=== PATIENT | male | born 1950 | race Caucasian/White ===

== ENCOUNTER → 2017-12-04 09:15 | Outpatient (CLI) | payer MEDICARE, SELFPAY ==
[2017-12-04 09:26] LABS: Bacteria 0 SEEN /hpf (None Seen); Mucous, Urine 0 SEEN /hpf (<or=2+); Red Blood Cells-Urine 0 SEEN /hpf (0-5); Squamous Epithelial Cells - UA 0 SEEN /hpf (0-5); White Blood Cells 0 SEEN /hpf (0-5)
[2017-12-04 10:05] LABS: Absolute Lymphocyte Count 1.57 X10^3/ul (0.83-4.51); Absolute Neutrophil Count 6.9 X10^3/uL (2.0-7.7); Basophil# 0.02 X10^3/uL; Basophil% 0.2 % (0-1); Eosinophil# 0.14 X10^3/uL; Eosinophils% 1.5 % (0-5); Hematocrit 41.7 % (40-54); Hemoglobin 13.3 g/dl (13.0-16.5); Lymphocyte # 1.57 X10^3/ul (4.0); Mean Corp Hgb Conc 31.9 g/gl (32-36); Mean Corpuscular Volume 84.8 fL (80-94); Mean Platelet Vol. 10.2 fl (6.2-12.0); Monocyte# 0.61 X10^3/uL; Monocyte% 6.6 % (0-10); Neutrophil # 6.89 X10^3/uL (2.7-7.7); Neutrophil % 74.6 % (47-70); Platelet Count 412 K/mm3 (150-450); RBC Distribution Width CV 14.9 % (11.6-14.6); RBC Distribution Width SD 46.4 fl (35.1-43.9); Red Blood Count 4.92 M/mm3 (4.6-6.2); White Blood Count 9.2 K/mm3 (4.4-11.0)
[2017-12-04 10:13] LABS: POSITIVE COUNT NO; POSITIVE DIFFERENTIAL NO; POSITIVE MORPHOLOGY NO
[2017-12-04 10:37] LABS: Anion Gap 12 (5-15); BUN 15 mg/dL (7-18); BUN/Creat Ratio 9.2 RATIO (10-20); Calcium,Total 9.1 mg/dL (8.5-10.1); Chloride 103 mmol/L (98-107); Creatinine, Serum 1.63 mg/dL (0.70-1.30); EST Glomerular Filtration Rate 45 mL/min (>60); Est Glom Filt Rate - Afr Amer 55 mL/min (>60); Glucose 160 mg/dL (74-106); Potassium 4.4 mmol/L (3.5-5.1); Sodium Level 140 mmol/L (136-145)
[2017-12-04 10:38] LABS: PTHIN 91.1 pg/mL (18.4-80.1)
[2017-12-04 12:23] LABS: Color, Urine Yellow (Yellow); Glucose, Dipstick Normal (Normal); Ketone-Dipstick Negative (Negative); Leukocyte Esterase-Dipstick Negative /ul (Negative); Nitrite-Dipstick Negative (Negative); Occult Blood-Urine Negative /ul (Negative); Protein-Dipstick 500 mg/dl (Negative); Urine Bilirubin Dipstick Negative (Negative); Urine Clarity Clear (Clear); Urine Urobilinogen Normal (Normal)
[2017-12-04 12:30] LABS: Hyaline Cast 0-5 SEEN /lpf (0-5)
[2017-12-04 12:37] LABS: Protein, Urine (Random) 1158.5 mg/dL (<11.9); Protein:Creat Ratio 6331 mg/g CRE (0-200)
== END ==
PROVIDERS: Family Provider Family Medicine; PCP Family Medicine; Visit Provider Family Medicine
DX: N18.3 Chronic kidney disease, stage 3 (moderate) (principal)
CPT/HCPCS: 36415; 80048; 81001; 82306; 82570; 83970; 84156; 85025

== ENCOUNTER → 2017-12-17 07:53 | Outpatient (CLI) | payer MEDICARE, SELFPAY ==
--- NOTE | 2017-12-17 07:57 | RDU_ITS ---
Reason For Study: HTN Right Renal Artery Left Renal Artery Right renal artery ostium 113/25.5 Left renal artery ostium 112/21 RSV/EDV. PSV/EDV. Right renal artery proximal Left renal artery proximal PSV/EDV 114/19.2 PSV/EDV. 98.5/16.4 . Right renal artery mid 93.9/17.3 Left renal artery mid 100/21 PSV/EDV. PSV/EDV . Right renal artery distal 78.4/20.9 Left renal artery distal 106/24.6 PSV/EDV. PSV/EDV. Right RAR 1.84. Left RAR 1.81. Right Renal Parenchyma Left Renal Parenchyma Upper Pole Medula 26.4/7.3 PSV/EDV. Left upper pole medulla 32.8/9.12 Right upper pole medulla EDR 0.28 . PSV/EDV . Right upper pole medulla R.I. Left upper pole medulla EDR 0.28 . 0.72 . Left upper pole medulla R.I. 0.72 . Upper [place] Cortx 23.7/4.44 PSV/EDV. UP Cortex 11.8/3.67 PSV/EDV. Right upper pole cortex EDR 0.19 . Left upper pole cortex EDR 0.31 . Right upper pole cortex R.I. 0.81 . Left upper pole cortex R.I. 0.69 . Right lower Pole medulla 39.4/7.94 Left lower Pole medulla 20.3/5.50 PSV/EDV . PSV/EDV . Right lower pole medulla EDR 0.20 . Left lower pole medulla EDR 0.27 . Right lower pole medulla R.I. 0.8 . Left lower pole medulla R.I. 0.73 . Lower Pole Cortex 20.2/5 PSV/EDV. Lower Pole Cortx 15.9/4.43 PSV/EDV. Right lower pole cortex EDR 0.25 . Left lower pole cortex EDR 0.28 . Right lower pole cortex R.I. 0.75 . Left lower pole cortex R.I. 0.72 . Right Renal Hilar Left Renal Hilar Right Hilar avg 37.8/11.4 PSV/EDV. LT Hilar avg 56.5/14.1 PSV/EDV . Right hilar acceleration time 59 Left hilar acceleration time 59 m/sec. m/sec. Right Renal Dimensions Left Renal Dimensions Right kidney size 13.2 cm . Left kidney size 13.9 cm . Right cortical dimension 1.79 cm . Left cortical dimension 1.91 cm . Aorta Proximal abdominal aorta 1.48 x 1.48 cm . Proximal abdominal aorta peak systolic velocity is 62 cm/sec . Distal aorta not visualized due to body habitus and bowel gas. Interpretation Summary Dimensions of the intra-abdominal aorta appear normal, without evidence of aneurysmal dilatation. Renal artery velocities are bilaterally normal. Acceleration times are normal bilaterally. Renal- aortic ratios are also bilaterally normal. There is no evidence of hemodynamically significant renal artery stenosis on either side. Renovascular resistance appears to be bilaterally elevated . The right cortical dimension is increased. The left cortical dimension is increased. Kidneys appear normal in size bilaterally. Ordering Physician: David Mcgowan Referring Physician: David Mcgowan Performed By: Elvi Nichols RVT and Student
--- NOTE | 2017-12-17 09:05 | US_ITS ---
STUDY: RENAL ULTRASOUND - COMPLETE REASON FOR EXAM: Male, 67 years old. Chronic kidney disease stage III TECHNIQUE: Ultrasound evaluation of the kidneys was performed with real-time and static sepulveda-scale imaging. COMPARISON: None. FINDINGS: RIGHT KIDNEY: Normal location of the right kidney, which is normal in size. The right kidney measures 13.9 x 6.4 x 6.1 cm. There is a normal cortex of the right kidney. The renal cortex measures 2.0 cm. There is no right renal mass or cyst. There are no right renal calculi. There is no right hydronephrosis. DISTAL RIGHT URETER: There is non-visualization of the distal right ureter. There is no demonstrated right ureterovesical junction calculus. There is a visualized right ureteral jet. LEFT KIDNEY: Normal location of the left kidney, which is normal in size. The left kidney measures 13.9 x 5.5 x 5.1 cm. There is a normal cortex of the left kidney. The renal cortex measures 1.8 cm. There is no left renal mass or cyst. There are no left renal calculi. There is no left hydronephrosis. DISTAL LEFT URETER: There is non-visualization of the distal left ureter. There is no demonstrated left ureterovesical junction calculus. There is a visualized left ureteral jet. BLADDER: The distended urinary bladder has a volume of 367 ml. There is a normal wall thickness of the distended urinary bladder. There is no demonstrated mass within the urinary bladder. There are no demonstrated bladder calculi. US/Kidney and Bladder IMPRESSION: Normal ultrasound of the kidneys and urinary bladder. Electronically Signed: Flo Lr MD at 17:05 EDT , Service support ,
== END ==
PROVIDERS: Family Provider Family Medicine; PCP Family Medicine; Visit Provider Family Medicine
DX: I12.9 Hypertensive chronic kidney disease with stage 1 through stage 4 chronic kidney disease, or unspecified chronic kidney disease (principal); N18.3 Chronic kidney disease, stage 3 (moderate)
CPT/HCPCS: 76770; 93975

== ENCOUNTER → 2018-01-01 08:36 | Outpatient (CLI) | payer MEDICARE, SELFPAY ==
--- NOTE | 2018-01-01 08:44 | RAD_ITS ---
STUDY: X-RAY - LUMBAR SPINE REASON FOR EXAM: Male, 67 years old. Facet arthropathies. TECHNIQUE: 5 view(s) of the lumbar spine were obtained. COMPARISON: None FINDINGS: Normal lumbar lordosis. There is a 5 degree levoscoliosis of the lumbar spine centered at L3-4. There is a normal alignment of the vertebrae. There is borderline to mild anterior wedging of the T12 vertebra and bridging anterolateral osteophytes of the lower thoracic vertebral endplates. There is multilevel endplate spondylosis of the lumbar vertebrae as well, most prominent at L3-4. Posterior endplate spurring is most prominent at L5-S1. There is multi-level degenerative disc disease with moderate disc space narrowing at L3-4 and L5-S1. There is no demonstrated fracture. There are multilevel degenerative arthroses of the facet articulations. Mild degenerative arthrosis of the bilateral sacroiliac joints. There is atherosclerotic calcification of the abdominal aorta without a demonstrated aneurysm. RAD/L/S Spine Min 4 Views IMPRESSION: 1. Degenerative changes of the spine, as detailed above. 2. Aortobiiliac atherosclerotic calcific plaquing. There is no demonstrated aneurysm, but this still portends significant risk for future cardiovascular event, Abdominal Aortic Calcific Deposits Are an Important Predictor of Vascular Morbidity and Mortality; Max Morgan et al. Circulation, Jun 2000;[id number]. Electronically Signed: Oliver Coulter MD at 16:55 EDT , Service support ,
--- NOTE | 2018-01-01 08:44 | RAD_ITS ---
STUDY: X-RAY - PELVIS AND BILATERAL HIPS REASON FOR EXAM: Male, 67 years old. Bilateral hip pain. TECHNIQUE: Radiological exam, hip, bilateral, with pelvis when performed; minimum of 5 views COMPARISON: None. FINDINGS: There is a non-specific bowel gas pattern. There are atherosclerotic vascular calcifications. There are degenerative changes of the visualized lower lumbar spine. There is mild narrowing with early cortical sclerosis of the bilateral sacroiliac joints, consistent with degenerative osteoarthritic changes. Mild degenerative enthesophytes at the lateral cortical margins of the bilateral iliac wings. Normal visualized sacrum. Normal bilateral superior and inferior pubic rami. Normal pubic symphysis. Normal bilateral ischial tuberosities. No demonstrate osseous destructive lesion or fracture. Normal visualized right femoral head. There is early osteoarthritic spur formation of the right acetabular rim. Normal right hip joint. Normal visualized left femoral head. Degenerative 2 mm calcification at the superolateral margin of the acetabulum. Normal left hip joint. RAD/Hips B/L min 2 views w/ Pelvis IMPRESSION: 1. Degenerative changes of the lower lumbar spine, sacroiliac joints, and hips, as noted. 2. Atherosclerotic vascular calcifications present. Electronically Signed: Oliver Coulter MD at 16:51 EDT , Service support ,
--- NOTE | 2018-01-01 08:53 | RAD_ITS ---
STUDY: X-RAY - SACROILIAC JOINTS REASON FOR EXAM: Male, 67 years old. Hip pain, facet arthropathy. TECHNIQUE: 3 view(s) of the sacroiliac joints were obtained. COMPARISON: None. FINDINGS: There are degenerative changes of the bilateral sacroiliac joints. Normal visualized sacral ala and sacrum. There are multilevel degenerative changes of the visualized lumbar spine. There are mild cortical enthesophytes at the lateral margins of the bilateral iliac wings. Normal visualized sacrum. There are atherosclerotic vascular calcifications. No demonstrate osseous destructive lesion or fracture. RAD/S-I Jts 3 or More Views IMPRESSION: 1. Degenerative changes of the bilateral sacroiliac joints, as described above. 2. Atherosclerotic vascular calcifications. Electronically Signed: Oliver Coulter MD at 17:03 EDT , Service support ,
== END ==
PROVIDERS: Family Provider Family Medicine; PCP Family Medicine; Referring Provider Family Medicine; Visit Provider Family Medicine
DX: M25.551 Pain in right hip (principal); M25.552 Pain in left hip; M46.90 Unspecified inflammatory spondylopathy, site unspecified
CPT/HCPCS: 72110; 72202; 73521

== ENCOUNTER → 2018-04-01 08:25 | Outpatient (CLI) | payer MEDICARE, SELFPAY ==
[2018-04-01 08:31] LABS: Bacteria 0 SEEN /hpf (None Seen); Mucous, Urine 0 SEEN /hpf (<or=2+); Red Blood Cells-Urine 0 SEEN /hpf (0-5); Squamous Epithelial Cells - UA 0 SEEN /hpf (0-5)
[2018-04-01 10:19] LABS: Absolute Lymphocyte Count 2.06 X10^3/ul (0.83-4.51); Absolute Neutrophil Count 6.2 X10^3/uL (2.0-7.7); Basophil# 0.03 X10^3/uL; Basophil% 0.3 % (0-1); Eosinophil# 0.18 X10^3/uL; Hematocrit 39.9 % (40-54); Hemoglobin 12.8 g/dl (13.0-16.5); Lymphocyte # 2.06 X10^3/ul (4.0); Lymphocyte % 22.7 % (19-41); Mean Corp Hgb Conc 32.1 g/gl (32-36); Mean Corpuscular Hgb 28.3 pg (27.0-32.0); Mean Corpuscular Volume 88.3 fL (80-94); Mean Platelet Vol. 10.7 fl (6.2-12.0); Monocyte% 6.6 % (0-10); Neutrophil % 68.2 % (47-70); Platelet Count 491 K/mm3 (150-450); RBC Distribution Width CV 14.7 % (11.6-14.6); RBC Distribution Width SD 47.4 fl (35.1-43.9); Red Blood Count 4.52 M/mm3 (4.6-6.2); White Blood Count 9.1 K/mm3 (4.4-11.0)
[2018-04-01 10:21] LABS: Color, Urine Yellow (Yellow); Glucose, Dipstick 50 mg/dl (Normal); Ketone-Dipstick 5 mg/dl (Negative); Leukocyte Esterase-Dipstick Negative /ul (Negative); Nitrite-Dipstick Negative (Negative); Occult Blood-Urine Negative /ul (Negative); Protein-Dipstick 500 mg/dl (Negative); Urine Bilirubin Dipstick Negative (Negative); Urine Clarity Clear (Clear); Urine Urobilinogen Normal (Normal)
[2018-04-01 10:23] LABS: POSITIVE COUNT NO; POSITIVE DIFFERENTIAL NO; POSITIVE MORPHOLOGY NO
[2018-04-01 10:28] LABS: White Blood Cells 0-5 SEEN /hpf (0-5)
[2018-04-01 10:35] LABS: Protein, Urine (Random) 773.7 mg/dL (<11.9); Protein:Creat Ratio 4447 mg/g CRE (0-200)
[2018-04-01 10:46] LABS: PTHIN 120.6 pg/mL (18.4-80.1)
[2018-04-01 10:48] LABS: ALB/GLOB Ratio 0.8 RATIO (0.9-2.4); AST(SGOT) 30 U/L (15-37); Alanine Aminotransfer ALT/SGPT 33 U/L (16-61); Albumin, Serum 3.3 g/dL (3.2-5.0); Alkaline Phosphatase 29 U/L (45-117); Anion Gap 12 (5-15); BUN 25 mg/dL (7-18); BUN/Creat Ratio 12.1 RATIO (10-20); Calcium,Total 8.9 mg/dL (8.5-10.1); Chloride 104 mmol/L (98-107); Cholesterol 178 mg/dL (200); Creatinine, Serum 2.06 mg/dL (0.70-1.30); EST Glomerular Filtration Rate 35 mL/min (>60); Est Glom Filt Rate - Afr Amer 42 mL/min (>60); Globulin 4.2 g/dL (2.2-4.2); Glucose 156 mg/dL (74-106); High Density Lipoprotein 26 mg/dL; Potassium 4.7 mmol/L (3.5-5.1); Protein, Total 7.5 g/dL (6.4-8.2); Sodium Level 138 mmol/L (136-145); Triglycerides 469 mg/dL
[2018-04-01 10:51] LABS: Vitamin D,25 Hydroxy 20.2 ng/mL (29.95-100.01)
[2018-04-02 15:32] LABS: Hemoglobin A1c 7.6 % (4.2-6.3)
== END ==
PROVIDERS: Family Provider Family Medicine; PCP Family Medicine; Visit Provider Family Medicine
DX: E11.22 Type 2 diabetes mellitus with diabetic chronic kidney disease (principal); I12.9 Hypertensive chronic kidney disease with stage 1 through stage 4 chronic kidney disease, or unspecified chronic kidney disease; N18.3 Chronic kidney disease, stage 3 (moderate); E03.9 Hypothyroidism, unspecified; E55.9 Vitamin D deficiency, unspecified; E21.3 Hyperparathyroidism, unspecified
CPT/HCPCS: 36415; 80053; 80061; 81001; 82306; 82570; 83036; 83970; 84156; 84443; 85025

== ENCOUNTER → 2018-04-15 09:40 | Outpatient (CLI) | payer MEDICARE, SELFPAY ==
--- NOTE | 2018-04-15 09:44 | NM_ITS ---
CLINICAL: 68 year old male with history of clinical hyperparathyroidism. 99m Tc SESTAMIBI DUAL PHASE PARATHYROID SCINTIGRAPHY COMPARISON: None available FINDINGS: Following the intravenous administration of 25.7 mCi of 99m Tc sestamibi, image acquisitions of the anterior neck at approximately 20 minutes and 2.0 hours post radiopharmaceutical provision reveal: 1. Immediate static blood pool acquisitions demonstrate non-visualization of the right and left thyroid colloid. 2. Delayed images depict continued non-visualization of the right and left lobes of the thyroid gland. NM/Parathyroid Scan IMPRESSION: 1. There is no scintigraphic evidence of parathyroid adenoma. Non-visualization of the thyroid colloid is noted as above. Electronically Signed: Joby Burger DO at 22:46 EST Tel , Service support ,
== END ==
PROVIDERS: Family Provider Family Medicine; PCP Family Medicine; Referring Provider Family Medicine; Visit Provider Family Medicine
DX: E21.3 Hyperparathyroidism, unspecified (principal)
CPT/HCPCS: 78070; A9500

== ENCOUNTER → 2018-04-16 06:06 | Outpatient (CLI) | payer MEDICARE, SELFPAY ==
--- NOTE | 2018-04-16 06:39 | MRI_ITS ---
STUDY: MRI LUMBAR SPINE WITHOUT CONTRAST REASON FOR EXAM: Male, 68 years old. Low back pain radiating to the right leg TECHNIQUE: Standardized fat and water weighted pulse sequences were obtained in the sagittal and axial planes. COMPARISON: None FINDINGS: T12-L1: Normal endplates. Normal disc height, hydration and morphology. Normal bilateral facet joints. Normal central canal and bilateral lateral recesses. Normal bilateral intervertebral neural foramina. Normal lumbar lordosis. There is no substantial scoliosis. Normal conus medullaris that terminates at the L1-2 level. L1-2: Right facet joint effusion. Normal disc. L2-3: Normal disc. Bilateral facet hypertrophy. L3-4: Bulging annulus and bilateral facet hypertrophy with moderate right foraminal stenosis. L4-5: Bulging annulus and left facet hypertrophy with mild central canal stenosis, moderate to severe left and moderate right foraminal stenoses. L5-S1: Bulging annulus and bilateral facet hypertrophy with moderate to severe left and moderate right foraminal stenoses. Normal visualized sacral ala. Normal visualized paraspinous soft tissue structures. MRI/Spine Lumbar (Routine) IMPRESSION: Multilevel degenerative disease as described. Moderate to severe foraminal stenoses on the left at L4-5 and L5-S1. Electronically Signed: Howard Sim MD at 22:25 EST Tel , Service support ,
== END ==
PROVIDERS: Family Provider Family Medicine; PCP Family Medicine; Referring Provider Anesthesiology Pain Medicine; Visit Provider Anesthesiology Pain Medicine
DX: M54.9 Dorsalgia, unspecified (principal); M79.606 Pain in leg, unspecified
CPT/HCPCS: 72148

== ENCOUNTER → 2018-05-10 09:43 | Outpatient (CLI) | payer MEDICARE, SELFPAY ==
--- NOTE | 2018-05-10 09:46 | RAD_ITS ---
STUDY: X-RAY - RIGHT HIP REASON FOR EXAM: Male, 68 years old. Chronic low back pain and bilateral hip pain worse on the right. TECHNIQUE: 2 views of the hip. COMPARISON: Comparison is made with prior examination dated January 01, 2018. FINDINGS: Prostate calcification. Vascular calcification. Normal femoral head, neck, intertrochanteric region and visualized proximal femur. There is osteoarthritic spur formation of the acetabular rim. There is mild articular joint space narrowing. Normal visualized superior and inferior pubic rami and ischial tuberosities. RAD/HIP, UNI W/ Pelvis 2-3 Views IMPRESSION: Degenerative changes of the hip. Electronically Signed: Victorino Lu MD at 14:38 EST , Service support ,
[2018-05-10 10:24] LABS: Hematocrit 38.3 % (40-54); Hemoglobin 12.4 g/dl (13.0-16.5); Mean Corp Hgb Conc 32.4 g/gl (32-36); Mean Corpuscular Hgb 28.5 pg (27.0-32.0); Platelet Count 420 K/mm3 (150-450); RBC Distribution Width SD 44.9 fl (35.1-43.9); Red Blood Count 4.35 M/mm3 (4.6-6.2); Scan Indicated on CBC? Y/N NO; White Blood Count 9.4 K/mm3 (4.4-11.0)
[2018-05-10 10:49] LABS: Albumin, Serum 3.4 g/dL (3.2-5.0); BUN 29 mg/dL (7-18); BUN/Creat Ratio 13.8 RATIO (10-20); Chloride 107 mmol/L (98-107); EST Glomerular Filtration Rate 34 mL/min (>60); Est Glom Filt Rate - Afr Amer 41 mL/min (>60); Glucose 139 mg/dL (74-106); Potassium 4.7 mmol/L (3.5-5.1); Sodium Level 138 mmol/L (136-145)
[2018-05-10 10:58] LABS: PTHIN 129.1 pg/mL (18.4-80.1)
[2018-05-10 10:59] LABS: Vitamin D,25 Hydroxy 14.3 ng/mL (29.95-100.01)
[2018-05-10 11:27] LABS: Protein, Urine (Random) 553.1 mg/dL (<11.9); Protein:Creat Ratio 3763 mg/g CRE (0-200)
== END ==
PROVIDERS: Family Provider Family Medicine; PCP Family Medicine; Referring Provider Internal Medicine Nephrology; Visit Provider Internal Medicine Nephrology
DX: M25.551 Pain in right hip (principal); N18.3 Chronic kidney disease, stage 3 (moderate); R80.9 Proteinuria, unspecified
CPT/HCPCS: 36415; 73502; 80069; 82306; 82570; 83970; 84156; 85027

== ENCOUNTER → 2018-08-11 | Outpatient (CLI) | payer MEDICARE, SELFPAY ==
[2018-08-11 10:36] LABS: Anion Gap 8 (5-15); BUN 31 mg/dL (7-18); BUN/Creat Ratio 16.4 RATIO (10-20); Calcium,Total 9.1 mg/dL (8.5-10.1); Chloride 107 mmol/L (98-107); Creatinine, Serum 1.89 mg/dL (0.70-1.30); EST Glomerular Filtration Rate 38 mL/min (>60); Est Glom Filt Rate - Afr Amer 46 mL/min (>60); Glucose 159 mg/dL (74-106); Potassium 5.3 mmol/L (3.5-5.1); Sodium Level 138 mmol/L (136-145)
[2018-08-13 11:57] LABS: Cholesterol 145 mg/dL (200); High Density Lipoprotein 20 mg/dL; Triglycerides 435 mg/dL
[2018-08-13 12:07] LABS: Vitamin D,25 Hydroxy 38.9 ng/mL (29.95-100.01)
== END | disposition home or self-care (01) ==
LOC: MFPLAB 08:33
PROVIDERS: Family Provider Family Medicine; PCP Family Medicine; Referring Provider Family Medicine; Visit Provider Internal Medicine Nephrology
DX: E11.22 Type 2 diabetes mellitus with diabetic chronic kidney disease (principal); I12.9 Hypertensive chronic kidney disease with stage 1 through stage 4 chronic kidney disease, or unspecified chronic kidney disease; N18.3 Chronic kidney disease, stage 3 (moderate); E55.9 Vitamin D deficiency, unspecified; E78.5 Hyperlipidemia, unspecified
CPT/HCPCS: 36415; 80048; 80061; 82043; 82306; 82570

== ENCOUNTER → 2018-11-26 | Outpatient (CLI) | payer MEDICARE, SELFPAY ==
[2018-11-26 10:54] LABS: Hemoglobin A1c 7.7 % (4.2-6.3)
[2018-11-26 10:55] LABS: Vitamin D,25 Hydroxy 36.2 ng/mL (29.95-100.01)
[2018-11-26 11:02] LABS: ALB/GLOB Ratio 0.8 RATIO (0.9-2.4); AST(SGOT) 26 U/L (15-37); Alanine Aminotransfer ALT/SGPT 41 U/L (16-61); Albumin, Serum 3.4 g/dL (3.2-5.0); Alkaline Phosphatase 33 U/L (45-117); Anion Gap 11 (5-15); BUN 26 mg/dL (7-18); BUN/Creat Ratio 13.5 RATIO (10-20); Calcium,Total 8.9 mg/dL (8.5-10.1); Chloride 109 mmol/L (98-107); Cholesterol 142 mg/dL (200); Creatinine, Serum 1.92 mg/dL (0.70-1.30); EST Glomerular Filtration Rate 37 mL/min (>60); Est Glom Filt Rate - Afr Amer 45 mL/min (>60); Globulin 4.2 g/dL (2.2-4.2); Glucose 177 mg/dL (74-106); High Density Lipoprotein 23 mg/dL; Protein, Total 7.6 g/dL (6.4-8.2); Sodium Level 139 mmol/L (136-145); Thyroid Stim Hormone (TSH) 0.02 uIU/mL (0.358-3.74); Triglycerides 361 mg/dL; Very Low Density Lipoprotein 72 mg/dL (5-40)
== END | disposition home or self-care (01) ==
LOC: MFPLAB 08:17
PROVIDERS: Family Provider Family Medicine; PCP Family Medicine; Referring Provider Family Medicine; Visit Provider Family Medicine
DX: E55.9 Vitamin D deficiency, unspecified (principal); E11.9 Type 2 diabetes mellitus without complications; E78.5 Hyperlipidemia, unspecified
CPT/HCPCS: 36415; 80053; 80061; 82306; 83036; 84443

== ENCOUNTER → 2019-03-01 07:12 | Outpatient (CLI) | payer MEDICARE, SELFPAY ==
[2019-03-01 07:19] LABS: Mucous, Urine 0 SEEN /hpf (<or=2+); Red Blood Cells-Urine 0 SEEN /hpf (0-5)
[2019-03-01 10:07] LABS: Color, Urine Yellow (Yellow); Glucose, Dipstick 50 mg/dl (Normal); Ketone-Dipstick Negative (Negative); Leukocyte Esterase-Dipstick Negative /ul (Negative); Nitrite-Dipstick Negative (Negative); Occult Blood-Urine Negative /ul (Negative); Protein-Dipstick 100 mg/dl (Negative); Specific Gravity, Urine 1.015 (1.002-1.030); Urine Bilirubin Dipstick Negative (Negative); Urine Clarity Clear (Clear); Urine Urobilinogen Normal (Normal)
[2019-03-01 10:18] LABS: Hematocrit 37.3 % (40-54); Hemoglobin 11.8 g/dL (13.0-16.5); Mean Corp Hgb Conc 31.6 g/dL (32-36); Mean Corpuscular Hgb 27.1 pg (27.0-32.0); Mean Corpuscular Volume 85.6 fL (80-94); Mean Platelet Vol. 10.7 fl (6.2-12.0); Platelet Count 409 K/mm3 (150-450); RBC Distribution Width CV 13.5 % (11.6-14.6); RBC Distribution Width SD 42.5 fl (35.1-43.9); Red Blood Count 4.36 M/mm3 (4.6-6.2); White Blood Count 9.2 K/mm3 (4.4-11.0)
[2019-03-01 10:18] LABS: Protein, Urine (Random) 227.7 mg/dL (<11.9); Protein:Creat Ratio 2347 mg/g CRE (0-200)
[2019-03-01 10:21] LABS: Bacteria RARE /hpf (None Seen); Squamous Epithelial Cells - UA 0-5 SEEN /hpf (0-5); White Blood Cells 0-5 SEEN /hpf (0-5)
[2019-03-01 10:35] LABS: Hemoglobin A1c 7.5 % (4.2-6.3)
[2019-03-01 10:42] LABS: Vitamin D,25 Hydroxy 48.6 ng/mL (29.95-100.01)
[2019-03-01 11:02] LABS: ALB/GLOB Ratio 0.8 RATIO (0.9-2.4); AST(SGOT) 21 U/L (15-37); Alanine Aminotransfer ALT/SGPT 31 U/L (16-61); Albumin, Serum 3.5 g/dL (3.2-5.0); Alkaline Phosphatase 37 U/L (45-117); Anion Gap 11 (5-15); BUN 35 mg/dL (7-18); BUN/Creat Ratio 16.7 RATIO (10-20); Calcium,Total 9.3 mg/dL (8.5-10.1); Chloride 104 mmol/L (98-107); Cholesterol 149 mg/dL (200); Creatinine, Serum 2.09 mg/dL (0.70-1.30); EST Glomerular Filtration Rate 34 mL/min (>60); Est Glom Filt Rate - Afr Amer 41 mL/min (>60); Globulin 4.2 g/dL (2.2-4.2); Glucose 178 mg/dL (74-106); High Density Lipoprotein 21 mg/dL; Potassium 4.5 mmol/L (3.5-5.1); Protein, Total 7.7 g/dL (6.4-8.2); Sodium Level 137 mmol/L (136-145); Triglycerides 400 mg/dL
== END ==
PROVIDERS: Family Provider Family Medicine; PCP Family Medicine; Referring Provider Family Medicine; Visit Provider Family Medicine
DX: E11.9 Type 2 diabetes mellitus without complications (principal); E78.5 Hyperlipidemia, unspecified; N25.81 Secondary hyperparathyroidism of renal origin; E03.9 Hypothyroidism, unspecified; E55.9 Vitamin D deficiency, unspecified; I10 Essential (primary) hypertension
CPT/HCPCS: 80053; 80061; 81001; 82306; 82570; 83036; 83970; 84156; 84443; 85027

== ENCOUNTER → 2019-04-20 13:05 | Outpatient (CLI) | payer MEDICARE, SELFPAY ==
[2019-04-20 14:31] LABS: Hematocrit 39.4 % (40-54); Hemoglobin 12.6 g/dL (13.0-16.5); Mean Corpuscular Hgb 27.5 pg (27.0-32.0); Mean Platelet Vol. 10.4 fl (6.2-12.0); Platelet Count 411 K/mm3 (150-450); RBC Distribution Width CV 14.6 % (11.6-14.6); RBC Distribution Width SD 45.8 fl (35.1-43.9); Red Blood Count 4.58 M/mm3 (4.6-6.2); White Blood Count 13.7 K/mm3 (4.4-11.0)
[2019-04-20 14:48] LABS: Albumin, Serum 3.3 g/dL (3.2-5.0); BUN 29 mg/dL (7-18); BUN/Creat Ratio 14.9 RATIO (10-20); Calcium,Total 9.5 mg/dL (8.5-10.1); Chloride 108 mmol/L (98-107); Creatinine, Serum 1.94 mg/dL (0.70-1.30); EST Glomerular Filtration Rate 37 mL/min (>60); Est Glom Filt Rate - Afr Amer 45 mL/min (>60); Glucose 195 mg/dL (74-106); Phosphorus 2.9 mg/dL (2.5-4.9); Potassium 5.3 mmol/L (3.5-5.1); Sodium Level 136 mmol/L (136-145)
[2019-04-20 14:49] LABS: Protein, Urine (Random) 241.4 mg/dL (<11.9); Protein:Creat Ratio 3919 mg/g CRE (0-200)
[2019-04-20 14:52] LABS: PTHIN 104.7 pg/mL (18.4-80.1)
[2019-04-20 15:36] LABS: Vitamin D,25 Hydroxy 41.5 ng/mL (29.95-100.01)
== END ==
PROVIDERS: Family Provider Family Medicine; PCP Family Medicine; Referring Provider Internal Medicine Nephrology; Visit Provider Internal Medicine Nephrology
DX: N18.3 Chronic kidney disease, stage 3 (moderate) (principal); R80.9 Proteinuria, unspecified
CPT/HCPCS: 36415; 80069; 82306; 82570; 83970; 84156; 85027

== ENCOUNTER → 2019-06-09 12:49 | Outpatient (CLI) | payer MEDICARE, SELFPAY ==
[2019-06-09 16:20] LABS: ALB/GLOB Ratio 0.8 RATIO (0.9-2.4); AST(SGOT) 16 U/L (15-37); Alanine Aminotransfer ALT/SGPT 23 U/L (16-61); Albumin, Serum 3.4 g/dL (3.2-5.0); Alkaline Phosphatase 33 U/L (45-117); Anion Gap 7 (5-15); BUN 23 mg/dL (7-18); Calcium,Total 9.4 mg/dL (8.5-10.1); Chloride 102 mmol/L (98-107); Cholesterol 146 mg/dL (200); Creatinine, Serum 1.92 mg/dL (0.70-1.30); EST Glomerular Filtration Rate 37 mL/min (>60); Est Glom Filt Rate - Afr Amer 45 mL/min (>60); Ferritin 75 ng/mL (26-388); Globulin 4.5 g/dL (2.2-4.2); Glucose 187 mg/dL (74-106); High Density Lipoprotein 25 mg/dL; Iron 48 ug/dL (65-175); Iron Binding Capacity,Total 386 ug/dL (250-450); Potassium 4.7 mmol/L (3.5-5.1); Protein, Total 7.9 g/dL (6.4-8.2); Sodium Level 134 mmol/L (136-145); Triglycerides 355 mg/dL; Very Low Density Lipoprotein 71 mg/dL (5-40); Vitamin B12 342 pg/mL (211-911); Vitamin D,25 Hydroxy 30.1 ng/mL
[2019-06-09 17:56] LABS: Absolute Lymphocyte Count 2.01 X10^3/uL (0.83-4.51); Absolute Neutrophil Count 6.5 X10^3/uL (2.0-7.7); Basophil# 0.05 X10^3/uL; Basophil% 0.5 % (0-1); Eosinophil# 0.22 X10^3/uL; Eosinophils% 2.3 % (0-5); Hematocrit 38.9 % (40-54); Hemoglobin 12.4 g/dL (13.0-16.5); Lymphocyte # 2.01 X10^3/ul (4.0); Lymphocyte % 21.3 % (19-41); Mean Corp Hgb Conc 31.9 g/dL (32-36); Mean Corpuscular Hgb 28.1 pg (27.0-32.0); Mean Platelet Vol. 10.8 fl (6.2-12.0); Monocyte# 0.61 X10^3/uL; Monocyte% 6.5 % (0-10); NRBC Flagged by Analyzer 0 % (0-5); Neutrophil % 68.9 % (47-70); Platelet Count 425 K/mm3 (150-450); RBC Distribution Width CV 14.2 % (11.6-14.6); RBC Distribution Width SD 45.6 fl (35.1-43.9); Red Blood Count 4.42 M/mm3 (4.6-6.2); White Blood Count 9.4 K/mm3 (4.4-11.0)
== END ==
PROVIDERS: PCP Family Medicine; Referring Provider Family Medicine; Visit Provider Family Medicine
DX: I12.9 Hypertensive chronic kidney disease with stage 1 through stage 4 chronic kidney disease, or unspecified chronic kidney disease (principal); N18.3 Chronic kidney disease, stage 3 (moderate); E55.9 Vitamin D deficiency, unspecified; E78.5 Hyperlipidemia, unspecified; D64.9 Anemia, unspecified
CPT/HCPCS: 36415; 80053; 80061; 82306; 82607; 82728; 82746; 83540; 83550; 85025

== ENCOUNTER → 2019-09-15 11:16 | Outpatient (CLI) | payer MEDICARE, SELFPAY ==
[2019-09-15 15:27] LABS: Absolute Lymphocyte Count 1.59 X10^3/uL (0.83-4.51); Absolute Neutrophil Count 4.9 X10^3/uL (2.0-7.7); Basophil# 0.05 X10^3/uL; Basophil% 0.7 % (0-1); Eosinophil# 0.18 X10^3/uL; Eosinophils% 2.5 % (0-5); Hematocrit 39.9 % (40-54); Hemoglobin 12.3 g/dL (13.0-16.5); Lymphocyte # 1.59 X10^3/ul (4.0); Mean Corp Hgb Conc 30.8 g/dL (32-36); Mean Corpuscular Hgb 27.7 pg (27.0-32.0); Mean Corpuscular Volume 89.9 fL (80-94); Mean Platelet Vol. 10.6 fl (6.2-12.0); Monocyte# 0.51 X10^3/uL; NRBC Flagged by Analyzer 0 % (0-5); Neutrophil # 4.89 X10^3/uL (2.7-7.7); Neutrophil % 67.5 % (47-70); Platelet Count 385 K/mm3 (150-450); RBC Distribution Width CV 14.6 % (11.6-14.6); RBC Distribution Width SD 47.3 fl (35.1-43.9); Red Blood Count 4.44 M/mm3 (4.6-6.2); White Blood Count 7.2 K/mm3 (4.4-11.0)
[2019-09-15 15:52] LABS: Hemoglobin A1c 7.1 % (3.8-5.6)
[2019-09-15 15:58] LABS: ALB/GLOB Ratio 0.8 RATIO (0.9-2.4); AST(SGOT) 24 U/L (15-37); Alanine Aminotransfer ALT/SGPT 25 U/L (16-61); Albumin, Serum 3.4 g/dL (3.2-5.0); Alkaline Phosphatase 33 U/L (45-117); Anion Gap 10 (5-15); BUN 19 mg/dL (7-18); BUN/Creat Ratio 10.6 RATIO (10-20); Calcium,Total 9.1 mg/dL (8.5-10.1); Chloride 102 mmol/L (98-107); Cholesterol 163 mg/dL (200); EST Glomerular Filtration Rate 40 mL/min (>60); Est Glom Filt Rate - Afr Amer 49 mL/min (>60); Ferritin 53 ng/mL (26-388); Globulin 4.4 g/dL (2.2-4.2); Glucose 178 mg/dL (74-106); High Density Lipoprotein 20 mg/dL; Iron 86 ug/dL (65-175); Iron Binding Capacity,Total 423 ug/dL (250-450); Potassium 4.6 mmol/L (3.5-5.1); Protein, Total 7.8 g/dL (6.4-8.2); Sodium Level 135 mmol/L (136-145); Thyroid Stim Hormone (TSH) 2.26 uIU/mL (0.358-3.74); Triglycerides 362 mg/dL; Very Low Density Lipoprotein 72 mg/dL (5-40)
== END ==
PROVIDERS: PCP Family Medicine; Referring Provider Family Medicine; Visit Provider Family Medicine
DX: I10 Essential (primary) hypertension (principal); E61.1 Iron deficiency; E11.9 Type 2 diabetes mellitus without complications; E78.5 Hyperlipidemia, unspecified; E03.9 Hypothyroidism, unspecified
CPT/HCPCS: 36415; 80053; 80061; 82728; 83036; 83540; 83550; 84443; 85025

== ENCOUNTER → 2020-02-23 10:49 | Outpatient (CLI) | payer MEDICARE, SELFPAY ==
[2020-02-23 12:14] LABS: Hematocrit 39.7 % (40-54); Hemoglobin 12.4 g/dL (13.0-16.5); Mean Corp Hgb Conc 31.2 g/dL (32-36); Mean Corpuscular Hgb 27.9 pg (27.0-32.0); Mean Corpuscular Volume 89.2 fL (80-94); Mean Platelet Vol. 10.3 fl (6.2-12.0); Platelet Count 394 K/mm3 (150-450); RBC Distribution Width CV 14.1 % (11.6-14.6); RBC Distribution Width SD 45.8 fl (35.1-43.9); Red Blood Count 4.45 M/mm3 (4.6-6.2); White Blood Count 7.1 K/mm3 (4.4-11.0)
[2020-02-23 12:30] LABS: Albumin, Serum 3.5 g/dL (3.2-5.0); BUN 24 mg/dL (7-18); BUN/Creat Ratio 10.8 RATIO (10-20); Calcium,Total 9.4 mg/dL (8.5-10.1); Chloride 105 mmol/L (98-107); Creatinine, Serum 2.22 mg/dL (0.70-1.30); EST Glomerular Filtration Rate 32 mL/min (>60); Est Glom Filt Rate - Afr Amer 38 mL/min (>60); Glucose 150 mg/dL (74-106); Phosphorus 3.7 mg/dL (2.5-4.9); Potassium 4.9 mmol/L (3.5-5.1); Sodium Level 136 mmol/L (136-145)
[2020-02-23 12:40] LABS: Hemoglobin A1c 7.2 % (3.8-5.6)
[2020-02-23 12:44] LABS: PTHIN 142.8 pg/mL (18.4-80.1)
[2020-02-23 12:46] LABS: Vitamin D,25 Hydroxy 20.3 ng/mL
[2020-02-23 12:50] LABS: AST(SGOT) 24 U/L (15-37); Alanine Aminotransfer ALT/SGPT 33 U/L (16-61); Albumin, Serum 3.5 g/dL (3.2-5.0); Alkaline Phosphatase 35 U/L (45-117); Cholesterol 164 mg/dL (200); Globulin 4.1 g/dL (2.2-4.2); High Density Lipoprotein 29 mg/dL; Protein, Total 7.6 g/dL (6.4-8.2); T4 Free Direct 1.04 ng/dL (0.76-1.46); Triglycerides 291 mg/dL; Very Low Density Lipoprotein 58 mg/dL (5-40)
[2020-02-23 16:05] LABS: Protein, Urine (Random) 471.1 mg/dL (<11.9); Protein:Creat Ratio 2662 mg/g CRE (0-200)
== END ==
PROVIDERS: Internal Medicine Nephrology; PCP Family Medicine; Referring Provider Family Medicine; Visit Provider Family Medicine
DX: E03.9 Hypothyroidism, unspecified (principal); E11.22 Type 2 diabetes mellitus with diabetic chronic kidney disease; I12.9 Hypertensive chronic kidney disease with stage 1 through stage 4 chronic kidney disease, or unspecified chronic kidney disease; N18.30 Chronic kidney disease, stage 3 unspecified; E78.5 Hyperlipidemia, unspecified; E55.9 Vitamin D deficiency, unspecified
CPT/HCPCS: 36415; 80061; 80069; 80076; 82306; 82570; 83036; 83970; 84156; 84439; 84443; 85027

== ENCOUNTER → 2020-09-04 10:51 | Outpatient (CLI) | payer MEDICARE, SELFPAY ==
[2020-09-04 12:23] LABS: Absolute Lymphocyte Count 1.91 X10^3/uL (0.83-4.51); Absolute Neutrophil Count 5.4 X10^3/uL (2.0-7.7); Basophil# 0.05 X10^3/uL; Basophil% 0.6 % (0-1); Eosinophils% 2.5 % (0-5); Hemoglobin 12.9 g/dL (13.0-16.5); Lymphocyte # 1.91 X10^3/ul (0.83-4.51); Lymphocyte % 23.6 % (19-41); Mean Corp Hgb Conc 32.3 g/dL (32-36); Mean Corpuscular Hgb 28.2 pg (27.0-32.0); Mean Corpuscular Volume 87.3 fL (80-94); Monocyte# 0.45 X10^3/uL; Monocyte% 5.6 % (0-10); NRBC Flagged by Analyzer 0 % (0-5); Neutrophil # 5.43 X10^3/uL (2.7-7.7); Neutrophil % 67.2 % (47-70); Platelet Count 442 K/mm3 (150-450); RBC Distribution Width CV 14.2 % (11.6-14.6); RBC Distribution Width SD 45.8 fl (35.1-43.9); Red Blood Count 4.58 M/mm3 (4.6-6.2); White Blood Count 8.1 K/mm3 (4.4-11.0)
[2020-09-04 12:46] LABS: ALB/GLOB Ratio 0.8 RATIO (0.9-2.4); AST(SGOT) 25 U/L (15-37); Alanine Aminotransfer ALT/SGPT 36 U/L (16-61); Albumin, Serum 3.4 g/dL (3.2-5.0); Alkaline Phosphatase 37 U/L (45-117); Anion Gap 7 (5-15); BUN 30 mg/dL (7-18); BUN/Creat Ratio 13.2 RATIO (10-20); Calcium,Total 8.9 mg/dL (8.5-10.1); Chloride 105 mmol/L (98-107); Cholesterol 157 mg/dL (200); Creatinine, Serum 2.28 mg/dL (0.70-1.30); EST Glomerular Filtration Rate 31 mL/min (>60); Est Glom Filt Rate - Afr Amer 37 mL/min (>60); Globulin 4.2 g/dL (2.2-4.2); Glucose 174 mg/dL (74-106); High Density Lipoprotein 27 mg/dL; Protein, Total 7.6 g/dL (6.4-8.2); Sodium Level 136 mmol/L (136-145); Triglycerides 320 mg/dL; Very Low Density Lipoprotein 64 mg/dL (5-40)
[2020-09-04 12:47] LABS: Hemoglobin A1c 6.7 % (3.8-5.6)
[2020-09-04 12:54] LABS: Protein, Urine (Random) 283.1 mg/dL (<11.9); Protein:Creat Ratio 2051 mg/g CRE (0-200)
[2020-09-04 13:05] LABS: Vitamin D,25 Hydroxy 15.9 ng/mL
== END ==
PROVIDERS: PCP Family Medicine; Referring Provider Family Medicine; Visit Provider Family Medicine
DX: I12.9 Hypertensive chronic kidney disease with stage 1 through stage 4 chronic kidney disease, or unspecified chronic kidney disease (principal); E11.22 Type 2 diabetes mellitus with diabetic chronic kidney disease; N18.32 Chronic kidney disease, stage 3b; E78.5 Hyperlipidemia, unspecified; E55.9 Vitamin D deficiency, unspecified
CPT/HCPCS: 80053; 80061; 82306; 82570; 83036; 84156; 85025

== ENCOUNTER → 2020-12-12 11:08 | Outpatient (CLI) | payer MEDICARE, SELFPAY ==
[2020-12-12 15:20] LABS: Absolute Lymphocyte Count 1.62 X10^3/uL (0.83-4.51); Absolute Neutrophil Count 5.6 X10^3/uL (2.0-7.7); Basophil# 0.05 X10^3/uL; Basophil% 0.6 % (0-1); Eosinophil# 0.82 X10^3/uL; Eosinophils% 9.5 % (0-5); Hemoglobin 13.1 g/dL (13.0-16.5); Lymphocyte # 1.62 X10^3/ul (0.83-4.51); Lymphocyte % 18.8 % (19-41); Mean Corpuscular Volume 87.6 fL (80-94); Mean Platelet Vol. 10.3 fl (6.2-12.0); Monocyte# 0.56 X10^3/uL; Monocyte% 6.5 % (0-10); NRBC Flagged by Analyzer 0 % (0-5); Neutrophil # 5.55 X10^3/uL (2.7-7.7); Neutrophil % 64.3 % (47-70); Platelet Count 405 K/mm3 (150-450); RBC Distribution Width CV 14.5 % (11.6-14.6); RBC Distribution Width SD 46.5 fl (35.1-43.9); Red Blood Count 4.68 M/mm3 (4.6-6.2); White Blood Count 8.6 K/mm3 (4.4-11.0)
[2020-12-12 15:51] LABS: Vitamin D,25 Hydroxy 29.2 ng/mL
[2020-12-12 15:53] LABS: Hemoglobin A1c 7.1 % (3.8-5.6)
[2020-12-12 16:10] LABS: ALB/GLOB Ratio 0.7 RATIO (0.9-2.4); AST(SGOT) 27 U/L (15-37); Alanine Aminotransfer ALT/SGPT 34 U/L (16-61); Albumin, Serum 3.2 g/dL (3.2-5.0); Alkaline Phosphatase 37 U/L (45-117); Anion Gap 7 (5-15); BUN 31 mg/dL (7-18); Calcium,Total 8.8 mg/dL (8.5-10.1); Chloride 105 mmol/L (98-107); Cholesterol 215 mg/dL (200); Creatinine, Serum 2.22 mg/dL (0.70-1.30); EST Glomerular Filtration Rate 31 mL/min (>60); Est Glom Filt Rate - Afr Amer 38 mL/min (>60); Globulin 4.5 g/dL (2.2-4.2); Glucose 141 mg/dL (74-106); High Density Lipoprotein 36 mg/dL; Potassium 4.7 mmol/L (3.5-5.1); Protein, Total 7.7 g/dL (6.4-8.2); Sodium Level 136 mmol/L (136-145); Thyroid Stim Hormone (TSH) 0.67 uIU/mL (0.358-3.74); Triglycerides 372 mg/dL; Very Low Density Lipoprotein 74 mg/dL (5-40)
[2020-12-13 10:54] LABS: PTHIN 133.1 pg/mL (18.4-80.1)
== END ==
PROVIDERS: PCP Family Medicine; Referring Provider Family Medicine; Visit Provider Family Medicine
DX: E11.9 Type 2 diabetes mellitus without complications (principal); E03.9 Hypothyroidism, unspecified; N25.81 Secondary hyperparathyroidism of renal origin; E55.9 Vitamin D deficiency, unspecified
CPT/HCPCS: 36415; 80053; 80061; 82306; 83036; 83970; 84439; 84443; 85025

== ENCOUNTER → 2021-03-26 14:30 | Outpatient (CLI) | payer MEDICARE, SELFPAY ==
[2021-03-26 17:35] LABS: Hematocrit 42.1 % (40-54); Hemoglobin 13.3 g/dL (13.0-16.5); Mean Corp Hgb Conc 31.6 g/dL (32-36); Mean Corpuscular Hgb 27.7 pg (27.0-32.0); Mean Corpuscular Volume 87.7 fL (80-94); Mean Platelet Vol. 10.2 fl (6.2-12.0); Platelet Count 432 K/mm3 (150-450); RBC Distribution Width SD 45.3 fl (35.1-43.9); White Blood Count 8.8 K/mm3 (4.4-11.0)
[2021-03-26 17:57] LABS: Anion Gap 9 (5-15); BUN 36 mg/dL (7-18); BUN/Creat Ratio 15.4 RATIO (10-20); Calcium,Total 9.1 mg/dL (8.5-10.1); Chloride 106 mmol/L (98-107); Creatinine, Serum 2.34 mg/dL (0.70-1.30); EST Glomerular Filtration Rate 30 mL/min (>60); Est Glom Filt Rate - Afr Amer 36 mL/min (>60); Glucose 83 mg/dL (74-106); Potassium 4.8 mmol/L (3.5-5.1); Sodium Level 138 mmol/L (136-145)
[2021-03-26 17:59] LABS: Vitamin D,25 Hydroxy 33.3 ng/mL
[2021-03-26 18:04] LABS: Protein, Urine (Random) 574.1 mg/dL (<11.9); Protein:Creat Ratio 6660 mg/g CRE (0-200)
[2021-03-27 08:36] LABS: PTHIN 103.5 pg/mL (18.4-80.1)
== END ==
PROVIDERS: PCP Family Medicine; Referring Provider Internal Medicine Nephrology; Visit Provider Internal Medicine Nephrology
DX: N18.32 Chronic kidney disease, stage 3b (principal)
CPT/HCPCS: 36415; 80048; 82306; 82570; 83970; 84156; 85027

== ENCOUNTER → 2021-04-04 14:51 | Outpatient (CLI) | payer MEDICARE, SELFPAY ==
--- NOTE | 2021-04-04 14:53 | RAD_ITS ---
STUDY: X-RAY - PELVIS AND LEFT HIP REASON FOR EXAM: Male, 71 years old. PAIN TECHNIQUE: 3 views of the pelvis and hip. COMPARISON: 05/20/2018 FINDINGS: There is a non-specific bowel gas pattern. Normal visualized soft tissue structures. Normal bilateral iliac wings, sacroiliac joints and visualized sacrum. Normal bilateral superior and inferior pubic rami. Normal pubic symphysis. Normal bilateral ischial tuberosities. Normal visualized femoral head. Normal acetabulum. Normal hip joint. RAD/HIP, UNI W/ Pelvis 2-3 Views IMPRESSION: Normal x-ray examination of the pelvis and hip. Electronically Signed: Joby Blood MD at 10:14 EST Tel , Service support ,
== END ==
PROVIDERS: PCP Family Medicine; Referring Provider Anesthesiology Pain Medicine; Visit Provider Anesthesiology Pain Medicine
DX: M16.12 Unilateral primary osteoarthritis, left hip (principal)
CPT/HCPCS: 73502

== ENCOUNTER 2021-06-25 14:53 | Outpatient (CLI) | payer MEDICARE, SELFPAY ==
[2021-06-25 18:00] LABS: Hemoglobin A1c 6.8 % (3.8-5.6)
[2021-06-25 18:03] LABS: ALB/GLOB Ratio 0.7 RATIO (0.9-2.4); AST(SGOT) 23 U/L (15-37); Alanine Aminotransfer ALT/SGPT 32 U/L (16-61); Albumin, Serum 3.1 g/dL (3.2-5.0); Alkaline Phosphatase 35 U/L (45-117); Anion Gap 7 (5-15); BUN 34 mg/dL (7-18); BUN/Creat Ratio 11.9 RATIO (10-20); Calcium,Total 9.1 mg/dL (8.5-10.1); Chloride 104 mmol/L (98-107); Cholesterol 252 mg/dL (200); Creatinine, Serum 2.85 mg/dL (0.70-1.30); EST Glomerular Filtration Rate 24 mL/min (>60); Est Glom Filt Rate - Afr Amer 28 mL/min (>60); Globulin 4.7 g/dL (2.2-4.2); Glucose 155 mg/dL (74-106); High Density Lipoprotein 27 mg/dL; Potassium 5.1 mmol/L (3.5-5.1); Protein, Total 7.8 g/dL (6.4-8.2); Sodium Level 134 mmol/L (136-145); T4 Free Direct 1.07 ng/dL (0.76-1.46); Thyroid Stim Hormone (TSH) 1.71 uIU/mL (0.358-3.74); Triglycerides 526 mg/dL
== END 2021-06-25 23:59 | disposition home or self-care (01) ==
LOC: MFPLAB 15:04
PROVIDERS: PCP Family Medicine; Referring Provider Family Medicine; Visit Provider Family Medicine
DX: E55.9 Vitamin D deficiency, unspecified (principal); E11.9 Type 2 diabetes mellitus without complications; E03.9 Hypothyroidism, unspecified
CPT/HCPCS: 36415; 80053; 80061; 82306; 83036; 84439; 84443

== ENCOUNTER 2021-07-18 10:50 | Outpatient (CLI) | payer MEDICARE, SELFPAY ==
[2021-07-18 12:20] LABS: Anion Gap 4 (5-15); BUN 28 mg/dL (7-18); BUN/Creat Ratio 11.5 RATIO (10-20); Chloride 109 mmol/L (98-107); Creatinine, Serum 2.43 mg/dL (0.70-1.30); EST Glomerular Filtration Rate 28 mL/min (>60); Est Glom Filt Rate - Afr Amer 34 mL/min (>60); Glucose 151 mg/dL (74-106); Potassium 4.3 mmol/L (3.5-5.1); Sodium Level 138 mmol/L (136-145)
== END 2021-07-18 23:59 | disposition home or self-care (01) ==
LOC: MTLAB 10:53
PROVIDERS: PCP Family Medicine; Referring Provider Family Medicine; Visit Provider Family Medicine
DX: N18.30 Chronic kidney disease, stage 3 unspecified (principal)
CPT/HCPCS: 36415; 80048

== ENCOUNTER → 2021-08-19 | Outpatient (CLI) | payer MEDICARE, SELFPAY ==
[2021-08-19 17:44] LABS: Absolute Lymphocyte Count 1.82 X10^3/uL (0.83-4.51); Absolute Neutrophil Count 6.3 X10^3/uL (2.0-7.7); Basophil# 0.03 X10^3/uL; Basophil% 0.3 % (0-1); Eosinophil# 0.23 X10^3/uL; Eosinophils% 2.5 % (0-5); Hematocrit 40.1 % (40-54); Hemoglobin 12.8 g/dL (13.0-16.5); Lymphocyte # 1.82 X10^3/ul (0.83-4.51); Mean Corp Hgb Conc 31.9 g/dL (32-36); Mean Corpuscular Hgb 28.4 pg (27.0-32.0); Mean Corpuscular Volume 88.9 fL (80-94); Mean Platelet Vol. 10.6 fl (6.2-12.0); Monocyte% 7.7 % (0-10); NRBC Flagged by Analyzer 0 % (0-5); Neutrophil # 6.31 X10^3/uL (2.7-7.7); Neutrophil % 69.2 % (47-70); Platelet Count 441 K/mm3 (150-450); RBC Distribution Width CV 14.2 % (11.6-14.6); RBC Distribution Width SD 46.1 fl (35.1-43.9); Red Blood Count 4.51 M/mm3 (4.6-6.2); White Blood Count 9.1 K/mm3 (4.4-11.0)
[2021-08-19 18:01] LABS: Albumin, Serum 3.3 g/dL (3.2-5.0); BUN 38 mg/dL (7-18); BUN/Creat Ratio 14.4 RATIO (10-20); Calcium,Total 9.2 mg/dL (8.5-10.1); Chloride 104 mmol/L (98-107); Creatinine, Serum 2.64 mg/dL (0.70-1.30); EST Glomerular Filtration Rate 26 mL/min (>60); Est Glom Filt Rate - Afr Amer 31 mL/min (>60); Glucose 100 mg/dL (74-106); Phosphorus 3.7 mg/dL (2.5-4.9); Potassium 4.6 mmol/L (3.5-5.1); Sodium Level 134 mmol/L (136-145)
[2021-08-20 08:12] LABS: PTHIN 147.7 pg/mL (18.4-80.1)
== END | disposition home or self-care (01) ==
LOC: MFPLAB 15:22
PROVIDERS: PCP Family Medicine; Referring Provider Internal Medicine Nephrology; Visit Provider Internal Medicine Nephrology
DX: N18.32 Chronic kidney disease, stage 3b (principal); N25.81 Secondary hyperparathyroidism of renal origin; R80.9 Proteinuria, unspecified; E55.9 Vitamin D deficiency, unspecified
CPT/HCPCS: 36415; 80069; 82043; 82306; 82570; 83970; 85025

== ENCOUNTER → 2021-09-06 | Outpatient (CLI) | payer MEDICARE, SELFPAY ==
--- NOTE | 2021-09-06 07:20 | MRI_ITS ---
STUDY: MRI LUMBAR SPINE WITHOUT CONTRAST REASON FOR EXAM: Male, 71 years old. Lumbar radiculopathy to left leg. TECHNIQUE: Standardized fat and water weighted pulse sequences were obtained in the sagittal and axial planes. COMPARISON: MRI lumbar spine without contrast 04/16/2018. FINDINGS: T11-T12: (Sagittal only). Normal T11 inferior endplate. Slight anterior wedging of T12 superior endplate is unchanged. Mild disc space height narrowing. Normal central canal and bilateral intervertebral neural foramina. T12-L1: (Sagittal only). Normal endplates. Normal disc height and morphology. Normal central canal and bilateral intervertebral neural foramina. Normal lumbar lordosis. There is no substantial scoliosis. Normal conus medullaris that terminates at the mid L1 vertebral body level. L1-2: Normal endplates. Normal disc height, hydration and morphology. Normal bilateral facet joints. Normal central canal and bilateral lateral recesses. Normal bilateral intervertebral neural foramina. L2-3: Normal endplates. Normal disc height, hydration and morphology. Normal bilateral facet joints. Normal central canal and bilateral lateral recesses. Normal bilateral intervertebral neural foramina. L3-4: MODIC type II degenerative vertebral marrow fatty changes underneath the right side of the vertebral endplates. Pronounced right-sided disc space height narrowing. Mild ventral extra dural defect due to small posterior bulging annulus. Mild asymmetric degenerative facet arthropathy. Normal central canal and bilateral lateral recesses. Mild stenosis of the right intervertebral neural foramen. Normal left intervertebral neural foramen. L4-5: Normal endplates. Mild disc space height narrowing. Increased size of prominent ventral extradural defect is prominent posterior bulging disc. Moderate left degenerative facet arthropathy, previously mild. Mild right degenerative facet arthropathy, previously normal. Mild central canal stenosis with an AP canal diameter of 8 mm, previously 10 mm. Normal bilateral lateral recesses. Mild stenosis of the bilateral intervertebral neural foramina, left greater than right. L5-S1: Prominent anterior marginal spurs. Normal endplates. Moderate pronounced disc space height narrowing. Small posterior bulging annulus but no ventral extradural defect due to presence of ventral epidural fat. Moderate bilateral degenerative facet arthropathy are unchanged. Normal central canal and bilateral lateral recesses. Moderately pronounced stenosis of the left intervertebral neural foramen with suspicious impingement/entrapment of the left L5 nerve. Normal right intervertebral neural foramen. Normal visualized sacral ala. Normal visualized paraspinous soft tissue structures. MRI/Spine Lumbar (Routine) IMPRESSION: 1. Minimal increase in moderately pronounced stenosis of the left L5-S1 intervertebral neural foramen with minimal impingement/entrapment of the left L5 nerve. 2. Increased size of prominent L4-L5 posterior bulging disc and mild increase in central canal stenosis with an AP canal diameter of 8 mm, previously 10 mm. 3. No MRI evidence of lumbar extruded disc fragment. Electronically Signed: Jameson Williamson MD at 16:29 EDT ,
== END | disposition home or self-care (01) ==
LOC: MRI 07:11
PROVIDERS: PCP Family Medicine; Referring Provider Anesthesiology Pain Medicine; Visit Provider Anesthesiology Pain Medicine
DX: M51.17 Intervertebral disc disorders with radiculopathy, lumbosacral region (principal)
CPT/HCPCS: 72148

== ENCOUNTER → 2021-10-11 | Outpatient (CLI) | payer MEDICARE, SELFPAY ==
[2021-10-11 14:39] LABS: Bacteria 0 SEEN /hpf (None Seen); Mucous, Urine 0 SEEN /hpf (<or=2+); Red Blood Cells-Urine 0 SEEN /hpf (0-5); Squamous Epithelial Cells - UA 0 SEEN /hpf (0-5)
[2021-10-11 17:33] LABS: Absolute Lymphocyte Count 1.74 X10^3/uL (0.83-4.51); Absolute Neutrophil Count 6.7 X10^3/uL (2.0-7.7); Basophil# 0.06 X10^3/uL; Basophil% 0.6 % (0-1); Eosinophil# 0.26 X10^3/uL; Eosinophils% 2.8 % (0-5); Hematocrit 38.9 % (40-54); Hemoglobin 12.5 g/dL (13.0-16.5); Lymphocyte # 1.74 X10^3/ul (0.83-4.51); Lymphocyte % 18.5 % (19-41); Mean Corp Hgb Conc 32.1 g/dL (32-36); Mean Corpuscular Hgb 27.4 pg (27.0-32.0); Mean Corpuscular Volume 85.1 fL (80-94); Mean Platelet Vol. 10.1 fl (6.2-12.0); Monocyte# 0.61 X10^3/uL; Monocyte% 6.5 % (0-10); NRBC Flagged by Analyzer 0 % (0-5); Neutrophil # 6.68 X10^3/uL (2.7-7.7); Neutrophil % 71.2 % (47-70); Platelet Count 479 K/mm3 (150-450); RBC Distribution Width CV 14.8 % (11.6-14.6); Red Blood Count 4.57 M/mm3 (4.6-6.2); White Blood Count 9.4 K/mm3 (4.4-11.0)
[2021-10-11 17:34] LABS: Color, Urine Yellow (Yellow); Glucose, Dipstick 50 mg/dl (Normal); Ketone-Dipstick Negative (Negative); Leukocyte Esterase-Dipstick Negative /ul (Negative); Nitrite-Dipstick Negative (Negative); Occult Blood-Urine 10 /ul (Negative); Protein-Dipstick 500 mg/dl (Negative); Urine Bilirubin Dipstick Negative (Negative); Urine Clarity Clear (Clear); Urine Urobilinogen Normal (Normal)
[2021-10-11 17:47] LABS: White Blood Cells 0-5 SEEN /hpf (0-5)
[2021-10-11 17:54] LABS: ALB/GLOB Ratio 0.7 RATIO (0.9-2.4); AST(SGOT) 30 U/L (15-37); Alanine Aminotransfer ALT/SGPT 32 U/L (16-61); Albumin, Serum 3.3 g/dL (3.2-5.0); Alkaline Phosphatase 36 U/L (45-117); Anion Gap 9 (5-15); BUN 32 mg/dL (7-18); BUN/Creat Ratio 11.6 RATIO (10-20); Chloride 105 mmol/L (98-107); Cholesterol 239 mg/dL (200); Creatinine, Serum 2.77 mg/dL (0.70-1.30); EST Glomerular Filtration Rate 24 mL/min (>60); Est Glom Filt Rate - Afr Amer 29 mL/min (>60); Globulin 4.5 g/dL (2.2-4.2); Glucose 91 mg/dL (74-106); High Density Lipoprotein 36 mg/dL; Phosphorus 3.8 mg/dL (2.5-4.9); Potassium 4.7 mmol/L (3.5-5.1); Protein, Total 7.8 g/dL (6.4-8.2); Sodium Level 136 mmol/L (136-145); T4 Free Direct 1.06 ng/dL (0.76-1.46); Triglycerides 353 mg/dL; Very Low Density Lipoprotein 71 mg/dL (5-40)
[2021-10-11 17:56] LABS: Protein, Urine (Random) 651.2 mg/dL (<11.9); Protein:Creat Ratio 4201 mg/g CRE (0-200)
[2021-10-11 17:57] LABS: Hemoglobin A1c 6.8 % (3.8-5.6)
[2021-10-12 08:59] LABS: PTHIN 154.3 pg/mL (18.4-80.1)
== END | disposition home or self-care (01) ==
LOC: MFPLAB 14:37
PROVIDERS: PCP Family Medicine; Visit Provider Family Medicine
DX: E11.59 Type 2 diabetes mellitus with other circulatory complications (principal); E11.22 Type 2 diabetes mellitus with diabetic chronic kidney disease; E11.69 Type 2 diabetes mellitus with other specified complication; N25.81 Secondary hyperparathyroidism of renal origin; N18.30 Chronic kidney disease, stage 3 unspecified; E03.9 Hypothyroidism, unspecified; E55.9 Vitamin D deficiency, unspecified
CPT/HCPCS: 80053; 80061; 81001; 82306; 82570; 83036; 83970; 84100; 84156; 84439; 84443; 85025

== ENCOUNTER → 2021-11-15 | Outpatient (CLI) | payer MEDICARE, SELFPAY ==
[2021-11-15 18:03] LABS: Anion Gap 9 (5-15); BUN 32 mg/dL (7-18); BUN/Creat Ratio 11.8 RATIO (10-20); Chloride 105 mmol/L (98-107); Creatinine, Serum 2.71 mg/dL (0.70-1.30); EST Glomerular Filtration Rate 25 mL/min (>60); Est Glom Filt Rate - Afr Amer 30 mL/min (>60); Glucose 179 mg/dL (74-106); Sodium Level 135 mmol/L (136-145)
[2021-11-15 18:12] LABS: Protein, Urine (Random) 249.1 mg/dL (<11.9); Protein:Creat Ratio 3929 mg/g CRE (0-200)
== END | disposition home or self-care (01) ==
LOC: MFPLAB 14:16
PROVIDERS: PCP Family Medicine; Referring Provider Family Medicine; Visit Provider Internal Medicine Nephrology
DX: N18.32 Chronic kidney disease, stage 3b (principal)
CPT/HCPCS: 36415; 80048; 82570; 84156

== ENCOUNTER → 2022-02-12 | Outpatient (CLI) | payer MEDICARE, SELFPAY ==
[2022-02-12 15:14] LABS: Absolute Lymphocyte Count 1.47 X10^3/uL (0.83-4.51); Absolute Neutrophil Count 6.3 X10^3/uL (2.0-7.7); Basophil# 0.04 X10^3/uL; Basophil% 0.5 % (0-1); Eosinophil# 0.21 X10^3/uL; Eosinophils% 2.5 % (0-5); Hematocrit 38.1 % (40-54); Hemoglobin 11.9 g/dL (13.0-16.5); Lymphocyte # 1.47 X10^3/ul (0.83-4.51); Lymphocyte % 17.3 % (19-41); Mean Corp Hgb Conc 31.2 g/dL (32-36); Mean Corpuscular Hgb 27.9 pg (27.0-32.0); Mean Corpuscular Volume 89.2 fL (80-94); Mean Platelet Vol. 10.5 fl (6.2-12.0); Monocyte% 5.9 % (0-10); NRBC Flagged by Analyzer 0 % (0-5); Neutrophil # 6.26 X10^3/uL (2.7-7.7); Neutrophil % 73.4 % (47-70); Platelet Count 447 K/mm3 (150-450); RBC Distribution Width CV 13.8 % (11.6-14.6); RBC Distribution Width SD 44.8 fl (35.1-43.9); Red Blood Count 4.27 M/mm3 (4.6-6.2); White Blood Count 8.5 K/mm3 (4.4-11.0)
[2022-02-12 15:27] LABS: Vitamin D,25 Hydroxy 52.4 ng/mL
[2022-02-12 15:40] LABS: ALB/GLOB Ratio 0.8 RATIO (0.9-2.4); AST(SGOT) 22 U/L (15-37); Alanine Aminotransfer ALT/SGPT 31 U/L (16-61); Albumin, Serum 3.4 g/dL (3.2-5.0); Alkaline Phosphatase 36 U/L (45-117); Anion Gap 9 (5-15); BUN 28 mg/dL (7-18); BUN/Creat Ratio 9.5 RATIO (10-20); Calcium,Total 9.6 mg/dL (8.5-10.1); Chloride 107 mmol/L (98-107); Cholesterol 168 mg/dL (200); Creatinine, Serum 2.94 mg/dL (0.70-1.30); EST Glomerular Filtration Rate 23 mL/min (>60); Est Glom Filt Rate - Afr Amer 27 mL/min (>60); Globulin 4.2 g/dL (2.2-4.2); Glucose 148 mg/dL (74-106); High Density Lipoprotein 26 mg/dL; Protein, Total 7.6 g/dL (6.4-8.2); Sodium Level 136 mmol/L (136-145); T4 Free Direct 1.32 ng/dL (0.76-1.46); Triglycerides 289 mg/dL; Very Low Density Lipoprotein 58 mg/dL (5-40)
[2022-02-12 15:46] LABS: Protein, Urine (Random) 521.5 mg/dL (<11.9); Protein:Creat Ratio 3524 mg/g CRE (0-200)
[2022-02-13 08:42] LABS: PTHIN 165.8 pg/mL (18.4-80.1)
== END | disposition home or self-care (01) ==
LOC: MFPLAB 12:24
PROVIDERS: PCP Family Medicine; Referring Provider Family Medicine; Visit Provider Family Medicine
DX: N18.4 Chronic kidney disease, stage 4 (severe) (principal); E11.22 Type 2 diabetes mellitus with diabetic chronic kidney disease; E03.9 Hypothyroidism, unspecified; E55.9 Vitamin D deficiency, unspecified
CPT/HCPCS: 36415; 80053; 80061; 82306; 82570; 83970; 84100; 84156; 84439; 84443; 85025

== ENCOUNTER → 2022-05-07 | Outpatient (CLI) | payer MEDICARE, SELFPAY ==
[2022-05-07 18:19] LABS: Anion Gap 10 (5-15); BUN 39 mg/dL (7-18); Calcium,Total 9.2 mg/dL (8.5-10.1); Chloride 106 mmol/L (98-107); Creatinine, Serum 2.79 mg/dL (0.70-1.30); EST Glomerular Filtration Rate 24 mL/min (>60); Est Glom Filt Rate - Afr Amer 29 mL/min (>60); Glucose 120 mg/dL (74-106); Potassium 5.2 mmol/L (3.5-5.1); Sodium Level 138 mmol/L (136-145)
[2022-05-07 19:15] LABS: Protein:Creat Ratio 3820 mg/g CRE (0-200)
== END | disposition home or self-care (01) ==
LOC: MFPLAB 14:13
PROVIDERS: PCP Family Medicine; Referring Provider Family Medicine; Visit Provider Internal Medicine Nephrology
DX: R80.9 Proteinuria, unspecified (principal); N18.4 Chronic kidney disease, stage 4 (severe)
CPT/HCPCS: 36415; 80048; 82043; 82570; 84156

== ENCOUNTER → 2022-06-11 | Outpatient (CLI) | payer MEDICARE, SELFPAY ==
[2022-06-11 17:33] LABS: Absolute Lymphocyte Count 1.63 X10^3/uL (0.83-4.51); Absolute Neutrophil Count 5.9 X10^3/uL (2.0-7.7); Basophil# 0.05 X10^3/uL; Basophil% 0.6 % (0-1); Eosinophil# 0.27 X10^3/uL; Eosinophils% 3.2 % (0-5); Hematocrit 38.5 % (40-54); Hemoglobin 12.1 g/dL (13.0-16.5); Lymphocyte # 1.63 X10^3/ul (0.83-4.51); Lymphocyte % 19.6 % (19-41); Mean Corp Hgb Conc 31.4 g/dL (32-36); Mean Corpuscular Hgb 27.8 pg (27.0-32.0); Mean Corpuscular Volume 88.3 fL (80-94); Mean Platelet Vol. 10.2 fl (6.2-12.0); Monocyte# 0.46 X10^3/uL; Monocyte% 5.5 % (0-10); NRBC Flagged by Analyzer 0 % (0-5); Neutrophil # 5.89 X10^3/uL (2.7-7.7); Neutrophil % 70.7 % (47-70); Platelet Count 386 K/mm3 (150-450); RBC Distribution Width CV 14.9 % (11.6-14.6); RBC Distribution Width SD 48.1 fl (35.1-43.9); Red Blood Count 4.36 M/mm3 (4.6-6.2); White Blood Count 8.3 K/mm3 (4.4-11.0)
[2022-06-11 17:54] LABS: ALB/GLOB Ratio 0.8 RATIO (0.9-2.4); AST(SGOT) 30 U/L (15-37); Alanine Aminotransfer ALT/SGPT 34 U/L (16-61); Albumin, Serum 3.5 g/dL (3.2-5.0); Alkaline Phosphatase 34 U/L (45-117); Anion Gap 9 (5-15); BUN 34 mg/dL (7-18); BUN/Creat Ratio 12.1 RATIO (10-20); Calcium,Total 9.5 mg/dL (8.5-10.1); Chloride 106 mmol/L (98-107); Cholesterol 161 mg/dL (200); EST Glomerular Filtration Rate 24 mL/min (>60); Est Glom Filt Rate - Afr Amer 29 mL/min (>60); Globulin 4.2 g/dL (2.2-4.2); Glucose 126 mg/dL (74-106); High Density Lipoprotein 29 mg/dL; Phosphorus 3.9 mg/dL (2.5-4.9); Potassium 5.1 mmol/L (3.5-5.1); Protein, Total 7.7 g/dL (6.4-8.2); Sodium Level 135 mmol/L (136-145); T4 Free Direct 1.25 ng/dL (0.76-1.46); Thyroid Stim Hormone (TSH) 0.25 uIU/mL (0.358-3.74); Triglycerides 347 mg/dL; Very Low Density Lipoprotein 69 mg/dL (5-40); Vitamin D,25 Hydroxy 51.6 ng/mL
[2022-06-11 17:59] LABS: Hemoglobin A1c 6.5 % (3.8-5.6)
== END | disposition home or self-care (01) ==
LOC: MFPLAB 13:37
PROVIDERS: PCP Family Medicine; Referring Provider Family Medicine; Visit Provider Family Medicine
DX: E11.22 Type 2 diabetes mellitus with diabetic chronic kidney disease (principal); N18.4 Chronic kidney disease, stage 4 (severe); E03.9 Hypothyroidism, unspecified; E55.9 Vitamin D deficiency, unspecified
CPT/HCPCS: 36415; 80053; 80061; 82306; 83036; 84100; 84439; 84443; 85025

== ENCOUNTER → 2022-10-20 | Outpatient (CLI) | payer MEDICARE, SELFPAY ==
[2022-10-20 14:58] LABS: Absolute Lymphocyte Count 1.69 X10^3/uL (0.83-4.51); Absolute Neutrophil Count 5.5 X10^3/uL (2.0-7.7); Basophil# 0.04 X10^3/uL; Basophil% 0.5 % (0-1); Eosinophil# 0.25 X10^3/uL; Eosinophils% 3.1 % (0-5); Hemoglobin 12.1 g/dL (13.0-16.5); Lymphocyte # 1.69 X10^3/ul (0.83-4.51); Lymphocyte % 21.1 % (19-41); Mean Corpuscular Volume 90.3 fL (80-94); Mean Platelet Vol. 10.8 fl (6.2-12.0); Monocyte# 0.47 X10^3/uL; Monocyte% 5.9 % (0-10); NRBC Flagged by Analyzer 0 % (0-5); Neutrophil # 5.52 X10^3/uL (2.7-7.7); Platelet Count 468 K/mm3 (150-450); RBC Distribution Width CV 13.8 % (11.6-14.6); RBC Distribution Width SD 46.3 fl (35.1-43.9); Red Blood Count 4.32 M/mm3 (4.6-6.2)
[2022-10-20 15:41] LABS: Vitamin D,25 Hydroxy 55.1 ng/mL
[2022-10-20 16:07] LABS: Hemoglobin A1c 7.2 % (3.8-5.6)
[2022-10-20 16:36] LABS: ALB/GLOB Ratio 0.6 RATIO (0.9-2.4); AST(SGOT) 18 U/L (15-37); Alanine Aminotransfer ALT/SGPT 21 U/L (16-61); Albumin, Serum 3.1 g/dL (3.2-5.0); Alkaline Phosphatase 37 U/L (45-117); Anion Gap 8 (5-15); BUN 34 mg/dL (7-18); BUN/Creat Ratio 10.9 RATIO (10-20); Calcium,Total 9.1 mg/dL (8.5-10.1); Chloride 112 mmol/L (98-107); Cholesterol 126 mg/dL (200); Creatinine, Serum 3.13 mg/dL (0.70-1.30); EST Glomerular Filtration Rate 21 mL/min (>60); Est Glom Filt Rate - Afr Amer 25 mL/min (>60); Globulin 4.8 g/dL (2.2-4.2); Glucose 156 mg/dL (74-106); High Density Lipoprotein 25 mg/dL; Phosphorus 3.6 mg/dL (2.5-4.9); Potassium 4.9 mmol/L (3.5-5.1); Protein, Total 7.9 g/dL (6.4-8.2); Sodium Level 138 mmol/L (136-145); Triglycerides 290 mg/dL; Very Low Density Lipoprotein 58 mg/dL (5-40)
[2022-10-20 17:23] LABS: Protein:Creat Ratio 3717 mg/g CRE (0-200)
[2022-10-21 08:37] LABS: PTHIN 147.2 pg/mL (18.4-80.1)
== END | disposition home or self-care (01) ==
LOC: MTLAB 11:19
PROVIDERS: PCP Family Medicine; Referring Provider Family Medicine; Visit Provider Family Medicine
DX: E11.22 Type 2 diabetes mellitus with diabetic chronic kidney disease (principal); N18.4 Chronic kidney disease, stage 4 (severe); N25.81 Secondary hyperparathyroidism of renal origin; E55.9 Vitamin D deficiency, unspecified; E03.9 Hypothyroidism, unspecified
CPT/HCPCS: 36415; 80053; 80061; 82043; 82306; 82570; 83036; 83970; 84100; 84156; 85025

== ENCOUNTER → 2023-02-20 | Outpatient (CLI) | payer MEDICARE, SELFPAY ==
[2023-02-20 15:38] LABS: Absolute Lymphocyte Count 1.45 X10^3/uL (0.83-4.51); Absolute Neutrophil Count 5.6 X10^3/uL (2.0-7.7); Basophil# 0.04 X10^3/uL; Basophil% 0.5 % (0-1); Eosinophil# 0.18 X10^3/uL; Eosinophils% 2.3 % (0-5); Hematocrit 39.1 % (40-54); Lymphocyte # 1.45 X10^3/ul (0.83-4.51); Lymphocyte % 18.6 % (19-41); Mean Corp Hgb Conc 30.7 g/dL (32-36); Mean Corpuscular Volume 91.4 fL (80-94); Mean Platelet Vol. 10.4 fl (6.2-12.0); Monocyte# 0.55 X10^3/uL; Monocyte% 7.1 % (0-10); NRBC Flagged by Analyzer 0 % (0-5); Neutrophil # 5.55 X10^3/uL (2.7-7.7); Neutrophil % 71.1 % (47-70); Platelet Count 355 K/mm3 (150-450); RBC Distribution Width CV 15.1 % (11.6-14.6); RBC Distribution Width SD 50.3 fl (35.1-43.9); Red Blood Count 4.28 M/mm3 (4.6-6.2); White Blood Count 7.8 K/mm3 (4.4-11.0)
[2023-02-20 15:52] LABS: Vitamin D,25 Hydroxy 62.4 ng/mL
[2023-02-20 15:55] LABS: Hemoglobin A1c 6.5 % (3.8-5.6)
[2023-02-20 16:11] LABS: ALB/GLOB Ratio 0.8 RATIO (0.9-2.4); AST(SGOT) 23 U/L (15-37); Alanine Aminotransfer ALT/SGPT 24 U/L (16-61); Albumin, Serum 3.4 g/dL (3.2-5.0); Alkaline Phosphatase 40 U/L (45-117); Anion Gap 8 (5-15); BUN 37 mg/dL (7-18); BUN/Creat Ratio 12.3 RATIO (10-20); Calcium,Total 8.8 mg/dL (8.5-10.1); Chloride 110 mmol/L (98-107); Cholesterol 172 mg/dL (200); Creatinine, Serum 3.02 mg/dL (0.70-1.30); EST Glomerular Filtration Rate 22 mL/min (>60); Est Glom Filt Rate - Afr Amer 26 mL/min (>60); Globulin 4.4 g/dL (2.2-4.2); Glucose 167 mg/dL (74-106); High Density Lipoprotein 36 mg/dL; Protein, Total 7.8 g/dL (6.4-8.2); Sodium Level 138 mmol/L (136-145); T4 Free Direct 1.02 ng/dL (0.76-1.46); Thyroid Stim Hormone (TSH) 0.52 uIU/mL (0.358-3.74); Triglycerides 348 mg/dL; Very Low Density Lipoprotein 70 mg/dL (5-40)
== END | disposition home or self-care (01) ==
LOC: MFPLAB 11:57
PROVIDERS: PCP Family Medicine; Visit Provider Family Medicine
DX: E11.9 Type 2 diabetes mellitus without complications (principal); E03.9 Hypothyroidism, unspecified; E55.9 Vitamin D deficiency, unspecified
CPT/HCPCS: 36415; 80053; 80061; 82306; 83036; 84439; 84443; 85025

== ENCOUNTER → 2023-05-07 | Outpatient (CLI) | payer MEDICARE, SELFPAY ==
[2023-05-07 16:27] LABS: Hematocrit 37.9 % (40-54); Hemoglobin 11.8 g/dL (13.0-16.5); Mean Corp Hgb Conc 31.1 g/dL (32-36); Mean Corpuscular Hgb 28.4 pg (27.0-32.0); Mean Corpuscular Volume 91.1 fL (80-94); Mean Platelet Vol. 10.4 fl (6.2-12.0); Platelet Count 317 K/mm3 (150-450); RBC Distribution Width CV 14.7 % (11.6-14.6); Red Blood Count 4.16 M/mm3 (4.6-6.2); White Blood Count 7.4 K/mm3 (4.4-11.0)
[2023-05-07 16:32] LABS: PTHIN 244.3 pg/mL (18.4-80.1)
[2023-05-07 16:38] LABS: Vitamin D,25 Hydroxy 41.4 ng/mL
[2023-05-07 16:41] LABS: Albumin, Serum 3.4 g/dL (3.2-5.0); BUN 30 mg/dL (7-18); BUN/Creat Ratio 9.5 RATIO (10-20); Chloride 109 mmol/L (98-107); Creatinine, Serum 3.15 mg/dL (0.70-1.30); EST Glomerular Filtration Rate 21 mL/min (>60); Est Glom Filt Rate - Afr Amer 25 mL/min (>60); Glucose 188 mg/dL (74-106); Phosphorus 3.6 mg/dL (2.5-4.9); Potassium 4.7 mmol/L (3.5-5.1); Sodium Level 135 mmol/L (136-145)
[2023-05-07 17:10] LABS: Protein, Urine (Random) 479.7 mg/dL (<11.9); Protein:Creat Ratio 5507 mg/g CRE (0-200)
--- OUTSIDE RECORDS SUMMARY | 2023-05-07 18:25 | XMS RPT_ITS | CCD ---
Author Name Unknown Address [address] [place] [id number] Organization [facility] Care Team Providers Care Lining Inserter Name Role Phone KAIT, WINIFRED BOND Unavailable Unavailable BASALI, WINIFRED BOND Unavailable Unavailable BASALI, AYMAN BOND Unavailable Unavailable ROXY NERI Unavailable Unavailabl e BASALI, WINIFRED BOND Unavailable Unavailable BASALI, AYMAN BOND Unavailable Unavailable BASALI, AYMAN BOND Unavailable Unavailable Allergies Allergy Classification Reported Allergen(s) Allergy Type Date of Onset Reaction(s) Facility (1 source) Amoxicillin; Translations: [AMOXICILLIN] Drug Allergy 01-01-2015 [facility] (1 source) oxyCODONE; Translations: [OXYCODONE] Drug Allergy 01-01-2015 [facility] Problems Problem Classification Problem Date Documented Date Episodic/Chronic Other connective tissue disease (1 source) Abnormal posture; Translations: [Abnormal posture] Onset: 02-05-2018 Episodic Other connective tissue disease (1 source) Muscle weakness (generalized); Translations: [Muscle weakness (generalized)] Onset: 02-05-2018 Episodic Other nervous system disorders (1 source) Other chronic pain; Translations: [Other chronic pain] Onset: 02-04-2018 Chronic Other non-traumatic joint disorders (1 source) Stiffness of unspecified joint, not elsewhere classified; Translations: [Stiffness of unspecified joint, not elsewhere classified] Onset: 02-05-2018 Episodic Spondylosis; intervertebral disc disorders; other back problems (1 source) Other intervertebral disc degeneration, lumbar region; Translations: [Other intervertebral disc degeneration, lumbar region] Onset: 02-05-2018 Chronic Spondylosis; intervertebral disc disorders; other back problems (1 source) Lumbago with sciatica, right side; Translations: [Lumbago with sciatica, right side] Onset: 02-04-2018 Episodic Thyroid disorders (1 source) Hypothyroidism, unspecified; Translations: [Hypothyroidism, unspecified] Onset: 02-23-2018 Chronic Unclassified (1 source) Unknown / UNK(Unknown) Onset: 02-04-2018 Results Test Name Value Interpretation Reference Range Facil ity Encounters Encounter Date Encounter Type Care Provider Facility Start: 03-25-2018 End: 03-25-2018 Patient encounter procedure [facility] Start: 03-16-2018 End: 03-16-2018 Patient encounter procedure [facility] Start: 03-10-2018 End: 03-10-2018 Patient encounter procedure [facility] Start: 02-23-2018 Patient encounter procedure ROXY NERI [facility] Start: 02-23-2018 End: 02-23-2018 Patient encounter procedure [facility] Start: 02-15-2018 End: 02-15-2018 Patient encounter procedure [facility] Start: 02-04-2018 End: 02-04-2018 Patient encounter procedure [facility] Summary Purpose Family History No Family History Records FoundNo Family History Records FoundNo Family History Records Found Advance Directives No Advanced Directives Records FoundNo Advanced Directives Records FoundNo Advanced Directives Records Found Additional Source Comments (unrecognized sect ion and content) No Status Records FoundNo Status Records FoundNo Status Records Found INFORMATION SOURCE (unrecogn ized section and content) DATE CREATED AUTHOR AUTHOR'S ORGANIZ ATION 03/27/2018 [facility] DATE CREATED AUTHOR AUTHOR'S ORGANIZ ATION 04/09/2019 [facility] FOR RECORDS PERTAINING TO PATIENTS WHO ARE OR HAVE BEEN ENROLLED IN A CHEMICAL DEPENDENCY/SUBSTANCEABUSE PROGRAM, SOME INFORMATION MAY BE OMITTED. This clinical summary was aggregated from multiple sources. Caution should be exercised in using it in the provision of clinical care. This summary normalizes information from multiple sources, and as a consequence, information in this document may materially change the coding, format and clinical context of patient data. In addition, data may be omitted in some cases. CLINICAL DECISIONS SHOULD BE BASED ON THE PRIMARY CLINICAL RECORDS. [facility] [employer] [facility]. provides no warranty or guarantee of the accuracy or completeness of information in this document.
== END | disposition home or self-care (01) ==
LOC: MFPLAB 14:13
PROVIDERS: PCP Family Medicine; Visit Provider Internal Medicine Nephrology
DX: N18.4 Chronic kidney disease, stage 4 (severe) (principal); N25.81 Secondary hyperparathyroidism of renal origin; E55.9 Vitamin D deficiency, unspecified; R80.9 Proteinuria, unspecified
CPT/HCPCS: 36415; 80069; 82306; 82570; 83970; 84156; 85027

== ENCOUNTER → 2023-06-25 | Outpatient (CLI) | payer MEDICARE, SELFPAY ==
[2023-06-25 13:42] LABS: Bacteria 0 SEEN /hpf (None Seen); Mucous, Urine 0 SEEN /hpf (<or=2+); Red Blood Cells-Urine 0 SEEN /hpf (0-5); Squamous Epithelial Cells - UA 0 SEEN /hpf (0-5); White Blood Cells 0 SEEN /hpf (0-5)
[2023-06-25 15:15] LABS: Absolute Lymphocyte Count 1.97 X10^3/uL (0.83-4.51); Absolute Neutrophil Count 5.7 X10^3/uL (2.0-7.7); Basophil# 0.04 X10^3/uL; Basophil% 0.5 % (0-1); Eosinophils% 2.3 % (0-5); Hematocrit 39.7 % (40-54); Hemoglobin 12.8 g/dL (13.0-16.5); Lymphocyte # 1.97 X10^3/ul (0.83-4.51); Lymphocyte % 23.1 % (19-41); Mean Corp Hgb Conc 32.2 g/dL (32-36); Mean Corpuscular Hgb 29.2 pg (27.0-32.0); Mean Corpuscular Volume 90.4 fL (80-94); Mean Platelet Vol. 10.5 fl (6.2-12.0); Monocyte# 0.63 X10^3/uL; Monocyte% 7.4 % (0-10); NRBC Flagged by Analyzer 0 % (0-5); Neutrophil # 5.67 X10^3/uL (2.7-7.7); Neutrophil % 66.3 % (47-70); Platelet Count 331 K/mm3 (150-450); RBC Distribution Width CV 14.3 % (11.6-14.6); RBC Distribution Width SD 47.9 fl (35.1-43.9); Red Blood Count 4.39 M/mm3 (4.6-6.2); White Blood Count 8.5 K/mm3 (4.4-11.0)
[2023-06-25 15:28] LABS: Color, Urine Yellow (Yellow); Glucose, Dipstick 50 mg/dl (Normal); Ketone-Dipstick 5 mg/dl (Negative); Leukocyte Esterase-Dipstick Negative /ul (Negative); Nitrite-Dipstick Negative (Negative); Occult Blood-Urine 25 /ul (Negative); Protein-Dipstick 500 mg/dl (Negative); Specific Gravity, Urine 1.015 (1.002-1.030); Urine Bilirubin Dipstick Negative (Negative); Urine Clarity Clear (Clear); Urine Urobilinogen Normal (Normal)
[2023-06-25 15:36] LABS: Hemoglobin A1c 6.4 % (3.8-5.6)
[2023-06-25 15:38] LABS: PTHIN 218.8 pg/mL (18.4-80.1)
[2023-06-25 15:42] LABS: Vitamin D,25 Hydroxy 42.2 ng/mL
[2023-06-25 15:52] LABS: ALB/GLOB Ratio 0.8 RATIO (0.9-2.4); AST(SGOT) 27 U/L (15-37); Alanine Aminotransfer ALT/SGPT 27 U/L (16-61); Albumin, Serum 3.3 g/dL (3.2-5.0); Alkaline Phosphatase 36 U/L (45-117); Anion Gap 8 (5-15); BUN 30 mg/dL (7-18); BUN/Creat Ratio 8.9 RATIO (10-20); Chloride 110 mmol/L (98-107); Cholesterol 183 mg/dL (200); Creatinine, Serum 3.38 mg/dL (0.70-1.30); EST Glomerular Filtration Rate 19 mL/min (>60); Est Glom Filt Rate - Afr Amer 23 mL/min (>60); Globulin 4.2 g/dL (2.2-4.2); Glucose 83 mg/dL (74-106); High Density Lipoprotein 38 mg/dL; Phosphorus 3.8 mg/dL (2.5-4.9); Potassium 4.8 mmol/L (3.5-5.1); Protein, Total 7.5 g/dL (6.4-8.2); Sodium Level 138 mmol/L (136-145); T4 Free Direct 1.09 ng/dL (0.76-1.46); Thyroid Stim Hormone (TSH) 2.26 uIU/mL (0.358-3.74); Triglycerides 341 mg/dL; Very Low Density Lipoprotein 68 mg/dL (5-40)
[2023-06-29 11:08] LABS: Vitamin D 1,25-Dihydroxy 24.2 pg/mL (24.8-81.5)
== END | disposition home or self-care (01) ==
LOC: MFPLAB 13:39
PROVIDERS: PCP Family Medicine; Visit Provider Family Medicine
DX: E03.9 Hypothyroidism, unspecified (principal); E11.69 Type 2 diabetes mellitus with other specified complication; E11.22 Type 2 diabetes mellitus with diabetic chronic kidney disease; N18.4 Chronic kidney disease, stage 4 (severe); N25.81 Secondary hyperparathyroidism of renal origin; E55.9 Vitamin D deficiency, unspecified
CPT/HCPCS: 36415; 80053; 80061; 81001; 82306; 82652; 83036; 83970; 84100; 84439; 84443; 85025

== ENCOUNTER → 2023-10-28 | Outpatient (CLI) | payer MEDICARE, SELFPAY ==
[2023-10-28 10:15] LABS: Absolute Lymphocyte Count 1.27 X10^3/uL (0.83-4.51); Absolute Neutrophil Count 5.3 X10^3/uL (2.0-7.7); Basophil# 0.04 X10^3/uL; Basophil% 0.5 % (0-1); Eosinophil# 0.22 X10^3/uL; Hematocrit 36.5 % (40-54); Hemoglobin 11.6 g/dL (13.0-16.5); Lymphocyte # 1.27 X10^3/ul (0.83-4.51); Lymphocyte % 17.4 % (19-41); Mean Corp Hgb Conc 31.8 g/dL (32-36); Mean Corpuscular Hgb 28.8 pg (27.0-32.0); Mean Corpuscular Volume 90.6 fL (80-94); Mean Platelet Vol. 9.9 fl (6.2-12.0); Monocyte# 0.48 X10^3/uL; Monocyte% 6.6 % (0-10); NRBC Flagged by Analyzer 0 % (0-5); Neutrophil # 5.25 X10^3/uL (2.7-7.7); Neutrophil % 72.1 % (47-70); Platelet Count 374 K/mm3 (150-450); RBC Distribution Width CV 14.9 % (11.6-14.6); RBC Distribution Width SD 49.9 fl (35.1-43.9); Red Blood Count 4.03 M/mm3 (4.6-6.2); White Blood Count 7.3 K/mm3 (4.4-11.0)
[2023-10-28 10:33] LABS: Protein:Creat Ratio 2871 mg/g CRE (0-200)
[2023-10-28 10:42] LABS: PTHIN 229.7 pg/mL (18.4-80.1)
[2023-10-28 12:33] LABS: Vitamin D,25 Hydroxy 51.3 ng/mL
[2023-10-28 12:49] LABS: ALB/GLOB Ratio 0.7 RATIO (0.9-2.4); AST(SGOT) 25 U/L (15-37); Alanine Aminotransfer ALT/SGPT 32 U/L (16-61); Alkaline Phosphatase 34 U/L (45-117); Anion Gap 6 (5-15); BUN 35 mg/dL (7-18); BUN/Creat Ratio 10.6 RATIO (10-20); Chloride 111 mmol/L (98-107); Cholesterol 162 mg/dL (200); Creatinine, Serum 3.31 mg/dL (0.70-1.30); EST Glomerular Filtration Rate 20 mL/min (>60); Est Glom Filt Rate - Afr Amer 24 mL/min (>60); Globulin 4.3 g/dL (2.2-4.2); Glucose 92 mg/dL (74-106); High Density Lipoprotein 36 mg/dL; Phosphorus 3.7 mg/dL (2.5-4.9); Potassium 5.3 mmol/L (3.5-5.1); Protein, Total 7.3 g/dL (6.4-8.2); Sodium Level 138 mmol/L (136-145); T4 Free Direct 0.95 ng/dL (0.76-1.46); Thyroid Stim Hormone (TSH) 0.62 uIU/mL (0.358-3.74); Triglycerides 217 mg/dL; Very Low Density Lipoprotein 43 mg/dL (5-40)
[2023-10-30 13:08] LABS: Vitamin D 1,25-Dihydroxy 18.8 pg/mL (24.8-81.5)
== END | disposition home or self-care (01) ==
LOC: MFPLAB 09:37
PROVIDERS: PCP Family Medicine; Visit Provider Family Medicine
DX: E11.22 Type 2 diabetes mellitus with diabetic chronic kidney disease (principal); N18.4 Chronic kidney disease, stage 4 (severe); E11.69 Type 2 diabetes mellitus with other specified complication; N25.81 Secondary hyperparathyroidism of renal origin; E03.9 Hypothyroidism, unspecified; E55.9 Vitamin D deficiency, unspecified; R80.9 Proteinuria, unspecified
CPT/HCPCS: 36415; 80053; 80061; 82306; 82570; 82652; 83036; 83970; 84100; 84156; 84439; 84443; 85025

== ENCOUNTER → 2023-11-03 | Outpatient (CLI) | payer MEDICARE, SELFPAY ==
[2023-11-03 15:31] LABS: Anion Gap 5 (5-15); BUN 36 mg/dL (7-18); BUN/Creat Ratio 10.3 RATIO (10-20); Calcium,Total 9.3 mg/dL (8.5-10.1); Chloride 111 mmol/L (98-107); EST Glomerular Filtration Rate 18 mL/min (>60); Est Glom Filt Rate - Afr Amer 22 mL/min (>60); Glucose 92 mg/dL (74-106); Potassium 4.8 mmol/L (3.5-5.1); Sodium Level 138 mmol/L (136-145)
== END | disposition home or self-care (01) ==
LOC: MFPLAB 11:47
PROVIDERS: PCP Family Medicine; Visit Provider Family Medicine
DX: E11.59 Type 2 diabetes mellitus with other circulatory complications (principal); E55.9 Vitamin D deficiency, unspecified; E03.9 Hypothyroidism, unspecified
CPT/HCPCS: 36415; 80048

== ENCOUNTER → 2024-02-02 | Outpatient (CLI) | payer MEDICARE, SELFPAY ==
[2024-02-02 18:49] LABS: Absolute Lymphocyte Count 0.85 X10^3/uL (0.83-4.51); Absolute Neutrophil Count 6.6 X10^3/uL (2.0-7.7); Basophil# 0.05 X10^3/uL; Basophil% 0.6 % (0-1); Eosinophil# 0.27 X10^3/uL; Eosinophils% 3.2 % (0-5); Hematocrit 33.8 % (40-54); Hemoglobin 10.9 g/dL (13.0-16.5); Lymphocyte # 0.85 X10^3/ul (0.83-4.51); Lymphocyte % 10.2 % (19-41); Mean Corp Hgb Conc 32.2 g/dL (32-36); Mean Corpuscular Hgb 29.8 pg (27.0-32.0); Mean Corpuscular Volume 92.3 fL (80-94); Mean Platelet Vol. 10.4 fl (6.2-12.0); Monocyte# 0.52 X10^3/uL; Monocyte% 6.2 % (0-10); NRBC Flagged by Analyzer 0 % (0-5); Neutrophil # 6.62 X10^3/uL (2.7-7.7); Neutrophil % 79.4 % (47-70); Platelet Count 465 K/mm3 (150-450); RBC Distribution Width CV 14.9 % (11.6-14.6); RBC Distribution Width SD 50.7 fl (35.1-43.9); Red Blood Count 3.66 M/mm3 (4.6-6.2); White Blood Count 8.3 K/mm3 (4.4-11.0)
[2024-02-02 19:06] LABS: Protein, Urine (Random) 168.6 mg/dL (<11.9); Protein:Creat Ratio 1213 mg/g CRE (0-200)
[2024-02-02 20:29] LABS: Hemoglobin A1c 4.9 % (3.8-5.6)
[2024-02-02 21:10] LABS: ALB/GLOB Ratio 0.7 RATIO (0.9-2.4); AST(SGOT) 32 U/L (15-37); Alanine Aminotransfer ALT/SGPT 29 U/L (16-61); Alkaline Phosphatase 56 U/L (45-117); Anion Gap 11 (5-15); BUN 109 mg/dL (7-18); BUN/Creat Ratio 12.8 RATIO (10-20); Calcium,Total 9.6 mg/dL (8.5-10.1); Chloride 107 mmol/L (98-107); Cholesterol 124 mg/dL (200); Creatinine, Serum 8.49 mg/dL (0.70-1.30); EST Glomerular Filtration Rate 7 mL/min (>60); Est Glom Filt Rate - Afr Amer 8 mL/min (>60); Globulin 4.6 g/dL (2.2-4.2); Glucose 101 mg/dL (74-106); High Density Lipoprotein 27 mg/dL; Potassium 5.1 mmol/L (3.5-5.1); Protein, Total 7.6 g/dL (6.4-8.2); Sodium Level 135 mmol/L (136-145); T4 Free Direct 1.23 ng/dL (0.76-1.46); Thyroid Stim Hormone (TSH) 0.132 uIU/mL (0.358-3.740); Triglycerides 254 mg/dL; Very Low Density Lipoprotein 51 mg/dL (5-40)
== END | disposition home or self-care (01) ==
LOC: MFPLAB 16:45
PROVIDERS: PCP Family Medicine; Referring Provider Family Medicine; Visit Provider Family Medicine
DX: E03.9 Hypothyroidism, unspecified (principal); N18.4 Chronic kidney disease, stage 4 (severe); E11.22 Type 2 diabetes mellitus with diabetic chronic kidney disease
CPT/HCPCS: 36415; 80053; 80061; 82570; 83036; 84156; 84439; 84443; 85025

== ENCOUNTER 2024-02-03 14:58 | Inpatient (IN) | payer MEDICARE, SELFPAY ==
[2024-02-03] VITALS (9 sets, daily range): BP systolic 105–140; BP diastolic 53–97; PULSE 67–82; RESP 16–20; TEMP 35.8–36.9; O2SAT 95–97; BMI 31.4
--- NOTE | 2024-02-03 18:12 | CT_ITS ---
STUDY: CT BRAIN WITHOUT CONTRAST REASON FOR EXAM: Male, 74 years old. fall RADIATION DOSAGE (If Supplied By Facility): CTDIvol = ( 44.99 ) mGy, DLP = ( 798.92 ) mGycm TECHNIQUE: Transaxial CT imaging of the brain was performed without administration of intravenous contrast material. Individualized dose optimization techniques were used for this CT. COMPARISON: No relevant priors. FINDINGS: Normal soft tissue structures. Normal calvarium. Calcific plaquing of the cavernous carotids Mild atrophy and periventricular white matter disease most likely chronic small vessel ischemic changes. Normal basal ganglia and thalami. Normal brainstem. Normal cerebellum. There is no intracranial hemorrhage. There are no findings of an acute ischemic infarction. Polypoid mucosal thickening in the right maxillary sinus CT/Brain/Head without Contrast IMPRESSION: Mild atrophy and periventricular matter disease. No evidence for acute intracranial bleed Electronically Signed: Maxi Maurice MD at 18:59 EDT ,
--- NOTE | 2024-02-03 18:12 | EKG12_ITS ---
Test Reason : FALL Blood Pressure : */* mmHG Vent. Rate : 75 BPM Atrial Rate : 75 BPM P-R Int : 176 ms QRS Dur : 118 ms QT Int : 396 ms P-R-T Axes : 18 4 50 degrees QTcB Int : 442 ms Normal sinus rhythm Non-specific intra-ventricular conduction delay Nonspecific ST abnormality Abnormal ECG Confirmed by SHILPI LOU, JUSTIN ([id number]), science editor TO ORTIZ ([id number]) on 02/05/2024 8:15:36 AM Referred By: BREE Confirmed By: JUSTIN DOBBINS MD
--- NOTE | 2024-02-03 18:13 | CT_ITS ---
STUDY: CT ABDOMEN AND PELVIS WITHOUT CONTRAST REASON FOR EXAM: Male, 74 years old. back pain RADIATION DOSAGE (If Supplied By Facility): CTDIvol = ( 23.88 ) mGy, DLP = ( 1258.63 ) mGycm TECHNIQUE: Transaxial images were obtained from the dome of the diaphragm to the symphysis pubis without oral contrast, and without intravenous contrast. Sagittal and coronal images were reconstructed. Individualized dose optimization techniques were used for this CT. COMPARISON: None. FINDINGS: Minor bibasilar interstitial thickening or atelectasis at the lung bases. Small calcified granuloma in right lower lobe The visualized portions of the heart are within normal limits. Normal liver. Normal gallbladder and extrahepatic biliary system. Multiple tiny granulomatous calcifications in normal size spleen. Normal pancreas. Normal bilateral adrenal glands. Right kidney is unobstructed. There is a small parapelvic cyst which will not require additional imaging. The left kidney is not obstructed. There is a small cortical cyst which will not require additional imaging.
--- NOTE | 2024-02-03 18:14 | EX.ED.DYSGE1 ---
HPI History of Present Illness Chief Complaint: Fall Informant: patient and family Narrative Narrative: Patient here with sister sent in from PCP for acute kidney injury creatinine of 8.5 GFR of 7. Sister has written down GFR was 3 previously a few months ago. He is followed by Dr. Ferraro. He states no trouble urinating. His chronic back pain limits his mobility. He currently uses a walker to ambulate. He is fallen multiple times due to his back. He denies any injuries from this states his back only hurts. Patient's significant other currently hospitalized in rehab therefore sisters round to help. Reports 10 days ago had a fall transient slurred speech. He would not go to the hospital. Due to worsening kidney function he was sent to the ED. Past med history of chronic kidney disease as worsened, chronic back pain. PFSH PFSH Home Medications ?Medication ?Instructions ?Recorded ?Last Taken ?Type amlodipine 10 mg tablet 10 mg PO DAILY 02/03/24 Unknown History aspirin 81 mg tablet,delayed 81 mg PO DAILY 02/03/24 Unknown History release budesonide-formoterol HFA 160 2 puff inhalation BID PRN copd 02/03/24 Unknown History mcg-4.5 mcg/actuation aerosol inhaler (Breyna) duloxetine 60 mg capsule,delayed 60 mg PO DAILY 02/03/24 Unknown History release ergocalciferol (vitamin D2) 1,250 1,250 mcg PO QWEEK 02/03/24 Unknown History mcg (50,000 unit) capsule fenofibrate 160 mg tablet 160 mg PO DAILY 02/03/24 Unknown History hydrochlorothiazide 25 mg tablet 25 mg PO DAILY 02/03/24 Unknown History hydrocodone-acetaminophen 5-325mg 1 tab PO TID PRN PRN pain 02/03/24 Unknown History 5mg-325mg levothyroxine 200 mcg tablet 200 mcg PO DAILY 02/03/24 Unknown History melatonin 10 mg capsule 10 mg PO QHS 02/03/24 Unknown History metoprolol succinate 100 mg 100 mg PO BID 02/03/24 Unknown History tablet,extended release 24 hr primidone 50 mg tablet 50 mg PO BID tremors 02/03/24 Unknown History rosuvastatin 40 mg tablet 40 mg PO DAILY 02/03/24 Unknown History tiotropium bromide 2.5 2 inhalation DAILY PRN copd 02/03/24 Unknown History mcg/actuation mist for inhalation (Spiriva Respimat) trazodone 100 mg tablet 100 mg PO DAILY 02/03/24 Unknown History Allergy/AdvReac Type Severity Reaction Status Date / Time No Known Allergies Allergy Verified 02/03/24 15:00 Social History Smoking Status: Never smoker ROS ROS ED Constitutional Constitutional ED: Denies chills, fever(s) or sweats Eyes Eyes: Denies change in vision ENT ENT ED: Denies dysphagia or sore throat Cardiovascular Cardiovascular: Denies chest pain, leg edema, palpitations or racing heartbeat Respiratory/Chest Respiratory/Chest: Denies cough, dyspnea or dyspnea on exertion Gastrointestinal Gastrointestinal: Denies abdominal pain, diarrhea, nausea or vomiting Genitourinary Genitourinary ED: Denies dysuria, hematuria or urinary frequency Musculoskeletal Musculoskeletal: Reports back pain; Denies extremity pain or neck pain Integumentary Denies rash or wounds Neurologic Neurologic: Denies headache(s), paresthesias or weakness EXAM Physical Exam Const Vital Signs: 02/03/24 15:01 02/03/24 17:00 02/03/24 19:00 Temperature 98.5 F 96.5 F L Temperature Source Oral Temporal Pulse Rate 76 72 73 Respiratory Rate 16 16 20 H Respiratory Effort Respiratory Depth Respiratory Pattern Blood Pressure 121/53 H 129/61 H 140/63 H Blood Pressure Mean 75 83 88 Pulse Ox 95 96 96 Oxygen Delivery Method Room Air Nasal Cannula Room Air 02/03/24 19:28 02/03/24 19:29 02/03/24 19:31 Temperature 98 F Temperature Source Pulse Rate 67 Respiratory Rate 19 H Respiratory Effort Normal Normal Respiratory Depth Normal Respiratory Pattern Normal Normal Blood Pressure 140/63 H Blood Pressure Mean 88 Pulse Ox 96 96 Oxygen Delivery Method Room Air 02/03/24 20:08 02/03/24 20:35 02/03/24 22:00 Temperature Temperature Source Pulse Rate 82 72 76 Respiratory Rate 16 19 H 20 H Respiratory Effort Respiratory Depth Respiratory Pattern Normal Blood Pressure 124/97 H 105/80 Blood Pressure Mean 106 88 Pulse Ox 95 97 Oxygen Delivery Method Positive well nourished Constitutional Narrative: Nontoxic HEENT Reports moist mucous membranes normocephalic and atraumatic Eyes EOMs intact bilaterally and conjunctivae normal General Eye ED: Yes normal appearance of both eyes Neck no lymphadenopathy and supple General: Negative for tenderness Chest Wall Chest: Negative for tenderness Resp normal respiratory effort and normal air movement Effort and Inspection: symmetric chest movement; Negative for respiratory distress Cardio regular rate, regular rhythm and no murmurs Peripheral Pulses: pulses 2+ throughout GI normal to inspection, nondistended, normoactive bowel sounds and non-tender Palpation: Negative for guarding or rebound tenderness present Back/Spine no CVA tenderness Back/Spine Narrative: Lower back tenderness no ecchymosis. Extremity normal to inspection General Extremety ED: Negative for edema or tenderness General Extremity: Negative for edema Neuro oriented x3, CN's II-XII intact bilaterally and no sensory deficits noted Sensorium / Orientation: awake and alert Skin Skin Narrative: Scattered areas scabbing noted knees and hands. No drainage. MDM MDM MDM Narrative Medical decision making narrative: Interventions / MDM: Differential diagnosis: Acute kidney injury, falls, hyperkalemia, back pain Diagnosis considered but do not suspect: N/A My EKG interpretation: Sinus rate of 75, no ST changes. No T wave inversions. No hyperkalemic changes. Imaging independently reviewed and interpreted by myself: CT brain: No acute process. CT abdomen pelvis: No obstructive uropathy. Renal cysts. External documents reviewed: N/A Test considered but not ordered:N/A ED course: Vital stable from what sister had written down LENA creatinine 8.5 GFR of 7 which was new from baseline of 3. He has been falling. Reported transient slurred speech 10 days ago. No current slurred speech. Will check EKG check labs. Bladder scan. CT brain and noncontrast abdomen pelvis with his back pain. Will check urine. Will likely need admission. 1914: Labs confirming creatinine 8.8. GFR of 6. Potassium 5.3 with no EKG changes. Image studies were negative. Bladder study was not distended on CT. as noted on sisters documentation October creatinine was 3.5. Past medical history: Hypertension, diabetes, hyperlipidemia, hypothyroidism, Depression and chronic back pain sees Dr. Spann. Will discuss with hospitalist for admission. I discussed with Dr. Ley for admission to PCU. 2219: Per nurse and son increased itching in the room. Does have elevated BUN with his LENA. Will treat with hydroxyzine. Re-evaluation: stable Disposition discussed with patient/family/significant other: Patient and family Case discussed with consulting clinician: Hospitalist This note was generated with [employer] dictation software. It may contain incorrect words, spelling, and punctuation that were not noted in checking the note before signing. Lab Data Attestation: I reviewed the patient's lab results. Labs: Laboratory Results - last 24 hr 02/03/24 02/03/24 18:22 19:57 WBC 7.7 RBC 3.67 L Hgb 10.9 L Hct 33.5 L MCV 91.3 MCH 29.7 MCHC 32.5 RDW Std Deviation 50.0 H RDW Coeff of Sy 14.9 H Plt Count 425 MPV 9.9 Immature Gran % (Auto) 0.600 Neut % (Auto) 77.3 H Lymph % (Auto) 12.5 L [place] % (Auto) 6.1 Eos % (Auto) 3.0 Baso % (Auto) 0.5 Absolute Neuts (auto) 6.0 Absolute Lymphs (auto) 0.96 Nucleated RBC % 0 Sodium 134 L Potassium 5.3 H Chloride 107 Carbon Dioxide 17.0 L Anion Gap 10 BUN 108 H* Creatinine 8.81 H* Est GFR (MDRD) Af Amer 8 L Est GFR (MDRD) Non-Af 6 L BUN/Creatinine Ratio 12.3 Glucose 97 Calcium 9.6 Urine Color Yellow Urine Clarity Clear Urine pH 6.0 Ur Specific [place] 1.015 Urine Protein 100 H Urine Glucose (UA) Normal Urine Ketones Negative Urine Occult Blood 25 H Urine Nitrite Negative Urine Bilirubin Negative Urine Urobilinogen Normal Ur Leukocyte Esterase Negative Urine RBC 0 SEEN Urine WBC 0 SEEN Ur Squamous Epith Cells 0 SEEN Urine Bacteria 0 SEEN Urine Mucus 0 SEEN Radiography Diagnostic Testing: Clinical Impression(s) from Imaging Studies Brain CT 02/03/24 18:12 IMPRESSION: Mild atrophy and periventricular matter disease. No evidence for acute intracranial bleed Electronically Signed: Maxi Maurice MD at 18:59 EDT Reading Location ID and State: [facility] / [place] Tel , Service support , Abdomen/Pelvis CT 02/03/24 18:13 IMPRESSION: Minor diverticular disease of the descending and sigmoid colon without evidence for acute diverticulitis Small bilateral renal cysts which will not require additional imaging No acute abnormalities Electronically Signed: Maxi Maurice MD at 18:57 EDT , Discharge Plan Dx/Rx/DC Orders Clinical Impression: Acute kidney injury, Hyperkalemia, Multiple falls, Chronic back pain Disposition Disposition: Acute Care Hospital [facility] Discharge Date/Time: 02/03/24 22:42
[2024-02-03 18:31] LABS: Absolute Lymphocyte Count 0.96 X10^3/uL (0.83-4.51); Basophil# 0.04 X10^3/uL; Basophil% 0.5 % (0-1); Eosinophil# 0.23 X10^3/uL; Hematocrit 33.5 % (40-54); Hemoglobin 10.9 g/dL (13.0-16.5); Lymphocyte # 0.96 X10^3/ul (0.83-4.51); Lymphocyte % 12.5 % (19-41); Mean Corp Hgb Conc 32.5 g/dL (32-36); Mean Corpuscular Hgb 29.7 pg (27.0-32.0); Mean Corpuscular Volume 91.3 fL (80-94); Mean Platelet Vol. 9.9 fl (6.2-12.0); Monocyte# 0.47 X10^3/uL; Monocyte% 6.1 % (0-10); NRBC Flagged by Analyzer 0 % (0-5); Neutrophil # 5.96 X10^3/uL (2.7-7.7); Neutrophil % 77.3 % (47-70); Platelet Count 425 K/mm3 (150-450); RBC Distribution Width CV 14.9 % (11.6-14.6); Red Blood Count 3.67 M/mm3 (4.6-6.2); White Blood Count 7.7 K/mm3 (4.4-11.0)
[2024-02-03 18:54] LABS: Anion Gap 10 (5-15); BUN 108 mg/dL (7-18); BUN/Creat Ratio 12.3 RATIO (10-20); Calcium,Total 9.6 mg/dL (8.5-10.1); Chloride 107 mmol/L (98-107); Creatinine, Serum 8.81 mg/dL (0.70-1.30); EST Glomerular Filtration Rate 6 mL/min (>60); Est Glom Filt Rate - Afr Amer 8 mL/min (>60); Glucose 97 mg/dL (74-106); Potassium 5.3 mmol/L (3.5-5.1); Sodium Level 134 mmol/L (136-145)
[2024-02-03] MEDS: Albuterol *CONC* 2.5mg/0.5mL VIAL.NEB. 10 MG INHALATION (20:04)
[2024-02-03 20:06] LABS: Bacteria 0 SEEN /hpf (None Seen); Mucous, Urine 0 SEEN /hpf (<or=2+); Red Blood Cells-Urine 0 SEEN /hpf (0-5); Squamous Epithelial Cells - UA 0 SEEN /hpf (0-5); White Blood Cells 0 SEEN /hpf (0-5)
[2024-02-03] MEDS: Dextrose 10%-Water 250 ML 999 ML IV (20:10)
[2024-02-03 20:15] LABS: Color, Urine Yellow (Yellow); Glucose, Dipstick Normal (Normal); Ketone-Dipstick Negative (Negative); Leukocyte Esterase-Dipstick Negative /ul (Negative); Nitrite-Dipstick Negative (Negative); Occult Blood-Urine 25 /ul (Negative); Protein-Dipstick 100 mg/dl (Negative); Specific Gravity, Urine 1.015 (1.002-1.030); Urine Bilirubin Dipstick Negative (Negative); Urine Clarity Clear (Clear); Urine Urobilinogen Normal (Normal)
[2024-02-03] MEDS: Insulin Lispro 10 UNIT in Syringe 0 ML 6 UNIT IV (20:33)
[2024-02-03] MEDS: hydrOXYzine 10 MG Tablet PO (22:40)
--- NOTE | 2024-02-03 23:44 | HP.PCM.HOS_ITS ---
HPI - General General Date of Admission: 02/03/24 Date of Service: 02/03/24 Chief Complaint: Recurrent fall 6 times in last 1 week. No syncope. LENA on CKD HPI Narrative DINO SHAW, is a 74 M was sent to ED from PCP for LENA on CKD. Patient was found to have creatinine 8.5, GFR 7 mL/min. His creatinine was 3.5 in October 2023. Patient also has mild hyperkalemia K5.3 and bicarb 17. Patient was brought to ED by her sister and [id number]. He had fallen 6 times in the last 7 days, patient states that she could not balance/gait instability as the reason for a fall. Her sister stated that he has essential tremor but patient has more postural instability, disequilibrium, short shuffling gait and also tremors and voice therefore might have Parkinson disease. He has not followed any neurologist. Patient also has peripheral neuropathy. 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 Kapadia Social history: Quit smoking 40 years ago. Suspected COPD but never had PFT. Started smoking at the age of 18 or 19 a pack per day. [facility] Home Medications ?Medication ?Instructions ?Recorded ?Last Taken ?Type amlodipine 10 mg tablet 10 mg PO DAILY 02/03/24 Unknown History aspirin 81 mg tablet,delayed 81 mg PO DAILY 02/03/24 Unknown History release budesonide-formoterol HFA 160 2 puff inhalation BID PRN copd 02/03/24 Unknown History mcg-4.5 mcg/actuation aerosol inhaler (Breyna) duloxetine 60 mg capsule,delayed 60 mg PO DAILY 02/03/24 Unknown History release ergocalciferol (vitamin D2) 1,250 1,250 mcg PO QWEEK 02/03/24 Unknown History mcg (50,000 unit) capsule fenofibrate 160 mg tablet 160 mg PO DAILY 02/03/24 Unknown History hydrochlorothiazide 25 mg tablet 25 mg PO DAILY 02/03/24 Unknown History hydrocodone-acetaminophen 5-325mg 1 tab PO TID PRN PRN pain 02/03/24 Unknown History 5mg-325mg levothyroxine 200 mcg tablet 200 mcg PO DAILY 02/03/24 Unknown History melatonin 10 mg capsule 10 mg PO QHS 02/03/24 Unknown History metoprolol succinate 100 mg 100 mg PO BID 02/03/24 Unknown History tablet,extended release 24 hr primidone 50 mg tablet 50 mg PO BID tremors 02/03/24 Unknown History rosuvastatin 40 mg tablet 40 mg PO DAILY 02/03/24 Unknown History tiotropium bromide 2.5 2 inhalation DAILY PRN copd 02/03/24 Unknown History mcg/actuation mist for inhalation (Spiriva Respimat) trazodone 100 mg tablet 100 mg PO DAILY 02/03/24 Unknown History Allergy/AdvReac Type Severity Reaction Status Date / Time No Known Allergies Allergy Verified 02/03/24 15:00 Social History Smoking Status: Never smoker ROS ROS Narrative Constitutional: Reports fatigue and weakness. No fever. HEENT: Reports systems reviewed and no addt'l complaints, except as documented Respiratory/Chest: No acute shortness of breath or respiratory distress or wheezing. CVS: No chest pain pressure or tightness. No syncope. Gastrointestinal: Denies coffee ground emesis, hematemesis or vomiting Genitourinary: Denies burning urination or new urinary tract symptoms Musculoskeletal: Recurrent fall. Denies acute joint pain or limited range of motion. No major acute injury. Neurologic: Tremors, postural instability. Peripheral neuropathy. Denies seizure-like symptoms. skin: No ulcer. No rash Endocrinology: Reports systems reviewed and no addt'l complaints, except as documented Hematologic/Lymphatic: Reports systems reviewed and no addt'l complaints, except as documented Rest 14 ROS are negative except as mentioned in HPI Vital Signs Vital Signs Vital Signs: 02/03/24 15:01 02/03/24 17:00 02/03/24 19:00 Temperature 98.5 F 96.5 F L Temperature Source Oral Temporal Pulse Rate 76 72 73 Respiratory Rate 16 16 20 H Respiratory Effort Respiratory Depth Respiratory Pattern Blood Pressure 121/53 H 129/61 H 140/63 H Blood Pressure Mean 75 83 88 Pulse Ox 95 96 96 Oxygen Delivery Method Room Air Nasal Cannula Room Air 02/03/24 19:28 02/03/24 19:29 02/03/24 19:31 Temperature 98 F Temperature Source Pulse Rate 67 Respiratory Rate 19 H Respiratory Effort Normal Normal Respiratory Depth Normal Respiratory Pattern Normal Normal Blood Pressure 140/63 H Blood Pressure Mean 88 Pulse Ox 96 96 Oxygen Delivery Method Room Air 02/03/24 20:08 02/03/24 20:35 02/03/24 22:00 Temperature Temperature Source Pulse Rate 82 72 76 Respiratory Rate 16 19 H 20 H Respiratory Effort Respiratory Depth Respiratory Pattern Normal Blood Pressure 124/97 H 105/80 Blood Pressure Mean 106 88 Pulse Ox 95 97 Oxygen Delivery Method Weight Weight: 206 lb 5.643 oz Body Mass Index (BMI) 31.4 Physical Exam Narrative General: Alert, Oriented x3, Cooperative HEENT: Atraumatic, PERRLA, EOMI, Normocephalic Oral: Oral mucosa dry. No Gingival or Mucosal Lesions/ Ulcerations Neck: Supple, No JVD, Negative Carotid Bruits Chest wall/Lungs: Air entry diminished in bilateral lung bases. No crepitation/rhonchi Cardiovascular: Regular rate, Regular Rhythm, Normal S1, Normal S2, No M/G/R Abdomen: Bowel Sounds Present, Soft, Non Tender, Non-Distended : No dysuria. No renal angle tenderness. No suprapubic tenderness. Extremities: Mild pedal edema, Capillary Refill Less than 3 Seconds Skin: Mild bruises on the legs. Musculoskeletal: No Tenderness to Palpation of Joints or Extremities. Degenerative arthritis of knees. ROM intact. Muscle strength 4+/5 at knees and hip joints Neurological: Cranial nerves II-XII grossly intact, DTR 2+/4. Essential tremor. Gait instability/postural instability. Psych/Mental Status: Flat affect. Results Lab / Micro Data 02/03/24 18:22 02/03/24 18:22 Labs: Laboratory Results - last 24 hr 02/03/24 18:22: WBC 7.7, RBC 3.67 L, Hgb 10.9 L, Hct 33.5 L, MCV 91.3, MCH 29.7, MCHC 32.5, RDW Std Deviation 50.0 H, RDW Coeff of Sy 14.9 H, Plt Count 425, MPV 9.9, Immature Gran % (Auto) 0.600, Neut % (Auto) 77.3 H, Lymph % (Auto) 12.5 L, Hall % (Auto) 6.1, Eos % (Auto) 3.0, Baso % (Auto) 0.5, Absolute Neuts (auto) 6.0, Absolute Lymphs (auto) 0.96, Nucleated RBC % 0, Sodium 134 L, Potassium 5.3 H, Chloride 107, Carbon Dioxide 17.0 L, Anion Gap 10, BUN 108 H*, Creatinine 8.81 H*, Est GFR (MDRD) Af Amer 8 L, Est GFR (MDRD) Non-Af 6 L, BUN/Creatinine Ratio 12.3, Glucose 97, Calcium 9.6 02/03/24 19:57: Urine Color Yellow, Urine Clarity Clear, Urine pH 6.0, Ur Specific [place] 1.015, Urine Protein 100 H, Urine Glucose (UA) Normal, Urine Ketones Negative, Urine Occult Blood 25 H, Urine Nitrite Negative, Urine Bilirubin Negative, Urine Urobilinogen Normal, Ur Leukocyte Esterase Negative, Urine RBC 0 SEEN, Urine WBC 0 SEEN, Ur Squamous Epith Cells 0 SEEN, Urine Bacteria 0 SEEN, Urine Mucus 0 SEEN Imaging Radiology Impression Brain CT 02/03/24 18:12 IMPRESSION: Mild atrophy and periventricular matter disease. No evidence for acute intracranial bleed Electronically Signed: Maxi Maurice MD at 18:59 EDT Reading Location ID and State: [facility] / [place] Tel [phone], Service support , Abdomen/Pelvis CT 02/03/24 18:13 IMPRESSION: Minor diverticular disease of the descending and sigmoid colon without evidence for acute diverticulitis Small bilateral renal cysts which will not require additional imaging No acute abnormalities Electronically Signed: Maxi Maurice MD at 18:57 EDT Reading Location ID and State: [facility] / [place] Tel [phone], Service support , Assessment & Plan Assessment/Plan (1) Multiple falls: (2) Acute kidney injury: PLAN: Plan This 74-year-old gentleman is being admitted for recurrent fall and found to have LENA on CKD 1. LENA on CKD stage IV: His previous creatinine was 3.5 in October 2023. Today, BUN/creatinine 108/8.81. Hyperkalemia, K5.3 and mild hyponatremia, sodium 134. Normal anion gap metabolic acidosis with bicarb 17 anion gap 10. Renal and bladder ultrasound ordered. Spot urine electrolytes, protein/creatinine, osmolality ordered. Metal Machine Setter consult requested. Started on bicarb drip. Twelve-lead EKG shows normal sinus rhythm 75 bpm, no tenting or tall T waves. QRS 118 ms. QTc 442 ms. Kayexalate ordered. 2. Recurrent fall possible related to disequilibrium: Suspected diagnosis or possible undiagnosed Parkinson disease, peripheral neuropathy: PT and OT evaluation. Patient advised to follow-up outpatient neurology. 3. Chronic active smoker with suspected COPD: Patient does have chronic cough but not acute. Does not show symptoms of COPD exacerbations. Patient on maintenance inhaler at home. 4. Hypertension: Patient on HCTZ and amlodipine and metoprolol succinate at home. Discontinue hydrochlorothiazide. Rest antihypertensive to continue with holding parameters 5. Essential tremor and peripheral neuropathy: Patient on primidone continued. On duloxetine continued 6. Dyslipidemia: Rosuvastatin 40 mg daily. Hold for LENA. DVT prophylaxis: High risk. Heparin 5000 units subcutaneous twice daily. Bilateral SCDs Living will/advanced directive/end of life care: Patient does not have living will or advanced directive. He does not have daycare power of contracts attorney for health. After discussion of benefits/risks procedures involved with full code, DNR CC arrest and DNR CC, the patient opted for DNR CC arrest with no active. Patient doesn't want artificial life support including intubation, tube feed, ventilator and/chest compression, central venous catheter, vasopressor and DC shock if needed Total time spent in [id number] encounter in discussion of advanced directive 17 minutes. Laboratory Results 02/03/24 18:22: WBC 7.7, RBC 3.67 L, Hgb 10.9 L, Hct 33.5 L, MCV 91.3, MCH 29.7, MCHC 32.5, RDW Std Deviation 50.0 H, RDW Coeff of Sy 14.9 H, Plt Count 425, MPV 9.9, Immature Gran % (Auto) 0.600, Neut % (Auto) 77.3 H, Lymph % (Auto) 12.5 L, [place] % (Auto) 6.1, Eos % (Auto) 3.0, Baso % (Auto) 0.5, Absolute Neuts (auto) 6.0, Absolute Lymphs (auto) 0.96, Nucleated RBC % 0, Sodium 134 L, Potassium 5.3 H, Chloride 107, Carbon Dioxide 17.0 L, Anion Gap 10, BUN 108 H*, Creatinine 8.81 H*, Est GFR (MDRD) Af Amer 8 L, Est GFR (MDRD) Non-Af 6 L, BUN/Creatinine Ratio 12.3, Glucose 97, Calcium 9.6 02/03/24 19:57: Urine Color Yellow, Urine Clarity Clear, Urine pH 6.0, Ur Specific [place] 1.015, Urine Protein 100 H, Urine Glucose (UA) Normal, Urine Ketones Negative, Urine Occult Blood 25 H, Urine Nitrite Negative, Urine Bilirubin Negative, Urine Urobilinogen Normal, Ur Leukocyte Esterase Negative, Urine RBC 0 SEEN, Urine WBC 0 SEEN, Ur Squamous Epith Cells 0 SEEN, Urine Bacteria 0 SEEN, Urine Mucus 0 SEEN Charges/Coding Visit Charges Inpatient E&M: 62057 Init Hosp L3 Procedures Hospitalists Procedures: 33510 Advncd Care Plan 30 Min
[2024-02-04] VITALS (9 sets, daily range): BP systolic 116–137; BP diastolic 54–76; PULSE 62–85; RESP 14–20; TEMP 35.9–36.7; O2SAT 93–96; BMI 31.3; BMI 31.0
[2024-02-04 01:03] LABS: CPK Total, Creatine Kinase 62 U/L (39-308); Magnesium 2.1 mg/dL (1.6-2.6); Phosphorus 5.6 mg/dL (2.5-4.9); Uric Acid 9.8 mg/dL (3.5-7.2)
[2024-02-04 01:15] LABS: International Normalized Ratio 1.4; Prothrombin Time (Protime)PT. 17.4 SECONDS (11.7-14.9)
[2024-02-04 01:31] LABS: Osmolality, Serum 329 mOsm/KG (280-301)
[2024-02-04] MEDS: Heparin Injection (Vial) 5,000 UNIT/ML VIAL 5000 UNIT SC ×3 (02:09→20:44)
[2024-02-04] MEDS: Sodium Bicarbonate 150 MEQ in Dextrose 5%-Water (1000mL Bag) 1,000 ML IV ×2 (02:09→09:44)
[2024-02-04] MEDS: Sodium Polystyrene Sulfonate 15 GM/60 ML UDC 30 GM PO (02:10)
[2024-02-04 03:57] LABS: Protein, Urine (Random) 91.1 mg/dL (<11.9); Protein:Creat Ratio 1260 mg/g CRE (0-200); Urine Chloride 24 mmol/L (Not Establ.); Urine Sodium 36 mmol/L (Not Establ.)
[2024-02-04 04:45] LABS: Osmolality, Urine 393 mOsm/KG
[2024-02-04 06:48] LABS: Absolute Lymphocyte Count 0.82 X10^3/uL (0.83-4.51); Absolute Neutrophil Count 3.7 X10^3/uL (2.0-7.7); Basophil# 0.03 X10^3/uL; Basophil% 0.6 % (0-1); Eosinophil# 0.18 X10^3/uL; Eosinophils% 3.5 % (0-5); Hematocrit 28.3 % (40-54); Hemoglobin 9.1 g/dL (13.0-16.5); Lymphocyte # 0.82 X10^3/ul (0.83-4.51); Lymphocyte % 15.7 % (19-41); Mean Corp Hgb Conc 32.2 g/dL (32-36); Mean Corpuscular Hgb 29.1 pg (27.0-32.0); Mean Corpuscular Volume 90.4 fL (80-94); Monocyte# 0.43 X10^3/uL; Monocyte% 8.3 % (0-10); NRBC Flagged by Analyzer 0 % (0-5); Neutrophil # 3.73 X10^3/uL (2.7-7.7); Neutrophil % 71.5 % (47-70); Platelet Count 331 K/mm3 (150-450); RBC Distribution Width CV 14.6 % (11.6-14.6); RBC Distribution Width SD 48.4 fl (35.1-43.9); Red Blood Count 3.13 M/mm3 (4.6-6.2); White Blood Count 5.2 K/mm3 (4.4-11.0)
[2024-02-04 08:12] LABS: Anion Gap 12 (5-15); BUN 103 mg/dL (7-18); BUN/Creat Ratio 12.4 RATIO (10-20); Calcium,Total 8.9 mg/dL (8.5-10.1); Chloride 104 mmol/L (98-107); EST Glomerular Filtration Rate 7 mL/min (>60); Est Glom Filt Rate - Afr Amer 8 mL/min (>60); Estimated Creatinine Clearance 8.88 ml/min; Glucose 133 mg/dL (74-106); Potassium 4.3 mmol/L (3.5-5.1); Sodium Level 135 mmol/L (136-145); Thyroid Stim Hormone (TSH) 0.119 uIU/mL (0.358-3.740)
[2024-02-04] MEDS: 0.9% Saline Lock 10 ML Syringe IV (09:40)
--- NOTE | 2024-02-04 12:10 | CASEMGMT ---
HARRY VERDUZCO Assessment Face to Face with patient for initial transition planning/care coordination assessment. RN CM introduced self and role at [facility], pt voices understanding. Pt is A&Ox4 and is resting comfortably in bed and is calm. Pt is [place] and prefers this HARRY VERDUZCO to ask the pt family at bedside the questions for initial assessment. Pt sister and Niece at bedside and willing to help answer this HARRY VERDUZCO questions for assessment. Care providers, pharmacy, and demographics verified. Admitting dx: LENA, Falls LACE Strata: 1 PCP: David Mcgowan Specialists: Steffi (Nephro), Zana (PM) Preferred Pharmacy: [facility] Insurance: [employer] Prescription Benefit: Yes LNOK: Sabine Roberson (), Monie Mcarthur (Sister), Natalia Serrano (Niece) Living Arrangements, ADLs: Pt is currently living alone. Pt is at [facility] for rehab and dialysis. Pt gets transport from [facility] to [facility]. Pt lives in a ranch style home with 3 steps to enter. Pt niece states that she helps the pt at home as she lives across the street. Pt also has neighbors that assist. Pt has has increased falls at home lately. Medical Alert handout given. Transportation: Pt is able to drive but the family has been providing transportation as of late DME: Working [employer] with sufficient supplies. Grab bars. Raised TS. FWW. W/C. HHC/SNF: Denies history Pt?s goal: Return to PLOF Plan: Anticipate SNF. 6-Click score is 12. PT/OT evaluations are pending. Pt and pt family reports that the pt is willing to attend a SNF. However, the family is displeased with the care that the pt is currently receiving at [facility]. Pt family is requesting that both the pt and pt be placed in a better, more reputable facility together. HVAC INSTRUCTOR CM and RAE updated and aware. Karen Goode RN, CM
[2024-02-04] MEDS: Budesonide Respules 0.5 MG/2 ML AMPUL.NEB. INHALATION ×2 (13:17→19:18)
[2024-02-04] MEDS: Ipratropium/Albuterol Sulfate 3 ML AMPUL.NEB INHALATION ×2 (13:17→19:18)
--- NOTE | 2024-02-04 13:17 | CASEMGMT ---
Discharge Planning A list of?SNF providers including quality and resource use data and consistent with the patient's preferred geographic region, medical needs, and insurance network was created in [employer] Guide.? This list was provided to the SW. Darby Bright Discharge Planning Asst.
--- NOTE | 2024-02-04 16:14 | CASEMGMT ---
See VICTORIA Pastor strike planning applications note. See PT Note. RN CM to pt room at this time. Pt is A&Ox3. SNF list provided to the pt at this time. Requested that pt select at least 3 preferences, in order. Pt states understanding and that he will review the list provided. Care Management to follow.
--- NOTE | 2024-02-04 16:28 | PCM.CONS.R ---
Assessment & Plan Assessment/Plan (1) Hyperkalemia: (2) Acute kidney injury: PLAN: History of CKD stage IV, baseline creatinine between 2.5-3.0. Secondary to diabetes and hypertension. Proteinuria. Was on maximum medical therapy. He has lost a significant amount of weight, about 45 pounds when compared to his weight from my office visit from May. Likely blood pressure and blood glucose have dropped. Insulin requirements down. For now I will hold all blood pressure medications. Start IV fluids. Creatinine is better, urine output is present. No acute indications for dialysis otherwise. Hyperkalemia. Borderline on admission. Can monitor for now. Discussed with family at bedside. HPI Consult Data Date of Consult: 02/04/24 HPI Narrative Reason for Consultation: LENA HPI Narrative: DINO SHAW, is a 74 M who presents To the hospital with frequent falls. He is well-known to me. Has known history of CKD stage IV with baseline creatinine around 2.5-3.0. Diabetes and hypertension related. Proteinuria. On multiple antihypertensives and diabetes medications. Unfortunately his had a major medical event, has been in hospital mostly for the last 2 to 3 months. Since then his health has been extremely poor. Very poor appetite, almost 45 pound weight loss. Apparently was hypoglycemic, hypotensive. Had frequent falls and hence brought into the hospital. Found to have acute renal failure with a creatinine of 8.4. He says he has been voiding. No [id number] medications. [facility] Home Medications ?Medication ?Instructions ?Recorded ?Last Taken ?Type amlodipine 10 mg tablet 10 mg PO DAILY 02/03/24 Unknown History aspirin 81 mg tablet,delayed 81 mg PO DAILY 02/03/24 Unknown History release budesonide-formoterol HFA 160 2 puff inhalation BID PRN copd 02/03/24 Unknown History mcg-4.5 mcg/actuation aerosol inhaler (Breyna) duloxetine 60 mg capsule,delayed 60 mg PO DAILY 02/03/24 Unknown History release ergocalciferol (vitamin D2) 1,250 1,250 mcg PO QWEEK 02/03/24 Unknown History mcg (50,000 unit) capsule fenofibrate 160 mg tablet 160 mg PO DAILY 02/03/24 Unknown History hydrochlorothiazide 25 mg tablet 25 mg PO DAILY 02/03/24 Unknown History hydrocodone-acetaminophen 5-325mg 1 tab PO TID PRN PRN pain 02/03/24 Unknown History 5mg-325mg levothyroxine 200 mcg tablet 200 mcg PO DAILY 02/03/24 Unknown History melatonin 10 mg capsule 10 mg PO QHS 02/03/24 Unknown History metoprolol succinate 100 mg 100 mg PO BID 02/03/24 Unknown History tablet,extended release 24 hr primidone 50 mg tablet 50 mg PO BID tremors 02/03/24 Unknown History rosuvastatin 40 mg tablet 40 mg PO DAILY 02/03/24 Unknown History tiotropium bromide 2.5 2 inhalation DAILY PRN copd 02/03/24 Unknown History mcg/actuation mist for inhalation (Spiriva Respimat) trazodone 100 mg tablet 100 mg PO DAILY 02/03/24 Unknown History Allergy/AdvReac Type Severity Reaction Status Date / Time No Known Allergies Allergy Verified 02/03/24 15:00 Social History Smoking Status: Never smoker ROS ROS Narrative negative except above Physical Exam Narrative Alert awake oriented x 3 no obvious distress no pallor no icterus no JVD s1s2 no murmurs lungs clear abdomen soft no organomegaly no edema no cyanosis Lab / Micro Data 02/04/24 06:26 02/04/24 06:26 Labs: Laboratory Results - last 24 hr 02/03/24 18:22: WBC 7.7, RBC 3.67 L, Hgb 10.9 L, Hct 33.5 L, MCV 91.3, MCH 29.7, MCHC 32.5, RDW Std Deviation 50.0 H, RDW Coeff of Sy 14.9 H, Plt Count 425, MPV 9.9, Immature Gran % (Auto) 0.600, Neut % (Auto) 77.3 H, Lymph % (Auto) 12.5 L, [place] % (Auto) 6.1, Eos % (Auto) 3.0, Baso % (Auto) 0.5, Absolute Neuts (auto) 6.0, Absolute Lymphs (auto) 0.96, Nucleated RBC % 0, Sodium 134 L, Potassium 5.3 H, Chloride 107, Carbon Dioxide 17.0 L, Anion Gap 10, BUN 108 H*, Creatinine 8.81 H*, Est GFR (MDRD) Af Amer 8 L, Est GFR (MDRD) Non-Af 6 L, BUN/Creatinine Ratio 12.3, Glucose 97, Calcium 9.6 02/03/24 19:57: Urine Color Yellow, Urine Clarity Clear, Urine pH 6.0, Ur Specific [place] 1.015, Urine Protein 100 H, Urine Glucose (UA) Normal, Urine Ketones Negative, Urine Occult Blood 25 H, Urine Nitrite Negative, Urine Bilirubin Negative, Urine Urobilinogen Normal, Ur Leukocyte Esterase Negative, Urine RBC 0 SEEN, Urine WBC 0 SEEN, Ur Squamous Epith Cells 0 SEEN, Urine Bacteria 0 SEEN, Urine Mucus 0 SEEN 02/04/24 00:24: PT 17.4 H, INR 1.4, Serum Osmolality 329 H, Uric Acid 9.8 H, Phosphorus 5.6 H, Magnesium 2.1, Total Creatine Kinase 62 02/04/24 03:31: Urine Osmolality 393, U Random Total Protein 91.1 H, Ur Random Sodium 36, Urine Creatinine 72.30, Protein/Creatinin Ratio 1260 H, Urine Potassium 4.0, Urine Chloride 24 02/04/24 06:26: WBC 5.2, RBC 3.13 L, Hgb 9.1 L, Hct 28.3 L, MCV 90.4, MCH 29.1, MCHC 32.2, RDW Std Deviation 48.4 H, RDW Coeff of Sy 14.6, Plt Count 331, MPV 10.0, Immature Gran % (Auto) 0.400, Neut % (Auto) 71.5 H, Lymph % (Auto) 15.7 L, [place] % (Auto) 8.3, Eos % (Auto) 3.5, Baso % (Auto) 0.6, Absolute Neuts (auto) 3.7, Absolute Lymphs (auto) 0.82 L, Nucleated RBC % 0, Sodium 135 L, Potassium 4.3, Chloride 104, Carbon Dioxide 18.0 L, Anion Gap 12, BUN 103 H*, Creatinine 8.30 H*, Estim Creat Clear Calc 8.88, Est GFR (MDRD) Af Amer 8 L, Est GFR (MDRD) Non-Af 7 L, BUN/Creatinine Ratio 12.4, Glucose 133 H, Calcium 8.9, TSH 0.119 L Imaging Radiology Impression Brain CT 02/03/24 18:12 IMPRESSION: Mild atrophy and periventricular matter disease. No evidence for acute intracranial bleed Electronically Signed: Maxi Maurice MD at 18:59 EDT , Abdomen/Pelvis CT 02/03/24 18:13 IMPRESSION: Minor diverticular disease of the descending and sigmoid colon without evidence for acute diverticulitis Small bilateral renal cysts which will not require additional imaging No acute abnormalities Electronically Signed: Maxi Maurice MD at 18:57 EDT ,
--- NOTE | 2024-02-04 17:37 | PCM.PN.HOSP ---
Reason for Visit Reason for Visit: Diagnoses Hyperkalemia (02/03/24) Acute kidney failure, unspecified (02/03/24) Repeated falls (02/03/24) Subjective Subjective Patient was seen and examined today, asking why he came in the hospital he said it was because he fell. Patient was seen by nephrology today and they recommended fluid administration and following patient's labs. Objective Data Objective Data Vital Signs: Vital Signs Temp Pulse Resp BP Pulse Ox O2 Del Method 97.6 F L 72 18 125/64 H 96 Room Air 02/04/24 15:50 02/04/24 15:50 02/04/24 15:50 02/04/24 15:50 02/04/24 16:08 02/04/24 15:50 Oxygen Delivery Method Room Air Weight: 92.5 kg Body Mass Index (BMI) 31.0 Intake & Output: Intake and Output for Last 24 Hours 02/02/24 02/03/24 02/04/24 23:59 23:59 23:59 Intake Total 250 / 250 1377.5 / 1377.5 Output Total 300 / 300 Balance 250 / 250 1077.5 / 1077.5 Lab / Micro Data 02/04/24 06:26 02/04/24 06:26 Labs: Laboratory Results - last 24 hr 02/03/24 18:22: WBC 7.7, RBC 3.67 L, Hgb 10.9 L, Hct 33.5 L, MCV 91.3, MCH 29.7, MCHC 32.5, RDW Std Deviation 50.0 H, RDW Coeff of Sy 14.9 H, Plt Count 425, MPV 9.9, Immature Gran % (Auto) 0.600, Neut % (Auto) 77.3 H, Lymph % (Auto) 12.5 L, [place] % (Auto) 6.1, Eos % (Auto) 3.0, Baso % (Auto) 0.5, Absolute Neuts (auto) 6.0, Absolute Lymphs (auto) 0.96, Nucleated RBC % 0, Sodium 134 L, Potassium 5.3 H, Chloride 107, Carbon Dioxide 17.0 L, Anion Gap 10, BUN 108 H*, Creatinine 8.81 H*, Est GFR (MDRD) Af Amer 8 L, Est GFR (MDRD) Non-Af 6 L, BUN/Creatinine Ratio 12.3, Glucose 97, Calcium 9.6 02/03/24 19:57: Urine Color Yellow, Urine Clarity Clear, Urine pH 6.0, Ur Specific [place] 1.015, Urine Protein 100 H, Urine Glucose (UA) Normal, Urine Ketones Negative, Urine Occult Blood 25 H, Urine Nitrite Negative, Urine Bilirubin Negative, Urine Urobilinogen Normal, Ur Leukocyte Esterase Negative, Urine RBC 0 SEEN, Urine WBC 0 SEEN, Ur Squamous Epith Cells 0 SEEN, Urine Bacteria 0 SEEN, Urine Mucus 0 SEEN 02/04/24 00:24: PT 17.4 H, INR 1.4, Serum Osmolality 329 H, Uric Acid 9.8 H, Phosphorus 5.6 H, Magnesium 2.1, Total Creatine Kinase 62 02/04/24 03:31: Urine Osmolality 393, U Random Total Protein 91.1 H, Ur Random Sodium 36, Urine Creatinine 72.30, Protein/Creatinin Ratio 1260 H, Urine Potassium 4.0, Urine Chloride 24 02/04/24 06:26: WBC 5.2, RBC 3.13 L, Hgb 9.1 L, Hct 28.3 L, MCV 90.4, MCH 29.1, MCHC 32.2, RDW Std Deviation 48.4 H, RDW Coeff of Sy 14.6, Plt Count 331, MPV 10.0, Immature Gran % (Auto) 0.400, Neut % (Auto) 71.5 H, Lymph % (Auto) 15.7 L, [place] % (Auto) 8.3, Eos % (Auto) 3.5, Baso % (Auto) 0.6, Absolute Neuts (auto) 3.7, Absolute Lymphs (auto) 0.82 L, Nucleated RBC % 0, Sodium 135 L, Potassium 4.3, Chloride 104, Carbon Dioxide 18.0 L, Anion Gap 12, BUN 103 H*, Creatinine 8.30 H*, Estim Creat Clear Calc 8.88, Est GFR (MDRD) Af Amer 8 L, Est GFR (MDRD) Non-Af 7 L, BUN/Creatinine Ratio 12.4, Glucose 133 H, Calcium 8.9, TSH 0.119 L Radiography Diagnostic Testing: Radiology Impression Brain CT 02/03/24 18:12 IMPRESSION: Mild atrophy and periventricular matter disease. No evidence for acute intracranial bleed Electronically Signed: Maxi Maurice MD at 18:59 EDT Reading Location ID and State: [facility] / [place] Tel , Service support , Abdomen/Pelvis CT 02/03/24 18:13 IMPRESSION: Minor diverticular disease of the descending and sigmoid colon without evidence for acute diverticulitis Small bilateral renal cysts which will not require additional imaging No acute abnormalities Electronically Signed: Maxi Maurice MD at 18:57 EDT Reading Location ID and State: [place] / [place] Tel [phone], Service support , Physical Exam Const alert, oriented x3 and no apparent distress General Appearance: cooperative, well kempt and well developed Orientation / Consciousness: awake, oriented to person, oriented to place and oriented to time HEENT normocephalic, head/scalp atraumatic and moist oral mucous membranes Eyes PERRL, EOMs intact bilaterally and conjunctivae normal Neck supple, no JVD and thyroid normal General: trachea midline Resp normal respiratory effort, no retractions, no use of accessory muscles and clear to auscultation bilaterally Auscultation: Negative for rales, rhonchi or wheezes Cardio regular rate, regular rhythm, S1 normal heart sound, S2 normal heart sound, no murmurs, no rub and no gallops GI normal to inspection, nondistended, normoactive bowel sounds, soft to palpation, non-tender and non-distended Extremity no clubbing, cyanosis or edema Skin no rashes or lesions noted General Skin Exam: no breakdown Neuro oriented x3, CN's II-XII intact bilaterally, moves all extremities, no focal motor deficits and no sensory deficits noted Sensorium / Orientation: awake and alert Speech: speech normal Psych affect normal Assessment & Plan Assessment/Plan (1) Acute kidney injury: PLAN: Plan 1. Acute kidney injury on a backdrop of stage IV chronic kidney disease-nephrology is participating in his care, he will receive fluids and his labs will be monitored. #2 acute debility-PT and OT will be seeing the patient #3 essential hypertension-patient's blood pressure medicines are being held by nephrology, blood pressure will be monitored #4 hyperlipidemia-patient is on a statin #5 chronic obstructive pulmonary disease-patient is on budesonide aerosols and albuterol aerosols as needed as well as DuoNeb aerosols. Total clinical time spent by myself addressing patient's medical issues, reviewing all of his data, and collaborating with patient's care team: 35 minutes Charges/Coding Visit Charges Inpatient E&M: 70173 Subs Hosp L2
[2024-02-04] MEDS: Primidone 50 MG Tablet PO (20:45)
[2024-02-04] MEDS: Metoprolol(XL)Succ 100 MG Tablet PO (20:45)
[2024-02-04] MEDS: MELATONIN 10 MG TABLET PO (20:45)
[2024-02-04] MEDS: 0.9% Normal Saline (1000mL) 1,000 ML 100 ML IV (20:53)
[2024-02-05] VITALS (10 sets, daily range): BP systolic 118–147; BP diastolic 71–102; PULSE 61–79; RESP 16–20; TEMP 36.3–36.7; O2SAT 95–98; BMI 31.1
[2024-02-05] MEDS: hydrOXYzine 10 MG Tablet PO ×2 (03:31→08:08)
[2024-02-05] MEDS: Levothyroxine 100 MCG Tablet 200 MCG PO (05:06)
[2024-02-05] MEDS: Budesonide Respules 0.5 MG/2 ML AMPUL.NEB. INHALATION ×2 (06:53→20:12)
[2024-02-05] MEDS: Ipratropium/Albuterol Sulfate 3 ML AMPUL.NEB INHALATION ×3 (06:53→20:12)
[2024-02-05 06:58] LABS: Absolute Lymphocyte Count 0.72 X10^3/uL (0.83-4.51); Absolute Neutrophil Count 2.9 X10^3/uL (2.0-7.7); Basophil# 0.02 X10^3/uL; Basophil% 0.5 % (0-1); Eosinophil# 0.16 X10^3/uL; Eosinophils% 3.9 % (0-5); Hematocrit 28.9 % (40-54); Hemoglobin 9.5 g/dL (13.0-16.5); Lymphocyte # 0.72 X10^3/ul (0.83-4.51); Lymphocyte % 17.6 % (19-41); Mean Corp Hgb Conc 32.9 g/dL (32-36); Mean Corpuscular Hgb 29.4 pg (27.0-32.0); Mean Corpuscular Volume 89.5 fL (80-94); Mean Platelet Vol. 10.1 fl (6.2-12.0); Monocyte# 0.26 X10^3/uL; Monocyte% 6.4 % (0-10); NRBC Flagged by Analyzer 0 % (0-5); Neutrophil # 2.91 X10^3/uL (2.7-7.7); Neutrophil % 71.4 % (47-70); Platelet Count 306 K/mm3 (150-450); RBC Distribution Width CV 14.6 % (11.6-14.6); RBC Distribution Width SD 46.7 fl (35.1-43.9); Red Blood Count 3.23 M/mm3 (4.6-6.2); White Blood Count 4.1 K/mm3 (4.4-11.0)
[2024-02-05 07:18] LABS: Anion Gap 9 (5-15); BUN 85 mg/dL (7-18); BUN/Creat Ratio 11.8 RATIO (10-20); Calcium,Total 8.9 mg/dL (8.5-10.1); Chloride 104 mmol/L (98-107); Creatinine, Serum 7.18 mg/dL (0.70-1.30); EST Glomerular Filtration Rate 8 mL/min (>60); Est Glom Filt Rate - Afr Amer 10 mL/min (>60); Estimated Creatinine Clearance 10.28 ml/min; Glucose 111 mg/dL (74-106); Potassium 3.9 mmol/L (3.5-5.1); Sodium Level 137 mmol/L (136-145)
[2024-02-05] MEDS: Heparin Injection (Vial) 5,000 UNIT/ML VIAL 5000 UNIT SC ×2 (08:07→20:49)
[2024-02-05] MEDS: Aspirin E.C. 81 MG Tablet PO (08:07)
[2024-02-05] MEDS: Primidone 50 MG Tablet PO ×2 (08:07→20:48)
[2024-02-05] MEDS: amLODIPine 10 MG Tablet PO (08:07)
[2024-02-05] MEDS: DULoxetine Hcl 60 MG Capsule PO (08:07)
[2024-02-05] MEDS: Metoprolol(XL)Succ 100 MG Tablet PO ×2 (08:07→20:48)
--- NOTE | 2024-02-05 10:16 | CASEMGMT ---
SW met with patient. Introduced self and role at [facility]. SW asked if patient had reviewed the list of facilities for rehab. Patient stated that his is at [facility] and his sister wants him to go there also. Patient said, That ain't happening. At first SW thought patient meant he does not want to go to [facility], but would go somewhere else. However, upon further discussion patient said he is going home at discharge. Patient said he does not need rehab. SW asked patient if he would like home health where therapy would come to him. Patient laughed and said he does not want anyone coming into his home. Ofelia Perdue [employer] DONNA
[2024-02-05] MEDS: 0.9% Saline Lock 10 ML Syringe IV (10:54)
[2024-02-05] MEDS: 0.9% Normal Saline (1000mL) 1,000 ML 100 ML IV ×2 (10:54→20:53)
--- NOTE | 2024-02-05 12:31 | PCM.PN.REN ---
Subjective Subjective No new complaints. He says he is voiding. Objective Data Objective Data Vital Signs: Vital Signs Temp Pulse Resp BP Pulse Ox O2 Del Method 97.4 F L 68 16 133/71 H 98 Room Air 02/05/24 07:36 02/05/24 08:07 02/05/24 07:36 02/05/24 08:07 02/05/24 07:36 02/05/24 07:56 Oxygen Delivery Method Room Air Weight: 92.8 kg Body Mass Index (BMI) 31.1 Intake & Output: Intake and Output for Last 24 Hours 02/03/24 02/04/24 02/05/24 23:59 23:59 23:59 Intake Total 250 / 250 2527.5 / 2527.5 1000 / 1000 Output Total 300 / 300 Balance 250 / 250 2227.5 / 2227.5 1000 / 1000 Lab / Micro Data 02/05/24 06:30 02/05/24 06:30 Labs: Laboratory Results - last 24 hr 02/05/24 06:30: WBC 4.1 L, RBC 3.23 L, Hgb 9.5 L, Hct 28.9 L, MCV 89.5, MCH 29.4, MCHC 32.9, RDW Std Deviation 46.7 H, RDW Coeff of Sy 14.6, Plt Count 306, MPV 10.1, Immature Gran % (Auto) 0.200, Neut % (Auto) 71.4 H, Lymph % (Auto) 17.6 L, [place] % (Auto) 6.4, Eos % (Auto) 3.9, Baso % (Auto) 0.5, Absolute Neuts (auto) 2.9, Absolute Lymphs (auto) 0.72 L, Nucleated RBC % 0, Sodium 137, Potassium 3.9, Chloride 104, Carbon Dioxide 24.0, Anion Gap 9, BUN 85 H, Creatinine 7.18 H, Estim Creat Clear Calc 10.28, Est GFR (MDRD) Af Amer 10 L, Est GFR (MDRD) Non-Af 8 L, BUN/Creatinine Ratio 11.8, Glucose 111 H, Calcium 8.9 Micro: Microbiology 02/04/24 03:31 Urine, Clean Catch Urine Culture - Preliminary Culture exhibits no growth. Physical Exam Narrative Alert awake oriented x 3 no obvious distress no pallor no icterus no JVD s1s2 no murmurs lungs clear abdomen soft no organomegaly no edema no cyanosis Assessment & Plan Assessment/Plan (1) Hyperkalemia: (2) Acute kidney injury: PLAN: History of CKD stage IV, baseline creatinine between 2.5-3.0. Secondary to diabetes and hypertension. Proteinuria. Was on maximum medical therapy. He has lost a significant amount of weight, about 45 pounds when compared to his weight from my office visit from May. Likely blood pressure and blood glucose have dropped. Insulin requirements down. All blood pressure related medications are on hold for now. With IV fluids alone, creatinine has improved. I will continue IV fluids for 1 more day. No uremia. Hold off dialysis. Hyperkalemia. Resolved. Already asking about discharge home. Came in with frequent falls. Has significant tremors which were treated as essential tremors in the past. He says he uses walker at home. I think he will benefit from rehab. Yesterday when his sister was around, he agreed for rehab however today he says he is going home. In general he is stubborn about anything new. His has been sick for couple of months now and overall health has declined since then.
--- NOTE | 2024-02-05 14:55 | CASEMGMT ---
HARRY VERDUZCO reviewed therapy notes and patient walked 160ft contact guard. HARRY VERDUZCO in to discuss needs at therapy. HARRY VERDUZCO reviewed progress with therapy and recommendations for additional therapy at discharge. Patient declines C or Outpatient therapy. Patient states he will do exercises on his own. HARRY VERDUZCO informed patient that should he reconsider to follow up with PCP regarding therapy. Patient voiced understanding and had no further questions or concern. HARRY VREDUZCO updated therapy to provide exercise handouts.
--- NOTE | 2024-02-05 16:36 | PCM.PN.HOSP ---
Reason for Visit Reason for Visit: Diagnoses Hyperkalemia (02/03/24) Acute kidney failure, unspecified (02/03/24) Repeated falls (02/03/24) Subjective Subjective Patient was seen and examined today, he would like to know when he can be released to go home. His renal functions are better today, I told him that I would prefer his renal function to improve further before he is discharged home. Patient did well with physical therapy, he refuses to consider going to an inpatient [place] [facility] [place] facility for short-term rehab. Objective Data Objective Data Vital Signs: Vital Signs Temp Pulse Resp BP Pulse Ox O2 Del Method 97.9 F 61 16 118/75 95 Room Air 02/05/24 13:47 02/05/24 13:47 02/05/24 13:47 02/05/24 13:47 02/05/24 13:47 02/05/24 13:47 Oxygen Delivery Method Room Air Weight: 92.8 kg Body Mass Index (BMI) 31.1 Intake & Output: Intake and Output for Last 24 Hours 02/03/24 02/04/24 02/05/24 23:59 23:59 23:59 Intake Total 250 / 250 2527.5 / 2527.5 1000 / 1000 Output Total 300 / 300 Balance 250 / 250 2227.5 / 2227.5 1000 / 1000 Lab / Micro Data 02/05/24 06:30 02/05/24 06:30 Labs: Laboratory Results - last 24 hr 02/05/24 06:30: WBC 4.1 L, RBC 3.23 L, Hgb 9.5 L, Hct 28.9 L, MCV 89.5, MCH 29.4, MCHC 32.9, RDW Std Deviation 46.7 H, RDW Coeff of Sy 14.6, Plt Count 306, MPV 10.1, Immature Gran % (Auto) 0.200, Neut % (Auto) 71.4 H, Lymph % (Auto) 17.6 L, [place] % (Auto) 6.4, Eos % (Auto) 3.9, Baso % (Auto) 0.5, Absolute Neuts (auto) 2.9, Absolute Lymphs (auto) 0.72 L, Nucleated RBC % 0, Sodium 137, Potassium 3.9, Chloride 104, Carbon Dioxide 24.0, Anion Gap 9, BUN 85 H, Creatinine 7.18 H, Estim Creat Clear Calc 10.28, Est GFR (MDRD) Af Amer 10 L, Est GFR (MDRD) Non-Af 8 L, BUN/Creatinine Ratio 11.8, Glucose 111 H, Calcium 8.9 Micro: Microbiology 02/04/24 03:31 Urine, Clean Catch Urine Culture - Preliminary Culture exhibits no growth. Physical Exam Narrative alert, oriented x3 and no apparent distress General Appearance: cooperative, well kempt and well developed Orientation / Consciousness: awake, oriented to person, oriented to place and oriented to time HEENT normocephalic, head/scalp atraumatic and moist oral mucous membranes Eyes PERRL, EOMs intact bilaterally and conjunctivae normal Neck supple, no JVD and thyroid normal General: trachea midline Resp normal respiratory effort, no retractions, no use of accessory muscles and clear to auscultation bilaterally Auscultation: Negative for rales, rhonchi or wheezes Cardio regular rate, regular rhythm, S1 normal heart sound, S2 normal heart sound, no murmurs, no rub and no gallops GI normal to inspection, nondistended, normoactive bowel sounds, soft to palpation, non-tender and non-distended Extremity no clubbing, cyanosis or edema Skin no rashes or lesions noted General Skin Exam: no breakdown Neuro oriented x3, CN's II-XII intact bilaterally, moves all extremities, no focal motor deficits and no sensory deficits noted Sensorium / Orientation: awake and alert Speech: speech normal Psych affect normal Const alert, oriented x3 and no apparent distress General Appearance: cooperative, well kempt and well developed Orientation / Consciousness: awake, oriented to person, oriented to place and oriented to time HEENT normocephalic, head/scalp atraumatic and moist oral mucous membranes Eyes PERRL, EOMs intact bilaterally and conjunctivae normal Neck supple, no JVD and thyroid normal General: trachea midline Resp normal respiratory effort, no retractions, no use of accessory muscles and clear to auscultation bilaterally Auscultation: Negative for rales, rhonchi or wheezes Cardio regular rate, regular rhythm, S1 normal heart sound, S2 normal heart sound, no murmurs, no rub and no gallops GI normal to inspection, nondistended, normoactive bowel sounds, soft to palpation, non-tender and non-distended Extremity no clubbing, cyanosis or edema Skin no rashes or lesions noted General Skin Exam: no breakdown Neuro oriented x3, CN's II-XII intact bilaterally, moves all extremities, no focal motor deficits and no sensory deficits noted Sensorium / Orientation: awake and alert Speech: speech normal Psych affect normal Assessment & Plan Assessment/Plan (1) Acute kidney injury: PLAN: Plan 1. Acute kidney injury on a backdrop of stage IV chronic kidney disease-nephrology is participating in his care, he will receive fluids and his labs will be monitored. Nephrology recommends continuing IV fluids for now. #2 acute debility-PT and OT will be seeing the patient, he does not want to consider going to a [place] [facility] [place] facility, the plan is for him to be discharged home when he is medically stable. #3 essential hypertension-patient's blood pressure medicines are being held by nephrology, blood pressure will be monitored #4 hyperlipidemia-patient is on a statin #5 chronic obstructive pulmonary disease-patient is on budesonide aerosols and albuterol aerosols as needed as well as DuoNeb aerosols. Total clinical time spent by myself addressing the patient's medical issues, reviewing all of his data, and collaborating with patient's care team: 35 minutes Charges/Coding Visit Charges Inpatient E&M: 36980 Subs Hosp L2
[2024-02-05] MEDS: Atorvastatin Calcium 80 MG Tablet PO (20:49)
[2024-02-05] MEDS: MELATONIN 10 MG TABLET PO (20:49)
[2024-02-06] VITALS (9 sets, daily range): BP systolic 135–159; BP diastolic 68–98; PULSE 61–77; RESP 16–20; TEMP 36.7; O2SAT 95–98; BMI 31.0
[2024-02-06] MEDS: Levothyroxine 100 MCG Tablet 200 MCG PO (05:09)
[2024-02-06 07:28] LABS: Anion Gap 10 (5-15); BUN 67 mg/dL (7-18); BUN/Creat Ratio 11.1 RATIO (10-20); Calcium,Total 8.9 mg/dL (8.5-10.1); Chloride 106 mmol/L (98-107); Creatinine, Serum 6.05 mg/dL (0.70-1.30); EST Glomerular Filtration Rate 10 mL/min (>60); Est Glom Filt Rate - Afr Amer 12 mL/min (>60); Estimated Creatinine Clearance 12.18 ml/min; Glucose 93 mg/dL (74-106); Potassium 4.4 mmol/L (3.5-5.1); Sodium Level 138 mmol/L (136-145)
[2024-02-06] MEDS: Ipratropium/Albuterol Sulfate 3 ML AMPUL.NEB INHALATION ×2 (07:31→14:05)
[2024-02-06] MEDS: Budesonide Respules 0.5 MG/2 ML AMPUL.NEB. INHALATION (07:31)
[2024-02-06] MEDS: 0.9% Normal Saline (1000mL) 1,000 ML 999 ML IV (08:55)
[2024-02-06] MEDS: Heparin Injection (Vial) 5,000 UNIT/ML VIAL 5000 UNIT SC (08:55)
[2024-02-06] MEDS: amLODIPine 10 MG Tablet PO (08:56)
[2024-02-06] MEDS: Primidone 50 MG Tablet PO (08:56)
[2024-02-06] MEDS: DULoxetine Hcl 60 MG Capsule PO (08:57)
[2024-02-06] MEDS: Aspirin E.C. 81 MG Tablet PO (08:57)
[2024-02-06] MEDS: Metoprolol(XL)Succ 100 MG Tablet PO (08:57)
[2024-02-06] MEDS: clonazePAM 0.5 MG Tablet PO (09:10)
--- NOTE | 2024-02-06 09:16 | NURSING ---
clonazepam 0.5 given after verified w/[employer]KE [employer] MACHINE-
--- NOTE | 2024-02-06 10:50 | NURSING ---
This RN notified by MARIEL Colby, that pt was berating staff. Pt was seen standing at the nurses station. This RN spoke with pt and he voices frustration regarding not having assistance with lifting his legs back into bed. Pt is also upset that he was asked for a blood pressure when he needed to have a bowel movement and referred to his primary RN Rebeka as a hardheaded bitch. Pt concerns were addressed and pt was informed that the staff was to be treated with mutual respect and that name calling would not be tolerated. Pt stated that he didn't not want MARIEL Colby back in his room and that he would file a complaint. Staffing was adjusted and pt was informed that management would be notified of the situation. Tristin MCDONALD
--- NOTE | 2024-02-06 11:18 | NURSING ---
pt ambulatory in [facility] therapy
--- NOTE | 2024-02-06 12:00 | DCINST_ITS ---
Discharge Instructions Diet Discharge Diet: No restrictions Activity Discharge Activity: Return to Normal Activity Weight Bearing Status: Full weight bearing Follow Up Care Test Results: Test results from this visit will be discussed in further detail at your follow- up appointment, if applicable. Discharge Plan Admission Admit Date/Time: 02/03/24 21:05 Primary Reason for Your Visit: Acute kidney injury, debility Attending Provider: Bernard Benedict Primary Care Provider: David Mcgowan Consulting Providers: Dinorah Kapadia; Yinka Ley; Umberto Hernández; Evangelista Rhodes; Latricia Martell; Senia Uribe; Eve Stewart; Leo Oglesby; Ethel Headley; Dmitry Kc; Juan Caro; Mihai Finney; Marisel Reed; Elroy Nance; Merline Coelho; Keith Doan; Marta Damon; Max Sutherland; Justin Gimenez; Davin Tomlinson; Johnna Guadalupe; Delaney Parker Discharge Orders/Prescriptions Prescriptions: Continued primidone 50 mg tablet 50 mg PO BID metoprolol succinate 100 mg tablet extended release 24 hr 100 mg PO BID aspirin 81 mg tablet,delayed release (DR/EC) 81 mg PO DAILY amlodipine 10 mg tablet 10 mg PO DAILY levothyroxine 200 mcg tablet 200 mcg PO DAILY duloxetine 60 mg capsule,delayed release(DR/EC) 60 mg PO DAILY trazodone 100 mg tablet 100 mg PO QHS melatonin 10 mg capsule 10 mg PO QHS hydrocodone-acetaminophen 5-325 mg tablet 1 tab PO TID PRN PRN (Reason: pain) ergocalciferol (vitamin D2) 1,250 mcg (50,000 unit) capsule 1,250 mcg PO QWEEK rosuvastatin 40 mg tablet 40 mg PO QHS fenofibrate 160 mg tablet 160 mg PO DAILY Spiriva Respimat 2.5 mcg/actuation mist 2 INHALATION DAILY PRN (Reason: copd) budesonide-formoterol [Breyna] 160-4.5 mcg/actuation HFA aerosol inhaler 2 puff inhalation BID PRN (Reason: copd) Discontinued hydrochlorothiazide 25 mg tablet 25 mg PO DAILY Referrals / Follow Up: Dinorah Kapadia MD [Med Staff - Consulting] - Within 1 Week (Call their office for follow-up appointment, mention that he was seen in the hospital by Dr. Kapadia) David Mcgowan MD [Primary Care Provider] - Within 2 Weeks Disposition Disposition (needs filled in before D/C Order can be placed): Home, Self Care
--- NOTE | 2024-02-06 12:16 | PCM.DC.SUM ---
Providers Date of Admission: 02/03/24 Date of Discharge: 02/06/24 Primary Care Physician: Dr. David Mcgowan MD Consultations 02/04/24 00:17 Consult: Nephrology Routine Consulting Provider: Dinorah Kapadia Reason for Consult: lena on ckd EMERGENT Consult: No Notified: Yes Date Notified: 02/03/24 Time Notified: 23:48 Method of Notification: Text 02/06/24 09:07 Consult: Tele-Neurology Routine Consulting Provider: [facility] Reason for Consult: tremors;possible parkinson's EMERGENT Consult: No Notified: Yes Date Notified: 02/06/24 Time Notified: 09:08 Method of Notification: [facility] Staff Notify [facility] of Tele-Neurology Consult: Yes Reason For Visit: LENA FALL Diagnosis Discharge Diagnosis (1) Acute kidney injury: Status: Acute Code(s): N17.9 - Acute kidney failure, unspecified Plan 1. Acute kidney injury on a backdrop of stage IV chronic kidney disease-nephrology is participating in his care, he will receive fluids and his labs will be monitored. Nephrology recommends continuing IV fluids for now. #2 acute debility-PT and OT will be seeing the patient, he does not want to consider going to a assisted facility, the plan is for him to be discharged home when he is medically stable. #3 essential hypertension-patient's blood pressure medicines are being held by nephrology, blood pressure will be monitored #4 hyperlipidemia-patient is on a statin #5 chronic obstructive pulmonary disease-patient is on budesonide aerosols and albuterol aerosols as needed as well as DuoNeb aerosols. #6 movement disorder-this had been diagnosed as an outpatient as essential tremor, I talked with the patient's daughter and the patient stating that he should stay on the primidone and metoprolol, I also advised if they wanted another opinion to see a neurologist concerning his movement disorder. Total clinical time spent by myself addressing the patient's medical issues, reviewing all of his data, and collaborating with patient's care team: 35 minutes Medications at Discharge Home Medications amlodipine 10 mg tablet 10 mg PO DAILY 02/03/24 aspirin 81 mg tablet,delayed release 81 mg PO DAILY 02/03/24 budesonide-formoterol HFA 160 mcg-4.5 mcg/actuation aerosol inhaler (Breyna) 2 puff inhalation BID PRN copd 02/03/24 duloxetine 60 mg capsule,delayed release 60 mg PO DAILY 02/03/24 ergocalciferol (vitamin D2) 1,250 mcg (50,000 unit) capsule 1,250 mcg PO QWEEK 02/03/24 fenofibrate 160 mg tablet 160 mg PO DAILY 02/03/24 hydrocodone-acetaminophen 5-325mg 5mg-325mg 1 tab PO TID PRN PRN pain 02/03/24 levothyroxine 200 mcg tablet 200 mcg PO DAILY 02/03/24 melatonin 10 mg capsule 10 mg PO QHS 02/03/24 metoprolol succinate 100 mg tablet,extended release 24 hr 100 mg PO BID 02/03/24 primidone 50 mg tablet 50 mg PO BID tremors 02/03/24 rosuvastatin 40 mg tablet 40 mg PO QHS cholesterol 02/03/24 tiotropium bromide 2.5 mcg/actuation mist for inhalation (Spiriva Respimat) 2 inhalation DAILY PRN copd 02/03/24 trazodone 100 mg tablet 100 mg PO QHS anxiety &sleep 02/03/24 Hospital Course Operations None Procedures None Summary of Care Provided Minutes Spent on Discharge: 32 Hospital Course: This 74-year-old white male was sent in from his PCPs office due to abnormal outpatient labs which showed a creatinine of 8.5. Patient does see a treasury representative (Dr. Kapadia) as an outpatient. Patient has had some falls at home due to chronic back pain and he uses a walker to ambulate. Labs obtained in the emergency room included a CBC that was remarkable for hemoglobin of 10.9, chemistry profile was remarkable for creatinine of 8.81 and a BUN of 108, patient's urinalysis was unremarkable. Patient was admitted to PCU given IV fluids, he was seen in consultation by nephrology, labs were monitored, patient's creatinine did drop somewhat during his time in the hospital, at the time of his discharge, his creatinine was 6.05. Patient had been taken off his hydrochlorothiazide while in the hospital, nephrology recommended that he stay off this medication. I had several discussions with the patient's sister about his movement disorder, he seems to have a resting tremor which had been diagnosed by his PCP as an essential tremor. Patient is on primidone and metoprolol, I offered to add Klonopin to the patient's medication regimen but the sister was not in favor of using this medication and so I told her that it would be rosario to get an opinion from a neurologist whether this is Parkinson's or an essential tremor. On 02/06/2024, patient was seen and examined: On examination he appeared in good health and spirits. Vital signs as documented. Skin warm and dry and without overt rashes. Neck without JVD, neck was supple, trachea midline, thyroid was normal. Lungs clear bilaterally, normal air movement was noted. Heart exam notable for regular rhythm, normal sounds and absence of murmurs, rubs or gallops. Abdomen unremarkable and without evidence of organomegaly, masses, or abdominal aortic enlargement. Bowel sounds are present, abdomen is not distended. Extremities nonedematous, no cyanosis was noted, no clubbing was noted. Neuro: Cranial nerves II through XII are grossly intact, no focal motor deficits were noted, sensation to light touch and pinprick intact, motor exam 5/5 throughout. Patient has a resting tremor. Psych: Patient is alert and oriented x3, he does not appear anxious or depressed, he does not appear agitated. Patient appears stable for discharge home on 02/06/2024. Weight / BMI Weight Weight: 92.5 kg Body Mass Index (BMI) 31.0 ABG / Lab / Microbiology Data 02/05/24 06:30 02/06/24 06:20 Laboratory: Laboratory Results - last 24 hr 02/06/24 06:20: Sodium 138, Potassium 4.4, Chloride 106, Carbon Dioxide 22.0, Anion Gap 10, BUN 67 H, Creatinine 6.05 H, Estim Creat Clear Calc 12.18, Est GFR (MDRD) Af Amer 12 L, Est GFR (MDRD) Non-Af 10 L, BUN/Creatinine Ratio 11.1, Glucose 93, Calcium 8.9 Microbiology: Microbiology 02/04/24 03:31 Urine, Clean Catch Urine Culture - Final Culture exhibits no growth. D/C Instructions Discharge Diet: No restrictions Weight Bearing Status: Full weight bearing Meaningful Use Info Meaningful Use Meaningful Use Diagnoses (Choose all that apply): None applicable Ischemic Stroke Statin Dosing Therapy Reference: STATIN DOSE THERAPY REFERENCE: * Patients > 75 years receive moderate or high dose statin therapy. * Patients 75 years or YOUNGER should receive HIGH intensity statin dose unless contraindicated. You will be required to document reason for non-treatment if statin daily dose does not meet guidelines. HIGH DOSE STATIN THERAPY DAILY Atorvastatin > than or = to 40 mg Rosuvastatin > than or = to 20 mg Amlodipine + Atorvastatin > than or = to 2.5/40 mg Ezetimibe + Simvastatin 10/80 mg Simvastatin 80mg Discharge Plan Admission Admit Date/Time: 02/03/24 21:05 Primary Reason for Your Visit: Acute kidney injury, debility Attending Provider: Bernard Benedict Primary Care Provider: David Mcgowan Consulting Providers: Dinorah Kapadia; Yinka Ley; Umberto Hernández; Evangelista Rhodes; Latricia Martell; Senia Uribe; Eve Stewart; Leo Oglesby; Ethel Headley; Dmitry Kc; Juan Caro; Mihai Finney; Marisel Reed; Elroy Nance; Merline Coelho; Keith Doan; Marta Damonzat; Max Sutherland; Justin Gimenez; Davin Tomlinson; Johnna Guadalupe; Delaney Parker Discharge Orders/Prescriptions Prescriptions: Continued primidone 50 mg tablet 50 mg PO BID metoprolol succinate 100 mg tablet extended release 24 hr 100 mg PO BID aspirin 81 mg tablet,delayed release (DR/EC) 81 mg PO DAILY amlodipine 10 mg tablet 10 mg PO DAILY levothyroxine 200 mcg tablet 200 mcg PO DAILY duloxetine 60 mg capsule,delayed release(DR/EC) 60 mg PO DAILY trazodone 100 mg tablet 100 mg PO QHS melatonin 10 mg capsule 10 mg PO QHS hydrocodone-acetaminophen 5-325 mg tablet 1 tab PO TID PRN PRN (Reason: pain) ergocalciferol (vitamin D2) 1,250 mcg (50,000 unit) capsule 1,250 mcg PO QWEEK rosuvastatin 40 mg tablet 40 mg PO QHS fenofibrate 160 mg tablet 160 mg PO DAILY Spiriva Respimat 2.5 mcg/actuation mist 2 INHALATION DAILY PRN (Reason: copd) budesonide-formoterol [Breyna] 160-4.5 mcg/actuation HFA aerosol inhaler 2 puff inhalation BID PRN (Reason: copd) Discontinued hydrochlorothiazide 25 mg tablet 25 mg PO DAILY Referrals / Follow Up: Dinorah Kapadia MD [Med Staff - Consulting] - Within 1 Week (Call their office for follow-up appointment, mention that he was seen in the hospital by Dr. Kapadia) David Mcgowan MD [Primary Care Provider] - Within 2 Weeks Disposition Disposition (needs filled in before D/C Order can be placed): Home, Self Care Charges/Coding Visit Charges Inpatient E&M: 90778 Disch Hosp >30min
--- NOTE | 2024-02-06 14:09 | NURSING ---
pt awaiting for ride
--- NOTE | 2024-02-06 15:15 | NURSING ---
d/c instructions given to pt and sister
== END 2024-02-06 15:08 | disposition home or self-care (01) | DRG 641 ==
LOC: ED 22:24 → PCU 02-04 00:03
PROVIDERS: Admitting Provider Internal Medicine; Emergency Provider Emergency Medicine; PCP Family Medicine; Visit Provider Internal Medicine
DX: E87.20 Acidosis, unspecified (principal); N18.4 Chronic kidney disease, stage 4 (severe); E03.9 Hypothyroidism, unspecified; Z66 Do not resuscitate; Z51.5 Encounter for palliative care; E11.22 Type 2 diabetes mellitus with diabetic chronic kidney disease; J44.9 Chronic obstructive pulmonary disease, unspecified; G20.C Parkinsonism, unspecified; I12.9 Hypertensive chronic kidney disease with stage 1 through stage 4 chronic kidney disease, or unspecified chronic kidney disease; F32.A Depression, unspecified; G25.0 Essential tremor; E87.5 Hyperkalemia; F17.210 Nicotine dependence, cigarettes, uncomplicated; E78.5 Hyperlipidemia, unspecified; M54.9 Dorsalgia, unspecified; G89.29 Other chronic pain; R80.9 Proteinuria, unspecified; Z79.890 Hormone replacement therapy; R29.6 Repeated falls
CPT/HCPCS: 36415; 70450; 74176; 80048; 80053; 80061; 81001; 82436; 82550; 82570; 83036; 83735; 83930; 83935; 84100; 84133; 84156; 84300; 84439; 84443; 84550; 85025; 85610; 87086; 92526; 92610; 93005; 94640; 94668; 97162; 97166; 97530; 99285; A4216

== ENCOUNTER → 2024-02-15 | Outpatient (CLI) | payer MEDICARE, SELFPAY ==
[2024-02-15 17:59] LABS: Absolute Lymphocyte Count 1.09 X10^3/uL (0.83-4.51); Absolute Neutrophil Count 7.1 X10^3/uL (2.0-7.7); Basophil# 0.06 X10^3/uL; Basophil% 0.7 % (0-1); Eosinophil# 0.28 X10^3/uL; Eosinophils% 3.1 % (0-5); Hematocrit 34.8 % (40-54); Hemoglobin 11.1 g/dL (13.0-16.5); Lymphocyte # 1.09 X10^3/ul (0.83-4.51); Lymphocyte % 11.9 % (19-41); Mean Corp Hgb Conc 31.9 g/dL (32-36); Mean Corpuscular Hgb 29.7 pg (27.0-32.0); Mean Platelet Vol. 10.7 fl (6.2-12.0); Monocyte# 0.57 X10^3/uL; Monocyte% 6.2 % (0-10); NRBC Flagged by Analyzer 0 % (0-5); Neutrophil # 7.12 X10^3/uL (2.7-7.7); Neutrophil % 77.8 % (47-70); Platelet Count 491 K/mm3 (150-450); RBC Distribution Width CV 14.6 % (11.6-14.6); RBC Distribution Width SD 50.4 fl (35.1-43.9); Red Blood Count 3.74 M/mm3 (4.6-6.2); White Blood Count 9.2 K/mm3 (4.4-11.0)
[2024-02-15 18:31] LABS: ALB/GLOB Ratio 0.7 RATIO (0.9-2.4); AST(SGOT) 47 U/L (15-37); Alanine Aminotransfer ALT/SGPT 43 U/L (16-61); Albumin, Serum 3.3 g/dL (3.2-5.0); Alkaline Phosphatase 52 U/L (45-117); Anion Gap 12 (5-15); BUN 57 mg/dL (7-18); BUN/Creat Ratio 12.1 RATIO (10-20); Calcium,Total 9.3 mg/dL (8.5-10.1); Chloride 104 mmol/L (98-107); Cholesterol 153 mg/dL (200); EST Glomerular Filtration Rate 13 mL/min (>60); Est Glom Filt Rate - Afr Amer 16 mL/min (>60); Globulin 4.5 g/dL (2.2-4.2); Glucose 97 mg/dL (74-106); High Density Lipoprotein 35 mg/dL; Potassium 4.7 mmol/L (3.5-5.1); Protein, Total 7.8 g/dL (6.4-8.2); Sodium Level 134 mmol/L (136-145); T4 Free Direct 0.87 ng/dL (0.76-1.46); Triglycerides 268 mg/dL; Very Low Density Lipoprotein 54 mg/dL (5-40)
== END | disposition home or self-care (01) ==
LOC: MFPLAB 15:15
PROVIDERS: PCP Family Medicine; Visit Provider Family Medicine
DX: E11.59 Type 2 diabetes mellitus with other circulatory complications (principal); E03.9 Hypothyroidism, unspecified; E55.9 Vitamin D deficiency, unspecified
CPT/HCPCS: 36415; 80053; 80061; 82306; 84439; 84443; 85025

== ENCOUNTER → 2024-03-08 | Outpatient (CLI) | payer MEDICARE, SELFPAY ==
[2024-03-08 18:40] LABS: AST(SGOT) 40 U/L (15-37); Alanine Aminotransfer ALT/SGPT 46 U/L (16-61); Albumin, Serum 2.9 g/dL (3.2-5.0); Alkaline Phosphatase 45 U/L (45-117); Globulin 3.9 g/dL (2.2-4.2); Protein, Total 6.8 g/dL (6.4-8.2)
== END | disposition home or self-care (01) ==
LOC: MFPLAB 16:51
PROVIDERS: PCP Family Medicine; Referring Provider Family Medicine; Visit Provider Family Medicine
DX: E80.6 Other disorders of bilirubin metabolism (principal)
CPT/HCPCS: 36415; 80076

== ENCOUNTER → 2024-03-17 | Outpatient (CLI) | payer MEDICARE, SELFPAY ==
[2024-03-17 10:21] LABS: Color, Urine Yellow (Yellow); Glucose, Dipstick Normal (Normal); Ketone-Dipstick Negative (Negative); Leukocyte Esterase-Dipstick Negative /ul (Negative); Nitrite-Dipstick Positive (Negative); Occult Blood-Urine Negative /ul (Negative); Protein-Dipstick 100 mg/dl (Negative); Specific Gravity, Urine 1.015 (1.002-1.030); Urine Bilirubin Dipstick Negative (Negative); Urine Clarity Sl. Cloudy (Clear); Urine Urobilinogen Normal (Normal)
[2024-03-17 10:31] LABS: White Blood Cells 0-5 SEEN /hpf (0-5)
[2024-03-17 10:32] LABS: Bacteria 4+ /hpf (None Seen); Mucous, Urine 1+ /hpf (<or=2+); Squamous Epithelial Cells - UA 0-5 SEEN /hpf (0-5)
--- NOTE | 2024-03-17 10:45 | RAD_ITS ---
HISTORY: BIBASILAR CRACKLES -- STAT. TECHNIQUE: XR Chest 2 Views. COMPARISON: None. FINDINGS: CARDIOMEDIASTINAL BORDERS: Cardiac silhouette within normal limits in size. Mediastinal contour unremarkable with calcification of the aortic knob. LUNGS: Mild hyperinflation suggesting COPD. Mild bibasilar opacities. PLEURA: No pleural effusion or pneumothorax seen. OSSEOUS STRUCTURES: Degenerative change. RAD/Chest PA and Lateral IMPRESSION: Mild bibasilar atelectasis or pneumonia. Electronically Signed: Shaina Layton MD at 11:42 EST ,
== END | disposition home or self-care (01) ==
LOC: LABSPEC 09:19 → MTRAD 10:28
PROVIDERS: PCP Family Medicine; Referring Provider Family Medicine; Visit Provider Family Medicine
DX: E11.22 Type 2 diabetes mellitus with diabetic chronic kidney disease (principal); R09.89 Other specified symptoms and signs involving the circulatory and respiratory systems
CPT/HCPCS: 71046; 81001

== ENCOUNTER → 2024-04-04 | Outpatient (CLI) | payer MEDICARE, SELFPAY ==
[2024-04-04 13:00] LABS: Albumin, Serum 3.3 g/dL (3.2-5.0); BUN 40 mg/dL (7-18); Calcium,Total 9.3 mg/dL (8.5-10.1); Chloride 109 mmol/L (98-107); Creatinine, Serum 2.66 mg/dL (0.70-1.30); EST Glomerular Filtration Rate 25 mL/min (>60); Est Glom Filt Rate - Afr Amer 31 mL/min (>60); Glucose 119 mg/dL (74-106); Phosphorus 3.4 mg/dL (2.5-4.9); Potassium 4.3 mmol/L (3.5-5.1); Sodium Level 136 mmol/L (136-145)
[2024-04-04 13:34] LABS: Protein, Urine (Random) 163.7 mg/dL (<11.9); Protein:Creat Ratio 1342 mg/g CRE (0-200)
[2024-04-06 02:07] LABS: Free Kappa Light Chains 80.9 mg/L (3.3-19.4); Free Lambda Light Chains 44.7 mg/L (5.7-26.3); PROEL- A/G Ratio 1.1 (0.7-1.7); PROEL- Albumin 3.3 g/dL (2.9-4.4); PROEL- Alpha-1 Globulin 0.3 g/dL (0.0-0.4); PROEL- Alpha-2 Globulin 0.9 g/dL (0.4-1.0); PROEL- Gamma Globulin 0.8 g/dL (0.4-1.8); PROEL- Globulin, Total 3.1 g/dL (2.2-3.9); PROEL- TOTAL PROTEIN 6.4 g/dL (6.0-8.5); PROEL-M-Spike Not Observed g/dL (Not Observed)
== END | disposition home or self-care (01) ==
LOC: MFPLAB 10:08
PROVIDERS: PCP Family Medicine; Referring Provider Internal Medicine Nephrology; Visit Provider Internal Medicine Nephrology
DX: N18.4 Chronic kidney disease, stage 4 (severe) (principal); R80.9 Proteinuria, unspecified
CPT/HCPCS: 36415; 80069; 82570; 83883; 84156; 84165

== ENCOUNTER → 2024-05-10 | Outpatient (CLI) | payer MEDICARE, SELFPAY ==
[2024-05-10 13:18] LABS: Albumin, Serum 2.9 g/dL (3.2-5.0); BUN 38 mg/dL (7-18); BUN/Creat Ratio 14.6 RATIO (10-20); Calcium,Total 9.2 mg/dL (8.5-10.1); Chloride 107 mmol/L (98-107); EST Glomerular Filtration Rate 26 mL/min (>60); Est Glom Filt Rate - Afr Amer 31 mL/min (>60); Glucose 155 mg/dL (74-106); Phosphorus 4.8 mg/dL (2.5-4.9); Potassium 4.1 mmol/L (3.5-5.1); Sodium Level 137 mmol/L (136-145)
== END | disposition home or self-care (01) ==
LOC: MFPLAB 10:01
PROVIDERS: PCP Family Medicine; Referring Provider Family Medicine; Visit Provider Family Medicine
DX: N18.4 Chronic kidney disease, stage 4 (severe) (principal)
CPT/HCPCS: 36415; 80069

== ENCOUNTER → 2024-06-06 | Outpatient (CLI) | payer MEDICARE, SELFPAY ==
[2024-06-06 10:49] LABS: Bacteria 0 SEEN /hpf (None Seen); Mucous, Urine 0 SEEN /hpf (<or=2+)
[2024-06-06 12:55] LABS: Color, Urine Yellow (Yellow); Glucose, Dipstick 100 mg/dl (Normal); Ketone-Dipstick Negative (Negative); Leukocyte Esterase-Dipstick Negative /ul (Negative); Nitrite-Dipstick Negative (Negative); Occult Blood-Urine 10 /ul (Negative); Protein-Dipstick 100 mg/dl (Negative); Specific Gravity, Urine 1.015 (1.002-1.030); Urine Bilirubin Dipstick Negative (Negative); Urine Clarity Clear (Clear); Urine Urobilinogen Normal (Normal)
[2024-06-06 13:44] LABS: Microalbumin:Creatinine Ratio 17275.9 mg/g CRE
[2024-06-06 13:45] LABS: Red Blood Cells-Urine 0-5 SEEN /hpf (0-5); White Blood Cells 0-5 SEEN /hpf (0-5)
[2024-06-06 13:46] LABS: Fine Granular Cast- Urine 0-5 SEEN /lpf (0-5); Squamous Epithelial Cells - UA 0-5 SEEN /hpf (0-5); Transitional Epithelial - Ur 0-5 SEEN /hpf (0-5)
[2024-06-06 15:38] LABS: Absolute Lymphocyte Count 1.56 X10^3/uL (0.83-4.51); Absolute Neutrophil Count 6.2 X10^3/uL (2.0-7.7); Basophil# 0.06 X10^3/uL; Basophil% 0.7 % (0-1); Eosinophils% 2.4 % (0-5); Hematocrit 36.9 % (40-54); Hemoglobin 11.7 g/dL (13.0-16.5); Lymphocyte # 1.56 X10^3/ul (0.83-4.51); Lymphocyte % 18.3 % (19-41); Mean Corp Hgb Conc 31.7 g/dL (32-36); Mean Corpuscular Hgb 28.4 pg (27.0-32.0); Mean Corpuscular Volume 89.6 fL (80-94); Mean Platelet Vol. 10.3 fl (6.2-12.0); Monocyte# 0.43 X10^3/uL; Monocyte% 5.1 % (0-10); NRBC Flagged by Analyzer 0 % (0-5); Neutrophil # 6.24 X10^3/uL (2.7-7.7); Neutrophil % 73.3 % (47-70); Platelet Count 335 K/mm3 (150-450); RBC Distribution Width CV 13.1 % (11.6-14.6); RBC Distribution Width SD 42.7 fl (35.1-43.9); Red Blood Count 4.12 M/mm3 (4.6-6.2); White Blood Count 8.5 K/mm3 (4.4-11.0)
[2024-06-06 21:23] LABS: PTHIN 131 pg/mL (11-61)
[2024-06-06 21:44] LABS: ALB/GLOB Ratio 1.1 RATIO (0.9-2.4); AST(SGOT) 19 U/L (<=37); Alanine Aminotransfer ALT/SGPT 15 U/L (<=46); Albumin, Serum 3.8 g/dL (3.4-4.8); Alkaline Phosphatase 70 U/L (40-129); Anion Gap 15 (5-15); BUN 43 mg/dL (4-19); BUN/Creat Ratio 15.7 RATIO (10-20); Calcium 9.6 mg/dL (7.6-11.0); Carbon Dioxide 16.6 mmol/L (22.0-29.0); Chloride 105 mmol/L (96-108); Creatinine, Serum 2.73 mg/dL (0.70-1.20); EST Glomerular Filtration Rate 24 (>60); Globulin 3.4 g/dL (2.2-4.2); Glucose 131 mg/dL (70-99); PSA,Total - Annual Screen 0.22 ng/mL (0.02-4.00); Potassium 4.3 mmol/L (3.3-5.1); Protein, Total 7.2 g/dL (5.9-8.4); Sodium Level 136 mmol/L (133-145); Thyroid Stim Hormone (TSH) 0.064 uIU/mL (0.300-4.200); Total Bilirubin 0.24 mg/dL (0.00-1.30)
[2024-06-06 22:30] LABS: Cholesterol 214 mg/dL (<=200); High Density Lipoprotein 49 mg/dL; Low Density Lipoprotein Calc. 146 mg/dL; Triglycerides 96 mg/dL; Very Low Density Lipoprotein 19 mg/dL (5-40); cholesterol:hdl ratio screen 4.39
[2024-06-07 01:37] LABS: Hemoglobin A1c 6.8 % (<=5.6)
== END | disposition home or self-care (01) ==
LOC: MFPLAB 10:48
PROVIDERS: PCP Family Medicine; Referring Provider Family Medicine; Visit Provider Family Medicine
DX: E11.8 Type 2 diabetes mellitus with unspecified complications (principal); Z12.5 Encounter for screening for malignant neoplasm of prostate; E03.9 Hypothyroidism, unspecified; N25.81 Secondary hyperparathyroidism of renal origin
CPT/HCPCS: 36415; 80053; 80061; 81001; 82043; 82570; 83036; 83970; 84153; 84439; 84443; 85025; G0103

== ENCOUNTER → 2024-09-26 | Outpatient (CLI) | payer MEDICARE, SELFPAY ==
[2024-09-26 10:29] LABS: Absolute Lymphocyte Count 1.66 X10^3/uL (0.83-4.51); Absolute Neutrophil Count 6.6 X10^3/uL (2.0-7.7); Basophil# 0.07 X10^3/uL; Basophil% 0.8 % (0-1); Eosinophils% 3.3 % (0-5); Hematocrit 36.9 % (40-54); Hemoglobin 11.9 g/dL (13.0-16.5); Lymphocyte # 1.66 X10^3/ul (0.83-4.51); Mean Corp Hgb Conc 32.2 g/dL (32-36); Mean Corpuscular Hgb 27.7 pg (27.0-32.0); Monocyte# 0.59 X10^3/uL; Monocyte% 6.4 % (0-10); NRBC Flagged by Analyzer 0 % (0-5); Neutrophil # 6.56 X10^3/uL (2.7-7.7); Neutrophil % 71.1 % (47-70); Platelet Count 310 K/mm3 (150-450); RBC Distribution Width CV 15.2 % (11.6-14.6); RBC Distribution Width SD 47.9 fl (35.1-43.9); Red Blood Count 4.29 M/mm3 (4.6-6.2); White Blood Count 9.2 K/mm3 (4.4-11.0)
[2024-09-26 11:17] LABS: Hemoglobin A1c 6.8 % (<=5.6)
[2024-09-26 11:21] LABS: Protein:Creat Ratio 4425 mg/g CRE (0-200)
[2024-09-26 14:13] LABS: ALB/GLOB Ratio 1.1 RATIO (0.9-2.4); AST(SGOT) 15 U/L (<=37); Alanine Aminotransfer ALT/SGPT 13 U/L (<=46); Albumin, Serum 3.7 g/dL (3.4-4.8); Alkaline Phosphatase 75 U/L (40-129); Anion Gap 12 (5-15); BUN 40 mg/dL (4-19); BUN/Creat Ratio 11.9 RATIO (10-20); Calcium,Total 9.4 mg/dL (7.6-11.0); Carbon Dioxide 19.6 mmol/L (21.0-32.0); Chloride 104 mmol/L (98-108); Cholesterol 212 mg/dL (<=200); Creatinine, Serum 3.36 mg/dL (0.70-1.20); EST Glomerular Filtration Rate 19 (>60); Globulin 3.4 g/dL (2.2-4.2); Glucose 150 mg/dL (70-99); High Density Lipoprotein 51 mg/dL; Low Density Lipoprotein Calc. 135 mg/dL; Phosphorus 4.3 mg/dL (2.7-4.5); Potassium 5.2 mmol/L (3.3-5.1); Protein, Total 7.1 g/dL (5.9-8.4); Sodium Level 136 mmol/L (133-145); Total Bilirubin 0.24 mg/dL (0.00-1.30); Triglycerides 128 mg/dL; Very Low Density Lipoprotein 26 mg/dL (5-40); cholesterol:hdl ratio screen 4.14
[2024-09-26 14:34] LABS: Thyroid Stim Hormone (TSH) 0.769 uIU/mL (0.300-4.200); Vitamin D,25 Hydroxy 50.6 ng/mL (30-100)
--- OUTSIDE RECORDS SUMMARY | 2024-09-26 21:18 | XMS RPT_ITS | CCD ---
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 [facility] [address] [place], [address] IG% 0.200 Normal 0.0-0.9 [facility] Comment on above: Order Comment: Order Date: 05/22/24Order Info: 0184-1 - CBCD Result Comment: IG% - Immature Granulocytes (promyelocytes, myelocytes and metamyelocytes) > 1% indicates that a LEFT SHIFT is Present. Performed By: #### L 509.1000, L501.0900, L506.0400, L501.2300, L500.4100, L506.1000, L501.9985, L3300.0960, L100.0100, L501.9520, L500.4050 #### [facility] [address] [place], [address] Lymphocytes/100 WBC (Bld) 18.3 % Low 19-41 [facility] Comment on above: Order Comment: Order Date: 05/22/24Order Info: 0184-1 - CBCD Performed By: #### L 509.1000, L501.0900, L506.0400, L501.2300, L500.4100, L506.1000, L501.9985, L3300.0960, L100.0100, L501.9520, L500.4050 #### [facility] [address] [place], [address] MCH (RBC) [Entitic mass] 28.4 pg Normal 27.0-32.0 [facility] Comment on above: Order Comment: Order Date: 05/22/24Order Info: 0184-1 - CBCD Performed By: #### L 509.1000, L501.0900, L506.0400, L501.2300, L500.4100, L506.1000, L501.9985, L3300.0960, L100.0100, L501.9520, L500.4050 #### [facility] [address] [place], [address] MCHC (RBC) [Mass/Vol] 31.7 g/dL Low 32-36 [facility] Comment on above: Order Comment: Order Date: 05/22/24Order Info: 0184-1 - CBCD Performed By: #### L 509.1000, L501.0900, L506.0400, L501.2300, L500.4100, L506.1000, L501.9985, L3300.0960, L100.0100, L501.9520, L500.4050 #### [facility] [address] [place], [address] MCV (RBC) [Entitic vol] 89.6 fL Normal 80-94 [facility] Comment on above: Order Comment: Order Date: 05/22/24Order Info: 0184-1 - CBCD Performed By: #### L 509.1000, L501.0900, L506.0400, L501.2300, L500.4100, L506.1000, L501.9985, L3300.0960, L100.0100, L501.9520, L500.4050 #### [facility] [address] [place], [address] Monocytes/100 WBC (Bld) 5.1 % Normal 0-10 [facility] Comment on above: Order Comment: Order Date: 05/22/24Order Info: 0184-1 - CBCD Performed By: #### L 509.1000, L501.0900, L506.0400, L501.2300, L500.4100, L506.1000, L501.9985, L3300.0960, L100.0100, L501.9520, L500.4050 #### [facility] [address] [place], [address] Neutrophils/100 WBC (Bld) 73.3 % High 47-70 [facility] Comment on above: Order Comment: Order Date: 05/22/24Order Info: 0184-1 - CBCD Performed By: #### L 509.1000, L501.0900, L506.0400, L501.2300, L500.4100, L506.1000, L501.9985, L3300.0960, L100.0100, L501.9520, L500.4050 #### [facility] [address] [place], [address] Nucleated RBC (Bld) [#/Vol] 0 10*3/uL Normal 0-5 [facility] Comment on above: Order Comment: Order Date: 05/22/24Order Info: 0184-1 - CBCD Performed By: #### L 509.1000, L501.0900, L506.0400, L501.2300, L500.4100, L506.1000, L501.9985, L3300.0960, L100.0100, L501.9520, L500.4050 #### [facility] [address] [place], [address] Platelet mean volume (Bld) [Entitic vol] 10.3 fL Normal 6.2-12.0 [facility] Comment on above: Order Comment: Order Date: 05/22/24Order Info: 0184-1 - CBCD Performed By: #### L 509.1000, L501.0900, L506.0400, L501.2300, L500.4100, L506.1000, L501.9985, L3300.0960, L100.0100, L501.9520, L500.4050 #### [facility] [address] [place], [address] Platelets (Bld) [#/Vol] 335 10*3/uL Normal 150-450 [facility] Comment on above: Order Comment: Order Date: 05/22/24Order Info: 018-1 - CBCD Performed By: #### L 509.1000, L501.0900, L506.0400, L501.2300, L500.4100, L506.1000, L501.9985, L3300.0960, L100.0100, L501.9520, L500.4050 #### [facility] [address] [place], [address] RBC (Bld) [#/Vol] 4.12 10*6/uL Low 4.6-6.2 [facility] Comment on above: Order Comment: Order Date: 05/22/24Order Info: 0184- - CBCD Performed By: #### L 509.1000, L501.0900, L506.0400, L501.2300, L500.4100, L506.1000, L501.9985, L3300.0960, L100.0100, L501.9520, L500.4050 #### [facility] [address] [place], [address] RDW SD 42.7 fl Normal 35.1-43.9 [facility] Comment on above: Order Comment: Order Date: 05/22/24Order Info: 0184-1 - CBCD Performed By: #### L 509.1000, L501.0900, L506.0400, L501.2300, L500.4100, L506.1000, L501.9985, L3300.0960, L100.0100, L501.9520, L500.4050 #### [facility] [address] [facility] [place], [address] WBC (Bld) [#/Vol] 8.5 10*3/uL Normal 4.4-11.0 [facility] Comment on above: Order Comment: Order Date: 05/22/24Order Info: 0184-1 - CBCD Performed By: #### L 509.1000, L501.0900, L506.0400, L501.2300, L500.4100, L506.1000, L501.9985, L3300.0960, L100.0100, L501.9520, L500.4050 #### [facility] [address] [facility] [place], [place], [id number] Calculated very low density lipoprotein (VLDL) cholesterol measurementOrdered By: David Mcgwoan on 06-06-2024 VLDL Cholesterol 19 mg/dL 5-40 [facility] Carbon dioxide measurementOr dered By: David Mcgowan on 06-06-2024 CO2 [Moles/Vol] 16.6 mmol/L Low 22.0-29.0 [facility] Chloride measurementOrdered By: David Mcgowan on 06-06-2024 Chloride [Moles/Vol] 105 mmol/L 96-108 [facility] Comprehensive Metabolic Prof ilon 06-06-2024 Albumin [Mass/Vol] 3.8 g/dL Normal 3.4-4.8 [facility] Comment on above: Order Comment: Order Date: 05/22/24Order Info: [id number] - CMPOrder Info: [id number] - LIPIDOrder Info: [id number] - TSHOrder Info: 2857-1 - PSAOrder Info: 3024-7 - T4F Performed By: #### L 509.1000, L501.0900, L506.0400, L501.2300, L500.4100, L506.1000, L501.9985, L3300.0960, L100.0100, L501.9520, L500.4050 #### [facility] [address] [place], [address] Albumin/Globulin [Mass ratio] 1.1 {ratio} Normal 0.9-2.4 [facility] Comment on above: Order Comment: Order Date: 05/22/24Order Info: 86-1 - CMPOrder Info: [id number] - LIPIDOrder Info: 3 - TSHOrder Info: [id number] - PSAOrder Info: 3024-7 - T4F Performed By: #### L 509.1000, L501.0900, L506.0400, L501.2300, L500.4100, L506.1000, L501.9985, L3300.0960, L100.0100, L501.9520, L500.4050 #### [facility] [address] [place], [address] ALK PHOS 70 U/L Normal 40-129 [facility] Comment on above: Order Comment: Order Date: 05/22/24Order Info: 785-1 - CMPOrder Info: - LIPIDOrder Info: [id number] - TSHOrder Info: [id number] - PSAOrder Info: 3024-7 - T4F Performed By: #### L 509.1000, L501.0900, L506.0400, L501.2300, L500.4100, L506.1000, L501.9985, L3300.0960, L100.0100, L501.9520, L500.4050 #### [facility] [address] [place], [address] ALT [Catalytic activity/Vol] 15 U/L Normal <=46 [facility] Comment on above: Order Comment: Order Date: 05/22/24Order Info: 86-1 - CMPOrder Info: [id number] - LIPIDOrder Info: 3 - TSHOrder Info: 2856-1 - PSAOrder Info: 3024-7 - T4F Performed By: #### L 509.1000, L501.0900, L506.0400, L501.2300, L500.4100, L506.1000, L501.9985, L3300.0960, L100.0100, L501.9520, L500.4050 #### [facility] [address] [place], [address] Anion gap [Moles/Vol] 15 mmol/L Normal 5-15 [facility] Comment on above: Order Comment: Order Date: 05/22/24Order Info: 07- - CMPOrder Info: [id number] - LIPIDOrder Info: [id number] - TSHOrder Info: 2856- - PSAOrder Info: 7 - T4F Performed By: #### L 509.1000, L501.0900, L506.0400, L501.2300, L500.4100, L506.1000, L501.9985, L3300.0960, L100.0100, L501.9520, L500.4050 #### [facility] [address] [place], [address] AST [Catalytic activity/Vol] 19 U/L Normal <=37 [facility] Comment on above: Order Comment: Order Date: 05/22/24Order Info: 785- - CMPOrder Info: [id number] - LIPIDOrder Info: 3 - TSHOrder Info: 7-1 - PSAOrder Info: 7 - T4F Performed By: #### L 509.1000, L501.0900, L506.0400, L501.2300, L500.4100, L506.1000, L501.9985, L3300.0960, L100.0100, L501.9520, L500.4050 #### [facility] [address] [place], [address] Bilirubin [Mass/Vol] 0.24 mg/dL Normal 0.00-1.30 [facility] Comment on above: Order Comment: Order Date: 05/22/24Order Info: 07- - CMPOrder Info: - LIPIDOrder Info: [id number] - TSHOrder Info: [id number] - PSAOrder Info: 30247 - T4F Performed By: #### L 509.1000, L501.0900, L506.0400, L501.2300, L500.4100, L506.1000, L501.9985, L3300.0960, L100.0100, L501.9520, L500.4050 #### [facility] [address] [place], [place], [phone] (641) BUN/CRE 15.7 RATIO Normal 10-20 [facility] Comment on above: Order Comment: Order Date: 05/22/24Order Info: 0786 - CMPOrder Info: - LIPIDOrder Info: [id number] - TSHOrder Info: [id number] - PSAOrder Info: 7 - T4F Performed By: #### L 509.1000, L501.0900, L506.0400, L501.2300, L500.4100, L506.1000, L501.9985, L3300.0960, L100.0100, L501.9520, L500.4050 #### [facility] [address] [place], [place], [id number] Calcium [Mass/Vol] 9.6 mg/dL Normal 7.6-11.0 [facility] Comment on above: Order Comment: Order Date: 05/22/24Order Info: 0786 - CMPOrder Info: - LIPIDOrder Info: [id number] - TSHOrder Info: [id number] - PSAOrder Info: 3024-7 - T4F Performed By: #### L 509.1000, L501.0900, L506.0400, L501.2300, L500.4100, L506.1000, L501.9985, L3300.0960, L100.0100, L501.9520, L500.4050 #### [facility] [address] [place], [place], [phone] Chloride [Moles/Vol] 105 mmol/L Normal 96-108 [facility] Comment on above: Order Comment: Order Date: 05/22/24Order Info: 0786-1 - CMPOrder Info: [id number] - LIPIDOrder Info: 3 - TSHOrder Info: [id number] - PSAOrder Info: 3024-7 - T4F Performed By: #### L 509.1000, L501.0900, L506.0400, L501.2300, L500.4100, L506.1000, L501.9985, L3300.0960, L100.0100, L501.9520, L500.4050 #### [facility] [address] [place], [place], [address] CO2 [Moles/Vol] 16.6 mmol/L Low 22.0-29.0 [facility] Comment on above: Order Comment: Order Date: 05/22/24Order Info: 785- - CMPOrder Info: - LIPIDOrder Info: [id number] - TSHOrder Info: [id number] - PSAOrder Info: 3023-7 - T4F Performed By: #### L 509.1000, L501.0900, L506.0400, L501.2300, L500.4100, L506.1000, L501.9985, L3300.0960, L100.0100, L501.9520, L500.4050 #### [facility] [address] [place], [place], [address] Creatinine [Mass/Vol] 2.73 mg/dL High 0.70-1.20 [facility] Comment on above: Order Comment: Order Date: 05/22/24Order Info: 07-1 - CMPOrder Info: [id number] - LIPIDOrder Info: [id number] - TSHOrder Info: [id number] - PSAOrder Info: 3024-7 - T4F Performed By: #### L 509.1000, L501.0900, L506.0400, L501.2300, L500.4100, L506.1000, L501.9985, L3300.0960, L100.0100, L501.9520, L500.4050 #### [facility] [address] [place], [address] GFR/1.73 sq M.predicted among non-blacks MDRD (S/P/Bld) [Vol rate/Area] 24 mL/min/{1.73_m2} Low >60 [facility] Comment on above: Order Comment: Order Date: 05/22/24Order Info: 0786-1 - CMPOrder Info: [id number] - LIPIDOrder Info: [id number] - TSHOrder Info: 2856- - PSAOrder Info: 7 - T4F Result Comment: mL/m in/1.73m2 CKD-EPI Creatinine Equation (2020) Performed By: #### L 509.1000, L501.0900, L506.0400, L501.2300, L500.4100, L506.1000, L501.9985, L3300.0960, L100.0100, L501.9520, L500.4050 #### [facility] [address] [place], [address] Globulin (S) [Mass/Vol] 3.4 g/dL Normal 2.2-4.2 [facility] Comment on above: Order Comment: Order Date: 05/22/24Order Info: 0786- - CMPOrder Info: [id number] - LIPIDOrder Info: 3 - TSHOrder Info: [id number] - PSAOrder Info: 7 - T4F Performed By: #### L 509.1000, L501.0900, L506.0400, L501.2300, L500.4100, L506.1000, L501.9985, L3300.0960, L100.0100, L501.9520, L500.4050 #### [facility] [address] [place], [address] Glucose [Mass/Vol] 131 mg/dL High 70-99 [facility] Comment on above: Order Comment: Order Date: 05/22/24Order Info: 0786-1 - CMPOrder Info: [id number] - LIPIDOrder Info: 3 - TSHOrder Info: [id number] - PSAOrder Info: 3024-7 - T4F Performed By: #### L 509.1000, L501.0900, L506.0400, L501.2300, L500.4100, L506.1000, L501.9985, L3300.0960, L100.0100, L501.9520, L500.4050 #### [facility] [address] [place], [address] Potassium [Moles/Vol] 4.3 mmol/L Normal 3.3-5.1 [facility] Comment on above: Order Comment: Order Date: 05/22/24Order Info: 0786-1 - CMPOrder Info: - LIPIDOrder Info: [id number] - TSHOrder Info: [id number] - PSAOrder Info: 4-7 - T4F Performed By: #### L 509.1000, L501.0900, L506.0400, L501.2300, L500.4100, L506.1000, L501.9985, L3300.0960, L100.0100, L501.9520, L500.4050 #### [facility] [address] [place], [address] Sodium [Moles/Vol] 136 mmol/L Normal 133-145 [facility] Comment on above: Order Comment: Order Date: 05/22/24Order Info: 0786-1 - CMPOrder Info: [id number] - LIPIDOrder Info: [id number] - TSHOrder Info: 2856-1 - PSAOrder Info: 3024-7 - T4F Performed By: #### L 509.1000, L501.0900, L506.0400, L501.2300, L500.4100, L506.1000, L501.9985, L3300.0960, L100.0100, L501.9520, L500.4050 #### [facility] [address] [place], [place], [id number] T PROT 7.2 g/dL Normal 5.9-8.4 [facility] Comment on above: Order Comment: Order Date: 05/22/24Order Info: 0786-1 - CMPOrder Info: [id number] - LIPIDOrder Info: [id number] - TSHOrder Info: 2857-1 - PSAOrder Info: 3027 - T4F Performed By: #### L 509.1000, L501.0900, L506.0400, L501.2300, L500.4100, L506.1000, L501.9985, L3300.0960, L100.0100, L501.9520, L500.4050 #### [facility] [address] [place], [place], [id number] Urea nitrogen [Mass/Vol] 43 mg/dL High 4-19 [facility] Comment on above: Order Comment: Order Date: 05/22/24Order Info: 0786-1 - CMPOrder Info: [id number] - LIPIDOrder Info: 6-3 - TSHOrder Info: 2857-1 - PSAOrder Info: 3027 - T4F Performed By: #### L 509.1000, L501.0900, L506.0400, L501.2300, L500.4100, L506.1000, L501.9985, L3300.0960, L100.0100, L501.9520, L500.4050 #### [facility] [address] [place], [place], [address] Creatinine Unsp time (U) [Ma ss/Vol]Ordered By: David Mcgowan on 06-06-2024 Creatinine (U) [Mass/Vol] 58.00 mg/dL 39-259 [facility] Eosinophil percentageOrdered By: David Mcgowan on 06-06-2024 Eosinophils/100 WBC (Bld) 2.4 % 0-5 [facility] Epithelial cells.squamous LM Ql (Urine sed)Ordered By: David Mcgowan on 06-06-2024 Epithelial cells.squamous LM.HPF (Urine sed) [#/Area] 0 /[HPF] 0-5 [facility] Erythrocyte distribution wid th ratioOrdered By: David Mcgowan on 06-06-2024 Erythrocyte distribution width (RBC) [Ratio] 13.1 % 11.6-14.6 [facility] Erythrocyte distribution wid th standard deviationOrdered By: David Mcgowan on 06-06-2024 Erythrocyte distribution width (RBC) [Entitic vol] 42.7 fL 35.1-43.9 [facility] Fine Granular Casts LM.LPF ( Urine sed) [#/Area]Ordered By: David Mcgowan on 06-06-2024 Urine Fine Granular Casts 0-5 SEEN /lpf 0-5 [facility] GFR/1.73 sq M.predicted ricardo g non-blacks MDRD (S/P/Bld) [Vol rate/Area]Ordered By: David Mcgowan on 06-06-2024 Estimated GFR (MDRD) Non-Af Amer 24 Low >60 [facility] Comment on above: mL/min/1.73m2 CKD-EP I Creatinine Equation (2020) Glucose Ql (U)Ordered By: Pat Mcgowan on 06-06-2024 Glucose (U) [Mass/Vol] 100 mg/dL High Normal [facility] Hematocrit Auto (Bld) [Volum e fraction]Ordered By: David Mcgowan on 06-06-2024 Hematocrit (Bld) [Volume fraction] 36.9 % Low 40-54 [facility] Hemoglobin A1c percentageOrd ered By: David Mcgowan on 06-06-2024 HbA1c (Bld) [Mass fraction] 6.8 % >5.7 [facility] Hemoglobin measurementOrdere d By: David Mcgowan on 06-06-2024 Hemoglobin (Bld) [Mass/Vol] 11.7 g/dL Low 13.0-16.5 [facility] Immature granulocytes/100 WB C Auto (Bld)Ordered By: David Mcgowan on 06-06-2024 Immature granulocytes/100 WBC (Bld) 0.200 % 0.0-0.9 [facility] Comment on above: IG% - Immature Granu locytes (promyelocytes, myelocytes and metamyelocytes) > 1% indicates that a LEFT SHIFT is Present. Ketones Test strip Ql (U)Ord ered By: David Mcgowan on 06-06-2024 Ketones Ql (U) Negative Negative [facility] LDL calc ser/plasOrdered By: David Mcgowan on 06-06-2024 LDL Cholesterol, Calculated 146 mg/dL [facility] Comment on above: Ipctnubbgb=272-619 m g/dL & Higher Uhhf=282 mg/dL or greater Laboratory - Chemistry and C hemistry - challengeOrdered By: David Mcgowan on 06-06-2024 AST [Catalytic activity/Vol] 19 U/L <38 [facility] Lipid Profileon 06-06-2024 CHOL:HDL 4.39 Normal [facility] Comment on above: Order Comment: Order Date: 05/22/24Order Info: 0786-1 - CMPOrder Info: [id number] - LIPIDOrder Info: [id number] - TSHOrder Info: [id number] - PSAOrder Info: 3024-7 - T4F Performed By: #### L 509.1000, L501.0900, L506.0400, L501.2300, L500.4100, L506.1000, L501.9985, L3300.0960, L100.0100, L501.9520, L500.4050 #### [facility] [address] [place], [address] Cholesterol [Mass/Vol] 214 mg/dL High <=200 [facility] Comment on above: Order Comment: Order Date: 05/22/24Order Info: 0786-1 - CMPOrder Info: [id number] - LIPIDOrder Info: [id number] - TSHOrder Info: 2857-1 - PSAOrder Info: 3024-7 - T4F Result Comment: Chol esterol level, Desirable <200 mg/dL Borderline high cholesterol 200-239 mg/dL High cholesterol >=240 mg/dL Recommendations of the NCEP Adult Treatment Panel for the following risk-cutoff thresholds for the [place] population. Performed By: #### L 509.1000, L501.0900, L506.0400, L501.2300, L500.4100, L506.1000, L501.9985, L3300.0960, L100.0100, L501.9520, L500.4050 #### [facility] [address] [place], [address] Cholesterol in HDL [Mass/Vol] 49 mg/dL Normal [facility] Comment on above: Order Comment: Order Date: 05/22/24Order Info: 0786-1 - CMPOrder Info: [id number] - LIPIDOrder Info: [id number] - TSHOrder Info: [id number] - PSAOrder Info: 3023-10 - T4F Result Comment: Donna onal Cholesterol Education Program (NCEP) guidelines: <40 mg/dL: Low HDL-cholesterol (major risk factor for CHD) >= 60 mg/dL: High HDL-cholesterol (negative risk factor for CHD) HDL-cholesterol is affected by a number of factors, e.g. smoking, exercise, hormones, sex and age. Performed By: #### L 509.1000, L501.0900, L506.0400, L501.2300, L500.4100, L506.1000, L501.9985, L3300.0960, L100.0100, L501.9520, L500.4050 #### [facility] [address] [place], [address] Cholesterol in LDL [Mass/Vol] 146 mg/dL Normal [facility] Comment on above: Order Comment: Order Date: 05/22/24Order Info: 0786 - CMPOrder Info: [id number] - LIPIDOrder Info: [id number] - TSHOrder Info: 2856-04 - PSAOrder Info: 3023-10 - T4F Result Comment: Bord afmgqa=364-650 mg/dL Higher Rplc=621 mg/dL or greater Performed By: #### L 509.1000, L501.0900, L506.0400, L501.2300, L500.4100, L506.1000, L501.9985, L3300.0960, L100.0100, L501.9520, L500.4050 #### [facility] [address] [place], [place], [id number] Cholesterol in VLDL [Mass/Vol] 19 mg/dL Normal 5-40 [facility] Comment on above: Order Comment: Order Date: 05/22/24Order Info: [id number] - CMPOrder Info: [id number] - LIPIDOrder Info: 6-3 - TSHOrder Info: 2857-1 - PSAOrder Info: 302-7 - T4F Performed By: #### L 509.1000, L501.0900, L506.0400, L501.2300, L500.4100, L506.1000, L501.9985, L3300.0960, L100.0100, L501.9520, L500.4050 #### [facility] [address] [place], [place], [id number] Triglyceride [Mass/Vol] 96 mg/dL Normal [facility] Comment on above: Order Comment: Order Date: 05/22/24Order Info: 0786-1 - CMPOrder Info: [id number] - LIPIDOrder Info: 63 - TSHOrder Info: 71 - PSAOrder Info: 7 - T4F Result Comment: The drugs N-Acetylcysteine and Metamizole may falsely depress this assay. Normal range: <150 mg/dL Borderline High: 150-199 mg/dL High: 200-499 mg/dL Very High: >500 mg/dL Performed By: #### L 509.1000, L501.0900, L506.0400, L501.2300, L500.4100, L506.1000, L501.9985, L3300.0960, L100.0100, L501.9520, L500.4050 #### [facility] [address] [place], [place], [id number] Lymphocytes Auto (Unsp spec) [#/Vol]Ordered By: David Mcgowan on 06-06-2024 Lymphocytes (Bld) [#/Vol] 1.56 10*3/uL 0.83-4.51 [facility] Lymphocytes/100 WBC Auto (Un sp spec)Ordered By: David Mcgowan on 06-06-2024 Lymphocytes/100 WBC (Bld) 18.3 % Low 19-41 [facility] MCV (mean corpuscular volume ) determinationOrdered By: David Mcgowan on 06-06-2024 MCV (RBC) [Entitic vol] 89.6 fL 80-94 [facility] Mean corpuscular hemoglobin (MCH) determinationOrdered By: David Mcgowan on 06-06-2024 MCH (RBC) [Entitic mass] 28.4 pg 27.0-32.0 [facility] Mean corpuscular hemoglobin concentration (MCHC) determinationOrdered By: David Mcgowan on 06-06-2024 MCHC (RBC) [Mass/Vol] 31.7 g/dL Low 32-36 [facility] Mean platelet volume determi nationOrdered By: David Mcgowan on 06-06-2024 Platelet mean volume (Bld) [Entitic vol] 10.3 fL 6.2-12.0 [facility] Microalb:Creat Ratio,Random URon 06-06-2024 Creatinine [Mass/Vol] 58.00 mg/dL Normal 39-259 [facility] Comment on above: Order Comment: Order Date: 05/22/24Order Info: 0779-1 - MIACRE Performed By: #### L 509.1000, L501.0900, L506.0400, L501.2300, L500.4100, L506.1000, L501.9985, L3300.0960, L100.0100, L501.9520, L500.4050 #### [facility] [address] [place], [address] MALB:CREAT 38491.9 mg/g CRE Normal [facility] Comment on above: Order Comment: Order Date: 05/22/24Order Info: 0779-1 - MIACRE Performed By: #### L 509.1000, L501.0900, L506.0400, L501.2300, L500.4100, L506.1000, L501.9985, L3300.0960, L100.0100, L501.9520, L500.4050 #### [facility] [address] [place], [place], [id number] MICROALBUMIN,UR 1002.0 mg/L Normal NO RANGE EST. [facility] Comment on above: Order Comment: Order Date: 05/22/24Order Info: 0779-1 - MIACRE Performed By: #### L 509.1000, L501.0900, L506.0400, L501.2300, L500.4100, L506.1000, L501.9985, L3300.0960, L100.0100, L501.9520, L500.4050 #### [facility] [address] [place], [place], [id number] Microalbumin/creat ratio urO rdered By: David Mcgowan on 06-06-2024 Urine Microalbumin/Creatinine Ratio 36126.9 mg/g CRE [facility] Microscopic analysis of urin e for red blood cells (RBC)Ordered By: David Mcgowan on 06-06-2024 Urine RBC 0-5 SEEN /hpf 0-5 [facility] Monocyte percentageOrdered B y: David Mcgowan on 06-06-2024 Monocytes/100 WBC (Bld) 5.1 % 0-10 [facility] Mucus LM Ql (Urine sed)Order ed By: David Mcgowan on 06-06-2024 Mucus Ql (Urine sed) 0 SEEN /hpf [facility] Neutrophil percentageOrdered By: David Mcgowan on 06-06-2024 Neutrophils/100 WBC (Bld) 73.3 % High 47-70 [facility] Nitrite Test strip Ql (U)Ord ered By: David Mcgowan on 06-06-2024 Nitrite Ql (U) Negative Negative [facility] Nucleated red blood cell per centageOrdered By: David Mcgowan on 06-06-2024 Nucleated RBC/100 WBC (Bld) [Ratio] 0 % 0-5 [facility] PSA, total screeningOrdered By: David Mcgowan on 06-06-2024 Prostate Specific Antigen Screen 0.22 ng/mL 0.02-4.00 [facility] Comment on above: This test was perfor med using the [employer] tPSA method. Measured values of a patient sample can vary depending on the testing procedure used. PSA values determined on patient samples by different testing procedures cannot be used interchangeably. If there is a change in PSA assays while monitoring therapy, sequential testing should be performed to confirm baseline values. PSA,Total - Annual Screenon 06-06-2024 PSA,TOT SCREEN 0.22 ng/mL Normal 0.02-4.00 [facility] Comment on above: Order Comment: Order Date: 05/22/24Order Info: [id number] - CMPOrder Info: [id number] - LIPIDOrder Info: [id number] - TSHOrder Info: [id number] - PSAOrder Info: [id number] - T4F Result Comment: This test was performed using the [employer] tPSA method. Measured values of a patient??sample can vary depending on the testing procedure used. PSA values determined on patient samples by different testing procedures cannot be used interchangeably. If there is a change in PSA assays while monitoring therapy, sequential testing should be performed to confirm baseline values. Performed By: #### L 509.1000, L501.0900, L506.0400, L501.2300, L500.4100, L506.1000, L501.9985, L3300.0960, L100.0100, L501.9520, L500.4050 #### [facility] [address] [facility] [place], [address] PTH intactOrdered By: David linares on 06-06-2024 Parathyroid Hormone (Intact) 131 pg/mL [place] [address] [facility] PTHINon 06-06-2024 PTH 131 pg/mL [facility] Comment on above: Order Comment: Order Date: 05/22/24Order Info: [id number] - PTHIN Performed By: #### L 509.1000, L501.0900, L506.0400, L501.2300, L500.4100, L506.1000, L501.9985, L3300.0960, L100.0100, L501.9520, L500.4050 #### [facility] [address] [place], [address] Platelet countOrdered By: Pat Mcgowan on 06-06-2024 Platelets (Bld) [#/Vol] 335 10*3/uL 150-450 [facility] Protein Test strip Ql (U)Ord ered By: David Mcgowan on 06-06-2024 Protein Ql (U) 100 mg/dl High Negative [facility] RBC Auto (Bld) [#/Vol]Ordere d By: David Mcgowan on 06-06-2024 RBC (Bld) [#/Vol] 4.12 10*6/uL Low 4.6-6.2 [facility] Screening total cholesterol/ high density lipoprotein (HDL) cholesterol ratioOrdered By: David Mcgowan on 06-06-2024 Cholesterol.total/Choles terol in HDL [Mass ratio] 4.39 {ratio} [facility] Serum creatinine measurement (mass/volume)Ordered By: David Mcgowan on 06-06-2024 Creatinine [Mass/Vol] 2.73 mg/dL High 0.70-1.20 [facility] Serum globulin measurementOr dered By: David Mcgowan on 06-06-2024 Globulin (S) [Mass/Vol] 3.4 g/dL 2.2-4.2 [facility] Serum glucose measurement (m ass/volume)Ordered By: David Mcgowan on 06-06-2024 Glucose [Mass/Vol] 131 mg/dL High 70-99 [facility] Serum or plasma alanine mary otransferase (ALT) measurementOrdered By: David Mcgowan on 06-06-2024 ALT [Catalytic activity/Vol] 15 U/L <47 [facility] Serum or plasma albumin heidy urement (mass/volume)Ordered By: David Mcgowan on 06-06-2024 Albumin [Mass/Vol] 3.8 g/dL 3.4-4.8 [facility] Serum or plasma albumin/glob ulin mass ratioOrdered By: David Mcgowan on 06-06-2024 Albumin/Globulin [Mass ratio] 1.1 {ratio} 0.9-2.4 [facility] Serum or plasma alkaline daria sphatase measurementOrdered By: David Mcgowan on 06-06-2024 ALP [Catalytic activity/Vol] 70 U/L 40-129 [facility] Serum or plasma anion gap de termination (moles/volume)Ordered By: David Mcgowan on 06-06-2024 Anion gap [Moles/Vol] 15 mmol/L 5-15 [facility] Serum or plasma calcium heidy urement (mass/volume)Ordered By: David Mcgowan on 06-06-2024 Calcium [Mass/Vol] 9.6 mg/dL 7.6-11.0 [facility] Serum or plasma cholesterol in HDL measurement (mass/volume)Ordered By: David Mcgowan on 06-06-2024 Cholesterol in HDL [Mass/Vol] 49 mg/dL >40 [facility] Comment on above: National Cholesterol Education Program (NCEP) guidelines:<40 mg/dL: Low HDL-cholesterol (major risk factor for CHD)>= 60 mg/dL: High HDL-cholesterol (negative risk factor for CHD)HDL-cholesterol is affected by a number of factors, e.g. smoking, exercise, hormones, sex and age. Serum or plasma cholesterol measurement (mass/volume)Ordered By: David Mcgowan on 06-06-2024 Cholesterol [Mass/Vol] 214 mg/dL High <201 [facility] Comment on above: Cholesterol level, D esirable <200 mg/dLBorderline high cholesterol 200-239 mg/dLHigh cholesterol >=240 mg/dLRecommendations of the NCEP Adult Treatment Panel for the following risk-cutoff thresholds for the [place] population. Serum or plasma potassium me asurementOrdered By: David Mcgowan on 06-06-2024 Potassium [Moles/Vol] 4.3 mmol/L 3.3-5.1 [facility] Serum or plasma sodium measu rement (moles/volume)Ordered By: David Mcgowan on 06-06-2024 Sodium [Moles/Vol] 136 mmol/L 133-145 [facility] Serum or plasma urea nitroge n measurement (mass/volume)Ordered By: David Mcgowan on 06-06-2024 Urea nitrogen [Mass/Vol] 43 mg/dL High 4-19 [facility] T4 Free Directon 06-06-2024 T4 FREE DIRECT 1.40 ng/dL Normal 0.76-1.46 [facility] Comment on above: Order Comment: Order Date: 05/22/24Order Info: [id number] - CMPOrder Info: [id number] - LIPIDOrder Info: [id number] - TSHOrder Info: [id number] - PSAOrder Info: [id number] - T4F Performed By: #### L 509.1000, L501.0900, L506.0400, L501.2300, L500.4100, L506.1000, L501.9985, L3300.0960, L100.0100, L501.9520, L500.4050 #### [facility] [address] [place], [place], [id number] T4 freeOrdered By: David vazquez on 06-06-2024 Free T4 [Mass/Vol] 1.40 ng/dL 0.76-1.46 [facility] TSH DL <= 0.005 mIU/L QnOrde red By: David Mcgowan on 06-06-2024 Thyroid Stimulating Hormone (TSH) 0.064 uIU/mL Low 0.300-4.20 0 [facility] Thyroid Stim Hormone (TSH)on 06-06-2024 TSH 0.064 uIU/mL Low 0.300-4.20 0 [facility] Comment on above: Order Comment: Order Date: 05/22/24Order Info: [id number] - CMPOrder Info: [id number] - LIPIDOrder Info: 6-3 - TSHOrder Info: [id number] - PSAOrder Info: [id number] - T4F Performed By: #### L 509.1000, L501.0900, L506.0400, L501.2300, L500.4100, L506.1000, L501.9985, L3300.0960, L100.0100, L501.9520, L500.4050 #### [facility] [address] [place], [place], [id number] Total proteinOrdered By: Diogo Mcgowan on 06-06-2024 Protein [Mass/Vol] 7.2 g/dL 5.9-8.4 [facility] Transitional cells LM Ql (Ur ine sed)Ordered By: David Mcgowan on 06-06-2024 Urine Transitional Epithelial Cells 0-5 SEEN /hpf 0-5 [facility] Triglycerides measurementOrd ered By: David Mcgowan on 06-06-2024 Triglyceride [Mass/Vol] 96 mg/dL <199 [facility] Comment on above: The drugs N-Acetylcy steine and Metamizole may falsely depress this assay. Normal range: <150 mg/dLBorderline High: 150-199 mg/dLHigh: 200-499 mg/dLVery High: >500 mg/dL Urinalysis, Completeon 06-06 CAST,FINE GRAN 0-5 SEEN Normal 0-5 [facility] Comment on above: Order Comment: CLEAN CATCH Performed By: #### L 509.1000, L501.0900, L506.0400, L501.2300, L500.4100, L506.1000, L501.9985, L3300.0960, L100.0100, L501.9520, L500.4050 #### [facility] [address] [place], [place], [id number] EPI,SQUAMOUS 0-5 SEEN Normal 0-5 [facility] Comment on above: Order Comment: CLEAN CATCH Performed By: #### L 509.1000, L501.0900, L506.0400, L501.2300, L500.4100, L506.1000, L501.9985, L3300.0960, L100.0100, L501.9520, L500.4050 #### [facility] [address] [place], [address] EPI,TRANSITION 0-5 SEEN Normal 0-5 [facility] Comment on above: Order Comment: CLEAN CATCH Performed By: #### L 509.1000, L501.0900, L506.0400, L501.2300, L500.4100, L506.1000, L501.9985, L3300.0960, L100.0100, L501.9520, L500.4050 #### [facility] [address] [place], [address] (919) RBC 0-5 SEEN Normal 0-5 [facility] Comment on above: Order Comment: CLEAN CATCH Performed By: #### L 509.1000, L501.0900, L506.0400, L501.2300, L500.4100, L506.1000, L501.9985, L3300.0960, L100.0100, L501.9520, L500.4050 #### [facility] [address] [place], [address] WBC 0-5 SEEN Normal 0-5 [facility] Comment on above: Order Comment: CLEAN CATCH Performed By: #### L 509.1000, L501.0900, L506.0400, L501.2300, L500.4100, L506.1000, L501.9985, L3300.0960, L100.0100, L501.9520, L500.4050 #### [facility] [address] [facility] [place], [address] BACTERIA 0 SEEN Normal None Seen [facility] Comment on above: Order Comment: CLEAN CATCH Performed By: #### L 509.1000, L501.0900, L506.0400, L501.2300, L500.4100, L506.1000, L501.9985, L3300.0960, L100.0100, L501.9520, L500.4050 #### [facility] [address] [place], [place], [id number] Mucus Ql (Urine sed) 0 SEEN Normal [facility] Comment on above: Order Comment: CLEAN CATCH Performed By: #### L 509.1000, L501.0900, L506.0400, L501.2300, L500.4100, L506.1000, L501.9985, L3300.0960, L100.0100, L501.9520, L500.4050 #### [facility] [address] [facility] [place], [address] Urine blood detectionOrdered By: David Mcgowan on 06-06-2024 Urine Occult Blood 10 /ul High Negative [facility] Urine clarityOrdered By: Diogo Mcgowan on 06-06-2024 Clarity (U) Clear Clear [facility] Urine color determinationOrd ered By: David Mcgowan on 06-06-2024 Color (U) Yellow Yellow [facility] Urine leukocyte esterase det ection by dipstickOrdered By: David Mcgowan on 06-06-2024 Leukocyte esterase Test strip Ql (U) Negative Negative [facility] Urine pHOrdered By: David marley on 06-06-2024 pH (U) 6.0 [pH] 5.0 - 8.0 [facility] Urine sediment bacteria coun t by microscopy (number/high power field)Ordered By: David Mcgowan on 06-06-2024 Bacteria LM.HPF (Urine sed) [#/Area] 0 /[HPF] None Seen [facility] Urine specific gravity measu rementOrdered By: David Mcgowan on 06-06-2024 Specific gravity (U) [Rel density] 1.015 1.002-1.03 0 [facility] Urobilinogen Ql (U)Ordered B y: David Mcgowan on 06-06-2024 Urine Urobilinogen Normal mg/dl Normal [facility] White blood cell (WBC) count Ordered By: David Mcgowan on 06-06-2024 WBC (Bld) [#/Vol] 8.5 10*3/uL 4.4-11.0 [facility] White blood cell countOrdere d By: David Mcgowan on 06-06-2024 Urine WBC 0-5 SEEN /hpf 0-5 [facility] [id number] 05-12-2024 [facility] Misc. COMMENT Normal . [facility] Comment on above: Order Comment: [id number] 1CYSTATIN C RT Result Comment: Test Ordered: [id number] Cystatin C Cystatin C 2.93 [H ] mg/L CB Reference Range: 0.78-1.15 Performed at: - [facility] [address] [id number] Frame Stylist: Piyush Capone PhD, Phone: [phone] Performed By: #### L 509.1000, L501.0900, L506.0400, L501.2300, L500.4100, L506.1000, L501.9985, L3300.0960, L100.0100, L501.9520, L500.4050 #### [facility] [address] [place], [place], [id number] Blood urea nitrogen (BUN)/cr eatinine ratioOrdered By: David Mcgowan on 05-10-2024 Urea nitrogen/Creatinine [Mass ratio] 14.6 mg/mg 10-20 [facility] Carbon dioxide measurementOr dered By: David Mcgowan on 05-10-2024 CO2 [Moles/Vol] 21.0 mmol/L 21.0-32.0 [facility] Chloride measurementOrdered By: David Mcgowan on 05-10-2024 Chloride [Moles/Vol] 107 mmol/L 98-107 [facility] Estimated glomerular filtrat ion rate (GFR) AmericanOrdered By: David Mcgowan on 05-10-2024 Estimated GFR (MDRD) Amer 31 mL/min Low >60 [facility] Comment on above: GFR Calc Glomerular filtration rate ( GFR) estimationOrdered By: David Mcgowan on 05-10-2024 Estimated GFR (MDRD) Non-Af Amer 26 mL/min Low >60 [facility] Comment on above: Non- GFR Calc Glucose measurementOrdered B y: David Mcgowan on 05-10-2024 Glucose [Mass/Vol] 155 mg/dL High 74-106 [facility] Comment on above: Fasting Glucose resu lt greater than or equal to 126 mg/dL suggests DIABETES MELLITUS per A.D.A. criteria. Phosphorus measurementOrdere d By: David Mcgowan on 05-10-2024 Phosphorus Level 4.8 mg/dL 2.5-4.9 [facility] Potassium measurementOrdered By: David Mcgowan on 05-10-2024 Potassium [Moles/Vol] 4.1 mmol/L 3.5-5.1 [facility] Renal Profileon 05-10-2024 Albumin [Mass/Vol] 2.9 g/dL Low 3.2-5.0 [facility] Comment on above: Performed By: #### L 509.1000, L501.0900, L506.0400, L501.2300, L500.4100, L506.1000, L501.9985, L3300.0960, L100.0100, L501.9520, L500.4050 #### [facility] [address] [place], [place], [phone] (590) BUN/CRE 14.6 RATIO Normal 10-20 [facility] Comment on above: Performed By: #### L 509.1000, L501.0900, L506.0400, L501.2300, L500.4100, L506.1000, L501.9985, L3300.0960, L100.0100, L501.9520, L500.4050 #### [facility] [address] [place], [place], [id number] CA,Total 9.2 mg/dL Normal 8.5-10.1 [facility] Comment on above: Performed By: #### L 509.1000, L501.0900, L506.0400, L501.2300, L500.4100, L506.1000, L501.9985, L3300.0960, L100.0100, L501.9520, L500.4050 #### [facility] [address] [place], [place], [phone] (009) Chloride [Moles/Vol] 107 mmol/L Normal 98-107 [facility] Comment on above: Performed By: #### L 509.1000, L501.0900, L506.0400, L501.2300, L500.4100, L506.1000, L501.9985, L3300.0960, L100.0100, L501.9520, L500.4050 #### [facility] [address] [place], [place], [phone] (121) CO2 [Moles/Vol] 21.0 mmol/L Normal 21.0-32.0 [facility] Comment on above: Performed By: #### L 509.1000, L501.0900, L506.0400, L501.2300, L500.4100, L506.1000, L501.9985, L3300.0960, L100.0100, L501.9520, L500.4050 #### [facility] [address] [place], [place], [phone] (717) Creatinine [Mass/Vol] 2.60 mg/dL High 0.70-1.30 [facility] Comment on above: Result Comment: The validity of the calculated GFR GFRAA in patients over 70 years has not been determined. Clinical correlation is essential. Performed By: #### L 509.1000, L501.0900, L506.0400, L501.2300, L500.4100, L506.1000, L501.9985, L3300.0960, L100.0100, L501.9520, L500.4050 #### [facility] [address] [place], [place], [phone] (915) EST GFR - AA 31 mL/min Low >60 [facility] Comment on above: Result Comment: Afri can Ukrainian GFR Calc Performed By: #### L 509.1000, L501.0900, L506.0400, L501.2300, L500.4100, L506.1000, L501.9985, L3300.0960, L100.0100, L501.9520, L500.4050 #### [facility] [address] [place], [place], [id number] GFR/1.73 sq M.predicted among non-blacks MDRD (S/P/Bld) [Vol rate/Area] 26 mL/min/{1.73_m2} Low >60 [facility] Comment on above: Result Comment: Non- GFR Calc Performed By: #### L 509.1000, L501.0900, L506.0400, L501.2300, L500.4100, L506.1000, L501.9985, L3300.0960, L100.0100, L501.9520, L500.4050 #### [facility] [address] [place], [address] Glucose [Mass/Vol] 155 mg/dL High 74-106 [facility] Comment on above: Result Comment: Fast ing Glucose result greater than or equal to 126 mg/dL suggests DIABETES MELLITUS per A.D.A. criteria. Performed By: #### L 509.1000, L501.0900, L506.0400, L501.2300, L500.4100, L506.1000, L501.9985, L3300.0960, L100.0100, L501.9520, L500.4050 #### [facility] [address] [place], [place], [phone] (750) Phosphate [Mass/Vol] 4.8 mg/dL Normal 2.5-4.9 [facility] Comment on above: Performed By: #### L 509.1000, L501.0900, L506.0400, L501.2300, L500.4100, L506.1000, L501.9985, L3300.0960, L100.0100, L501.9520, L500.4050 #### [facility] [address] [place], [place], [phone] ([phone] Potassium [Moles/Vol] 4.1 mmol/L Normal 3.5-5.1 [facility] Comment on above: Performed By: #### L 509.1000, L501.0900, L506.0400, L501.2300, L500.4100, L506.1000, L501.9985, L3300.0960, L100.0100, L501.9520, L500.4050 #### [facility] [address] [place], [address] (939) Sodium [Moles/Vol] 137 mmol/L Normal 136-145 [facility] Comment on above: Performed By: #### L 509.1000, L501.0900, L506.0400, L501.2300, L500.4100, L506.1000, L501.9985, L3300.0960, L100.0100, L501.9520, L500.4050 #### [facility] [address] [place], [place], [phone] Urea nitrogen [Mass/Vol] 38 mg/dL High - [facility] Comment on above: Performed By: #### L 509.1000, L501.0900, L506.0400, L501.2300, L500.4100, L506.1000, L501.9985, L3300.0960, L100.0100, L501.9520, L500.4050 #### [facility] [address] [facility] [place], [place], [id number] Serum or plasma albumin heidy urement (mass/volume)Ordered By: David Mcgowan on 05-10-2024 Albumin [Mass/Vol] 2.9 g/dL Low 3.2-5.0 [facility] Serum or plasma calcium heidy urement (mass/volume)Ordered By: David Mcgowan on 05-10-2024 Calcium [Mass/Vol] 9.2 mg/dL 8.5-10.1 [facility] Serum or plasma creatinine m easurement (mass/volume)Ordered By: David Mcgowan on 05-10-2024 Creatinine [Mass/Vol] 2.60 mg/dL High 0.70-1.30 [facility] Comment on above: The validity of the calculated GFR & GFRAA in patients over 70 years has not been determined. Clinical correlation is essential. Serum or plasma urea nitroge n measurement (mass/volume)Ordered By: David Mcgowan on 05-10-2024 Urea nitrogen [Mass/Vol] 38 mg/dL High 7-18 [facility] Sodium levelOrdered By: David Mcgowan on 05-10-2024 Sodium [Moles/Vol] 137 mmol/L 136-145 [facility] [place] Lambda Lt Chn Ser. Mon .on 04-06-2024 FR KAPPA LT CHN 80.9 mg/L Abnormal 3.3-19.4 [facility] Comment on above: Performed By: #### L 509.1000, L501.0900, L506.0400, L501.2300, L500.4100, L506.1000, L501.9985, L3300.0960, L100.0100, L501.9520, L500.4050 #### [facility] [address] [place], [place], [id number] FR LAMBDA LT CH 44.7 mg/L Abnormal 5.7-26.3 [facility] Comment on above: Performed By: #### L 509.1000, L501.0900, L506.0400, L501.2300, L500.4100, L506.1000, L501.9985, L3300.0960, L100.0100, L501.9520, L500.4050 #### [facility] [address] [place], [address] KAPPA/LAMBDA % 1.81 Abnormal 0.26-1.65 [facility] Comment on above: Result Comment: Perf ormed at: CB - [facility] [id number] Frame Stylist: Piyush Capone PhD, Phone: [phone] Performed By: #### L 509.1000, L501.0900, L506.0400, L501.2300, L500.4100, L506.1000, L501.9985, L3300.0960, L100.0100, L501.9520, L500.4050 #### [facility] [address] [facility] [place], [place], [phone] Protein Electroph, Son 04-06 Albumin [Mass/Vol] 3.3 g/dL Normal 2.9-4.4 [facility] Comment on above: Performed By: #### L 509.1000, L501.0900, L506.0400, L501.2300, L500.4100, L506.1000, L501.9985, L3300.0960, L100.0100, L501.9520, L500.4050 #### [facility] [address] [place], [address] Albumin/Globulin [Mass ratio] 1.1 {ratio} Normal 0.7-1.7 [facility] Comment on above: Performed By: #### L 509.1000, L501.0900, L506.0400, L501.2300, L500.4100, L506.1000, L501.9985, L3300.0960, L100.0100, L501.9520, L500.4050 #### [facility] [address] [place], [place], [phone] (011) ALPHA-1 GLOBUL 0.3 g/dL Normal 0.0-0.4 [facility] Comment on above: Performed By: #### L 509.1000, L501.0900, L506.0400, L501.2300, L500.4100, L506.1000, L501.9985, L3300.0960, L100.0100, L501.9520, L500.4050 #### [facility] [address] [place], [address] ALPHA-2 GLOBUL 0.9 g/dL Normal 0.4-1.0 [facility] Comment on above: Performed By: #### L 509.1000, L501.0900, L506.0400, L501.2300, L500.4100, L506.1000, L501.9985, L3300.0960, L100.0100, L501.9520, L500.4050 #### [facility] [address] [place], [address] BETA GLOBULIN 1.0 g/dL Normal 0.7-1.3 [facility] Comment on above: Performed By: #### L 509.1000, L501.0900, L506.0400, L501.2300, L500.4100, L506.1000, L501.9985, L3300.0960, L100.0100, L501.9520, L500.4050 #### [facility] [address] [place], [address] GAMMA GLOBULIN 0.8 g/dL Normal 0.4-1.8 [facility] Comment on above: Performed By: #### L 509.1000, L501.0900, L506.0400, L501.2300, L500.4100, L506.1000, L501.9985, L3300.0960, L100.0100, L501.9520, L500.4050 #### [facility] [address] [place], [place], [phone] Globulin (S) [Mass/Vol] 3.1 g/dL Normal 2.2-3.9 [facility] Comment on above: Performed By: #### L 509.1000, L501.0900, L506.0400, L501.2300, L500.4100, L506.1000, L501.9985, L3300.0960, L100.0100, L501.9520, L500.4050 #### [facility] [address] [place], [place], [phone] INTERPRETATION Comment Normal . [facility] Comment on above: Result Comment: Prot ein electrophoresis scan will follow via computer, mail, or partition setter delivery. Performed By: #### L 509.1000, L501.0900, L506.0400, L501.2300, L500.4100, L506.1000, L501.9985, L3300.0960, L100.0100, L501.9520, L500.4050 #### [facility] [address] [place], [place], [id number] M-SPIKE Not Observed Normal Not Observed [facility] Comment on above: Performed By: #### L 509.1000, L501.0900, L506.0400, L501.2300, L500.4100, L506.1000, L501.9985, L3300.0960, L100.0100, L501.9520, L500.4050 #### [facility] [address] [place], [address] NOTE: Comment Normal . [facility] Comment on above: Result Comment: The SPE pattern appears unremarkable. Evidence of monoclonal protein is not apparent. Performed By: #### L 509.1000, L501.0900, L506.0400, L501.2300, L500.4100, L506.1000, L501.9985, L3300.0960, L100.0100, L501.9520, L500.4050 #### [facility] [address] [place], [address] Protein [Mass/Vol] 6.4 g/dL Normal 6.0-8.5 [facility] Comment on above: Performed By: #### L 509.1000, L501.0900, L506.0400, L501.2300, L500.4100, L506.1000, L501.9985, L3300.0960, L100.0100, L501.9520, L500.4050 #### [facility] [address] [place], [address] Addendum DocumentOrdered By: Dinorah Kapadia on 04-04-2024 Protein Electrophoresis Note Comment . [facility] Comment on above: The SPE pattern appe ars unremarkable. Evidence ofmonoclonal protein is not apparent. Albumin/Globulin Elph [Mass ratio]Ordered By: Dinorah Kapadia on 04-04-2024 Albumin/Globulin (PEP) 1.1 0.7-1.7 [facility] Pzbef-6-avldlvty measurement by protein electrophoresisOrdered By: Dinorah Kapadia on 04-04-2024 Dediz-3-Fxygohdrv 0.3 g/dL 0.0-0.4 [facility] Llrcb-6-kgfzfict measurement by protein electrophoresisOrdered By: Dinorah Kapadia on 04-04-2024 Dpalj-5-Yozfcqfdq 0.9 g/dL 0.4-1.0 [facility] Beta globulin Elph [Mass/Vol ]Ordered By: Dinorah Kapadia on 04-04-2024 Beta Globulins 1.0 g/dL 0.7-1.3 [facility] Blood urea nitrogen (BUN)/cr eatinine ratioOrdered By: Dinorah Kapadia on 04-04-2024 Urea nitrogen/Creatinine [Mass ratio] 15.0 mg/mg 10-20 [facility] Estimated glomerular filtrat ion rate (GFR) AmericanOrdered By: Dinorah Kapadia on 04-04-2024 Estimated GFR (MDRD) Amer 31 mL/min Low >60 [facility] Comment on above: GFR Calc Gamma globulin measurement b y protein electrophoresisOrdered By: Dinorah Kapadia on 04-04-2024 Gamma Globulins 0.8 g/dL 0.4-1.8 [facility] Globulin (S) [Mass/Vol]Order ed By: Dinorah Kapadia on 04-04-2024 Globulin (PEP) 3.1 g/dL 2.2-3.9 [facility] Glomerular filtration rate ( GFR) estimationOrdered By: Dinorah Kapadia on 04-04-2024 Estimated GFR (MDRD) Non-Af Amer 25 mL/min Low >60 [facility] Comment on above: Non- GFR Calc Immunoglobulin light chains. kappa [Mass/Vol]Ordered By: Dinorah Kapadia on 04-04-2024 Free [place] Light Chains, Quant 80.9 mg/L High 3.3-19.4 [facility] Immunoglobulin light chains. kappa/Immunoglobulin light chains.lambda (S) [Mass ratio]Ordered By: Dinorah Kapadia on 04-04-2024 Free [place]/Lambda Light Chain Ratio 1.81 High 0.26-1.65 [facility] Comment on above: Performed at: [address] [id number] Director: Piyush Capone PhD, Phone: [phone] Lambda free light chain heidy urementOrdered By: Dinorah Kapadia on 04-04-2024 Free Lambda Light Chains, Quant 44.7 mg/L High 5.7-26.3 [facility] No Panel InformationOrdered By: Dinorah Kapadia on 04-04-2024 [place]/Lambda Light Chain Analysis Not Reportable [facility] Phosphorus measurementOrdere d By: Dinorah Kapadia on 04-04-2024 Phosphorus Level 3.4 mg/dL 2.5-4.9 [facility] Protein Fractions Elph [Inte rp]Ordered By: Dinorah Kapadia on 04-04-2024 Protein Electrophoresis Interpret Comment . [facility] Comment on above: Protein electrophore sis scan will follow via computer,mail, or partition setter delivery. Protein+Creatinine Ratio,Uri neon 04-04-2024 PROT:CRE RATIO 1342 mg/g CRE High 0-200 [facility] Comment on above: Performed By: #### L 509.1000, L501.0900, L506.0400, L501.2300, L500.4100, L506.1000, L501.9985, L3300.0960, L100.0100, L501.9520, L500.4050 #### [facility] [address] [place], [address] Protein (U) [Mass/Vol] 163.7 mg/dL High <11.9 [facility] Comment on above: Performed By: #### L 509.1000, L501.0900, L506.0400, L501.2300, L500.4100, L506.1000, L501.9985, L3300.0960, L100.0100, L501.9520, L500.4050 #### [facility] [address] [place], [address] UR CREAT 122.00 mg/dL Normal NO RANGE EST. [facility] Comment on above: Performed By: #### L 509.1000, L501.0900, L506.0400, L501.2300, L500.4100, L506.1000, L501.9985, L3300.0960, L100.0100, L501.9520, L500.4050 #### [facility] [address] [place], [place], [id number] Protein.monoclonal Elph [Mas s/Vol]Ordered By: Dinorah Kapadia on 04-04-2024 Protein Electrophoresis M-Dex Not Observed g/dL Not Observed [facility] Protein/Creatinine (U) [Mass ratio]Ordered By: Dinorah Kapadia on 04-04-2024 Urine Protein/Creatinine Ratio 1342 mg/g CRE High 0-200 [facility] Random urine protein measure mentOrdered By: Dinorah Kapadia on 04-04-2024 Protein (U) [Mass/Vol] 163.7 mg/dL High 0.0-11.8 [facility] Renal Profileon 04-04-2024 BUN/CRE 15.0 RATIO Normal 10-20 [facility] Comment on above: Performed By: #### L 509.1000, L501.0900, L506.0400, L501.2300, L500.4100, L506.1000, L501.9985, L3300.0960, L100.0100, L501.9520, L500.4050 #### [facility] [address] [place], [address] (079) CA,Total 9.3 mg/dL Normal 8.5-10.1 [facility] Comment on above: Performed By: #### L 509.1000, L501.0900, L506.0400, L501.2300, L500.4100, L506.1000, L501.9985, L3300.0960, L100.0100, L501.9520, L500.4050 #### [facility] [address] [place], [place], [id number] EST GFR - AA 31 mL/min Low >60 [facility] Comment on above: Result Comment: Afri can Ukrainian GFR Calc Performed By: #### L 509.1000, L501.0900, L506.0400, L501.2300, L500.4100, L506.1000, L501.9985, L3300.0960, L100.0100, L501.9520, L500.4050 #### [facility] [address] [place], [place], [phone] (209) GFR/1.73 sq M.predicted among non-blacks MDRD (S/P/Bld) [Vol rate/Area] 25 mL/min/{1.73_m2} Low >60 [facility] Comment on above: Result Comment: Non- GFR Calc Performed By: #### L 509.1000, L501.0900, L506.0400, L501.2300, L500.4100, L506.1000, L501.9985, L3300.0960, L100.0100, L501.9520, L500.4050 #### [facility] [address] [place], [place], [phone] (862) Phosphate [Mass/Vol] 3.4 mg/dL Normal 2.5-4.9 [facility] Comment on above: Performed By: #### L 509.1000, L501.0900, L506.0400, L501.2300, L500.4100, L506.1000, L501.9985, L3300.0960, L100.0100, L501.9520, L500.4050 #### [facility] [address] [place], [place], [phone] (722) Renal ProfileOrdered By: Christopher Kapadia on 04-04-2024 Albumin [Mass/Vol] 3.3 g/dL Normal 3.2-5.0 [facility] Comment on above: Performed By: #### L 509.1000, L501.0900, L506.0400, L501.2300, L500.4100, L506.1000, L501.9985, L3300.0960, L100.0100, L501.9520, L500.4050 #### [facility] [address] [place], [address] Chloride [Moles/Vol] 109 mmol/L High 98-107 [facility] Comment on above: Performed By: #### L 509.1000, L501.0900, L506.0400, L501.2300, L500.4100, L506.1000, L501.9985, L3300.0960, L100.0100, L501.9520, L500.4050 #### [facility] [address] [place], [address] CO2 [Moles/Vol] 22.0 mmol/L Normal 21.0-32.0 [facility] Comment on above: Performed By: #### L 509.1000, L501.0900, L506.0400, L501.2300, L500.4100, L506.1000, L501.9985, L3300.0960, L100.0100, L501.9520, L500.4050 #### [facility] [address] [place], [place], [id number] Creatinine [Mass/Vol] 2.66 mg/dL High 0.70-1.30 [facility] Comment on above: Result Comment: The validity of the calculated GFR GFRAA in patients over 70 years has not been determined. Clinical correlation is essential. Performed By: #### L 509.1000, L501.0900, L506.0400, L501.2300, L500.4100, L506.1000, L501.9985, L3300.0960, L100.0100, L501.9520, L500.4050 #### [facility] [address] [place], [address] The validity of the calculated GFR & GFRAA in patients over 70 years has not been determined. Clinical correlation is essential. Glucose [Mass/Vol] 119 mg/dL High 74-106 [facility] Comment on above: Result Comment: Fast ing Glucose result from 100 to 125 mg/dL suggests IMPAIRED HOMEOSTASIS per A.D.A. criteria. Performed By: #### L 509.1000, L501.0900, L506.0400, L501.2300, L500.4100, L506.1000, L501.9985, L3300.0960, L100.0100, L501.9520, L500.4050 #### [facility] [address] [place], [place], [phone] Fasting Glucose resu lt from 100 to 125 mg/dL suggests IMPAIRED HOMEOSTASIS per A.D.A. criteria. Potassium [Moles/Vol] 4.3 mmol/L Normal 3.5-5.1 [facility] Comment on above: Performed By: #### L 509.1000, L501.0900, L506.0400, L501.2300, L500.4100, L506.1000, L501.9985, L3300.0960, L100.0100, L501.9520, L500.4050 #### [facility] [address] [place], [address] Sodium [Moles/Vol] 136 mmol/L Normal 136-145 [facility] Comment on above: Performed By: #### L 509.1000, L501.0900, L506.0400, L501.2300, L500.4100, L506.1000, L501.9985, L3300.0960, L100.0100, L501.9520, L500.4050 #### [facility] [address] [place], [place], [id number] Urea nitrogen [Mass/Vol] 40 mg/dL High 7-18 [facility] Comment on above: Performed By: #### L 509.1000, L501.0900, L506.0400, L501.2300, L500.4100, L506.1000, L501.9985, L3300.0960, L100.0100, L501.9520, L500.4050 #### [facility] [place], [address] Serum or plasma calcium heidy urement (mass/volume)Ordered By: Dinorah Kapadia on 04-04-2024 Calcium [Mass/Vol] 9.3 mg/dL 8.5-10.1 [facility] Serum or plasma protein heidy urement (mass/volume)Ordered By: Dinorah Kapadia on 04-04-2024 Protein [Mass/Vol] 6.4 g/dL 6.0-8.5 [facility] Urine creatinine measurement (mass/volume)Ordered By: Dinorah Kapadia on 04-04-2024 Creatinine (U) [Mass/Vol] 122.00 mg/dL NO RANGE EST. [facility] CNPNon 03-31-2024 CNPN Telephone (NIQ) ----- DINO SHAW ([id number]) 1950 M Date Time Provider Department 03/31/24 [facility] [facility] During your visit today, we recorded the following information about you: Jermaine Nicole 03/31/2024 3:38 PM Signed Called patient to schedule an appointment from referral. Patient did not answer, left a voicemail. Senia Gann 04/04/2024 1:11 PM Signed Second attempt to contact Patient: called-no answer. Left voicemail advising patient to [facility] office to schedule consultation. Letter also mailed to address on file. Senia Gann Allergies As of Date: 03/31/2024 Noted Allergy Reaction AMOXICILLIN 01/01/2015 9 - Itching OXYCODONE 01/01/2015 9 - Itching Date Reviewed: 10/30/2017 Reviewed by: Jenny Elliott Ma - Fully Assessed Reason for Visit: Appointment [186] Prescriptions as of 04/04/2024 - Lancets lancets Use as directed 3 times daily, Dx: E11.49, insulin dependent - blood sugar diagnostic (BLOOD GLUCOSE TEST) test strip Use as directed 3 times daily, Dx: E11.49, insulin dependent - Blood-Glucose Meter misc Use as directed to test glucose levels, Dx: E11.49, insulin dependent - levothyroxine (LEVOXYL) 200 mcg tablet Take 1 tablet by mouth once daily. Take only 1/2 pill on Sundays. - amLODIPine (NORVASC) 10 mg tablet Take 1 tablet by mouth once daily. - ezetimibe (ZETIA) 10 mg tablet Take 1 tablet by mouth once daily. - atorvastatin (LIPITOR) 40 mg tablet Take 1 tablet by mouth once daily. - Insulin Syringe-Needle U-100 (BD ULTRAFINE INSULIN) 1 mL 31 gauge x 5/16 syrg One daily for Lantus injection. - insulin aspart U-100 (NOVOLOG FLEXPEN U-100 INSULIN) 100 unit/mL inpn INJECT 50 UNITS SUBCUTANEOUSLY W MEALS. 45 PENS - metFORMIN (GLUCOPHAGE) 1,000 mg tablet Take 1 tablet by mouth twice daily. - fenofibrate nanocrystallized (TRICOR) 145 mg tablet Take 1 tablet by mouth once daily. - insulin glargine (LANTUS SOLOSTAR U-100 INSULIN) 100 unit/mL (3 mL) inpn Inject 96 Units subcutaneously daily at bedtime. - quinapril (ACCUPRIL) 20 mg tablet Take 1 tablet by mouth daily at bedtime. - Hydrochlorothiazide 12.5 mg capsule Take 1 capsule by mouth once daily. - varenicline (CHANTIX CONTINUING MONTH BOX) 1 mg tablet Take 1 tablet by mouth twice daily. - Insulin [place], Disposable, (BD ULTRAFINE III MINI PEN) 31 gauge x 3/16 ndle USE WITH INSULIN PENS 4 TIMES DAILY - varenicline (CHANTIX) 1 mg tablet Take 1 tablet by mouth once daily. - COMPOUNDED PRESCRIPTION Dispense glucose monitoring system according to insurance formulary to use as directed to test glucose. DX: E11.49 - COMPOUNDED PRESCRIPTION Dispense glucose strips according to insurance formulary to test 3 times daily, as directed. DX: E11.49 - COMPOUNDED PRESCRIPTION Dispense glucose testing lancets according to insurance formulary to test 3 times daily, as directed. DX: E11.49 - albuterol HFA (PROAIR HFA) 90 mcg/actuation inhaler Inhale 2 Puffs as instructed every 6 hours as needed. - fluticasone (FLOVENT HFA) 220 mcg/actuation inhaler Inhale 2 Puffs as instructed twice daily. - aspirin, enteric coated (ECOTRIN LOW STRENGTH) 81 mg ORAL EC tablet Take one(1) tablet daily. - omega-3 fatty acids 1,000 mg ORAL Cap take two at each meal - ascorbic acid (VITAMIN C) 500 mg ORAL tablet Take one(1) tablet daily. 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] 10/15/2012 Albuminuria [R80.9] 02/02/2015 04/19/2017 Tobacco abuse [Z72.0] 07/04/2015 04/19/2017 Essential hypertension [I10] 09/04/2016 Stage 3 chronic kidney disease [N18.30] 09/08/2016 Obesity, Class II, BMI 35-39.9 [E66.812] 11/01/2017 Low back pain [M54.50] 02/04/2018 Degeneration of lumbar intervertebral disc [M51*02/05/2018 Posture abnormality [R29.3] 02/05/2018 Muscle weakness (generalized) [M62.81] 02/05/2018 Back stiffness [M25.69] 02/05/2018 Letter Text Encounter Status:Closed by SENIA GANN on 04/04/24 Normal [facility] Bilirubin Test strip Ql (U)O rdered By: David Mcgowan on 03-17-2024 Bilirubin Ql (U) Negative Negative [facility] Chest PA and Lateralon 03-17 Chest PA and Lateral [facility] Imaging Services [address] [place] [id number] Chest PA and Lateral MR#: [id number] Acct: [id number] Name: DINO SHAW Rep #: [id number] : 1950 M 74 From: Shaina hill MD PCP: Dr. David Mcgowan MD Status: REG CLI Study: Chest PA and Lateral Date of Exam: 03/17/24 Exam# [id number] Ordering Dr: David Mcgowan MD [id number] HISTORY: BIBASILAR CRACKLES -- STAT. TECHNIQUE: XR Chest 2 Views. COMPARISON: None. FINDINGS: CARDIOMEDIASTINAL BORDERS: Cardiac silhouette within normal limits in size. Mediastinal contour unremarkable with calcification of the aortic knob. LUNGS: Mild hyperinflation suggesting COPD. Mild bibasilar opacities. PLEURA: No pleural effusion or pneumothorax seen. OSSEOUS STRUCTURES: Degenerative change. RAD/Chest PA and Lateral IMPRESSION: Mild bibasilar atelectasis or pneumonia. Electronically Signed: Shaina Layton MD at 11:42 EST Reading Location ID and State: [facility] / [place] Tel , Service support , CC: Dr. David Mcgowan MD Gold Beater: Signed Normal [facility] Epithelial cells.squamous LM Ql (Urine sed)Ordered By: David Mcgowan on 03-17-2024 Epithelial cells.squamous LM.HPF (Urine sed) [#/Area] 0 /[HPF] 0-5 [facility] Glucose Ql (U)Ordered By: Pat Mcgowan on 03-17-2024 Urine Glucose (UA) Normal mg/dl Normal [facility] Ketones Test strip Ql (U)Ord ered By: David Mcgowan on 03-17-2024 Ketones Ql (U) Negative Negative [facility] Microscopic analysis of urin e for red blood cells (RBC)Ordered By: David Mcgowan on 03-17-2024 Urine RBC Not Reportable [facility] Mucus LM Ql (Urine sed)Order ed By: David Mcgowan on 03-17-2024 Mucus Ql (Urine sed) 1+ /hpf [facility] Nitrite Test strip Ql (U)Ord ered By: David Mcgowan on 03-17-2024 Nitrite Ql (U) Positive High Negative [facility] Protein Test strip Ql (U)Ord ered By: David Mcgowan on 03-17-2024 Protein Ql (U) 100 mg/dl High Negative [facility] Urinalysis, Completeon 03-17 BACTERIA 4+ /hpf Normal None Seen [facility] Comment on above: Order Comment: CLEAN CATCH Performed By: #### L 509.1000, L501.0900, L506.0400, L501.2300, L500.4100, L506.1000, L501.9985, L3300.0960, L100.0100, L501.9520, L500.4050 #### [facility] [address] [place], [place], [phone] (313) EPI,SQUAMOUS 0-5 SEEN Normal 0-5 [facility] Comment on above: Order Comment: CLEAN CATCH Performed By: #### L 509.1000, L501.0900, L506.0400, L501.2300, L500.4100, L506.1000, L501.9985, L3300.0960, L100.0100, L501.9520, L500.4050 #### [facility] [address] [place], [place], [phone] Mucus Ql (Urine sed) 1+ /hpf Normal [facility] Comment on above: Order Comment: CLEAN CATCH Performed By: #### L 509.1000, L501.0900, L506.0400, L501.2300, L500.4100, L506.1000, L501.9985, L3300.0960, L100.0100, L501.9520, L500.4050 #### [facility] [address] [place], [place], [phone] WBC 0-5 SEEN Normal 0-5 [facility] Comment on above: Order Comment: CLEAN CATCH Performed By: #### L 509.1000, L501.0900, L506.0400, L501.2300, L500.4100, L506.1000, L501.9985, L3300.0960, L100.0100, L501.9520, L500.4050 #### [facility] [place], [address] Urine blood detectionOrdered By: David Mcgowan on 03-17-2024 Urine Occult Blood Negative Negative [facility] Urine clarityOrdered By: Diogo Mcgowan on 03-17-2024 Clarity (U) Sl. Cloudy Clear [facility] Urine color determinationOrd ered By: David Mcgowan on 03-17-2024 Color (U) Yellow Yellow [facility] Urine leukocyte esterase det ection by dipstickOrdered By: David Mcgowan on 03-17-2024 Leukocyte esterase Test strip Ql (U) Negative Negative [facility] Urine pHOrdered By: David marley on 03-17-2024 pH (U) 5.0 [pH] 5.0 - 8.0 [facility] Urine sediment bacteria coun t by microscopy (number/high power field)Ordered By: David Mcogwan on 03-17-2024 Bacteria LM.HPF (Urine sed) [#/Area] 4 /[HPF] None Seen [facility] Urine specific gravity measu rementOrdered By: David Mcgowan on 03-17-2024 Specific gravity (U) [Rel density] 1.015 1.002-1.03 0 [facility] Urobilinogen Ql (U)Ordered B y: David Mcgowan on 03-17-2024 Urine Urobilinogen Normal mg/dl Normal [facility] White blood cell countOrdere d By: David Mcgowan on 03-17-2024 Urine WBC 0-5 SEEN /hpf 0-5 [facility] Bilirubin directOrdered By: David Mcgowan on 03-08-2024 Bilirubin.direct [Mass/Vol] 0.20 mg/dL 0.00-0.30 [facility] Bilirubin, totalOrdered By: David Mcgowan on 03-08-2024 Bilirubin [Mass/Vol] 0.50 mg/dL 0.20-1.00 [facility] Comment on above: For patients on eltr ombopag therapy, use of Dimension Bernard TBIL is not recommended. Laboratory - Chemistry and C hemistry - challengeOrdered By: David Mcgowan on 03-08-2024 AST [Catalytic activity/Vol] 40 U/L High 15-37 [facility] Liver Profileon 03-08-2024 Albumin [Mass/Vol] 2.9 g/dL Low 3.2-5.0 [facility] Comment on above: Order Comment: Order Date: 08/24/23Order Info: 0788-1 - LIVERhyperbilirubinemia Performed By: #### L 509.1000, L501.0900, L506.0400, L501.2300, L500.4100, L506.1000, L501.9985, L3300.0960, L100.0100, L501.9520, L500.4050 #### [facility] [address] [place], [place], [phone] ALK P 45 U/L Normal 45-117 [facility] Comment on above: Order Comment: Order Date: 08/24/23Order Info: 0788-1 - LIVERhyperbilirubinemia Performed By: #### L 509.1000, L501.0900, L506.0400, L501.2300, L500.4100, L506.1000, L501.9985, L3300.0960, L100.0100, L501.9520, L500.4050 #### [facility] [address] [place], [place], [id number] ALT [Catalytic activity/Vol] 46 U/L Normal 16-61 [facility] Comment on above: Order Comment: Order Date: 08/24/23Order Info: 0788-1 - LIVERhyperbilirubinemia Performed By: #### L 509.1000, L501.0900, L506.0400, L501.2300, L500.4100, L506.1000, L501.9985, L3300.0960, L100.0100, L501.9520, L500.4050 #### [facility] [address] [place], [address] AST [Catalytic activity/Vol] 40 U/L High 15-37 [facility] Comment on above: Order Comment: Order Date: 08/24/23Order Info: 0788-1 - LIVERhyperbilirubinemia Performed By: #### L 509.1000, L501.0900, L506.0400, L501.2300, L500.4100, L506.1000, L501.9985, L3300.0960, L100.0100, L501.9520, L500.4050 #### [facility] [address] [place], [address] Bilirubin [Mass/Vol] 0.50 mg/dL Normal 0.20-1.00 [facility] Comment on above: Order Comment: Order Date: 08/24/23Order Info: 0788-1 - LIVERhyperbilirubinemia Result Comment: For patients on eltrombopag therapy, use of Dimension Bernard TBIL is not recommended. Performed By: #### L 509.1000, L501.0900, L506.0400, L501.2300, L500.4100, L506.1000, L501.9985, L3300.0960, L100.0100, L501.9520, L500.4050 #### [facility] [address] [place], [address] Bilirubin.direct [Mass/Vol] 0.20 mg/dL Normal 0.00-0.30 [facility] Comment on above: Order Comment: Order Date: 08/24/23Order Info: 0788-1 - LIVERhyperbilirubinemia Performed By: #### L 509.1000, L501.0900, L506.0400, L501.2300, L500.4100, L506.1000, L501.9985, L3300.0960, L100.0100, L501.9520, L500.4050 #### [facility] [address] [place], [place], [phone] Globulin (S) [Mass/Vol] 3.9 g/dL Normal 2.2-4.2 [facility] Comment on above: Order Comment: Order Date: 08/24/23Order Info: 0788-1 - LIVERhyperbilirubinemia Performed By: #### L 509.1000, L501.0900, L506.0400, L501.2300, L500.4100, L506.1000, L501.9985, L3300.0960, L100.0100, L501.9520, L500.4050 #### [facility] [address] [place], [address] T PROT 6.8 g/dL Normal 6.4-8.2 [facility] Comment on above: Order Comment: Order Date: 08/24/23Order Info: 0788-1 - LIVERhyperbilirubinemia Performed By: #### L 509.1000, L501.0900, L506.0400, L501.2300, L500.4100, L506.1000, L501.9985, L3300.0960, L100.0100, L501.9520, L500.4050 #### [facility] [address] [place], [place], [id number] Serum globulin measurementOr dered By: David Mcgowan on 03-08-2024 Globulin (S) [Mass/Vol] 3.9 g/dL 2.2-4.2 [facility] Serum or plasma alanine mary otransferase (ALT) measurementOrdered By: David Mcgowan on 03-08-2024 ALT [Catalytic activity/Vol] 46 U/L 16-61 [facility] Serum or plasma albumin heidy urement (mass/volume)Ordered By: David Mcgowan on 03-08-2024 Albumin [Mass/Vol] 2.9 g/dL Low 3.2-5.0 [facility] Serum or plasma alkaline daria sphatase measurementOrdered By: David Mcgowan on 03-08-2024 ALP [Catalytic activity/Vol] 45 U/L 45-117 [facility] Total proteinOrdered By: Diogo Mcgowan on 03-08-2024 Protein [Mass/Vol] 6.8 g/dL 6.4-8.2 [facility] CBC W/Diff, Automatedon 02-04 Absolute Lymph 1.09 X10 3/uL Normal 0.83-4.51 [facility] Comment on above: Order Comment: Order Date: 11/03/23Order Info: 183-04 - CBCD Performed By: #### L 509.1000, L501.0900, L506.0400, L501.2300, L500.4100, L506.1000, L501.9985, L3300.0960, L100.0100, L501.9520, L500.4050 #### [facility] [address] [place], [place], [phone] (212) Absolute Neut 7.1 X10 3/uL Normal 2.0-7.7 [facility] Comment on above: Order Comment: Order Date: 11/03/23Order Info: 183-04 - CBCD Performed By: #### L 509.1000, L501.0900, L506.0400, L501.2300, L500.4100, L506.1000, L501.9985, L3300.0960, L100.0100, L501.9520, L500.4050 #### [facility] [address] [place], [place], [phone] (403) Basophils/100 WBC (Bld) 0.7 % Normal 0-1 [facility] Comment on above: Order Comment: Order Date: 11/03/23Order Info: 183-04 - CBCD Performed By: #### L 509.1000, L501.0900, L506.0400, L501.2300, L500.4100, L506.1000, L501.9985, L3300.0960, L100.0100, L501.9520, L500.4050 #### [facility] [address] [place], [address] Eosinophils/100 WBC (Bld) 3.1 % Normal 0-5 [facility] Comment on above: Order Comment: Order Date: 11/03/23Order Info: 018-1 - CBCD Performed By: #### L 509.1000, L501.0900, L506.0400, L501.2300, L500.4100, L506.1000, L501.9985, L3300.0960, L100.0100, L501.9520, L500.4050 #### [facility] [address] [place], [address] Erythrocyte distribution width (RBC) [Ratio] 14.6 % Normal 11.6-14.6 [facility] Comment on above: Order Comment: Order Date: 11/03/23Order Info: 018- - CBCD Performed By: #### L 509.1000, L501.0900, L506.0400, L501.2300, L500.4100, L506.1000, L501.9985, L3300.0960, L100.0100, L501.9520, L500.4050 #### [facility] [address] [place], [address] Hematocrit (Bld) [Volume fraction] 34.8 % Low 40-54 [facility] Comment on above: Order Comment: Order Date: 11/03/23Order Info: 018- - CBCD Performed By: #### L 509.1000, L501.0900, L506.0400, L501.2300, L500.4100, L506.1000, L501.9985, L3300.0960, L100.0100, L501.9520, L500.4050 #### [facility] [address] [place], [address] Hemoglobin (Bld) [Mass/Vol] 11.1 g/dL Low 13.0-16.5 [facility] Comment on above: Order Comment: Order Date: 11/03/23Order Info: 018-1 - CBCD Performed By: #### L 509.1000, L501.0900, L506.0400, L501.2300, L500.4100, L506.1000, L501.9985, L3300.0960, L100.0100, L501.9520, L500.4050 #### [facility] [address] [place], [address] IG% 0.300 Normal 0.0-0.9 [facility] Comment on above: Order Comment: Order Date: 11/03/23Order Info: 018- - CBCD Result Comment: IG% - Immature Granulocytes (promyelocytes, myelocytes and metamyelocytes) > 1% indicates that a LEFT SHIFT is Present. Performed By: #### L 509.1000, L501.0900, L506.0400, L501.2300, L500.4100, L506.1000, L501.9985, L3300.0960, L100.0100, L501.9520, L500.4050 #### [facility] [address] [place], [address] Lymphocytes/100 WBC (Bld) 11.9 % Low 19-41 [facility] Comment on above: Order Comment: Order Date: 11/03/23Order Info: 0184- - CBCD Performed By: #### L 509.1000, L501.0900, L506.0400, L501.2300, L500.4100, L506.1000, L501.9985, L3300.0960, L100.0100, L501.9520, L500.4050 #### [facility] [address] [place], [address] MCH (RBC) [Entitic mass] 29.7 pg Normal 27.0-32.0 [facility] Comment on above: Order Comment: Order Date: 11/03/23Order Info: 018- - CBCD Performed By: #### L 509.1000, L501.0900, L506.0400, L501.2300, L500.4100, L506.1000, L501.9985, L3300.0960, L100.0100, L501.9520, L500.4050 #### [facility] [address] [place], [address] MCHC (RBC) [Mass/Vol] 31.9 g/dL Low 32-36 [facility] Comment on above: Order Comment: Order Date: 11/03/23Order Info: 0184-1 - CBCD Performed By: #### L 509.1000, L501.0900, L506.0400, L501.2300, L500.4100, L506.1000, L501.9985, L3300.0960, L100.0100, L501.9520, L500.4050 #### [facility] [address] [place], [place], [phone] MCV (RBC) [Entitic vol] 93.0 fL Normal 80-94 [facility] Comment on above: Order Comment: Order Date: 11/03/23Order Info: 018- - CBCD Performed By: #### L 509.1000, L501.0900, L506.0400, L501.2300, L500.4100, L506.1000, L501.9985, L3300.0960, L100.0100, L501.9520, L500.4050 #### [facility] [address] [place], [place], [phone] (291) Monocytes/100 WBC (Bld) 6.2 % Normal 0-10 [facility] Comment on above: Order Comment: Order Date: 11/03/23Order Info: 0184-1 - CBCD Performed By: #### L 509.1000, L501.0900, L506.0400, L501.2300, L500.4100, L506.1000, L501.9985, L3300.0960, L100.0100, L501.9520, L500.4050 #### [facility] [address] [place], [address] Neutrophils/100 WBC (Bld) 77.8 % High 47-70 [facility] Comment on above: Order Comment: Order Date: 11/03/23Order Info: 0184-1 - CBCD Performed By: #### L 509.1000, L501.0900, L506.0400, L501.2300, L500.4100, L506.1000, L501.9985, L3300.0960, L100.0100, L501.9520, L500.4050 #### [facility] [address] [place], [address] Nucleated RBC (Bld) [#/Vol] 0 10*3/uL Normal 0-5 [facility] Comment on above: Order Comment: Order Date: 11/03/23Order Info: 0184- - CBCD Performed By: #### L 509.1000, L501.0900, L506.0400, L501.2300, L500.4100, L506.1000, L501.9985, L3300.0960, L100.0100, L501.9520, L500.4050 #### [facility] [address] [place], [address] Platelet mean volume (Bld) [Entitic vol] 10.7 fL Normal 6.2-12.0 [facility] Comment on above: Order Comment: Order Date: 11/03/23Order Info: 0184-1 - CBCD Performed By: #### L 509.1000, L501.0900, L506.0400, L501.2300, L500.4100, L506.1000, L501.9985, L3300.0960, L100.0100, L501.9520, L500.4050 #### [facility] [address] [place], [address] Platelets (Bld) [#/Vol] 491 10*3/uL High 150-450 [facility] Comment on above: Order Comment: Order Date: 11/03/23Order Info: 0184-1 - CBCD Performed By: #### L 509.1000, L501.0900, L506.0400, L501.2300, L500.4100, L506.1000, L501.9985, L3300.0960, L100.0100, L501.9520, L500.4050 #### [facility] [address] [place], [address] RBC (Bld) [#/Vol] 3.74 10*6/uL Low 4.6-6.2 [facility] Comment on above: Order Comment: Order Date: 11/03/23Order Info: 018-1 - CBCD Performed By: #### L 509.1000, L501.0900, L506.0400, L501.2300, L500.4100, L506.1000, L501.9985, L3300.0960, L100.0100, L501.9520, L500.4050 #### [facility] [address] [place], [address] RDW SD 50.4 fl High 35.1-43.9 [facility] Comment on above: Order Comment: Order Date: 11/03/23Order Info: 018- - CBCD Performed By: #### L 509.1000, L501.0900, L506.0400, L501.2300, L500.4100, L506.1000, L501.9985, L3300.0960, L100.0100, L501.9520, L500.4050 #### [facility] [address] [place], [address] WBC (Bld) [#/Vol] 9.2 10*3/uL Normal 4.4-11.0 [facility] Comment on above: Order Comment: Order Date: 11/03/23Order Info: 0184-1 - CBCD Performed By: #### L 509.1000, L501.0900, L506.0400, L501.2300, L500.4100, L506.1000, L501.9985, L3300.0960, L100.0100, L501.9520, L500.4050 #### [facility] [address] [place], [place], [phone] Comprehensive Metabolic Prof ilon 02-15-2024 Albumin [Mass/Vol] 3.3 g/dL Normal 3.2-5.0 [facility] Comment on above: Order Comment: Order Date: 11/03/23Order Info: 785- - CMPOrder Info: - LIPIDOrder Info: [id number] - TSHOrder Info: 3023-10 - T4F Performed By: #### L 509.1000, L501.0900, L506.0400, L501.2300, L500.4100, L506.1000, L501.9985, L3300.0960, L100.0100, L501.9520, L500.4050 #### [facility] [address] [place], [address] Albumin/Globulin [Mass ratio] 0.7 {ratio} Low 0.9-2.4 [facility] Comment on above: Order Comment: Order Date: 11/03/23Order Info: 785-04 - CMPOrder Info: - LIPIDOrder Info: [id number] - TSHOrder Info: 7 - T4F Performed By: #### L 509.1000, L501.0900, L506.0400, L501.2300, L500.4100, L506.1000, L501.9985, L3300.0960, L100.0100, L501.9520, L500.4050 #### [facility] [address] [place], [place], [phone] ALK P 52 U/L Normal 45-117 [facility] Comment on above: Order Comment: Order Date: 11/03/23Order Info: 785- - CMPOrder Info: - LIPIDOrder Info: [id number] - TSHOrder Info: 3024-7 - T4F Performed By: #### L 509.1000, L501.0900, L506.0400, L501.2300, L500.4100, L506.1000, L501.9985, L3300.0960, L100.0100, L501.9520, L500.4050 #### [facility] [address] [place], [address] ALT [Catalytic activity/Vol] 43 U/L Normal 16-61 [facility] Comment on above: Order Comment: Order Date: 11/03/23Order Info: 86-1 - CMPOrder Info: [id number] - LIPIDOrder Info: [id number] - TSHOrder Info: 7 - T4F Performed By: #### L 509.1000, L501.0900, L506.0400, L501.2300, L500.4100, L506.1000, L501.9985, L3300.0960, L100.0100, L501.9520, L500.4050 #### [facility] [address] [place], [address] AST [Catalytic activity/Vol] 47 U/L High 15-37 [facility] Comment on above: Order Comment: Order Date: 11/03/23Order Info: 86-1 - CMPOrder Info: [id number] - LIPIDOrder Info: 3 - TSHOrder Info: 7 - T4F Performed By: #### L 509.1000, L501.0900, L506.0400, L501.2300, L500.4100, L506.1000, L501.9985, L3300.0960, L100.0100, L501.9520, L500.4050 #### [facility] [address] [place], [address] Bilirubin [Mass/Vol] 0.60 mg/dL Normal 0.20-1.00 [facility] Comment on above: Order Comment: Order Date: 07/30/24Order Info: 0786-1 - CMPOrder Info: [id number] - LIPIDOrder Info: 3 - TSHOrder Info: 3024-7 - T4F Result Comment: For patients on eltrombopag therapy, use of Dimension Bernard TBIL is not recommended. Performed By: #### L 509.1000, L501.0900, L506.0400, L501.2300, L500.4100, L506.1000, L501.9985, L3300.0960, L100.0100, L501.9520, L500.4050 #### [facility] [address] [place], [place], [phone] (217) BUN/CRE 12.1 RATIO Normal 10-20 [facility] Comment on above: Order Comment: Order Date: 11/03/23Order Info: 785- - CMPOrder Info: - LIPIDOrder Info: 3 - TSHOrder Info: 7 - T4F Performed By: #### L 509.1000, L501.0900, L506.0400, L501.2300, L500.4100, L506.1000, L501.9985, L3300.0960, L100.0100, L501.9520, L500.4050 #### [facility] [address] [place], [place], [phone] (888 CA,Total 9.3 mg/dL Normal 8.5-10.1 [facility] Comment on above: Order Comment: Order Date: 11/03/23Order Info: 785-1 - CMPOrder Info: [id number] - LIPIDOrder Info: 3 - TSHOrder Info: 3024-7 - T4F Performed By: #### L 509.1000, L501.0900, L506.0400, L501.2300, L500.4100, L506.1000, L501.9985, L3300.0960, L100.0100, L501.9520, L500.4050 #### [facility] [address] [place], [place], [phone] (532) Chloride [Moles/Vol] 104 mmol/L Normal 98-107 [facility] Comment on above: Order Comment: Order Date: 11/03/23Order Info: 785- - CMPOrder Info: - LIPIDOrder Info: [id number] - TSHOrder Info: 3023-10 - T4F Performed By: #### L 509.1000, L501.0900, L506.0400, L501.2300, L500.4100, L506.1000, L501.9985, L3300.0960, L100.0100, L501.9520, L500.4050 #### [facility] [address] [place], [address] CO2 [Moles/Vol] 18.0 mmol/L Low 21.0-32.0 [facility] Comment on above: Order Comment: Order Date: 11/03/23Order Info: 785-04 - CMPOrder Info: - LIPIDOrder Info: [id number] - TSHOrder Info: 3023-10 - T4F Performed By: #### L 509.1000, L501.0900, L506.0400, L501.2300, L500.4100, L506.1000, L501.9985, L3300.0960, L100.0100, L501.9520, L500.4050 #### [facility] [address] [place], [place], [phone] Creatinine [Mass/Vol] 4.70 mg/dL High 0.70-1.30 [facility] Comment on above: Order Comment: Order Date: 11/03/23Order Info: 785-04 - CMPOrder Info: - LIPIDOrder Info: [id number] - TSHOrder Info: 3023-10 - T4F Result Comment: The validity of the calculated GFR GFRAA in patients over 70 years has not been determined. Clinical correlation is essential. Performed By: #### L 509.1000, L501.0900, L506.0400, L501.2300, L500.4100, L506.1000, L501.9985, L3300.0960, L100.0100, L501.9520, L500.4050 #### [facility] [address] [place], [place], [phone] (247) EST GFR - AA 16 mL/min Low >60 [facility] Comment on above: Order Comment: Order Date: 11/03/23Order Info: 86-1 - CMPOrder Info: [id number] - LIPIDOrder Info: [id number] - TSHOrder Info: 7 - T4F Result Comment: Afri can Ukrainian GFR Calc Performed By: #### L 509.1000, L501.0900, L506.0400, L501.2300, L500.4100, L506.1000, L501.9985, L3300.0960, L100.0100, L501.9520, L500.4050 #### [facility] [address] [place], [place], [phone] (743) GAP 12 Normal 5-15 [facility] Comment on above: Order Comment: Order Date: 11/03/23Order Info: 785- - CMPOrder Info: - LIPIDOrder Info: [id number] - TSHOrder Info: 3023-10 - T4F Performed By: #### L 509.1000, L501.0900, L506.0400, L501.2300, L500.4100, L506.1000, L501.9985, L3300.0960, L100.0100, L501.9520, L500.4050 #### [facility] [address] [place], [place], [phone] (219) GFR/1.73 sq M.predicted among non-blacks MDRD (S/P/Bld) [Vol rate/Area] 13 mL/min/{1.73_m2} Low >60 [facility] Comment on above: Order Comment: Order Date: 11/03/23Order Info: 785- - CMPOrder Info: [id number] - LIPIDOrder Info: [id number] - TSHOrder Info: 7 - T4F Result Comment: Non- GFR Calc Performed By: #### L 509.1000, L501.0900, L506.0400, L501.2300, L500.4100, L506.1000, L501.9985, L3300.0960, L100.0100, L501.9520, L500.4050 #### [facility] [address] [place], [address] Globulin (S) [Mass/Vol] 4.5 g/dL High 2.2-4.2 [facility] Comment on above: Order Comment: Order Date: 11/03/23Order Info: 785- - CMPOrder Info: [id number] - LIPIDOrder Info: 3 - TSHOrder Info: 7 - T4F Performed By: #### L 509.1000, L501.0900, L506.0400, L501.2300, L500.4100, L506.1000, L501.9985, L3300.0960, L100.0100, L501.9520, L500.4050 #### [facility] [address] [place], [address] Glucose [Mass/Vol] 97 mg/dL Normal 74-106 [facility] Comment on above: Order Comment: Order Date: 11/03/23Order Info: 785-04 - CMPOrder Info: [id number] - LIPIDOrder Info: 3 - TSHOrder Info: 7 - T4F Performed By: #### L 509.1000, L501.0900, L506.0400, L501.2300, L500.4100, L506.1000, L501.9985, L3300.0960, L100.0100, L501.9520, L500.4050 #### [facility] [address] [place], [address] Potassium [Moles/Vol] 4.7 mmol/L Normal 3.5-5.1 [facility] Comment on above: Order Comment: Order Date: 11/03/23Order Info: 785- - CMPOrder Info: - LIPIDOrder Info: 3 - TSHOrder Info: 7 - T4F Performed By: #### L 509.1000, L501.0900, L506.0400, L501.2300, L500.4100, L506.1000, L501.9985, L3300.0960, L100.0100, L501.9520, L500.4050 #### [facility] [address] [place], [address] Sodium [Moles/Vol] 134 mmol/L Low 136-145 [facility] Comment on above: Order Comment: Order Date: 11/03/23Order Info: 785-04 - CMPOrder Info: - LIPIDOrder Info: [id number] - TSHOrder Info: 7 - T4F Performed By: #### L 509.1000, L501.0900, L506.0400, L501.2300, L500.4100, L506.1000, L501.9985, L3300.0960, L100.0100, L501.9520, L500.4050 #### [facility] [address] [place], [address] T PROT 7.8 g/dL Normal 6.4-8.2 [facility] Comment on above: Order Comment: Order Date: 11/03/23Order Info: 785-04 - CMPOrder Info: - LIPIDOrder Info: [id number] - TSHOrder Info: [id number] - T4F Performed By: #### L 509.1000, L501.0900, L506.0400, L501.2300, L500.4100, L506.1000, L501.9985, L3300.0960, L100.0100, L501.9520, L500.4050 #### [facility] [address] [place], [address] Urea nitrogen [Mass/Vol] 57 mg/dL High 7-18 [facility] Comment on above: Order Comment: Order Date: 11/03/23Order Info: 07-1 - CMPOrder Info: [id number] - LIPIDOrder Info: [id number] - TSHOrder Info: 7 - T4F Performed By: #### L 509.1000, L501.0900, L506.0400, L501.2300, L500.4100, L506.1000, L501.9985, L3300.0960, L100.0100, L501.9520, L500.4050 #### [facility] [address] [place], [place], [phone] Lipid Profileon 02-15-2024 Cholesterol [Mass/Vol] 153 mg/dL Normal 200 [facility] Comment on above: Order Comment: Order Date: 11/03/23Order Info: 785- - CMPOrder Info: [id number] - LIPIDOrder Info: [id number] - TSHOrder Info: 3023-10 - T4F Result Comment: <200 mg/dL Desirable 200-240 mg/dL Borderline >240 mg/dL High Risk Performed By: #### L 509.1000, L501.0900, L506.0400, L501.2300, L500.4100, L506.1000, L501.9985, L3300.0960, L100.0100, L501.9520, L500.4050 #### [facility] [address] [place], [place], [address] Cholesterol in HDL [Mass/Vol] 35 mg/dL Low [facility] Comment on above: Order Comment: Order Date: 11/03/23Order Info: 07- - CMPOrder Info: [id number] - LIPIDOrder Info: [id number] - TSHOrder Info: 7 - T4F Result Comment: The drugs N-Acetylcysteine and Metamizole may falsely depress this assay. Reference Range HDL <40 mg/dL Low HDL Cholesterol HDL >or= 60 mg/dL High HDL Cholesterol Performed By: #### L 509.1000, L501.0900, L506.0400, L501.2300, L500.4100, L506.1000, L501.9985, L3300.0960, L100.0100, L501.9520, L500.4050 #### [facility] [address] [place], [address] Cholesterol in LDL [Mass/Vol] 64 mg/dL Normal 0-130 [facility] Comment on above: Order Comment: Order Date: 11/03/23Order Info: 86- - CMPOrder Info: [id number] - LIPIDOrder Info: [id number] - TSHOrder Info: 3023-10 - T4F Performed By: #### L 509.1000, L501.0900, L506.0400, L501.2300, L500.4100, L506.1000, L501.9985, L3300.0960, L100.0100, L501.9520, L500.4050 #### [facility] [address] [place], [address] Cholesterol in VLDL [Mass/Vol] 54 mg/dL High 5-40 [facility] Comment on above: Order Comment: Order Date: 11/03/23Order Info: 785-04 - CMPOrder Info: - LIPIDOrder Info: [id number] - TSHOrder Info: 7 - T4F Performed By: #### L 509.1000, L501.0900, L506.0400, L501.2300, L500.4100, L506.1000, L501.9985, L3300.0960, L100.0100, L501.9520, L500.4050 #### [facility] [address] [place], [address] Triglyceride [Mass/Vol] 268 mg/dL High [facility] Comment on above: Order Comment: Order Date: 11/03/23Order Info: 785- - CMPOrder Info: [id number] - LIPIDOrder Info: [id number] - TSHOrder Info: 3023-10 - T4F Result Comment: The drugs N-Acetylcysteine and Metamizole may falsely depress this assay. Serum Triglycerides Reference Interval Normal <150 mg/dL Borderline high 150 - 199 mg/dL High 200 - 499 mg/dL Very High > or = 500 mg/dL Performed By: #### L 509.1000, L501.0900, L506.0400, L501.2300, L500.4100, L506.1000, L501.9985, L3300.0960, L100.0100, L501.9520, L500.4050 #### [facility] [address] [facility] [place], [place], [address] T4 Free Directon 02-15-2024 T4 FREE DIRECT 0.87 ng/dL Normal 0.76-1.46 [facility] Comment on above: Order Comment: Order Date: 11/03/23Order Info: 0786-1 - CMPOrder Info: [id number] - LIPIDOrder Info: [id number] - TSHOrder Info: 3023-10 - T4F Performed By: #### L 509.1000, L501.0900, L506.0400, L501.2300, L500.4100, L506.1000, L501.9985, L3300.0960, L100.0100, L501.9520, L500.4050 #### [facility] [address] [facility] [place], [place], [address] Thyroid Stim Hormone (TSH)on 02-15-2024 TSH 5.410 uIU/mL High 0.358-3.74 0 [facility] Comment on above: Order Comment: Order Date: 11/03/23Order Info: 0786-1 - CMPOrder Info: [id number] - LIPIDOrder Info: 3 - TSHOrder Info: 7 - T4F Performed By: #### L 509.1000, L501.0900, L506.0400, L501.2300, L500.4100, L506.1000, L501.9985, L3300.0960, L100.0100, L501.9520, L500.4050 #### [facility] [address] [facility] [place], [place], [address] Vitamin D,25 Hydroxyon 02-14 Vitamin D 25-OH 42.0 ng/mL Normal [facility] Comment on above: Order Comment: Order Date: 11/03/23Order Info: [id number] - VITD25 Result Comment: [place] min D 25(OH) Status Range Deficiency <20 ng/mL (50nmol/L) Insufficiency 20 - 30 ng/mL (50 - 75 nmol/L) Sufficiency 30 - 100 ng/mL (75 - 250 nmol/L) Toxicity >100 ng/mL (>250 nmol/L) Performed By: #### L 509.1000, L501.0900, L506.0400, L501.2300, L500.4100, L506.1000, L501.9985, L3300.0960, L100.0100, L501.9520, L500.4050 #### [facility] [address] [place], [place], [phone] (748) Basic Metabolic Profile (BMP )on 02-06-2024 BUN/CRE 11.1 RATIO Normal 10-20 [facility] Comment on above: Performed By: #### L 509.1000, L501.0900, L506.0400, L501.2300, L500.4100, L506.1000, L501.9985, L3300.0960, L100.0100, L501.9520, L500.4050 #### [facility] [address] [place], [place], [phone] (004) CA,Total 8.9 mg/dL Normal 8.5-10.1 [facility] Comment on above: Performed By: #### L 509.1000, L501.0900, L506.0400, L501.2300, L500.4100, L506.1000, L501.9985, L3300.0960, L100.0100, L501.9520, L500.4050 #### [facility] [address] [place], [place], [phone] (013) Chloride [Moles/Vol] 106 mmol/L Normal 98-107 [facility] Comment on above: Performed By: #### L 509.1000, L501.0900, L506.0400, L501.2300, L500.4100, L506.1000, L501.9985, L3300.0960, L100.0100, L501.9520, L500.4050 #### [facility] [address] [place], [address] CO2 [Moles/Vol] 22.0 mmol/L Normal 21.0-32.0 [facility] Comment on above: Performed By: #### L 509.1000, L501.0900, L506.0400, L501.2300, L500.4100, L506.1000, L501.9985, L3300.0960, L100.0100, L501.9520, L500.4050 #### [facility] [address] [place], [address] Creatinine [Mass/Vol] 6.05 mg/dL High 0.70-1.30 [facility] Comment on above: Result Comment: The validity of the calculated GFR GFRAA in patients over 70 years has not been determined. Clinical correlation is essential. Performed By: #### L 509.1000, L501.0900, L506.0400, L501.2300, L500.4100, L506.1000, L501.9985, L3300.0960, L100.0100, L501.9520, L500.4050 #### [facility] [address] [place], [address] ECRCL 12.18 ml/min Normal [facility] Comment on above: Performed By: #### L 509.1000, L501.0900, L506.0400, L501.2300, L500.4100, L506.1000, L501.9985, L3300.0960, L100.0100, L501.9520, L500.4050 #### [facility] [address] [place], [place], [id number] EST GFR - AA 12 mL/min Low >60 [facility] Comment on above: Result Comment: Afri can Ukrainian GFR Calc Performed By: #### L 509.1000, L501.0900, L506.0400, L501.2300, L500.4100, L506.1000, L501.9985, L3300.0960, L100.0100, L501.9520, L500.4050 #### [facility] [address] [place], [place], [id number] GAP 10 Normal 5-15 [facility] Comment on above: Performed By: #### L 509.1000, L501.0900, L506.0400, L501.2300, L500.4100, L506.1000, L501.9985, L3300.0960, L100.0100, L501.9520, L500.4050 #### [facility] [address] [place], [address] GFR/1.73 sq M.predicted among non-blacks MDRD (S/P/Bld) [Vol rate/Area] 10 mL/min/{1.73_m2} Low >60 [facility] Comment on above: Result Comment: Non- GFR Calc Performed By: #### L 509.1000, L501.0900, L506.0400, L501.2300, L500.4100, L506.1000, L501.9985, L3300.0960, L100.0100, L501.9520, L500.4050 #### [facility] [address] [place], [address] Glucose [Mass/Vol] 93 mg/dL Normal 74-106 [facility] Comment on above: Performed By: #### L 509.1000, L501.0900, L506.0400, L501.2300, L500.4100, L506.1000, L501.9985, L3300.0960, L100.0100, L501.9520, L500.4050 #### [facility] [address] [place], [place], [id number] Potassium [Moles/Vol] 4.4 mmol/L Normal 3.5-5.1 [facility] Comment on above: Performed By: #### L 509.1000, L501.0900, L506.0400, L501.2300, L500.4100, L506.1000, L501.9985, L3300.0960, L100.0100, L501.9520, L500.4050 #### [facility] [address] [place], [address] Sodium [Moles/Vol] 138 mmol/L Normal 136-145 [facility] Comment on above: Performed By: #### L 509.1000, L501.0900, L506.0400, L501.2300, L500.4100, L506.1000, L501.9985, L3300.0960, L100.0100, L501.9520, L500.4050 #### [facility] [address] [place], [place], [phone] Urea nitrogen [Mass/Vol] 67 mg/dL High 7-18 [facility] Comment on above: Performed By: #### L 509.1000, L501.0900, L506.0400, L501.2300, L500.4100, L506.1000, L501.9985, L3300.0960, L100.0100, L501.9520, L500.4050 #### [facility] [address] [place], [place], [id number] Discharge Instructionon Discharge Instruction [facility] Medical Records Department [address] [place] [address] Instructions for Home/Discharge Instructions 02/06/24 [facility][note 3] MR#: [id number] Acct: [id number] Name: DINO SHAW Rep #: [id number] : 1950 74 From: Bernard Benedict DO PCP: Dr. David Mcgowan MD Status:DIS IN Discharge Instructions Diet Discharge Diet: No restrictions Activity Discharge Activity: Return to Normal Activity Weight Bearing Status: Full weight bearing Follow Up Care Test Results: Test results from this visit will be discussed in further detail at your follow-up appointment, if applicable. Discharge Plan Admission Admit Date/Time: 02/03/24 21:05 Primary Reason for Your Visit: Acute kidney injury, debility Attending Provider: Bernard Benedict Primary Care Provider: David Mcgowan Consulting Providers: Dinorah Kapadia; Yinka Ley; Umberto Hernández; Evangelista Rhodes; Latricia Martell; Senia Uribe; Eve Stewart; Leo Oglesby; Ethel Headley; Dmitry Kc; Juan Caro; Mihai Finney; Marisel Reed; Elroy Nance; Merline Coelho; Keith Doan; Marta Damon; Max Sutherland; Justin Gimenez; Davin Tomlinson; Johnna Guadalupe; Delaney Parker Discharge Orders/Prescriptions Prescriptions: Continued primidone 50 mg tablet 50 mg PO BID metoprolol succinate 100 mg tablet extended release 24 hr 100 mg PO BID aspirin 81 mg tablet,delayed release (DR/EC) 81 mg PO DAILY amlodipine 10 mg tablet 10 mg PO DAILY levothyroxine 200 mcg tablet 200 mcg PO DAILY duloxetine 60 mg capsule,delayed release(DR/EC) 60 mg PO DAILY trazodone 100 mg tablet 100 mg PO QHS melatonin 10 mg capsule 10 mg PO QHS hydrocodone-acetaminophen 5-325 mg tablet 1 tab PO TID PRN PRN (Reason: pain) ergocalciferol (vitamin D2) 1,250 mcg (50,000 unit) capsule 1,250 mcg PO QWEEK rosuvastatin 40 mg tablet 40 mg PO QHS fenofibrate 160 mg tablet 160 mg PO DAILY Spiriva Respimat 2.5 mcg/actuation mist 2 INHALATION DAILY PRN (Reason: copd) budesonide-formoterol [Breyna] 160-4.5 mcg/actuation HFA aerosol inhaler 2 puff inhalation BID PRN (Reason: copd) Discontinued hydrochlorothiazide 25 mg tablet 25 mg PO DAILY Referrals / Follow Up: Dinorah Kapadia MD [Med Staff - Consulting] - Within 1 Week (Call their office for follow-up appointment, mention that he was seen in the hospital by Dr. Kapadia) David Mcgowan MD [Primary Care Provider] - Within 2 Weeks Disposition Disposition (needs filled in before D/C Order can be placed): Home, Self Care 02/06/24 1216 Bernard Benedict CC: Senia Uribe; Merline Coelho; Max Sutherland; Eve Stewart MD; Latricia Martell MD; Umberto Hernández MD; Dr. Evangelista Rhodes MD; Dr. Leo Oglesby MD; Dr. Ethel Headley MD; Dr. Juan Caro MD; Dr. Dmitry Kc MD; Dr. Dinorah Kapadia MD; Dr. David Mcgowan MD; Dr. Mihai Finney MD; Dr. Elroy Nance DO; Dr. Marta Damon MD; Dr. Keith Doan MD; Dr. Yinka Ley MD; Dr. Justin Gimenez MD; Dr. Davin Tomlinson MD; Dr. Johnna Guadalupe MD; Marisel Reed DO; Delaney Parker MD Signed Normal [facility] Basic Metabolic Profile (BMP )on 02-05-2024 BUN/CRE 11.8 RATIO Normal 10-20 [facility] Comment on above: Performed By: #### L 509.1000, L501.0900, L506.0400, L501.2300, L500.4100, L506.1000, L501.9985, L3300.0960, L100.0100, L501.9520, L500.4050 #### [facility] [address] [place], [address] CA,Total 8.9 mg/dL Normal 8.5-10.1 [facility] Comment on above: Performed By: #### L 509.1000, L501.0900, L506.0400, L501.2300, L500.4100, L506.1000, L501.9985, L3300.0960, L100.0100, L501.9520, L500.4050 #### [facility] [address] [place], [address] Chloride [Moles/Vol] 104 mmol/L Normal 98-107 [facility] Comment on above: Performed By: #### L 509.1000, L501.0900, L506.0400, L501.2300, L500.4100, L506.1000, L501.9985, L3300.0960, L100.0100, L501.9520, L500.4050 #### [facility] [address] [place], [place], [phone] (148) CO2 [Moles/Vol] 24.0 mmol/L Normal 21.0-32.0 [facility] Comment on above: Performed By: #### L 509.1000, L501.0900, L506.0400, L501.2300, L500.4100, L506.1000, L501.9985, L3300.0960, L100.0100, L501.9520, L500.4050 #### [facility] [address] [place], [place], [phone] (144) Creatinine [Mass/Vol] 7.18 mg/dL High 0.70-1.30 [facility] Comment on above: Result Comment: The validity of the calculated GFR GFRAA in patients over 70 years has not been determined. Clinical correlation is essential. Performed By: #### L 509.1000, L501.0900, L506.0400, L501.2300, L500.4100, L506.1000, L501.9985, L3300.0960, L100.0100, L501.9520, L500.4050 #### [facility] [address] [place], [address] ECRCL 10.28 ml/min Normal [facility] Comment on above: Performed By: #### L 509.1000, L501.0900, L506.0400, L501.2300, L500.4100, L506.1000, L501.9985, L3300.0960, L100.0100, L501.9520, L500.4050 #### [facility] [address] [place], [place], [id number] EST GFR - AA 10 mL/min Low >60 [facility] Comment on above: Result Comment: Afri can Ukrainian GFR Calc Performed By: #### L 509.1000, L501.0900, L506.0400, L501.2300, L500.4100, L506.1000, L501.9985, L3300.0960, L100.0100, L501.9520, L500.4050 #### [facility] [address] [place], [address] GAP 9 Normal 5-15 [facility] Comment on above: Performed By: #### L 509.1000, L501.0900, L506.0400, L501.2300, L500.4100, L506.1000, L501.9985, L3300.0960, L100.0100, L501.9520, L500.4050 #### [facility] [address] [place], [address] GFR/1.73 sq M.predicted among non-blacks MDRD (S/P/Bld) [Vol rate/Area] 8 mL/min/{1.73_m2} Low >60 [facility] Comment on above: Result Comment: Non- GFR Calc Performed By: #### L 509.1000, L501.0900, L506.0400, L501.2300, L500.4100, L506.1000, L501.9985, L3300.0960, L100.0100, L501.9520, L500.4050 #### [facility] [address] [place], [address] Glucose [Mass/Vol] 111 mg/dL High 74-106 [facility] Comment on above: Result Comment: Fast ing Glucose result from 100 to 125 mg/dL suggests IMPAIRED HOMEOSTASIS per A.D.A. criteria. Performed By: #### L 509.1000, L501.0900, L506.0400, L501.2300, L500.4100, L506.1000, L501.9985, L3300.0960, L100.0100, L501.9520, L500.4050 #### [facility] [address] [place], [address] Potassium [Moles/Vol] 3.9 mmol/L Normal 3.5-5.1 [facility] Comment on above: Performed By: #### L 509.1000, L501.0900, L506.0400, L501.2300, L500.4100, L506.1000, L501.9985, L3300.0960, L100.0100, L501.9520, L500.4050 #### [facility] [address] [place], [address] Sodium [Moles/Vol] 137 mmol/L Normal 136-145 [facility] Comment on above: Performed By: #### L 509.1000, L501.0900, L506.0400, L501.2300, L500.4100, L506.1000, L501.9985, L3300.0960, L100.0100, L501.9520, L500.4050 #### [facility] [address] [place], [address] Urea nitrogen [Mass/Vol] 85 mg/dL High 7-18 [facility] Comment on above: Performed By: #### L 509.1000, L501.0900, L506.0400, L501.2300, L500.4100, L506.1000, L501.9985, L3300.0960, L100.0100, L501.9520, L500.4050 #### [facility] [address] [place], [address] CBC W/Diff, Automatedon 11-0 -2023 Absolute Lymph 0.72 X10 3/uL Low 0.83-4.51 [facility] Comment on above: Performed By: #### L 509.1000, L501.0900, L506.0400, L501.2300, L500.4100, L506.1000, L501.9985, L3300.0960, L100.0100, L501.9520, L500.4050 #### [facility] [address] [place], [address] Absolute Neut 2.9 X10 3/uL Normal 2.0-7.7 [facility] Comment on above: Performed By: #### L 509.1000, L501.0900, L506.0400, L501.2300, L500.4100, L506.1000, L501.9985, L3300.0960, L100.0100, L501.9520, L500.4050 #### [facility] [address] [place], [address] Basophils/100 WBC (Bld) 0.5 % Normal 0-1 [facility] Comment on above: Performed By: #### L 509.1000, L501.0900, L506.0400, L501.2300, L500.4100, L506.1000, L501.9985, L3300.0960, L100.0100, L501.9520, L500.4050 #### [facility] [address] [place], [address] Eosinophils/100 WBC (Bld) 3.9 % Normal 0-5 [facility] Comment on above: Performed By: #### L 509.1000, L501.0900, L506.0400, L501.2300, L500.4100, L506.1000, L501.9985, L3300.0960, L100.0100, L501.9520, L500.4050 #### [facility] [address] [place], [address] Erythrocyte distribution width (RBC) [Ratio] 14.6 % Normal 11.6-14.6 [facility] Comment on above: Performed By: #### L 509.1000, L501.0900, L506.0400, L501.2300, L500.4100, L506.1000, L501.9985, L3300.0960, L100.0100, L501.9520, L500.4050 #### [facility] [address] [place], [address] (002) Hematocrit (Bld) [Volume fraction] 28.9 % Low 40-54 [facility] Comment on above: Performed By: #### L 509.1000, L501.0900, L506.0400, L501.2300, L500.4100, L506.1000, L501.9985, L3300.0960, L100.0100, L501.9520, L500.4050 #### [facility] [address] [place], [place], [phone] (928) Hemoglobin (Bld) [Mass/Vol] 9.5 g/dL Low 13.0-16.5 [facility] Comment on above: Performed By: #### L 509.1000, L501.0900, L506.0400, L501.2300, L500.4100, L506.1000, L501.9985, L3300.0960, L100.0100, L501.9520, L500.4050 #### [facility] [address] [facility] [place], [place], [phone] (501) IG% 0.200 Normal 0.0-0.9 [facility] Comment on above: Result Comment: IG% - Immature Granulocytes (promyelocytes, myelocytes and metamyelocytes) > 1% indicates that a LEFT SHIFT is Present. Performed By: #### L 509.1000, L501.0900, L506.0400, L501.2300, L500.4100, L506.1000, L501.9985, L3300.0960, L100.0100, L501.9520, L500.4050 #### [facility] [address] [facility] [place], [address] Lymphocytes/100 WBC (Bld) 17.6 % Low 19-41 [facility] Comment on above: Performed By: #### L 509.1000, L501.0900, L506.0400, L501.2300, L500.4100, L506.1000, L501.9985, L3300.0960, L100.0100, L501.9520, L500.4050 #### [facility] [address] [facility] [facility] [address] [place], [place], [phone] MCH (RBC) [Entitic mass] 29.4 pg Normal 27.0-32.0 [facility] Comment on above: Performed By: #### L 509.1000, L501.0900, L506.0400, L501.2300, L500.4100, L506.1000, L501.9985, L3300.0960, L100.0100, L501.9520, L500.4050 #### [facility] [address] [facility] [place], [address] MCHC (RBC) [Mass/Vol] 32.9 g/dL Normal 32-36 [facility] Comment on above: Performed By: #### L 509.1000, L501.0900, L506.0400, L501.2300, L500.4100, L506.1000, L501.9985, L3300.0960, L100.0100, L501.9520, L500.4050 #### [facility] [address] [facility] [place], [address] MCV (RBC) [Entitic vol] 89.5 fL Normal 80-94 [facility] Comment on above: Performed By: #### L 509.1000, L501.0900, L506.0400, L501.2300, L500.4100, L506.1000, L501.9985, L3300.0960, L100.0100, L501.9520, L500.4050 #### [facility] [address] [facility] [address] [place], [address] Monocytes/100 WBC (Bld) 6.4 % Normal 0-10 [facility] Comment on above: Performed By: #### L 509.1000, L501.0900, L506.0400, L501.2300, L500.4100, L506.1000, L501.9985, L3300.0960, L100.0100, L501.9520, L500.4050 #### [facility] [address] [facility] [address] [place], [address] Neutrophils/100 WBC (Bld) 71.4 % High 47-70 [facility] Comment on above: Performed By: #### L 509.1000, L501.0900, L506.0400, L501.2300, L500.4100, L506.1000, L501.9985, L3300.0960, L100.0100, L501.9520, L500.4050 #### [facility] [address] [facility] [address] [place], [address] Nucleated RBC (Bld) [#/Vol] 0 10*3/uL Normal 0-5 [facility] Comment on above: Performed By: #### L 509.1000, L501.0900, L506.0400, L501.2300, L500.4100, L506.1000, L501.9985, L3300.0960, L100.0100, L501.9520, L500.4050 #### [facility] [address] [place], [address] Platelet mean volume (Bld) [Entitic vol] 10.1 fL Normal 6.2-12.0 [facility] Comment on above: Performed By: #### L 509.1000, L501.0900, L506.0400, L501.2300, L500.4100, L506.1000, L501.9985, L3300.0960, L100.0100, L501.9520, L500.4050 #### [facility] [address] [place], [address] Platelets (Bld) [#/Vol] 306 10*3/uL Normal 150-450 [facility] Comment on above: Performed By: #### L 509.1000, L501.0900, L506.0400, L501.2300, L500.4100, L506.1000, L501.9985, L3300.0960, L100.0100, L501.9520, L500.4050 #### [facility] [address] [place], [address] RBC (Bld) [#/Vol] 3.23 10*6/uL Low 4.6-6.2 [facility] Comment on above: Performed By: #### L 509.1000, L501.0900, L506.0400, L501.2300, L500.4100, L506.1000, L501.9985, L3300.0960, L100.0100, L501.9520, L500.4050 #### [facility] [address] [place], [address] RDW SD 46.7 fl High 35.1-43.9 [facility] Comment on above: Performed By: #### L 509.1000, L501.0900, L506.0400, L501.2300, L500.4100, L506.1000, L501.9985, L3300.0960, L100.0100, L501.9520, L500.4050 #### [facility] [address] [place], [place], [phone] WBC (Bld) [#/Vol] 4.1 10*3/uL Low 4.4-11.0 [facility] Comment on above: Performed By: #### L 509.1000, L501.0900, L506.0400, L501.2300, L500.4100, L506.1000, L501.9985, L3300.0960, L100.0100, L501.9520, L500.4050 #### [facility] [address] [place], [address] Urine Cultureon 02-05-2024 URC Culture exhibits no growth. Normal [facility] Comment on above: Performed By: #### L 509.1000, L501.0900, L506.0400, L501.2300, L500.4100, L506.1000, L501.9985, L3300.0960, L100.0100, L501.9520, L500.4050 #### [facility] [address] [place], [place], [id number] Basic Metabolic Profile (BMP )on 02-04-2024 BUN/CRE 12.4 RATIO Normal 10-20 [facility] Comment on above: Performed By: #### L 509.1000, L501.0900, L506.0400, L501.2300, L500.4100, L506.1000, L501.9985, L3300.0960, L100.0100, L501.9520, L500.4050 #### [facility] [address] [place], [address] (952) CA,Total 8.9 mg/dL Normal 8.5-10.1 [facility] Comment on above: Performed By: #### L 509.1000, L501.0900, L506.0400, L501.2300, L500.4100, L506.1000, L501.9985, L3300.0960, L100.0100, L501.9520, L500.4050 #### [facility] [address] [place], [address] Chloride [Moles/Vol] 104 mmol/L Normal 98-107 [facility] Comment on above: Performed By: #### L 509.1000, L501.0900, L506.0400, L501.2300, L500.4100, L506.1000, L501.9985, L3300.0960, L100.0100, L501.9520, L500.4050 #### [facility] [address] [place], [place], [phone] (531) CO2 [Moles/Vol] 18.0 mmol/L Low 21.0-32.0 [facility] Comment on above: Performed By: #### L 509.1000, L501.0900, L506.0400, L501.2300, L500.4100, L506.1000, L501.9985, L3300.0960, L100.0100, L501.9520, L500.4050 #### [facility] [address] [place], [address] Creatinine [Mass/Vol] 8.30 mg/dL Invalid Interpretation Code 0.70-1.30 [facility] Comment on above: Result Comment: Crit ical Result(s) Called at: 08:11:03 02/04/2024 by: Karina Sidhu to [facility]. Results read back by same. The validity of the calculated GFR GFRAA in patients over 70 years has not been determined. Clinical correlation is essential. Performed By: #### L 509.1000, L501.0900, L506.0400, L501.2300, L500.4100, L506.1000, L501.9985, L3300.0960, L100.0100, L501.9520, L500.4050 #### [facility] [address] [place], [place], [id number] ECRCL 8.88 ml/min Normal [facility] Comment on above: Performed By: #### L 509.1000, L501.0900, L506.0400, L501.2300, L500.4100, L506.1000, L501.9985, L3300.0960, L100.0100, L501.9520, L500.4050 #### [facility] [address] [place], [place], [id number] EST GFR - AA 8 mL/min Low >60 [facility] Comment on above: Result Comment: Afri can Ukrainian GFR Calc Performed By: #### L 509.1000, L501.0900, L506.0400, L501.2300, L500.4100, L506.1000, L501.9985, L3300.0960, L100.0100, L501.9520, L500.4050 #### [facility] [address] [place], [address] GAP 12 Normal 5-15 [facility] Comment on above: Performed By: #### L 509.1000, L501.0900, L506.0400, L501.2300, L500.4100, L506.1000, L501.9985, L3300.0960, L100.0100, L501.9520, L500.4050 #### [facility] [address] [place], [place], [id number] GFR/1.73 sq M.predicted among non-blacks MDRD (S/P/Bld) [Vol rate/Area] 7 mL/min/{1.73_m2} Low >60 [facility] Comment on above: Result Comment: Non- GFR Calc Performed By: #### L 509.1000, L501.0900, L506.0400, L501.2300, L500.4100, L506.1000, L501.9985, L3300.0960, L100.0100, L501.9520, L500.4050 #### [facility] [address] [place], [address] Glucose [Mass/Vol] 133 mg/dL High 74-106 [facility] Comment on above: Result Comment: Fast ing Glucose result greater than or equal to 126 mg/dL suggests DIABETES MELLITUS per A.D.A. criteria. Performed By: #### L 509.1000, L501.0900, L506.0400, L501.2300, L500.4100, L506.1000, L501.9985, L3300.0960, L100.0100, L501.9520, L500.4050 #### [facility] [address] [place], [address] Potassium [Moles/Vol] 4.3 mmol/L Normal 3.5-5.1 [facility] Comment on above: Performed By: #### L 509.1000, L501.0900, L506.0400, L501.2300, L500.4100, L506.1000, L501.9985, L3300.0960, L100.0100, L501.9520, L500.4050 #### [facility] [address] [place], [address] Sodium [Moles/Vol] 135 mmol/L Low 136-145 [facility] Comment on above: Performed By: #### L 509.1000, L501.0900, L506.0400, L501.2300, L500.4100, L506.1000, L501.9985, L3300.0960, L100.0100, L501.9520, L500.4050 #### [facility] [address] [place], [address] Urea nitrogen [Mass/Vol] 103 mg/dL Invalid Interpretation Code 7-18 [facility] Comment on above: Result Comment: Crit ical Result(s) Called at: 08:11:03 02/04/2024 by: Karina Sidhu to [facility]. Results read back by same. Performed By: #### L 509.1000, L501.0900, L506.0400, L501.2300, L500.4100, L506.1000, L501.9985, L3300.0960, L100.0100, L501.9520, L500.4050 #### [facility] [address] [place], [address] CBC W/Diff, Automatedon 10-3 -2023 Absolute Lymph 0.82 X10 3/uL Low 0.83-4.51 [facility] Comment on above: Performed By: #### L 509.1000, L501.0900, L506.0400, L501.2300, L500.4100, L506.1000, L501.9985, L3300.0960, L100.0100, L501.9520, L500.4050 #### [facility] [address] [place], [address] Absolute Neut 3.7 X10 3/uL Normal 2.0-7.7 [facility] Comment on above: Performed By: #### L 509.1000, L501.0900, L506.0400, L501.2300, L500.4100, L506.1000, L501.9985, L3300.0960, L100.0100, L501.9520, L500.4050 #### [facility] [address] [place], [address] Basophils/100 WBC (Bld) 0.6 % Normal 0-1 [facility] Comment on above: Performed By: #### L 509.1000, L501.0900, L506.0400, L501.2300, L500.4100, L506.1000, L501.9985, L3300.0960, L100.0100, L501.9520, L500.4050 #### [facility] [address] [place], [address] Eosinophils/100 WBC (Bld) 3.5 % Normal 0-5 [facility] Comment on above: Performed By: #### L 509.1000, L501.0900, L506.0400, L501.2300, L500.4100, L506.1000, L501.9985, L3300.0960, L100.0100, L501.9520, L500.4050 #### [facility] [address] [facility] [place], [address] (306) Erythrocyte distribution width (RBC) [Ratio] 14.6 % Normal 11.6-14.6 [facility] Comment on above: Performed By: #### L 509.1000, L501.0900, L506.0400, L501.2300, L500.4100, L506.1000, L501.9985, L3300.0960, L100.0100, L501.9520, L500.4050 #### [facility] [address] [facility] [place], [address] (060) Hematocrit (Bld) [Volume fraction] 28.3 % Low 40-54 [facility] Comment on above: Performed By: #### L 509.1000, L501.0900, L506.0400, L501.2300, L500.4100, L506.1000, L501.9985, L3300.0960, L100.0100, L501.9520, L500.4050 #### [facility] [address] [facility] [place], [address] (571) Hemoglobin (Bld) [Mass/Vol] 9.1 g/dL Low 13.0-16.5 [facility] Comment on above: Performed By: #### L 509.1000, L501.0900, L506.0400, L501.2300, L500.4100, L506.1000, L501.9985, L3300.0960, L100.0100, L501.9520, L500.4050 #### [facility] [address] [facility] [place], [address] IG% 0.400 Normal 0.0-0.9 [facility] Comment on above: Result Comment: IG% - Immature Granulocytes (promyelocytes, myelocytes and metamyelocytes) > 1% indicates that a LEFT SHIFT is Present. Performed By: #### L 509.1000, L501.0900, L506.0400, L501.2300, L500.4100, L506.1000, L501.9985, L3300.0960, L100.0100, L501.9520, L500.4050 #### [facility] [address] [facility] [place], [address] Lymphocytes/100 WBC (Bld) 15.7 % Low 19-41 [facility] Comment on above: Performed By: #### L 509.1000, L501.0900, L506.0400, L501.2300, L500.4100, L506.1000, L501.9985, L3300.0960, L100.0100, L501.9520, L500.4050 #### [facility] [address] [facility] [place], [address] MCH (RBC) [Entitic mass] 29.1 pg Normal 27.0-32.0 [facility] Comment on above: Performed By: #### L 509.1000, L501.0900, L506.0400, L501.2300, L500.4100, L506.1000, L501.9985, L3300.0960, L100.0100, L501.9520, L500.4050 #### [facility] [address] [facility] [place], [address] ( MCHC (RBC) [Mass/Vol] 32.2 g/dL Normal 32-36 [facility] Comment on above: Performed By: #### L 509.1000, L501.0900, L506.0400, L501.2300, L500.4100, L506.1000, L501.9985, L3300.0960, L100.0100, L501.9520, L500.4050 #### [facility] [address] [place], [address] MCV (RBC) [Entitic vol] 90.4 fL Normal 80-94 [facility] Comment on above: Performed By: #### L 509.1000, L501.0900, L506.0400, L501.2300, L500.4100, L506.1000, L501.9985, L3300.0960, L100.0100, L501.9520, L500.4050 #### [facility] [address] [facility] [place], [address] Monocytes/100 WBC (Bld) 8.3 % Normal 0-10 [facility] Comment on above: Performed By: #### L 509.1000, L501.0900, L506.0400, L501.2300, L500.4100, L506.1000, L501.9985, L3300.0960, L100.0100, L501.9520, L500.4050 #### [facility] [address] [facility] [place], [address] Neutrophils/100 WBC (Bld) 71.5 % High 47-70 [facility] Comment on above: Performed By: #### L 509.1000, L501.0900, L506.0400, L501.2300, L500.4100, L506.1000, L501.9985, L3300.0960, L100.0100, L501.9520, L500.4050 #### [facility] [address] [facility] [place], [address] Nucleated RBC (Bld) [#/Vol] 0 10*3/uL Normal 0-5 [facility] Comment on above: Performed By: #### L 509.1000, L501.0900, L506.0400, L501.2300, L500.4100, L506.1000, L501.9985, L3300.0960, L100.0100, L501.9520, L500.4050 #### [facility] [address] [place], [address] Platelet mean volume (Bld) [Entitic vol] 10.0 fL Normal 6.2-12.0 [facility] Comment on above: Performed By: #### L 509.1000, L501.0900, L506.0400, L501.2300, L500.4100, L506.1000, L501.9985, L3300.0960, L100.0100, L501.9520, L500.4050 #### [facility] [address] [facility] [place], [address] (919) Platelets (Bld) [#/Vol] 331 10*3/uL Normal 150-450 [facility] Comment on above: Performed By: #### L 509.1000, L501.0900, L506.0400, L501.2300, L500.4100, L506.1000, L501.9985, L3300.0960, L100.0100, L501.9520, L500.4050 #### [facility] [address] [facility] [place], [address] RBC (Bld) [#/Vol] 3.13 10*6/uL Low 4.6-6.2 [facility] Comment on above: Performed By: #### L 509.1000, L501.0900, L506.0400, L501.2300, L500.4100, L506.1000, L501.9985, L3300.0960, L100.0100, L501.9520, L500.4050 #### [facility] [address] [facility] [place], [address] ( RDW SD 48.4 fl High 35.1-43.9 [facility] Comment on above: Performed By: #### L 509.1000, L501.0900, L506.0400, L501.2300, L500.4100, L506.1000, L501.9985, L3300.0960, L100.0100, L501.9520, L500.4050 #### [facility] [address] [place], [address] WBC (Bld) [#/Vol] 5.2 10*3/uL Normal 4.4-11.0 [facility] Comment on above: Performed By: #### L 509.1000, L501.0900, L506.0400, L501.2300, L500.4100, L506.1000, L501.9985, L3300.0960, L100.0100, L501.9520, L500.4050 #### [facility] [address] [place], [place], [id number] CPK Total, Creatine Kinaseon 02-04-2024 CPK TOTAL 62 U/L Normal 39-308 [facility] Comment on above: Performed By: #### L 509.1000, L501.0900, L506.0400, L501.2300, L500.4100, L506.1000, L501.9985, L3300.0960, L100.0100, L501.9520, L500.4050 #### [facility] [address] [facility] [place], [place], [id number] Consultation - Nephrologyon 02-04-2024 Consultation - Nephrology [facility] Medical Records Department [address] [facility] [place] [address] Consultation - Nephrology 02/04/24 1628 MR#: [id number] Acct: [id number] Name: DINO SHAW Rep #: [id number] : 1950 74 From: Dinorah Kapadia MD PCP: Dr. David Mcgowan MD Status:DIS IN Location: [place] [id number] Assessment Plan Assessment/Plan (1) Hyperkalemia: (2) Acute kidney injury: PLAN: History of CKD stage IV, baseline creatinine between 2.5-3.0. Secondary to diabetes and hypertension. Proteinuria. Was on maximum medical therapy. He has lost a significant amount of weight, about 45 pounds when compared to his weight from my office visit from May. Likely blood pressure and blood glucose have dropped. Insulin requirements down. For now I will hold all blood pressure medications. Start IV fluids. Creatinine is better, urine output is present. No acute indications for dialysis otherwise. Hyperkalemia. Borderline on admission. Can monitor for now. Discussed with family at bedside. HPI Consult Data Date of Consult: 02/04/24 HPI Narrative Reason for Consultation: [place] HPI Narrative: DINO SHAW, is a 74 M who presents To the hospital with frequent falls. He is well-known to me. Has known history of CKD stage IV with baseline creatinine around 2.5-3.0. Diabetes and hypertension related. Proteinuria. On multiple antihypertensives and diabetes medications. Unfortunately his had a major medical event, has been in hospital mostly for the last 2 to 3 months. Since then his health has been extremely poor. Very poor appetite, almost 45 pound weight loss. Apparently was hypoglycemic, hypotensive. Had frequent falls and hence brought into the hospital. Found to have acute renal failure with a creatinine of 8.4. He says he has been voiding. No xgnj-rji-eyygaxg medications. [facility] Home Medications ???Medication ???Instructions ???Recorded ???Last Taken ???Type amlodipine 10 mg tablet 10 mg PO DAILY 02/03/24 Unknown History aspirin 81 mg tablet,delayed 81 mg PO DAILY 02/03/24 Unknown History release budesonide-formoterol HFA 160 2 puff inhalation BID PRN copd 02/03/24 Unknown History mcg-4.5 mcg/actuation aerosol inhaler (Breyna) duloxetine 60 mg capsule,delayed 60 mg PO DAILY 02/03/24 Unknown History release ergocalciferol (vitamin D2) 1,250 1,250 mcg PO QWEEK 02/03/24 Unknown History mcg (50,000 unit) capsule fenofibrate 160 mg tablet 160 mg PO DAILY 02/03/24 Unknown History hydrochlorothiazide 25 mg tablet 25 mg PO DAILY 02/03/24 Unknown History hydrocodone-acetaminophen 5-325mg 1 tab PO TID PRN PRN pain 10/30/24 Unknown History 5mg-325mg levothyroxine 200 mcg tablet 200 mcg PO DAILY 02/03/24 Unknown History melatonin 10 mg capsule 10 mg PO QHS 02/03/24 Unknown History metoprolol succinate 100 mg 100 mg PO BID 02/03/24 Unknown History tablet,extended release 24 hr primidone 50 mg tablet 50 mg PO BID tremors 02/03/24 Unknown History rosuvastatin 40 mg tablet 40 mg PO DAILY 02/03/24 Unknown History tiotropium bromide 2.5 2 inhalation DAILY PRN copd 02/03/24 Unknown History mcg/actuation mist for inhalation (Spiriva Respimat) trazodone 100 mg tablet 100 mg PO DAILY 02/03/24 Unknown History Allergy/AdvReac Type Severity Reaction Status Date / Time No Known Allergies Allergy Verified 02/03/24 15:00 Social History Smoking Status: Never smoker ROS ROS Narrative negative except above Physical Exam Narrative Alert awake oriented x 3 no obvious distress no pallor no icterus no JVD s1s2 no murmurs lungs clear abdomen soft no organomegaly no edema no cyanosis Lab / Micro Data 02/04/24 06:26 02/04/24 06:26 Labs: Laboratory Results - last 24 hr 02/03/24 18:22: WBC 7.7, RBC 3.67 L, Hgb 10.9 L, Hct 33.5 L, MCV 91.3, MCH 29.7, MCHC 32.5, RDW Std Deviation 50.0 H, RDW Coeff of Sy 14.9 H, Plt Count 425, MPV 9.9, Immature Gran % (Auto) 0.600, N eut % (Auto) 77.3 H, Lymph % (Auto) 12.5 L, Harney % (Auto) 6.1, Eos % (Auto) 3.0, Baso % (Auto) 0.5, Absolute Neuts (auto) 6.0, Absolute Lymphs (auto) 0.96, Nucleated RBC % 0, Sodium 134 L, Potassium 5.3 H, Chloride 107, Carbon Dioxide 17.0 L, Anion Gap 10, BUN 108 H*, Creatinine 8.81 H*, Est GFR (MDRD) Af Amer 8 L, Est GFR (MDRD) Non-Af 6 L, BUN/Creatinine Ratio 12.3, Glucose 97, Calcium 9.6 02/03/24 19:57: Urine Color Yellow, Urine Clarity Clear, Urine pH 6.0, Ur Specific Mchenry 1.015, U rine Protein 100 H, Urine Glucose (UA) Normal, Urine Ketones Negative, Urine Occult Blood 25 H, Urine Nitrite Negative, Urine Bilirubin Negative, Urine Urobilinogen Normal, Ur Leukocyte Esterase Negative, Urine RBC 0 SEEN, Urine WBC 0 SEEN, Ur Squamous Epith Cells 0 SEEN, Urine Bacteria 0 SEEN, Urine Mucus 0 SEEN 02/04/24 00:24: P (more content not included)... Normal [facility] Magnesiumon 02-04-2024 Magnesium [Mass/Vol] 2.1 mg/dL Normal 1.6-2.6 [facility] Comment on above: Performed By: #### L 509.1000, L501.0900, L506.0400, L501.2300, L500.4100, L506.1000, L501.9985, L3300.0960, L100.0100, L501.9520, L500.4050 #### [facility] [address] [place], [address] Osmolality, Serumon 02-04-20 24 OSMOLALITY,SER 329 mOsm/KG High 280-301 [facility] Comment on above: Performed By: #### L 509.1000, L501.0900, L506.0400, L501.2300, L500.4100, L506.1000, L501.9985, L3300.0960, L100.0100, L501.9520, L500.4050 #### [facility] [address] [place], [address] Osmolality, Urineon 02-04-20 24 OSMOLALITY,UR 393 mOsm/KG Normal [facility] Comment on above: Result Comment: Normal Urine Reference Ranges Random: 50 - 1200 mOsm/kg H20 depending on fluid intake Random: >850 mOsm/kg after 12 hour fluid restriction 24 hour: 300 - 900 mOsm/kg H2O Performed By: #### L 509.1000, L501.0900, L506.0400, L501.2300, L500.4100, L506.1000, L501.9985, L3300.0960, L100.0100, L501.9520, L500.4050 #### [facility] [address] [place], [address] Phosphoruson 02-04-2024 Phosphate [Mass/Vol] 5.6 mg/dL High 2.5-4.9 [facility] Comment on above: Performed By: #### L 509.1000, L501.0900, L506.0400, L501.2300, L500.4100, L506.1000, L501.9985, L3300.0960, L100.0100, L501.9520, L500.4050 #### [facility] [address] [place], [address] Protein+Creatinine Ratio,Uri neon 02-04-2024 PROT:CRE RATIO 1260 mg/g CRE High 0-200 [facility] Comment on above: Performed By: #### L 509.1000, L501.0900, L506.0400, L501.2300, L500.4100, L506.1000, L501.9985, L3300.0960, L100.0100, L501.9520, L500.4050 #### [facility] [address] [place], [address] Protein (U) [Mass/Vol] 91.1 mg/dL High <11.9 [facility] Comment on above: Performed By: #### L 509.1000, L501.0900, L506.0400, L501.2300, L500.4100, L506.1000, L501.9985, L3300.0960, L100.0100, L501.9520, L500.4050 #### [facility] [address] [place], [address] UR CREAT 72.30 mg/dL Normal NO RANGE EST. [facility] Comment on above: Performed By: #### L 509.1000, L501.0900, L506.0400, L501.2300, L500.4100, L506.1000, L501.9985, L3300.0960, L100.0100, L501.9520, L500.4050 #### [facility] [address] [place], [place], [address] Prothrombin Time w/INRon INR Coag (PPP) [Relative time] 1.4 {INR} Normal [facility] Comment on above: Performed By: #### L 509.1000, L501.0900, L506.0400, L501.2300, L500.4100, L506.1000, L501.9985, L3300.0960, L100.0100, L501.9520, L500.4050 #### [facility] [address] [place], [place], [id number] PT Coag (PPP) [Time] 17.4 s High 11.7-14.9 [facility] Comment on above: Performed By: #### L 509.1000, L501.0900, L506.0400, L501.2300, L500.4100, L506.1000, L501.9985, L3300.0960, L100.0100, L501.9520, L500.4050 #### [facility] [address] [place], [place], [address] Thyroid Stim Hormone (TSH)on 02-04-2024 TSH 0.119 uIU/mL Low 0.358-3.74 0 [facility] Comment on above: Performed By: #### L 509.1000, L501.0900, L506.0400, L501.2300, L500.4100, L506.1000, L501.9985, L3300.0960, L100.0100, L501.9520, L500.4050 #### [facility] [address] [place], [place], [address] Uric Acidon 02-04-2024 URIC 9.8 mg/dL High 3.5-7.2 [facility] Comment on above: Result Comment: The drugs N-Acetylcysteine and Metamizole may falsely depress this assay. Performed By: #### L 509.1000, L501.0900, L506.0400, L501.2300, L500.4100, L506.1000, L501.9985, L3300.0960, L100.0100, L501.9520, L500.4050 #### [facility] [address] [place], [address] Urine Electrolytes- Randomon 02-04-2024 Sodium (U) [Moles/Vol] 36 mmol/L Normal Not Establ. [facility] Comment on above: Performed By: #### L 509.1000, L501.0900, L506.0400, L501.2300, L500.4100, L506.1000, L501.9985, L3300.0960, L100.0100, L501.9520, L500.4050 #### [facility] [address] [place], [place], [address] UR CL 24 mmol/L Normal Not Establ. [facility] Comment on above: Performed By: #### L 509.1000, L501.0900, L506.0400, L501.2300, L500.4100, L506.1000, L501.9985, L3300.0960, L100.0100, L501.9520, L500.4050 #### [facility] [address] [place], [address] UR K 4.0 mmol/L Normal Not Establ. [facility] Comment on above: Performed By: #### L 509.1000, L501.0900, L506.0400, L501.2300, L500.4100, L506.1000, L501.9985, L3300.0960, L100.0100, L501.9520, L500.4050 #### [facility] [address] [place], [address] 12 Lead EKGon 02-03-2024 12 Lead EKG [facility] Cardiovascular Services [address] [place] [address] 12 Lead EKG 02/03/24 1844 MR#: [id number] Acct: [id number] Name: DINO SHAW Rep #: [id number] : 1950 74 From: Jose Cornell MD Attending Dr: Dr. Bernard Benedict DO Status: D IS IN Ordering Dr: Román Diaz DO Date: 02/03/24 Location: [facility] Sex: M C Admitted: 02/03/24 Test Reason : FALL Blood Pressure : */* mmHG Vent. Rate : 75 BPM Atrial Rate : 75 BPM P-R Int : 176 ms QRS Dur : 118 ms QT Int : 396 ms P-R-T Axes : 18 4 50 degrees QTcB Int : 442 ms Normal sinus rhythm Non-specific intra-ventricular conduction delay Nonspecific ST abnormality Abnormal ECG Confirmed by JOSE CORNELL MD ([id number]), news video editor TO ORTIZ ([id number]) on 02/05/2024 8:15:36 AM Referred By: TL Confirmed By: JOSE CORNELL MD 02/05/24 0815 Date Jose Cornell MD CC: Dr. David Mcgowan MD; Dr. Bernard Benedict DO; Dr. Román Diaz DO Signed Normal [facility] Abdomen/Pelvis without Conto n 02-03-2024 Abdomen/Pelvis without Cont [facility] Imaging Services [address] [place] [address] Abdomen/Pelvis without Cont MR#: [id number] Acct: [id number] Name: DINO SHAW Rep #: [id number] : 1950 M 74 From: Maxi Maurice MD PCP: Dr. David Mcgowan MD Status: DIS IN Study: Abdomen/Pelvis without Cont Date of Exam: 01/06 Exam# [id number] Ordering Dr: Román Diaz DO [id number] STUDY: CT ABDOMEN AND PELVIS WITHOUT CONTRAST REASON FOR EXAM: Male, 74 years old. back pain RADIATION DOSAGE (If Supplied By Facility): CTDIvol = ( 23.88 ) mGy, DLP = ( 1258.63 ) mGycm TECHNIQUE: Transaxial images were obtained from the dome of the diaphragm to the symphysis pubis without oral contrast, and without intravenous contrast. Sagittal and coronal images were reconstructed. Individualized dose optimization techniques were used for this CT. COMPARISON: None. FINDINGS: Minor bibasilar interstitial thickening or atelectasis at the lung bases. Small calcified granuloma in right lower lobe The visualized portions of the heart are within normal limits. Normal liver. Normal gallbladder and extrahepatic biliary system. Multiple tiny granulomatous calcifications in normal size spleen. Normal pancreas. Normal bilateral adrenal glands. Right kidney is unobstructed. There is a small parapelvic cyst which will not require additional imaging. The left kidney is not obstructed. There is a small cortical cyst which will not require additional imaging. Normal visualized stomach. Normal small intestine. Minor diverticular disease of the descending and sigmoid colon without evidence for acute diverticulitis. No evidence for acute appendicitis Atherosclerotic change of the aorta without evidence for aneurysm. Normal inferior vena cava. Normal retroperitoneum. Incompletely distended thick walled bladder of uncertain significance. Small fat-containing left inguinal hernia. Lumbar spine demonstrates degenerative change CT/Abdomen/Pelvis without Cont IMPRESSION: Minor diverticular disease of the descending and sigmoid colon without evidence for acute diverticulitis Small bilateral renal cysts which will not require additional imaging No acute abnormalities Electronically Signed: Maxi Maurice MD at 18:57 EDT , CC: Dr. David Mcgowan MD; Dr. Román Diaz DO Gold Beater: Signed Normal [facility] Basic Metabolic Profile (BMP )on 02-03-2024 BUN/CRE 12.3 RATIO Normal 01-23 [facility] Comment on above: Performed By: #### L 509.1000, L501.0900, L506.0400, L501.2300, L500.4100, L506.1000, L501.9985, L3300.0960, L100.0100, L501.9520, L500.4050 #### [facility] [address] [place], [address] CA,Total 9.6 mg/dL Normal 8.5-10.1 [facility] Comment on above: Performed By: #### L 509.1000, L501.0900, L506.0400, L501.2300, L500.4100, L506.1000, L501.9985, L3300.0960, L100.0100, L501.9520, L500.4050 #### [facility] [address] [place], [address] Chloride [Moles/Vol] 107 mmol/L Normal 98-107 [facility] Comment on above: Performed By: #### L 509.1000, L501.0900, L506.0400, L501.2300, L500.4100, L506.1000, L501.9985, L3300.0960, L100.0100, L501.9520, L500.4050 #### [facility] [address] [place], [address] CO2 [Moles/Vol] 17.0 mmol/L Low 21.0-32.0 [facility] Comment on above: Performed By: #### L 509.1000, L501.0900, L506.0400, L501.2300, L500.4100, L506.1000, L501.9985, L3300.0960, L100.0100, L501.9520, L500.4050 #### [facility] [address] [place], [place], [address] Creatinine [Mass/Vol] 8.81 mg/dL Invalid Interpretation Code 0.70-1.30 [facility] Comment on above: Result Comment: Crit ical Result(s) Called at: 18:53:38 02/03/2024 by: Elisabeth Cabrera to Annmarie Calixto. Results read back by same. The validity of the calculated GFR GFRAA in patients over 70 years has not been determined. Clinical correlation is essential. Performed By: #### L 509.1000, L501.0900, L506.0400, L501.2300, L500.4100, L506.1000, L501.9985, L3300.0960, L100.0100, L501.9520, L500.4050 #### [facility] [address] [place], [address] EST GFR - AA 8 mL/min Low >60 [facility] Comment on above: Result Comment: Afri can Ukrainian GFR Calc Performed By: #### L 509.1000, L501.0900, L506.0400, L501.2300, L500.4100, L506.1000, L501.9985, L3300.0960, L100.0100, L501.9520, L500.4050 #### [facility] [address] [place], [place], [address] GAP 10 Normal 5-15 [facility] Comment on above: Performed By: #### L 509.1000, L501.0900, L506.0400, L501.2300, L500.4100, L506.1000, L501.9985, L3300.0960, L100.0100, L501.9520, L500.4050 #### [facility] [address] [place], [address] GFR/1.73 sq M.predicted among non-blacks MDRD (S/P/Bld) [Vol rate/Area] 6 mL/min/{1.73_m2} Low >60 [facility] Comment on above: Result Comment: Non- GFR Calc Performed By: #### L 509.1000, L501.0900, L506.0400, L501.2300, L500.4100, L506.1000, L501.9985, L3300.0960, L100.0100, L501.9520, L500.4050 #### [facility] [address] [place], [address] Glucose [Mass/Vol] 97 mg/dL Normal 74-106 [facility] Comment on above: Performed By: #### L 509.1000, L501.0900, L506.0400, L501.2300, L500.4100, L506.1000, L501.9985, L3300.0960, L100.0100, L501.9520, L500.4050 #### [facility] [address] [place], [address] Potassium [Moles/Vol] 5.3 mmol/L High 3.5-5.1 [facility] Comment on above: Performed By: #### L 509.1000, L501.0900, L506.0400, L501.2300, L500.4100, L506.1000, L501.9985, L3300.0960, L100.0100, L501.9520, L500.4050 #### [facility] [address] [place], [address] Sodium [Moles/Vol] 134 mmol/L Low 136-145 [facility] Comment on above: Performed By: #### L 509.1000, L501.0900, L506.0400, L501.2300, L500.4100, L506.1000, L501.9985, L3300.0960, L100.0100, L501.9520, L500.4050 #### [facility] [address] [place], [address] Urea nitrogen [Mass/Vol] 108 mg/dL Invalid Interpretation Code 10-21 [facility] Comment on above: Result Comment: Crit ical Result(s) Called at: 18:53:38 02/03/2024 by: Elisabeth Cabrera to Annmarie Calixto. Results read back by same. Performed By: #### L 509.1000, L501.0900, L506.0400, L501.2300, L500.4100, L506.1000, L501.9985, L3300.0960, L100.0100, L501.9520, L500.4050 #### [facility] [address] [place], [address] Brain/Head without Contrasto n 02-03-2024 Brain/Head without Contrast [facility] Imaging Services [address] [place] [address] Brain/Head without Contrast MR#: [id number] Acct: [id number] Name: DINO SHAW Rep #: [id number] : 1950 M 74 From: Maxi Maurice MD PCP: Dr. David Mcgowan MD Status: DIS IN Study: Brain/Head without Contrast Date of Exam: 01/06 Exam# [id number] Ordering Dr: Román Diaz DO 088:[id number] STUDY: CT BRAIN WITHOUT CONTRAST REASON FOR EXAM: Male, 74 years old. fall RADIATION DOSAGE (If Supplied By Facility): CTDIvol = ( 44.99 ) mGy, DLP = ( 798.92 ) mGycm TECHNIQUE: Transaxial CT imaging of the brain was performed without administration of intravenous contrast material. Individualized dose optimization techniques were used for this CT. COMPARISON: No relevant priors. FINDINGS: Normal soft tissue structures. Normal calvarium. Calcific plaquing of the cavernous carotids Mild atrophy and periventricular white matter disease most likely chronic small vessel ischemic changes. Normal basal ganglia and thalami. Normal brainstem. Normal cerebellum. There is no intracranial hemorrhage. There are no findings of an acute ischemic infarction. Polypoid mucosal thickening in the right maxillary sinus CT/Brain/Head without Contrast IMPRESSION: Mild atrophy and periventricular matter disease. No evidence for acute intracranial bleed Electronically Signed: Maxi Maurice MD at 18:59 EDT Reading Location ID and State: [facility] / [place] Tel , Service support , CC: Dr. David Mcgowan MD; Dr. Román Diaz DO Gold Beater: Signed Normal [facility] CBC W/Diff, Automatedon 10-3 0-2023 Absolute Lymph 0.96 X10 3/uL Normal 0.83-4.51 [facility] Comment on above: Performed By: #### L 509.1000, L501.0900, L506.0400, L501.2300, L500.4100, L506.1000, L501.9985, L3300.0960, L100.0100, L501.9520, L500.4050 #### [facility] [address] [place], [address] Absolute Neut 6.0 X10 3/uL Normal 2.0-7.7 [facility] Comment on above: Performed By: #### L 509.1000, L501.0900, L506.0400, L501.2300, L500.4100, L506.1000, L501.9985, L3300.0960, L100.0100, L501.9520, L500.4050 #### [facility] [address] [place], [address] Basophils/100 WBC (Bld) 0.5 % Normal 0-1 [facility] Comment on above: Performed By: #### L 509.1000, L501.0900, L506.0400, L501.2300, L500.4100, L506.1000, L501.9985, L3300.0960, L100.0100, L501.9520, L500.4050 #### [facility] [address] [place], [address] Eosinophils/100 WBC (Bld) 3.0 % Normal 0-5 [facility] Comment on above: Performed By: #### L 509.1000, L501.0900, L506.0400, L501.2300, L500.4100, L506.1000, L501.9985, L3300.0960, L100.0100, L501.9520, L500.4050 #### [facility] [address] [place], [address] Erythrocyte distribution width (RBC) [Ratio] 14.9 % High 11.6-14.6 [facility] Comment on above: Performed By: #### L 509.1000, L501.0900, L506.0400, L501.2300, L500.4100, L506.1000, L501.9985, L3300.0960, L100.0100, L501.9520, L500.4050 #### [facility] [address] [place], [address] Hematocrit (Bld) [Volume fraction] 33.5 % Low 40-54 [facility] Comment on above: Performed By: #### L 509.1000, L501.0900, L506.0400, L501.2300, L500.4100, L506.1000, L501.9985, L3300.0960, L100.0100, L501.9520, L500.4050 #### [facility] [address] [place], [address] Hemoglobin (Bld) [Mass/Vol] 10.9 g/dL Low 13.0-16.5 [facility] Comment on above: Performed By: #### L 509.1000, L501.0900, L506.0400, L501.2300, L500.4100, L506.1000, L501.9985, L3300.0960, L100.0100, L501.9520, L500.4050 #### [facility] [address] [facility] [place], [address] IG% 0.600 Normal 0.0-0.9 [facility] Comment on above: Result Comment: IG% - Immature Granulocytes (promyelocytes, myelocytes and metamyelocytes) > 1% indicates that a LEFT SHIFT is Present. Performed By: #### L 509.1000, L501.0900, L506.0400, L501.2300, L500.4100, L506.1000, L501.9985, L3300.0960, L100.0100, L501.9520, L500.4050 #### [facility] [address] [place], [address] Lymphocytes/100 WBC (Bld) 12.5 % Low 19-41 [facility] Comment on above: Performed By: #### L 509.1000, L501.0900, L506.0400, L501.2300, L500.4100, L506.1000, L501.9985, L3300.0960, L100.0100, L501.9520, L500.4050 #### [facility] [address] [place], [address] MCH (RBC) [Entitic mass] 29.7 pg Normal 27.0-32.0 [facility] Comment on above: Performed By: #### L 509.1000, L501.0900, L506.0400, L501.2300, L500.4100, L506.1000, L501.9985, L3300.0960, L100.0100, L501.9520, L500.4050 #### [facility] [address] [place], [address] MCHC (RBC) [Mass/Vol] 32.5 g/dL Normal 32-36 [facility] Comment on above: Performed By: #### L 509.1000, L501.0900, L506.0400, L501.2300, L500.4100, L506.1000, L501.9985, L3300.0960, L100.0100, L501.9520, L500.4050 #### [facility] [address] [place], [address] MCV (RBC) [Entitic vol] 91.3 fL Normal 80-94 [facility] Comment on above: Performed By: #### L 509.1000, L501.0900, L506.0400, L501.2300, L500.4100, L506.1000, L501.9985, L3300.0960, L100.0100, L501.9520, L500.4050 #### [facility] [address] [place], [address] Monocytes/100 WBC (Bld) 6.1 % Normal 0-10 [facility] Comment on above: Performed By: #### L 509.1000, L501.0900, L506.0400, L501.2300, L500.4100, L506.1000, L501.9985, L3300.0960, L100.0100, L501.9520, L500.4050 #### [facility] [address] [place], [address] Neutrophils/100 WBC (Bld) 77.3 % High 47-70 [facility] Comment on above: Performed By: #### L 509.1000, L501.0900, L506.0400, L501.2300, L500.4100, L506.1000, L501.9985, L3300.0960, L100.0100, L501.9520, L500.4050 #### [facility] [address] [place], [address] Nucleated RBC (Bld) [#/Vol] 0 10*3/uL Normal 0-5 [facility] Comment on above: Performed By: #### L 509.1000, L501.0900, L506.0400, L501.2300, L500.4100, L506.1000, L501.9985, L3300.0960, L100.0100, L501.9520, L500.4050 #### [facility] [address] [place], [place], [id number] (719) Platelet mean volume (Bld) [Entitic vol] 9.9 fL Normal 6.2-12.0 [facility] Comment on above: Performed By: #### L 509.1000, L501.0900, L506.0400, L501.2300, L500.4100, L506.1000, L501.9985, L3300.0960, L100.0100, L501.9520, L500.4050 #### [facility] [address] [place], [place], [phone] (771) Platelets (Bld) [#/Vol] 425 10*3/uL Normal 150-450 [facility] Comment on above: Performed By: #### L 509.1000, L501.0900, L506.0400, L501.2300, L500.4100, L506.1000, L501.9985, L3300.0960, L100.0100, L501.9520, L500.4050 #### [facility] [address] [place], [place], [phone] (212) RBC (Bld) [#/Vol] 3.67 10*6/uL Low 4.6-6.2 [facility] Comment on above: Performed By: #### L 509.1000, L501.0900, L506.0400, L501.2300, L500.4100, L506.1000, L501.9985, L3300.0960, L100.0100, L501.9520, L500.4050 #### [facility] [address] [place], [place], [address] RDW SD 50.0 fl High 35.1-43.9 [facility] Comment on above: Performed By: #### L 509.1000, L501.0900, L506.0400, L501.2300, L500.4100, L506.1000, L501.9985, L3300.0960, L100.0100, L501.9520, L500.4050 #### [facility] [address] [place], [place], [address] WBC (Bld) [#/Vol] 7.7 10*3/uL Normal 4.4-11.0 [facility] Comment on above: Performed By: #### L 509.1000, L501.0900, L506.0400, L501.2300, L500.4100, L506.1000, L501.9985, L3300.0960, L100.0100, L501.9520, L500.4050 #### [facility] [address] [place], [place], [address] Emergency Department Summary on 02-03-2024 Emergency Department Summary [facility] Medical Records Department [address] [place] [address] Emergency Department Summary 02/03/24 MR#: [id number] Acct: [id number] Name: DINO SHAW Rep #: [id number] : 1950 74 From: Román Maynard PCP: Dr. David Mcgowan MD Status:DIS IN Location: [address] History of Present Illness Chief Complaint: Fall Informant: patient and family Narrative Narrative: Patient here with sister sent in from PCP for acute kidney injury creatinine of 8.5 GFR of 7. Sister has written down GFR was 3 previously a few months ago. He is followed by Dr. Ferraro. He states no trouble urinating. His chronic back pain limits his mobility. He currently uses a walker to ambulate. He is fallen multiple times due to his back. He denies any injuries from this states his back only hurts. Patient's significant other currently hospitalized in rehab therefore sisters round to help. Reports 10 days ago had a fall transient slurred speech. He would not go to the hospital. Due to worsening kidney function he was sent to the ED. Past med history of chronic kidney disease as worsened, chronic back pain. PFSH PFSH Home Medications ???Medication ???Instructions ???Recorded ???Last Taken ???Type amlodipine 10 mg tablet 10 mg PO DAILY 02/03/24 Unknown History aspirin 81 mg tablet,delayed 81 mg PO DAILY 02/03/24 Unknown History release budesonide-formoterol HFA 160 2 puff inhalation BID PRN copd 02/03/24 Unknown History mcg-4.5 mcg/actuation aerosol inhaler (Breyna) duloxetine 60 mg capsule,delayed 60 mg PO DAILY 02/03/24 Unknown History release ergocalciferol (vitamin D2) 1,250 1,250 mcg PO QWEEK 02/03/24 Unknown History mcg (50,000 unit) capsule fenofibrate 160 mg tablet 160 mg PO DAILY 02/03/24 Unknown History hydrochlorothiazide 25 mg tablet 25 mg PO DAILY 02/03/24 Unknown History hydrocodone-acetaminophen 5-325mg 1 tab PO TID PRN PRN pain 02/03/24 Unknown History 5mg-325mg levothyroxine 200 mcg tablet 200 mcg PO DAILY 02/03/24 Unknown History melatonin 10 mg capsule 10 mg PO QHS 02/03/24 Unknown History metoprolol succinate 100 mg 100 mg PO BID 02/03/24 Unknown History tablet,extended release 24 hr primidone 50 mg tablet 50 mg PO BID tremors 02/03/24 Unknown History rosuvastatin 40 mg tablet 40 mg PO DAILY 02/03/24 Unknown History tiotropium bromide 2.5 2 inhalation DAILY PRN copd 02/03/24 Unknown History mcg/actuation mist for inhalation (Spiriva Respimat) trazodone 100 mg tablet 100 mg PO DAILY 02/03/24 Unknown History Allergy/AdvReac Type Severity Reaction Status Date / Time No Known Allergies Allergy Verified 02/03/24 15:00 Social History Smoking Status: Never smoker ROS ROS ED Constitutional Constitutional ED: Denies chills, fever(s) or sweats Eyes Eyes: Denies change in vision ENT ENT ED: Denies dysphagia or sore throat Cardiovascular Cardiovascular: Denies chest pain, leg edema, palpitations or racing heartbeat Respiratory/Chest Respiratory/Chest: Denies cough, dyspnea or dyspnea on exertion Gastrointestinal Gastrointestinal: Denies abdominal pain, diarrhea, nausea or vomiting Genitourinary Genitourinary ED: Denies dysuria, hematuria or urinary frequency Musculoskeletal Musculoskeletal: Reports back pain; Denies extremity pain or neck pain Integumentary Denies rash or wounds Neurologic Neurologic: Denies headache(s), paresthesias or weakness EXAM Physical Exam Const Vital Signs: 02/03/24 15:01 02/03/24 17:00 02/03/24 19:00 Temperature 98.5 F 96.5 F L Temperature Source Oral Temporal Pulse Rate 76 72 73 Respiratory Rate 16 16 20 H Respiratory Effort Respiratory Depth Respiratory Pattern Blood Pressure 121/53 H 129/61 H 140/63 H Blood Pressure Mean 75 83 88 Pulse Ox 95 96 96 Oxygen Delivery Method Room Air Nasal Cannula Room Air 02/03/24 19:28 02/03/24 19:29 02/03/24 19:31 Temperature 98 F Temperature Source Pulse Rate 67 Respiratory Rate 19 H Respiratory Effort Normal Normal Respiratory Depth Normal Respiratory Pattern Normal Normal Blood Pressure 140/63 H Blood Pressure Mean 88 Pulse Ox 96 96 Oxygen Delivery Method Room Air 02/03/24 20:08 02/03/24 20:35 02/03/24 22:00 Temperature Temperature Source Pulse Rate 82 72 76 Respiratory Rate 16 19 H 20 H Respiratory Effort Respiratory Depth Respiratory Pattern Normal Blood Pressure 124/97 H 105/80 Blood Pressure Mean 106 88 Pulse Ox 95 97 Oxygen Delivery Method Positive well nourished Constitutional Narrative: Nontoxic HEENT Reports moist mucous membranes normocephalic and atraumatic Eyes EOMs intact bilaterally and conjunctiv (more content not included)... Normal [facility] H AND P Exam - Hospitaliston 02-03-2024 H&P Exam - Hospitalist [facility] Medical Records Department [address] [place] [address] H P Exam - Hospitalist 02/03/24 7584 MR#: [id number] Acct: [id number] Name: DINO SHAW Rep #: [id number] : 1950 74 From: Yinka Ley MD PCP: Dr. David Mcgowan MD Status:DIS IN Location: [facility] SIO863-6 HPI - General General Date of Admission: 02/03/24 Date of Service: 02/03/24 Chief Complaint: Recurrent fall 6 times in last 1 week. No syncope. ODESSA on CKD HPI Narrative DINO SHAW, is a 74 M was sent to ED from PCP for ODESSA on CKD. Patient was found to have creatinine 8.5, GFR 7 mL/min. His creatinine was 3.5 in October 2023. Patient also has mild hyperkalemia K5.3 and bicarb 17. Patient was brought to ED by her sister and [id number]. He had fallen 6 times in the last 7 days, patient states that she could not balance/gait instability as the reason for a fall. Her sister stated that he has essential tremor but patient has more postural instability, disequilibrium, short shuffling gait and also tremors and voice therefore might have Parkinson disease. He has not followed any neurologist. Patient also has peripheral neuropathy. He follows chef french Dr. Kapadia Social history: Quit smoking 40 years ago. Suspected COPD but never had PFT. Started smoking at the age of 18 or 19 a pack per day. [facility] Home Medications ???Medication ???Instructions ???Recorded ???Last Taken ???Type amlodipine 10 mg tablet 10 mg PO DAILY 02/03/24 Unknown History aspirin 81 mg tablet,delayed 81 mg PO DAILY 02/03/24 Unknown History release budesonide-formoterol HFA 160 2 puff inhalation BID PRN copd 02/03/24 Unknown History mcg-4.5 mcg/actuation aerosol inhaler (Breyna) duloxetine 60 mg capsule,delayed 60 mg PO DAILY 02/03/24 Unknown History release ergocalciferol (vitamin D2) 1,250 1,250 mcg PO QWEEK 02/03/24 Unknown History mcg (50,000 unit) capsule fenofibrate 160 mg tablet 160 mg PO DAILY 02/03/24 Unknown History hydrochlorothiazide 25 mg tablet 25 mg PO DAILY 02/03/24 Unknown History hydrocodone-acetaminophen 5-325mg 1 tab PO TID PRN PRN pain 02/03/24 Unknown History 5mg-325mg levothyroxine 200 mcg tablet 200 mcg PO DAILY 02/03/24 Unknown History melatonin 10 mg capsule 10 mg PO QHS 02/03/24 Unknown History metoprolol succinate 100 mg 100 mg PO BID 02/03/24 Unknown History tablet,extended release 24 hr primidone 50 mg tablet 50 mg PO BID tremors 02/03/24 Unknown History rosuvastatin 40 mg tablet 40 mg PO DAILY 02/03/24 Unknown History tiotropium bromide 2.5 2 inhalation DAILY PRN copd 02/03/24 Unknown History mcg/actuation mist for inhalation (Spiriva Respimat) trazodone 100 mg tablet 100 mg PO DAILY 02/03/24 Unknown History Allergy/AdvReac Type Severity Reaction Status Date / Time No Known Allergies Allergy Verified 02/03/24 15:00 Social History Smoking Status: Never smoker ROS ROS Narrative Constitutional: Reports fatigue and weakness. No fever. HEENT: Reports systems reviewed and no addt'l complaints, except as documented Respiratory/Chest: No acute shortness of breath or respiratory distress or wheezing. CVS: No chest pain pressure or tightness. No syncope. Gastrointestinal: Denies coffee ground emesis, hematemesis or vomiting Genitourinary: Denies burning urination or new urinary tract symptoms Musculoskeletal: Recurrent fall. Denies acute joint pain or limited range of motion. No major acute injury. Neurologic: Tremors, postural instability. Peripheral neuropathy. Denies seizure-like symptoms. skin: No ulcer. No rash Endocrinology: Reports systems reviewed and no addt'l complaints, except as documented Hematologic/Lymphatic: Reports systems reviewed and no addt'l complaints, except as documented Rest 14 ROS are negative except as mentioned in HPI Vital Signs Vital Signs Vital Signs: 02/03/24 15:01 02/03/24 17:00 10/30/24 19:00 Temperature 98.5 F 96.5 F L Temperature Source Oral Temporal Pulse Rate 76 72 73 Respiratory Rate 16 16 20 H Respiratory Effort Respiratory Depth Respiratory Pattern Blood Pressure 121/53 H 129/61 H 140/63 H Blood Pressure Mean 75 83 88 Pulse Ox 95 96 96 Oxygen Delivery Method Room Air Nasal Cannula Room Air 02/03/24 19:28 02/03/24 19:29 02/03/24 19:31 Temperature 98 F Temperature Source Pulse Rate 67 Respiratory Rate 19 H Respiratory Effort Normal Normal Respiratory Depth Normal Respiratory Pattern Normal Normal Blood Pressure 140/63 H Blood Pressure Mean 88 Pulse Ox 96 96 Oxygen Delivery Method Room Air 02/03/24 20:08 02/03/24 20:35 02/03/24 22:00 Temperature Temperature Source Pulse Rate 82 72 76 Respiratory Rate 16 19 H 20 H Respirat (more content not included)... Normal [facility] Urinalysis, Completeon 02-02 BACTERIA 0 SEEN Normal None Seen [facility] Comment on above: Order Comment: CLEAN CATCH Performed By: #### L 509.1000, L501.0900, L506.0400, L501.2300, L500.4100, L506.1000, L501.9985, L3300.0960, L100.0100, L501.9520, L500.4050 #### [facility] [address] [place], [place], [id number] EPI,SQUAMOUS 0 SEEN Normal 0-5 [facility] Comment on above: Order Comment: CLEAN CATCH Performed By: #### L 509.1000, L501.0900, L506.0400, L501.2300, L500.4100, L506.1000, L501.9985, L3300.0960, L100.0100, L501.9520, L500.4050 #### [facility] [address] [place], [place], [phone] Mucus Ql (Urine sed) 0 SEEN Normal [facility] Comment on above: Order Comment: CLEAN CATCH Performed By: #### L 509.1000, L501.0900, L506.0400, L501.2300, L500.4100, L506.1000, L501.9985, L3300.0960, L100.0100, L501.9520, L500.4050 #### [facility] [address] [place], [place], [phone] RBC 0 SEEN Normal 0-5 [facility] Comment on above: Order Comment: CLEAN CATCH Performed By: #### L 509.1000, L501.0900, L506.0400, L501.2300, L500.4100, L506.1000, L501.9985, L3300.0960, L100.0100, L501.9520, L500.4050 #### [facility] [address] [place], [address] WBC 0 SEEN Normal 0-5 [facility] Comment on above: Order Comment: CLEAN CATCH Performed By: #### L 509.1000, L501.0900, L506.0400, L501.2300, L500.4100, L506.1000, L501.9985, L3300.0960, L100.0100, L501.9520, L500.4050 #### [facility] [address] [place], [address] CBC W/Diff, Automatedon 10-2 Absolute Lymph 0.85 X10 3/uL Normal 0.83-4.51 [facility] Comment on above: Order Comment: Order Date: 02/02/24Order Info: 0184-1 - CBCD Performed By: #### L 509.1000, L501.0900, L506.0400, L501.2300, L500.4100, L506.1000, L501.9985, L3300.0960, L100.0100, L501.9520, L500.4050 #### [facility] [address] [place], [place], [phone] Absolute Neut 6.6 X10 3/uL Normal 2.0-7.7 [facility] Comment on above: Order Comment: Order Date: 02/02/24Order Info: 018- - CBCD Performed By: #### L 509.1000, L501.0900, L506.0400, L501.2300, L500.4100, L506.1000, L501.9985, L3300.0960, L100.0100, L501.9520, L500.4050 #### [facility] [address] [place], [address] Basophils/100 WBC (Bld) 0.6 % Normal 0-1 [facility] Comment on above: Order Comment: Order Date: 02/02/24Order Info: 018- - CBCD Performed By: #### L 509.1000, L501.0900, L506.0400, L501.2300, L500.4100, L506.1000, L501.9985, L3300.0960, L100.0100, L501.9520, L500.4050 #### [facility] [address] [place], [address] Eosinophils/100 WBC (Bld) 3.2 % Normal 0-5 [facility] Comment on above: Order Comment: Order Date: 02/02/24Order Info: 018- - CBCD Performed By: #### L 509.1000, L501.0900, L506.0400, L501.2300, L500.4100, L506.1000, L501.9985, L3300.0960, L100.0100, L501.9520, L500.4050 #### [facility] [address] [place], [address] Erythrocyte distribution width (RBC) [Ratio] 14.9 % High 11.6-14.6 [facility] Comment on above: Order Comment: Order Date: 02/02/24Order Info: 018- - CBCD Performed By: #### L 509.1000, L501.0900, L506.0400, L501.2300, L500.4100, L506.1000, L501.9985, L3300.0960, L100.0100, L501.9520, L500.4050 #### [facility] [address] [place], [address] Hematocrit (Bld) [Volume fraction] 33.8 % Low 40-54 [facility] Comment on above: Order Comment: Order Date: 02/02/24Order Info: 0184-1 - CBCD Performed By: #### L 509.1000, L501.0900, L506.0400, L501.2300, L500.4100, L506.1000, L501.9985, L3300.0960, L100.0100, L501.9520, L500.4050 #### [facility] [address] [facility] [place], [place], [phone] (512) Hemoglobin (Bld) [Mass/Vol] 10.9 g/dL Low 13.0-16.5 [facility] Comment on above: Order Comment: Order Date: 02/02/24Order Info: 0184-1 - CBCD Performed By: #### L 509.1000, L501.0900, L506.0400, L501.2300, L500.4100, L506.1000, L501.9985, L3300.0960, L100.0100, L501.9520, L500.4050 #### [facility] [address] [place], [address] IG% 0.400 Normal 0.0-0.9 [facility] Comment on above: Order Comment: Order Date: 02/02/24Order Info: 0184-1 - CBCD Result Comment: IG% - Immature Granulocytes (promyelocytes, myelocytes and metamyelocytes) > 1% indicates that a LEFT SHIFT is Present. Performed By: #### L 509.1000, L501.0900, L506.0400, L501.2300, L500.4100, L506.1000, L501.9985, L3300.0960, L100.0100, L501.9520, L500.4050 #### [facility] [address] [place], [address] Lymphocytes/100 WBC (Bld) 10.2 % Low 19-41 [facility] Comment on above: Order Comment: Order Date: 02/02/24Order Info: 018- - CBCD Performed By: #### L 509.1000, L501.0900, L506.0400, L501.2300, L500.4100, L506.1000, L501.9985, L3300.0960, L100.0100, L501.9520, L500.4050 #### [facility] [address] [place], [address] MCH (RBC) [Entitic mass] 29.8 pg Normal 27.0-32.0 [facility] Comment on above: Order Comment: Order Date: 02/02/24Order Info: 018- - CBCD Performed By: #### L 509.1000, L501.0900, L506.0400, L501.2300, L500.4100, L506.1000, L501.9985, L3300.0960, L100.0100, L501.9520, L500.4050 #### [facility] [address] [place], [address] MCHC (RBC) [Mass/Vol] 32.2 g/dL Normal 32-36 [facility] Comment on above: Order Comment: Order Date: 02/02/24Order Info: 018- - CBCD Performed By: #### L 509.1000, L501.0900, L506.0400, L501.2300, L500.4100, L506.1000, L501.9985, L3300.0960, L100.0100, L501.9520, L500.4050 #### [facility] [address] [place], [address] MCV (RBC) [Entitic vol] 92.3 fL Normal 80-94 [facility] Comment on above: Order Comment: Order Date: 02/02/24Order Info: 018-1 - CBCD Performed By: #### L 509.1000, L501.0900, L506.0400, L501.2300, L500.4100, L506.1000, L501.9985, L3300.0960, L100.0100, L501.9520, L500.4050 #### [facility] [address] [place], [address] Monocytes/100 WBC (Bld) 6.2 % Normal 0-10 [facility] [place] Comment on above: Order Comment: Order Date: 02/02/24Order Info: 018- - CBCD Performed By: #### L 509.1000, L501.0900, L506.0400, L501.2300, L500.4100, L506.1000, L501.9985, L3300.0960, L100.0100, L501.9520, L500.4050 #### [facility] [address] [place], [address] Neutrophils/100 WBC (Bld) 79.4 % High 47-70 [facility] Comment on above: Order Comment: Order Date: 02/02/24Order Info: 018- - CBCD Performed By: #### L 509.1000, L501.0900, L506.0400, L501.2300, L500.4100, L506.1000, L501.9985, L3300.0960, L100.0100, L501.9520, L500.4050 #### [facility] [address] [place], [address] Nucleated RBC (Bld) [#/Vol] 0 10*3/uL Normal 0-5 [facility] Comment on above: Order Comment: Order Date: 02/02/24Order Info: 018-1 - CBCD Performed By: #### L 509.1000, L501.0900, L506.0400, L501.2300, L500.4100, L506.1000, L501.9985, L3300.0960, L100.0100, L501.9520, L500.4050 #### [facility] [address] [place], [place], [address] (925) Platelet mean volume (Bld) [Entitic vol] 10.4 fL Normal 6.2-12.0 [facility] Comment on above: Order Comment: Order Date: 02/02/24Order Info: 0184-1 - CBCD Performed By: #### L 509.1000, L501.0900, L506.0400, L501.2300, L500.4100, L506.1000, L501.9985, L3300.0960, L100.0100, L501.9520, L500.4050 #### [facility] [address] [place], [place], [address] (640) Platelets (Bld) [#/Vol] 465 10*3/uL High 150-450 [facility] Comment on above: Order Comment: Order Date: 02/02/24Order Info: 0184-1 - CBCD Performed By: #### L 509.1000, L501.0900, L506.0400, L501.2300, L500.4100, L506.1000, L501.9985, L3300.0960, L100.0100, L501.9520, L500.4050 #### [facility] [address] [place], [address] RBC (Bld) [#/Vol] 3.66 10*6/uL Low 4.6-6.2 [facility] Comment on above: Order Comment: Order Date: 02/02/24Order Info: 0184-1 - CBCD Performed By: #### L 509.1000, L501.0900, L506.0400, L501.2300, L500.4100, L506.1000, L501.9985, L3300.0960, L100.0100, L501.9520, L500.4050 #### [facility] [address] [place], [address] RDW SD 50.7 fl High 35.1-43.9 [facility] Comment on above: Order Comment: Order Date: 02/02/24Order Info: 0184-1 - CBCD Performed By: #### L 509.1000, L501.0900, L506.0400, L501.2300, L500.4100, L506.1000, L501.9985, L3300.0960, L100.0100, L501.9520, L500.4050 #### [facility] [address] [place], [address] WBC (Bld) [#/Vol] 8.3 10*3/uL Normal 4.4-11.0 [facility] Comment on above: Order Comment: Order Date: 02/02/24Order Info: 018- - CBCD Performed By: #### L 509.1000, L501.0900, L506.0400, L501.2300, L500.4100, L506.1000, L501.9985, L3300.0960, L100.0100, L501.9520, L500.4050 #### [facility] [address] [place], [address] Comprehensive Metabolic Prof ohon 02-02-2024 Albumin [Mass/Vol] 3.0 g/dL Low 3.2-5.0 [facility] Comment on above: Order Comment: Order Date: 02/02/24Order Info: 0786-1 - CMPOrder Info: [id number] - LIPIDOrder Info: [id number] - TSHOrder Info: 3024-7 - T4F Performed By: #### L 509.1000, L501.0900, L506.0400, L501.2300, L500.4100, L506.1000, L501.9985, L3300.0960, L100.0100, L501.9520, L500.4050 #### [facility] [address] [place], [address] Albumin/Globulin [Mass ratio] 0.7 {ratio} Low 0.9-2.4 [facility] Comment on above: Order Comment: Order Date: 02/02/24Order Info: 86-1 - CMPOrder Info: [id number] - LIPIDOrder Info: [id number] - TSHOrder Info: 7 - T4F Performed By: #### L 509.1000, L501.0900, L506.0400, L501.2300, L500.4100, L506.1000, L501.9985, L3300.0960, L100.0100, L501.9520, L500.4050 #### [facility] [address] [place], [address] ALK P 56 U/L Normal 45-117 [facility] Comment on above: Order Comment: Order Date: 02/02/24Order Info: 785-04 - CMPOrder Info: - LIPIDOrder Info: [id number] - TSHOrder Info: 3023-10 - T4F Performed By: #### L 509.1000, L501.0900, L506.0400, L501.2300, L500.4100, L506.1000, L501.9985, L3300.0960, L100.0100, L501.9520, L500.4050 #### [facility] [address] [place], [place], [address] ALT [Catalytic activity/Vol] 29 U/L Normal 16-61 [facility] Comment on above: Order Comment: Order Date: 02/02/24Order Info: 785- - CMPOrder Info: [id number] - LIPIDOrder Info: [id number] - TSHOrder Info: 7 - T4F Performed By: #### L 509.1000, L501.0900, L506.0400, L501.2300, L500.4100, L506.1000, L501.9985, L3300.0960, L100.0100, L501.9520, L500.4050 #### [facility] [address] [place], [place], [id number] AST [Catalytic activity/Vol] 32 U/L Normal 15-37 [facility] Comment on above: Order Comment: Order Date: 02/02/24Order Info: 86-1 - CMPOrder Info: [id number] - LIPIDOrder Info: [id number] - TSHOrder Info: 7 - T4F Performed By: #### L 509.1000, L501.0900, L506.0400, L501.2300, L500.4100, L506.1000, L501.9985, L3300.0960, L100.0100, L501.9520, L500.4050 #### [facility] [address] [place], [place], [id number] Bilirubin [Mass/Vol] 0.60 mg/dL Normal 0.20-1.00 [facility] Comment on above: Order Comment: Order Date: 02/02/24Order Info: 785-1 - CMPOrder Info: - LIPIDOrder Info: [id number] - TSHOrder Info: 3023-10 - T4F Result Comment: For patients on eltrombopag therapy, use of Dimension Bernard TBIL is not recommended. Performed By: #### L 509.1000, L501.0900, L506.0400, L501.2300, L500.4100, L506.1000, L501.9985, L3300.0960, L100.0100, L501.9520, L500.4050 #### [facility] [address] [place], [place], [address] BUN/CRE 12.8 RATIO Normal 10-20 [facility] Comment on above: Order Comment: Order Date: 02/02/24Order Info: 86-1 - CMPOrder Info: [id number] - LIPIDOrder Info: 3 - TSHOrder Info: 7 - T4F Performed By: #### L 509.1000, L501.0900, L506.0400, L501.2300, L500.4100, L506.1000, L501.9985, L3300.0960, L100.0100, L501.9520, L500.4050 #### [facility] [address] [place], [address] CA,Total 9.6 mg/dL Normal 8.5-10.1 [facility] Comment on above: Order Comment: Order Date: 02/02/24Order Info: 785- - CMPOrder Info: [id number] - LIPIDOrder Info: 3 - TSHOrder Info: 3027 - T4F Performed By: #### L 509.1000, L501.0900, L506.0400, L501.2300, L500.4100, L506.1000, L501.9985, L3300.0960, L100.0100, L501.9520, L500.4050 #### [facility] [address] [place], [address] Chloride [Moles/Vol] 107 mmol/L Normal 98-107 [facility] Comment on above: Order Comment: Order Date: 02/02/24Order Info: 785- - CMPOrder Info: [id number] - LIPIDOrder Info: [id number] - TSHOrder Info: 3024-7 - T4F Performed By: #### L 509.1000, L501.0900, L506.0400, L501.2300, L500.4100, L506.1000, L501.9985, L3300.0960, L100.0100, L501.9520, L500.4050 #### [facility] [address] [place], [address] CO2 [Moles/Vol] 17.0 mmol/L Low 21.0-32.0 [facility] Comment on above: Order Comment: Order Date: 02/02/24Order Info: 785-1 - CMPOrder Info: [id number] - LIPIDOrder Info: 3 - TSHOrder Info: 302-7 - T4F Performed By: #### L 509.1000, L501.0900, L506.0400, L501.2300, L500.4100, L506.1000, L501.9985, L3300.0960, L100.0100, L501.9520, L500.4050 #### [facility] [address] [place], [place], [address] Creatinine [Mass/Vol] 8.49 mg/dL Invalid Interpretation Code 0.70-1.30 [facility] Comment on above: Order Comment: Order Date: 02/02/24Order Info: 785- - CMPOrder Info: [id number] - LIPIDOrder Info: [id number] - TSHOrder Info: 3023-10 - T4F Result Comment: Crit ical Result(s) Called at: 21:05:11 02/02/2024 by: JOHNATHAN HSIEH. Results read back by same. The validity of the calculated GFR GFRAA in patients over 70 years has not been determined. Clinical correlation is essential. Performed By: #### L 509.1000, L501.0900, L506.0400, L501.2300, L500.4100, L506.1000, L501.9985, L3300.0960, L100.0100, L501.9520, L500.4050 #### [facility] [address] [facility] [place], [place], [phone] EST GFR - AA 8 mL/min Low >60 [facility] Comment on above: Order Comment: Order Date: 02/02/24Order Info: 785-04 - CMPOrder Info: - LIPIDOrder Info: [id number] - TSHOrder Info: 3023-10 - T4F Result Comment: Afri can Ukrainian GFR Calc Performed By: #### L 509.1000, L501.0900, L506.0400, L501.2300, L500.4100, L506.1000, L501.9985, L3300.0960, L100.0100, L501.9520, L500.4050 #### [facility] [address] [place], [address] GAP 11 Normal 5-15 [facility] Comment on above: Order Comment: Order Date: 02/02/24Order Info: 0786-1 - CMPOrder Info: [id number] - LIPIDOrder Info: 3 - TSHOrder Info: 7 - T4F Performed By: #### L 509.1000, L501.0900, L506.0400, L501.2300, L500.4100, L506.1000, L501.9985, L3300.0960, L100.0100, L501.9520, L500.4050 #### [facility] [address] [place], [place], [phone] GFR/1.73 sq M.predicted among non-blacks MDRD (S/P/Bld) [Vol rate/Area] 7 mL/min/{1.73_m2} Low >60 [facility] Comment on above: Order Comment: Order Date: 02/02/24Order Info: 785-04 - CMPOrder Info: - LIPIDOrder Info: [id number] - TSHOrder Info: 3023-10 - T4F Result Comment: Non- GFR Calc Performed By: #### L 509.1000, L501.0900, L506.0400, L501.2300, L500.4100, L506.1000, L501.9985, L3300.0960, L100.0100, L501.9520, L500.4050 #### [facility] [address] [place], [place], [phone] Globulin (S) [Mass/Vol] 4.6 g/dL High 2.2-4.2 [facility] Comment on above: Order Comment: Order Date: 02/02/24Order Info: 07-1 - CMPOrder Info: [id number] - LIPIDOrder Info: 3 - TSHOrder Info: 7 - T4F Performed By: #### L 509.1000, L501.0900, L506.0400, L501.2300, L500.4100, L506.1000, L501.9985, L3300.0960, L100.0100, L501.9520, L500.4050 #### [facility] [address] [place], [address] Glucose [Mass/Vol] 101 mg/dL Normal 74-106 [facility] Comment on above: Order Comment: Order Date: 02/02/24Order Info: 785- - CMPOrder Info: [id number] - LIPIDOrder Info: [id number] - TSHOrder Info: 7 - T4F Result Comment: Fast ing Glucose result from 100 to 125 mg/dL suggests IMPAIRED HOMEOSTASIS per A.D.A. criteria. Performed By: #### L 509.1000, L501.0900, L506.0400, L501.2300, L500.4100, L506.1000, L501.9985, L3300.0960, L100.0100, L501.9520, L500.4050 #### [facility] [address] [place], [address] Potassium [Moles/Vol] 5.1 mmol/L Normal 3.5-5.1 [facility] Comment on above: Order Comment: Order Date: 02/02/24Order Info: 785- - CMPOrder Info: [id number] - LIPIDOrder Info: 3 - TSHOrder Info: 7 - T4F Performed By: #### L 509.1000, L501.0900, L506.0400, L501.2300, L500.4100, L506.1000, L501.9985, L3300.0960, L100.0100, L501.9520, L500.4050 #### [facility] [address] [place], [address] Sodium [Moles/Vol] 135 mmol/L Low 136-145 [facility] Comment on above: Order Comment: Order Date: 02/02/24Order Info: 0786-1 - CMPOrder Info: - LIPIDOrder Info: 3 - TSHOrder Info: 7 - T4F Performed By: #### L 509.1000, L501.0900, L506.0400, L501.2300, L500.4100, L506.1000, L501.9985, L3300.0960, L100.0100, L501.9520, L500.4050 #### [facility] [address] [place], [address] T PROT 7.6 g/dL Normal 6.4-8.2 [facility] Comment on above: Order Comment: Order Date: 02/02/24Order Info: 785-04 - CMPOrder Info: - LIPIDOrder Info: [id number] - TSHOrder Info: 3023-10 - T4F Performed By: #### L 509.1000, L501.0900, L506.0400, L501.2300, L500.4100, L506.1000, L501.9985, L3300.0960, L100.0100, L501.9520, L500.4050 #### [facility] [address] [facility] [place], [address] Urea nitrogen [Mass/Vol] 109 mg/dL Invalid Interpretation Code 7-18 [facility] Comment on above: Order Comment: Order Date: 02/02/24Order Info: 785-04 - CMPOrder Info: - LIPIDOrder Info: [id number] - TSHOrder Info: [id number] - T4F Result Comment: Crit ical Result(s) Called at: 21:09:04 02/02/2024 by: JOHNATHAN HSIEH. Results read back by Dr Mcgowan answering service. called 2x Performed By: #### L 509.1000, L501.0900, L506.0400, L501.2300, L500.4100, L506.1000, L501.9985, L3300.0960, L100.0100, L501.9520, L500.4050 #### [facility] [address] [place], [place], [address] Hemoglobin A1con 02-02-2024 HbA1c (Bld) [Mass fraction] 4.9 % Normal 3.8-5.6 [facility] Comment on above: Order Comment: Order Date: 02/02/24Order Info: [id number] - A1C Result Comment: Norm al < 5.7 % Prediabetic 5.7 - 6.4 % Diabetic >or= 6.5 % Please note range changes. Performed By: #### L 509.1000, L501.0900, L506.0400, L501.2300, L500.4100, L506.1000, L501.9985, L3300.0960, L100.0100, L501.9520, L500.4050 #### [facility] [address] [place], [place], [id number] Lipid Profileon 02-02-2024 Cholesterol [Mass/Vol] 124 mg/dL Normal 200 [facility] Comment on above: Order Comment: Order Date: 02/02/24Order Info: 0786-1 - CMPOrder Info: [id number] - LIPIDOrder Info: 3 - TSHOrder Info: 7 - T4F Result Comment: <200 mg/dL Desirable 200-240 mg/dL Borderline >240 mg/dL High Risk Performed By: #### L 509.1000, L501.0900, L506.0400, L501.2300, L500.4100, L506.1000, L501.9985, L3300.0960, L100.0100, L501.9520, L500.4050 #### [facility] [address] [place], [place], [address] Cholesterol in HDL [Mass/Vol] 27 mg/dL Low [facility] Comment on above: Order Comment: Order Date: 02/02/24Order Info: 0786-1 - CMPOrder Info: [id number] - LIPIDOrder Info: 6-3 - TSHOrder Info: 3027 - T4F Result Comment: The drugs N-Acetylcysteine and Metamizole may falsely depress this assay. Reference Range HDL <40 mg/dL Low HDL Cholesterol HDL >or= 60 mg/dL High HDL Cholesterol Performed By: #### L 509.1000, L501.0900, L506.0400, L501.2300, L500.4100, L506.1000, L501.9985, L3300.0960, L100.0100, L501.9520, L500.4050 #### [facility] [address] [place], [address] Cholesterol in LDL [Mass/Vol] 46 mg/dL Normal 0-130 [facility] Comment on above: Order Comment: Order Date: 02/02/24Order Info: 0786- - CMPOrder Info: [id number] - LIPIDOrder Info: [id number] - TSHOrder Info: 3023-10 - T4F Performed By: #### L 509.1000, L501.0900, L506.0400, L501.2300, L500.4100, L506.1000, L501.9985, L3300.0960, L100.0100, L501.9520, L500.4050 #### [facility] [address] [place], [address] Cholesterol in VLDL [Mass/Vol] 51 mg/dL High 5-40 [facility] Comment on above: Order Comment: Order Date: 02/02/24Order Info: 0786 - CMPOrder Info: [id number] - LIPIDOrder Info: [id number] - TSHOrder Info: 3023-10 - T4F Performed By: #### L 509.1000, L501.0900, L506.0400, L501.2300, L500.4100, L506.1000, L501.9985, L3300.0960, L100.0100, L501.9520, L500.4050 #### [facility] [address] [place], [address] Triglyceride [Mass/Vol] 254 mg/dL High [facility] Comment on above: Order Comment: Order Date: 02/02/24Order Info: 0786-1 - CMPOrder Info: [id number] - LIPIDOrder Info: [id number] - TSHOrder Info: 3024-7 - T4F Result Comment: The drugs N-Acetylcysteine and Metamizole may falsely depress this assay. Serum Triglycerides Reference Interval Normal <150 mg/dL Borderline high 150 - 199 mg/dL High 200 - 499 mg/dL Very High > or = 500 mg/dL Performed By: #### L 509.1000, L501.0900, L506.0400, L501.2300, L500.4100, L506.1000, L501.9985, L3300.0960, L100.0100, L501.9520, L500.4050 #### [facility] [address] [place], [address] Protein+Creatinine Ratio,Uri neon 02-02-2024 PROT:CRE RATIO 1213 mg/g CRE High 0-200 [facility] Comment on above: Performed By: #### L 509.1000, L501.0900, L506.0400, L501.2300, L500.4100, L506.1000, L501.9985, L3300.0960, L100.0100, L501.9520, L500.4050 #### [facility] [address] [place], [address] Protein (U) [Mass/Vol] 168.6 mg/dL High <11.9 [facility] Comment on above: Performed By: #### L 509.1000, L501.0900, L506.0400, L501.2300, L500.4100, L506.1000, L501.9985, L3300.0960, L100.0100, L501.9520, L500.4050 #### [facility] [address] [place], [address] UR CREAT 139.00 mg/dL Normal NO RANGE EST. [facility] Comment on above: Performed By: #### L 509.1000, L501.0900, L506.0400, L501.2300, L500.4100, L506.1000, L501.9985, L3300.0960, L100.0100, L501.9520, L500.4050 #### [facility] [address] [place], [place], [phone] (025) T4 Free Directon 02-02-2024 T4 FREE DIRECT 1.23 ng/dL Normal 0.76-1.46 [facility] Comment on above: Order Comment: Order Date: 02/02/24Order Info: 785-04 - CMPOrder Info: - LIPIDOrder Info: [id number] - TSHOrder Info: 3023-10 - T4F Performed By: #### L 509.1000, L501.0900, L506.0400, L501.2300, L500.4100, L506.1000, L501.9985, L3300.0960, L100.0100, L501.9520, L500.4050 #### [facility] [address] [place], [address] Thyroid Stim Hormone (TSH)on 02-02-2024 TSH 0.132 uIU/mL Low 0.358-3.74 0 [facility] Comment on above: Order Comment: Order Date: 02/02/24Order Info: 785-04 - CMPOrder Info: - LIPIDOrder Info: [id number] - TSHOrder Info: 3023-10 - T4F Performed By: #### L 509.1000, L501.0900, L506.0400, L501.2300, L500.4100, L506.1000, L501.9985, L3300.0960, L100.0100, L501.9520, L500.4050 #### [facility] [address] [facility] [facility] [place], [place], [address] Glucose Test strip manual (B ld) [Mass/Vol]on 01-12-2024 Glucose [Mass/Vol] 126 mg/dL High 74 - 99 mg/dL [facility] Interpretation and review of laboratory results Abnormal [facility] Glucose [Mass/Vol] 126 mg/dL High 74-99 [facility] Comment on above: Performed By: #### 2 341-6 #### MEGHA CAMEJO ([id number]) [facility] ([facility]) [address] [place] [address] Glucose [Mass/Vol] 82 mg/dL 74 - 99 mg/dL [facility] Interpretation and review of laboratory results Normal [facility] Glucose [Mass/Vol] 82 mg/dL Normal 74-99 [facility] Comment on above: Performed By: #### 2 341-6 #### MEGHA CAMEJO ([id number]) [facility] ([facility]) [address] [place] [address] Basic Metabolic Profile (BMP )on 11-03-2023 BUN/CRE 10.3 RATIO Normal 10-20 [facility] Comment on above: Order Comment: Order Date: 11/03/23 Order Info: 0667-1 - BMP Performed By: #### L 500.2500 #### [facility] [address] [place], [address] CA,Total 9.3 mg/dL Normal 8.5-10.1 [facility] Comment on above: Order Comment: Order Date: 11/03/23 Order Info: 0667-1 - BMP Performed By: #### L 500.2500 #### [facility] [address] [place], [address] Chloride [Moles/Vol] 111 mmol/L High 98-107 [facility] Comment on above: Order Comment: Order Date: 11/03/23 Order Info: 0667-1 - BMP Performed By: #### L 500.2500 #### [facility] [address] [place], [address] CO2 [Moles/Vol] 22.0 mmol/L Normal 21.0-32.0 [facility] Comment on above: Order Comment: Order Date: 11/03/23 Order Info: 666-04 - BMP Performed By: #### L 500.2500 #### [facility] [address] [place], [address] Creatinine [Mass/Vol] 3.50 mg/dL High 0.70-1.30 [facility] Comment on above: Order Comment: Order Date: 11/03/23 Order Info: 666-04 - BMP Result Comment: The validity of the calculated GFR GFRAA in patients over 70 years has not been determined. Clinical correlation is essential. Performed By: #### L 500.2500 #### [facility] [address] [place], [address] EST GFR - AA 22 mL/min Low >60 [facility] Comment on above: Order Comment: Order Date: 11/03/23 Order Info: 666-04 - [facility] Result Comment: Afri can Ukrainian GFR Calc Performed By: #### L 500.2500 #### [facility] [address] [place], [address] GAP 5 Normal 5-15 [facility] Comment on above: Order Comment: Order Date: 11/03/23 Order Info: 666-04 - BMP Performed By: #### L 500.2500 #### [facility] [address] [place], [address] GFR/1.73 sq M.predicted among non-blacks MDRD (S/P/Bld) [Vol rate/Area] 18 mL/min/{1.73_m2} Low >60 [facility] Comment on above: Order Comment: Order Date: 11/03/23 Order Info: 666- - BMP Result Comment: Non- GFR Calc Performed By: #### L 500.2500 #### [facility] [address] [place], [address] Glucose [Mass/Vol] 92 mg/dL Normal 74-106 [facility] Comment on above: Order Comment: Order Date: 11/03/23 Order Info: 666-04 - BMP Performed By: #### L 500.2500 #### [facility] [address] [place], [address] Potassium [Moles/Vol] 4.8 mmol/L Normal 3.5-5.1 [facility] Comment on above: Order Comment: Order Date: 11/03/23 Order Info: 666-04 - BMP Performed By: #### L 500.2500 #### [facility] [address] [place], [address] Sodium [Moles/Vol] 138 mmol/L Normal 136-145 [facility] Comment on above: Order Comment: Order Date: 11/03/23 Order Info: 666-04 - BMP Performed By: #### L 500.2500 #### [facility] [address] [place], [address] Urea nitrogen [Mass/Vol] 36 mg/dL High 7-18 [facility] Comment on above: Order Comment: Order Date: 11/03/23 Order Info: 666-04 - BMP Performed By: #### L 500.2500 #### [facility] [address] [place], [address] Vitamin D 1,25-Dihydroxyon 0 10-30-2023 VIT D 1,25 DIHY 18.8 pg/mL Abnormal 24.8-81.5 [facility] Comment on above: Result Comment: Perf ormed at: [facility] - [facility] [address] [id number] Frame Stylist: Staci Umana MD, Phone: [phone] Performed By: #### L 509.1000, L501.0900, L506.0400, L501.2300, L500.4100, L506.1000, L501.9985, L3300.0960, L100.0100, L501.9520, L500.4050 #### [facility] [address] [place], [place], [id number] CBC W/Diff, Automatedon 07-2 Absolute Lymph 1.27 X10 3/uL Normal 0.83-4.51 [facility] Comment on above: Performed By: #### L 509.1000, L501.0900, L506.0400, L501.2300, L500.4100, L506.1000, L501.9985, L3300.0960, L100.0100, L501.9520, L500.4050 #### [facility] [address] [place], [place], [id number] Absolute Neut 5.3 X10 3/uL Normal 2.0-7.7 [facility] Comment on above: Performed By: #### L 509.1000, L501.0900, L506.0400, L501.2300, L500.4100, L506.1000, L501.9985, L3300.0960, L100.0100, L501.9520, L500.4050 #### [facility] [address] [place], [place], [id number] [phone] Basophils/100 WBC (Bld) 0.5 % Normal 0-1 [facility] Comment on above: Performed By: #### L 509.1000, L501.0900, L506.0400, L501.2300, L500.4100, L506.1000, L501.9985, L3300.0960, L100.0100, L501.9520, L500.4050 #### [facility] [address] [place], [place], [phone] Eosinophils/100 WBC (Bld) 3.0 % Normal 0-5 [facility] Comment on above: Performed By: #### L 509.1000, L501.0900, L506.0400, L501.2300, L500.4100, L506.1000, L501.9985, L3300.0960, L100.0100, L501.9520, L500.4050 #### [facility] [address] [place], [address] Erythrocyte distribution width (RBC) [Ratio] 14.9 % High 11.6-14.6 [facility] Comment on above: Performed By: #### L 509.1000, L501.0900, L506.0400, L501.2300, L500.4100, L506.1000, L501.9985, L3300.0960, L100.0100, L501.9520, L500.4050 #### [facility] [address] [place], [address] ( Hematocrit (Bld) [Volume fraction] 36.5 % Low 40-54 [facility] Comment on above: Performed By: #### L 509.1000, L501.0900, L506.0400, L501.2300, L500.4100, L506.1000, L501.9985, L3300.0960, L100.0100, L501.9520, L500.4050 #### [facility] [address] [place], [address] (429) Hemoglobin (Bld) [Mass/Vol] 11.6 g/dL Low 13.0-16.5 [facility] Comment on above: Performed By: #### L 509.1000, L501.0900, L506.0400, L501.2300, L500.4100, L506.1000, L501.9985, L3300.0960, L100.0100, L501.9520, L500.4050 #### [facility] [address] [place], [address] IG% 0.400 Normal 0.0-0.9 [facility] Comment on above: Result Comment: IG% - Immature Granulocytes (promyelocytes, myelocytes and metamyelocytes) > 1% indicates that a LEFT SHIFT is Present. Performed By: #### L 509.1000, L501.0900, L506.0400, L501.2300, L500.4100, L506.1000, L501.9985, L3300.0960, L100.0100, L501.9520, L500.4050 #### [facility] [address] [place], [address] Lymphocytes/100 WBC (Bld) 17.4 % Low 19-41 [facility] Comment on above: Performed By: #### L 509.1000, L501.0900, L506.0400, L501.2300, L500.4100, L506.1000, L501.9985, L3300.0960, L100.0100, L501.9520, L500.4050 #### [facility] [address] [facility] [place], [address] MCH (RBC) [Entitic mass] 28.8 pg Normal 27.0-32.0 [facility] Comment on above: Performed By: #### L 509.1000, L501.0900, L506.0400, L501.2300, L500.4100, L506.1000, L501.9985, L3300.0960, L100.0100, L501.9520, L500.4050 #### [facility] [address] [facility] [place], [address] MCHC (RBC) [Mass/Vol] 31.8 g/dL Low 32-36 [facility] Comment on above: Performed By: #### L 509.1000, L501.0900, L506.0400, L501.2300, L500.4100, L506.1000, L501.9985, L3300.0960, L100.0100, L501.9520, L500.4050 #### [facility] [address] [facility] [place], [address] MCV (RBC) [Entitic vol] 90.6 fL Normal 80-94 [facility] Comment on above: Performed By: #### L 509.1000, L501.0900, L506.0400, L501.2300, L500.4100, L506.1000, L501.9985, L3300.0960, L100.0100, L501.9520, L500.4050 #### [facility] [address] [place], [address] Monocytes/100 WBC (Bld) 6.6 % Normal 0-10 [facility] Comment on above: Performed By: #### L 509.1000, L501.0900, L506.0400, L501.2300, L500.4100, L506.1000, L501.9985, L3300.0960, L100.0100, L501.9520, L500.4050 #### [facility] [address] [place], [address] Neutrophils/100 WBC (Bld) 72.1 % High 47-70 [facility] Comment on above: Performed By: #### L 509.1000, L501.0900, L506.0400, L501.2300, L500.4100, L506.1000, L501.9985, L3300.0960, L100.0100, L501.9520, L500.4050 #### [facility] [address] [place], [address] Nucleated RBC (Bld) [#/Vol] 0 10*3/uL Normal 0-5 [facility] Comment on above: Performed By: #### L 509.1000, L501.0900, L506.0400, L501.2300, L500.4100, L506.1000, L501.9985, L3300.0960, L100.0100, L501.9520, L500.4050 #### [facility] [address] [place], [address] Platelet mean volume (Bld) [Entitic vol] 9.9 fL Normal 6.2-12.0 [facility] Comment on above: Performed By: #### L 509.1000, L501.0900, L506.0400, L501.2300, L500.4100, L506.1000, L501.9985, L3300.0960, L100.0100, L501.9520, L500.4050 #### [facility] [address] [place], [address] Platelets (Bld) [#/Vol] 374 10*3/uL Normal 150-450 [facility] Comment on above: Performed By: #### L 509.1000, L501.0900, L506.0400, L501.2300, L500.4100, L506.1000, L501.9985, L3300.0960, L100.0100, L501.9520, L500.4050 #### [facility] [address] [place], [place], [id number] (816) RBC (Bld) [#/Vol] 4.03 10*6/uL Low 4.6-6.2 [facility] Comment on above: Performed By: #### L 509.1000, L501.0900, L506.0400, L501.2300, L500.4100, L506.1000, L501.9985, L3300.0960, L100.0100, L501.9520, L500.4050 #### [facility] [address] [place], [place], [id number] (342 RDW SD 49.9 fl High 35.1-43.9 [facility] Comment on above: Performed By: #### L 509.1000, L501.0900, L506.0400, L501.2300, L500.4100, L506.1000, L501.9985, L3300.0960, L100.0100, L501.9520, L500.4050 #### [facility] [address] [place], [address] WBC (Bld) [#/Vol] 7.3 10*3/uL Normal 4.4-11.0 [facility] Comment on above: Performed By: #### L 509.1000, L501.0900, L506.0400, L501.2300, L500.4100, L506.1000, L501.9985, L3300.0960, L100.0100, L501.9520, L500.4050 #### [facility] [address] [place], [place], [phone] (293) Comprehensive Metabolic Prof [facility] 10-28-2023 Albumin [Mass/Vol] 3.0 g/dL Low 3.2-5.0 [facility] Comment on above: Performed By: #### L 509.1000, L501.0900, L506.0400, L501.2300, L500.4100, L506.1000, L501.9985, L3300.0960, L100.0100, L501.9520, L500.4050 #### [facility] [address] [place], [place], [id number] Albumin/Globulin [Mass ratio] 0.7 {ratio} Low 0.9-2.4 [facility] Comment on above: Performed By: #### L 509.1000, L501.0900, L506.0400, L501.2300, L500.4100, L506.1000, L501.9985, L3300.0960, L100.0100, L501.9520, L500.4050 #### [facility] [address] [place], [place], [id number] ALK P 34 U/L Low 45-117 [facility] Comment on above: Performed By: #### L 509.1000, L501.0900, L506.0400, L501.2300, L500.4100, L506.1000, L501.9985, L3300.0960, L100.0100, L501.9520, L500.4050 #### [facility] [address] [place], [address] ALT [Catalytic activity/Vol] 32 U/L Normal 16-61 [facility] Comment on above: Performed By: #### L 509.1000, L501.0900, L506.0400, L501.2300, L500.4100, L506.1000, L501.9985, L3300.0960, L100.0100, L501.9520, L500.4050 #### [facility] [address] [place], [address] AST [Catalytic activity/Vol] 25 U/L Normal 15-37 [facility] Comment on above: Performed By: #### L 509.1000, L501.0900, L506.0400, L501.2300, L500.4100, L506.1000, L501.9985, L3300.0960, L100.0100, L501.9520, L500.4050 #### [facility] [address] [place], [address] Bilirubin [Mass/Vol] 0.30 mg/dL Normal 0.20-1.00 [facility] Comment on above: Result Comment: For patients on eltrombopag therapy, use of Dimension Bernard TBIL is not recommended. Performed By: #### L 509.1000, L501.0900, L506.0400, L501.2300, L500.4100, L506.1000, L501.9985, L3300.0960, L100.0100, L501.9520, L500.4050 #### [facility] [address] [place], [address] BUN/CRE 10.6 RATIO Normal 10-20 [facility] Comment on above: Performed By: #### L 509.1000, L501.0900, L506.0400, L501.2300, L500.4100, L506.1000, L501.9985, L3300.0960, L100.0100, L501.9520, L500.4050 #### [facility] [address] [place], [address] CA,Total 9.0 mg/dL Normal 8.5-10.1 [facility] Comment on above: Performed By: #### L 509.1000, L501.0900, L506.0400, L501.2300, L500.4100, L506.1000, L501.9985, L3300.0960, L100.0100, L501.9520, L500.4050 #### [facility] [address] [place], [address] Chloride [Moles/Vol] 111 mmol/L High 98-107 [facility] Comment on above: Performed By: #### L 509.1000, L501.0900, L506.0400, L501.2300, L500.4100, L506.1000, L501.9985, L3300.0960, L100.0100, L501.9520, L500.4050 #### [facility] [address] [place], [address] CO2 [Moles/Vol] 21.0 mmol/L Normal 21.0-32.0 [facility] Comment on above: Performed By: #### L 509.1000, L501.0900, L506.0400, L501.2300, L500.4100, L506.1000, L501.9985, L3300.0960, L100.0100, L501.9520, L500.4050 #### [facility] [address] [place], [address] Creatinine [Mass/Vol] 3.31 mg/dL High 0.70-1.30 [facility] Comment on above: Result Comment: The validity of the calculated GFR GFRAA in patients over 70 years has not been determined. Clinical correlation is essential. Performed By: #### L 509.1000, L501.0900, L506.0400, L501.2300, L500.4100, L506.1000, L501.9985, L3300.0960, L100.0100, L501.9520, L500.4050 #### [facility] [address] [place], [place], [id number] EST GFR - AA 24 mL/min Low >60 [facility] Comment on above: Result Comment: Afri can Ukrainian GFR Calc Performed By: #### L 509.1000, L501.0900, L506.0400, L501.2300, L500.4100, L506.1000, L501.9985, L3300.0960, L100.0100, L501.9520, L500.4050 #### [facility] [address] [place], [address] GAP 6 Normal 5-15 [facility] Comment on above: Performed By: #### L 509.1000, L501.0900, L506.0400, L501.2300, L500.4100, L506.1000, L501.9985, L3300.0960, L100.0100, L501.9520, L500.4050 #### [facility] [address] [place], [address] GFR/1.73 sq M.predicted among non-blacks MDRD (S/P/Bld) [Vol rate/Area] 20 mL/min/{1.73_m2} Low >60 [facility] Comment on above: Result Comment: Non- GFR Calc Performed By: #### L 509.1000, L501.0900, L506.0400, L501.2300, L500.4100, L506.1000, L501.9985, L3300.0960, L100.0100, L501.9520, L500.4050 #### [facility] [address] [place], [address] (297) Globulin (S) [Mass/Vol] 4.3 g/dL High 2.2-4.2 [facility] Comment on above: Performed By: #### L 509.1000, L501.0900, L506.0400, L501.2300, L500.4100, L506.1000, L501.9985, L3300.0960, L100.0100, L501.9520, L500.4050 #### [facility] [address] [place], [address] Glucose [Mass/Vol] 92 mg/dL Normal 74-106 [facility] Comment on above: Performed By: #### L 509.1000, L501.0900, L506.0400, L501.2300, L500.4100, L506.1000, L501.9985, L3300.0960, L100.0100, L501.9520, L500.4050 #### [facility] [address] [place], [address] Potassium [Moles/Vol] 5.3 mmol/L High 3.5-5.1 [facility] Comment on above: Performed By: #### L 509.1000, L501.0900, L506.0400, L501.2300, L500.4100, L506.1000, L501.9985, L3300.0960, L100.0100, L501.9520, L500.4050 #### [facility] [address] [place], [address] Sodium [Moles/Vol] 138 mmol/L Normal 136-145 [facility] Comment on above: Performed By: #### L 509.1000, L501.0900, L506.0400, L501.2300, L500.4100, L506.1000, L501.9985, L3300.0960, L100.0100, L501.9520, L500.4050 #### [facility] [address] [place], [address] T PROT 7.3 g/dL Normal 6.4-8.2 [facility] Comment on above: Performed By: #### L 509.1000, L501.0900, L506.0400, L501.2300, L500.4100, L506.1000, L501.9985, L3300.0960, L100.0100, L501.9520, L500.4050 #### [facility] [address] [place], [place], [id number] Urea nitrogen [Mass/Vol] 35 mg/dL High 7-18 [facility] Comment on above: Performed By: #### L 509.1000, L501.0900, L506.0400, L501.2300, L500.4100, L506.1000, L501.9985, L3300.0960, L100.0100, L501.9520, L500.4050 #### [facility] [address] [place], [place], [address] Hemoglobin A1con 10-28-2023 HbA1c (Bld) [Mass fraction] 5.0 % Normal 3.8-5.6 [facility] Comment on above: Result Comment: Norm al < 5.7 % Prediabetic 5.7 - 6.4 % Diabetic >or= 6.5 % Please note range changes. Performed By: #### L 509.1000, L501.0900, L506.0400, L501.2300, L500.4100, L506.1000, L501.9985, L3300.0960, L100.0100, L501.9520, L500.4050 #### [facility] [address] [place], [place], [address] Lipid Profileon 10-28-2023 Cholesterol [Mass/Vol] 162 mg/dL Normal 200 [facility] Comment on above: Result Comment: <200 mg/dL Desirable 200-240 mg/dL Borderline >240 mg/dL High Risk Performed By: #### L 509.1000, L501.0900, L506.0400, L501.2300, L500.4100, L506.1000, L501.9985, L3300.0960, L100.0100, L501.9520, L500.4050 #### [facility] [address] [place], [address] Cholesterol in HDL [Mass/Vol] 36 mg/dL Low [facility] Comment on above: Result Comment: The drugs N-Acetylcysteine and Metamizole may falsely depress this assay. Reference Range HDL <40 mg/dL Low HDL Cholesterol HDL >or= 60 mg/dL High HDL Cholesterol Performed By: #### L 509.1000, L501.0900, L506.0400, L501.2300, L500.4100, L506.1000, L501.9985, L3300.0960, L100.0100, L501.9520, L500.4050 #### [facility] [address] [place], [address] Cholesterol in LDL [Mass/Vol] 83 mg/dL Normal 0-130 [facility] Comment on above: Performed By: #### L 509.1000, L501.0900, L506.0400, L501.2300, L500.4100, L506.1000, L501.9985, L3300.0960, L100.0100, L501.9520, L500.4050 #### [facility] [address] [place], [address] Cholesterol in VLDL [Mass/Vol] 43 mg/dL High 5-40 [facility] Comment on above: Performed By: #### L 509.1000, L501.0900, L506.0400, L501.2300, L500.4100, L506.1000, L501.9985, L3300.0960, L100.0100, L501.9520, L500.4050 #### [facility] [address] [place], [address] Triglyceride [Mass/Vol] 217 mg/dL High [facility] Comment on above: Result Comment: The drugs N-Acetylcysteine and Metamizole may falsely depress this assay. Serum Triglycerides Reference Interval Normal <150 mg/dL Borderline high 150 - 199 mg/dL High 200 - 499 mg/dL Very High > or = 500 mg/dL Performed By: #### L 509.1000, L501.0900, L506.0400, L501.2300, L500.4100, L506.1000, L501.9985, L3300.0960, L100.0100, L501.9520, L500.4050 #### [facility] [address] [place], [address] PTHINon 10-28-2023 PTH 229.7 pg/mL High 18.4-80.1 [facility] Comment on above: Performed By: #### L 509.1000, L501.0900, L506.0400, L501.2300, L500.4100, L506.1000, L501.9985, L3300.0960, L100.0100, L501.9520, L500.4050 #### [facility] [address] [place], [address] Phosphoruson 10-28-2023 Phosphate [Mass/Vol] 3.7 mg/dL Normal 2.5-4.9 [facility] Comment on above: Performed By: #### L 509.1000, L501.0900, L506.0400, L501.2300, L500.4100, L506.1000, L501.9985, L3300.0960, L100.0100, L501.9520, L500.4050 #### [facility] [address] [place], [address] Protein+Creatinine Ratio,Uri neon 10-28-2023 PROT:CRE RATIO 2871 mg/g CRE High 0-200 [facility] Comment on above: Performed By: #### L 509.1000, L501.0900, L506.0400, L501.2300, L500.4100, L506.1000, L501.9985, L3300.0960, L100.0100, L501.9520, L500.4050 #### [facility] [address] [facility] [place], [address] Protein (U) [Mass/Vol] 232.0 mg/dL High <11.9 [facility] Comment on above: Performed By: #### L 509.1000, L501.0900, L506.0400, L501.2300, L500.4100, L506.1000, L501.9985, L3300.0960, L100.0100, L501.9520, L500.4050 #### [facility] [address] [facility] [place], [address] UR CREAT 80.80 mg/dL Normal NO RANGE EST. [facility] Comment on above: Performed By: #### L 509.1000, L501.0900, L506.0400, L501.2300, L500.4100, L506.1000, L501.9985, L3300.0960, L100.0100, L501.9520, L500.4050 #### [facility] [address] [facility] [place], [address] T4 Free Directon 10-28-2023 T4 FREE DIRECT 0.95 ng/dL Normal 0.76-1.46 [facility] Comment on above: Performed By: #### L 509.1000, L501.0900, L506.0400, L501.2300, L500.4100, L506.1000, L501.9985, L3300.0960, L100.0100, L501.9520, L500.4050 #### [facility] [address] [facility] [place], [address] Thyroid Stim Hormone (TSH)on 10-28-2023 TSH 0.62 uIU/mL Normal 0.358-3.74 [facility] Comment on above: Performed By: #### L 509.1000, L501.0900, L506.0400, L501.2300, L500.4100, L506.1000, L501.9985, L3300.0960, L100.0100, L501.9520, L500.4050 #### [facility] [address] [place], [place], [id number] Vitamin D,25 Hydroxyon 10-27 Vitamin D 25-OH 51.3 ng/mL Normal [facility] Comment on above: Result Comment: [place] min D 25(OH) Status Range Deficiency <20 ng/mL (50nmol/L) Insufficiency 20 - 30 ng/mL (50 - 75 nmol/L) Sufficiency 30 - 100 ng/mL (75 - 250 nmol/L) Toxicity >100 ng/mL (>250 nmol/L) Performed By: #### L 509.1000, L501.0900, L506.0400, L501.2300, L500.4100, L506.1000, L501.9985, L3300.0960, L100.0100, L501.9520, L500.4050 #### [facility] [address] [place], [place], [id number] Vitamin D 1,25-Dihydroxyon 0 06-29-2023 VIT D 1,25 DIHY 24.2 pg/mL Abnormal 24.8-81.5 [facility] Comment on above: Order Comment: Order Date: 02/24/23Order Info: [id number] - [id number] Result Comment: Perf ormed at: [facility] [id number] Frame Stylist: Staci Umana MD, Phone: [phone] Performed By: #### L 509.1000, L501.0900, L506.0400, L501.2300, L500.4100, L506.1000, L501.9985, L3300.0960, L100.0100, L501.9520, L500.4050 #### [facility] [address] [place], [address] Absolute lymphocyte countOrd ered By: David Mcgowan on 06-25-2023 Lymphocytes Auto (Unsp spec) [#/Vol] 1.97 10*3/uL 0.83-4.51 [facility] Automated lymphocyte count a s percentage of total leukocytesOrdered By: David Mcgowan on 06-25-2023 Lymphocytes/100 WBC Auto (Unsp spec) 23.1 % 19-41 [facility] Basophil percentageOrdered B y: David Vazquezaníbal on 06-25-2023 Basophil percentage 0 SEEN /hpf 0-5 [facility] Basophil percentage 3.8 mg/dL 2.5-4.9 [facility] Basophils/100 WBC (Bld) 0.5 % 0-1 [facility] Bilirubin [Mass/Vol] 0.30 mg/dL 0.20-1.00 [facility] Comment on above: For patients on eltr ombopag therapy, use of Dimension Bernard TBIL is not recommended. Chloride [Moles/Vol] 110 mmol/L 98-107 [facility] Cholesterol [Mass/Vol] 183 mg/dL <200 [facility] Comment on above: <200 mg/dL Desirable 200-240 mg/dL Borderline >240 mg/dL High Risk Eosinophils/100 WBC (Bld) 2.3 % 0-5 [facility] Glucose [Mass/Vol] 83 mg/dL 74-106 [facility] Hemoglobin (Bld) [Mass/Vol] 12.8 g/dL 13.0-16.5 [facility] Monocytes/100 WBC (Bld) 7.4 % 0-10 [facility] Neutrophils (Bld) [#/Vol] 5.7 10*3/uL 2.0-7.7 [facility] Neutrophils/100 WBC (Bld) 66.3 % 47-70 [facility] Potassium [Moles/Vol] 4.8 mmol/L 3.5-5.1 [facility] Protein [Mass/Vol] 7.5 g/dL 6.4-8.2 [facility] Sodium [Moles/Vol] 138 mmol/L 136-145 [facility] Triglyceride [Mass/Vol] 341 mg/dL <199 [facility] Comment on above: The drugs N-Acetylcy steine and Metamizole may falsely depress this assay.Serum Triglycerides Reference Interval Normal <150 mg/dL Borderline high 150 - 199 mg/dL High 200 - 499 mg/dL Very High > or = 500 mg/dL WBC (Bld) [#/Vol] 8.5 10*3/uL 4.4-11.0 [facility] Bilirubin Test strip Ql (U)O rdered By: David Mcgowan on 06-25-2023 Bilirubin Ql (U) Negative Negative [facility] CBC W/Diff, Automatedon 06-05 Absolute Lymph 1.97 X10 3/uL Normal 0.83-4.51 [facility] Comment on above: Order Comment: Order Date: 02/24/23Order Info: [id number] - [id number] Performed By: #### L 509.1000, L501.0900, L506.0400, L501.2300, L500.4100, L506.1000, L501.9985, L3300.0960, L100.0100, L501.9520, L500.4050 #### [facility] [address] [place], [address] Absolute Neut 5.7 X10 3/uL Normal 2.0-7.7 [facility] Comment on above: Order Comment: Order Date: 02/24/23Order Info: [id number] - CBCD Performed By: #### L 509.1000, L501.0900, L506.0400, L501.2300, L500.4100, L506.1000, L501.9985, L3300.0960, L100.0100, L501.9520, L500.4050 #### [facility] [address] [place], [address] Basophils/100 WBC (Bld) 0.5 % Normal 0-1 [facility] Comment on above: Order Comment: Order Date: 02/24/23Order Info: [id number] - CBCD Performed By: #### L 509.1000, L501.0900, L506.0400, L501.2300, L500.4100, L506.1000, L501.9985, L3300.0960, L100.0100, L501.9520, L500.4050 #### [facility] [address] [place], [address] Eosinophils/100 WBC (Bld) 2.3 % Normal 0-5 [facility] Comment on above: Order Comment: Order Date: 02/24/23Order Info: 0184-1 - CBCD Performed By: #### L 509.1000, L501.0900, L506.0400, L501.2300, L500.4100, L506.1000, L501.9985, L3300.0960, L100.0100, L501.9520, L500.4050 #### [facility] [address] [place], [address] Erythrocyte distribution width (RBC) [Ratio] 14.3 % Normal 11.6-14.6 [facility] Comment on above: Order Comment: Order Date: 02/24/23Order Info: 0184-1 - CBCD Performed By: #### L 509.1000, L501.0900, L506.0400, L501.2300, L500.4100, L506.1000, L501.9985, L3300.0960, L100.0100, L501.9520, L500.4050 #### [facility] [address] [place], [place], [id number] [phone] Hematocrit (Bld) [Volume fraction] 39.7 % Low 40-54 [facility] Comment on above: Order Comment: Order Date: 02/24/23Order Info: 0184-1 - CBCD Performed By: #### L 509.1000, L501.0900, L506.0400, L501.2300, L500.4100, L506.1000, L501.9985, L3300.0960, L100.0100, L501.9520, L500.4050 #### [facility] [address] [place], [address] Hemoglobin (Bld) [Mass/Vol] 12.8 g/dL Low 13.0-16.5 [facility] Comment on above: Order Comment: Order Date: 02/24/23Order Info: 183- - CBCD Performed By: #### L 509.1000, L501.0900, L506.0400, L501.2300, L500.4100, L506.1000, L501.9985, L3300.0960, L100.0100, L501.9520, L500.4050 #### [facility] [address] [place], [address] ( IG% 0.400 Normal 0.0-0.9 [facility] Comment on above: Order Comment: Order Date: 02/24/23Order Info: 183- - CBCD Result Comment: IG% - Immature Granulocytes (promyelocytes, myelocytes and metamyelocytes) > 1% indicates that a LEFT SHIFT is Present. Performed By: #### L 509.1000, L501.0900, L506.0400, L501.2300, L500.4100, L506.1000, L501.9985, L3300.0960, L100.0100, L501.9520, L500.4050 #### [facility] [address] [place], [address] Lymphocytes/100 WBC (Bld) 23.1 % Normal 19-41 [facility] Comment on above: Order Comment: Order Date: 02/24/23Order Info: 018- - CBCD Performed By: #### L 509.1000, L501.0900, L506.0400, L501.2300, L500.4100, L506.1000, L501.9985, L3300.0960, L100.0100, L501.9520, L500.4050 #### [facility] [address] [place], [address] MCH (RBC) [Entitic mass] 29.2 pg Normal 27.0-32.0 [facility] Comment on above: Order Comment: Order Date: 02/24/23Order Info: 018- - CBCD Performed By: #### L 509.1000, L501.0900, L506.0400, L501.2300, L500.4100, L506.1000, L501.9985, L3300.0960, L100.0100, L501.9520, L500.4050 #### [facility] [address] [place], [address] MCHC (RBC) [Mass/Vol] 32.2 g/dL Normal 32-36 [facility] Comment on above: Order Comment: Order Date: 02/24/23Order Info: 018- - CBCD Performed By: #### L 509.1000, L501.0900, L506.0400, L501.2300, L500.4100, L506.1000, L501.9985, L3300.0960, L100.0100, L501.9520, L500.4050 #### [facility] [address] [place], [address] MCV (RBC) [Entitic vol] 90.4 fL Normal 80-94 [facility] Comment on above: Order Comment: Order Date: 02/24/23Order Info: 018- - CBCD Performed By: #### L 509.1000, L501.0900, L506.0400, L501.2300, L500.4100, L506.1000, L501.9985, L3300.0960, L100.0100, L501.9520, L500.4050 #### [facility] [address] [place], [address] Monocytes/100 WBC (Bld) 7.4 % Normal 0-10 [facility] Comment on above: Order Comment: Order Date: 02/24/23Order Info: 018- - CBCD Performed By: #### L 509.1000, L501.0900, L506.0400, L501.2300, L500.4100, L506.1000, L501.9985, L3300.0960, L100.0100, L501.9520, L500.4050 #### [facility] [address] [place], [address] Neutrophils/100 WBC (Bld) 66.3 % Normal 47-70 [facility] Comment on above: Order Comment: Order Date: 02/24/23Order Info: 0184-1 - CBCD Performed By: #### L 509.1000, L501.0900, L506.0400, L501.2300, L500.4100, L506.1000, L501.9985, L3300.0960, L100.0100, L501.9520, L500.4050 #### [facility] [address] [place], [place], [phone] (552) Nucleated RBC (Bld) [#/Vol] 0 10*3/uL Normal 0-5 [facility] Comment on above: Order Comment: Order Date: 02/24/23Order Info: 0184-1 - CBCD Performed By: #### L 509.1000, L501.0900, L506.0400, L501.2300, L500.4100, L506.1000, L501.9985, L3300.0960, L100.0100, L501.9520, L500.4050 #### [facility] [address] [place], [place], [phone] (219) Platelet mean volume (Bld) [Entitic vol] 10.5 fL Normal 6.2-12.0 [facility] Comment on above: Order Comment: Order Date: 02/24/23Order Info: 0184-1 - CBCD Performed By: #### L 509.1000, L501.0900, L506.0400, L501.2300, L500.4100, L506.1000, L501.9985, L3300.0960, L100.0100, L501.9520, L500.4050 #### [facility] [address] [place], [address] Platelets (Bld) [#/Vol] 331 10*3/uL Normal 150-450 [facility] Comment on above: Order Comment: Order Date: 02/24/23Order Info: 0184-1 - CBCD Performed By: #### L 509.1000, L501.0900, L506.0400, L501.2300, L500.4100, L506.1000, L501.9985, L3300.0960, L100.0100, L501.9520, L500.4050 #### [facility] [address] [place], [address] RBC (Bld) [#/Vol] 4.39 10*6/uL Low 4.6-6.2 [facility] Comment on above: Order Comment: Order Date: 02/24/23Order Info: 0184-1 - CBCD Performed By: #### L 509.1000, L501.0900, L506.0400, L501.2300, L500.4100, L506.1000, L501.9985, L3300.0960, L100.0100, L501.9520, L500.4050 #### [facility] [address] [place], [address] RDW SD 47.9 fl High 35.1-43.9 [facility] Comment on above: Order Comment: Order Date: 02/24/23Order Info: 0184-1 - CBCD Performed By: #### L 509.1000, L501.0900, L506.0400, L501.2300, L500.4100, L506.1000, L501.9985, L3300.0960, L100.0100, L501.9520, L500.4050 #### [facility] [address] [place], [address] WBC (Bld) [#/Vol] 8.5 10*3/uL Normal 4.4-11.0 [facility] Comment on above: Order Comment: Order Date: 02/24/23Order Info: 0184-1 - CBCD Performed By: #### L 509.1000, L501.0900, L506.0400, L501.2300, L500.4100, L506.1000, L501.9985, L3300.0960, L100.0100, L501.9520, L500.4050 #### [facility] [address] [place], [place], [id number] Comprehensive Metabolic Prof ilon 06-25-2023 Albumin [Mass/Vol] 3.3 g/dL Normal 3.2-5.0 [facility] Comment on above: Order Comment: Order Date: 02/24/23Order Info: [id number] - CMPOrder Info: [id number] - LIPIDOrder Info: [id number] - PHOSOrder Info: 301-3 - TSHOrder Info: 3023-7 - T4F Performed By: #### L 509.1000, L501.0900, L506.0400, L501.2300, L500.4100, L506.1000, L501.9985, L3300.0960, L100.0100, L501.9520, L500.4050 #### [facility] [address] [place], [place], [phone] Albumin/Globulin [Mass ratio] 0.8 {ratio} Low 0.9-2.4 [facility] Comment on above: Order Comment: Order Date: 02/24/23Order Info: [id number] - CMPOrder Info: [id number] - LIPIDOrder Info: [id number]- - PHOSOrder Info: 6-3 - TSHOrder Info: 3024-7 - T4F Performed By: #### L 509.1000, L501.0900, L506.0400, L501.2300, L500.4100, L506.1000, L501.9985, L3300.0960, L100.0100, L501.9520, L500.4050 #### [facility] [address] [place], [address] ALK P 36 U/L Low 45-117 [facility] Comment on above: Order Comment: Order Date: 02/24/23Order Info: 07-1 - CMPOrder Info: [id number] - LIPIDOrder Info: [id number]- - PHOSOrder Info: 3 - TSHOrder Info: 7 - T4F Performed By: #### L 509.1000, L501.0900, L506.0400, L501.2300, L500.4100, L506.1000, L501.9985, L3300.0960, L100.0100, L501.9520, L500.4050 #### [facility] [address] [place], [address] ALT [Catalytic activity/Vol] 27 U/L Normal 16-61 [facility] Comment on above: Order Comment: Order Date: 02/24/23Order Info: 785- - CMPOrder Info: [id number] - LIPIDOrder Info: [id number]- - PHOSOrder Info: 3 - TSHOrder Info: 3023-7 - T4F Performed By: #### L 509.1000, L501.0900, L506.0400, L501.2300, L500.4100, L506.1000, L501.9985, L3300.0960, L100.0100, L501.9520, L500.4050 #### [facility] [address] [place], [address] AST [Catalytic activity/Vol] 27 U/L Normal 15-37 [facility] Comment on above: Order Comment: Order Date: 02/24/23Order Info: [id number] - CMPOrder Info: [id number] - LIPIDOrder Info: 7- - PHOSOrder Info: 3 - TSHOrder Info: 3027 - T4F Performed By: #### L 509.1000, L501.0900, L506.0400, L501.2300, L500.4100, L506.1000, L501.9985, L3300.0960, L100.0100, L501.9520, L500.4050 #### [facility] [address] [place], [address] Bilirubin [Mass/Vol] 0.30 mg/dL Normal 0.20-1.00 [facility] Comment on above: Order Comment: Order Date: 02/24/23Order Info: 0786- - CMPOrder Info: [id number] - LIPIDOrder Info: 277- - PHOSOrder Info: [id number] - TSHOrder Info: 7 - T4F Result Comment: For patients on eltrombopag therapy, use of Dimension Bernard TBIL is not recommended. Performed By: #### L 509.1000, L501.0900, L506.0400, L501.2300, L500.4100, L506.1000, L501.9985, L3300.0960, L100.0100, L501.9520, L500.4050 #### [facility] [address] [place], [address] BUN/CRE 8.9 RATIO Low 10-20 [facility] Comment on above: Order Comment: Order Date: 02/24/23Order Info: 0786- - CMPOrder Info: [id number] - LIPIDOrder Info: [id number]- - PHOSOrder Info: [id number] - TSHOrder Info: 3023-7 - T4F Performed By: #### L 509.1000, L501.0900, L506.0400, L501.2300, L500.4100, L506.1000, L501.9985, L3300.0960, L100.0100, L501.9520, L500.4050 #### [facility] [address] [place], [address] CA,Total 9.0 mg/dL Normal 8.5-10.1 [facility] Comment on above: Order Comment: Order Date: 02/24/23Order Info: 0786- - CMPOrder Info: [id number] - LIPIDOrder Info: [id number] - PHOSOrder Info: [id number] - TSHOrder Info: 3024-7 - T4F Performed By: #### L 509.1000, L501.0900, L506.0400, L501.2300, L500.4100, L506.1000, L501.9985, L3300.0960, L100.0100, L501.9520, L500.4050 #### [facility] [address] [place], [place], [id number] Chloride [Moles/Vol] 110 mmol/L High 98-107 [facility] Comment on above: Order Comment: Order Date: 02/24/23Order Info: [id number] - CMPOrder Info: - LIPIDOrder Info: [id number] - PHOSOrder Info: [id number] - TSHOrder Info: 7 - T4F Performed By: #### L 509.1000, L501.0900, L506.0400, L501.2300, L500.4100, L506.1000, L501.9985, L3300.0960, L100.0100, L501.9520, L500.4050 #### [facility] [address] [address] [place], [place], [address] CO2 [Moles/Vol] 20.0 mmol/L Low 21.0-32.0 [facility] Comment on above: Order Comment: Order Date: 02/24/23Order Info: 0786- - CMPOrder Info: [id number] - LIPIDOrder Info: [id number] - PHOSOrder Info: 3 - TSHOrder Info: 3024-7 - T4F Performed By: #### L 509.1000, L501.0900, L506.0400, L501.2300, L500.4100, L506.1000, L501.9985, L3300.0960, L100.0100, L501.9520, L500.4050 #### [facility] [address] [place], [address] Creatinine [Mass/Vol] 3.38 mg/dL High 0.70-1.30 [facility] Comment on above: Order Comment: Order Date: 02/24/23Order Info: 0786-1 - CMPOrder Info: [id number] - LIPIDOrder Info: [id number] - PHOSOrder Info: [id number] - TSHOrder Info: 7 - T4F Result Comment: The validity of the calculated GFR GFRAA in patients over 70 years has not been determined. Clinical correlation is essential. Performed By: #### L 509.1000, L501.0900, L506.0400, L501.2300, L500.4100, L506.1000, L501.9985, L3300.0960, L100.0100, L501.9520, L500.4050 #### [facility] [address] [place], [address] EST GFR - AA 23 mL/min Low >60 [facility] Comment on above: Order Comment: Order Date: 02/24/23Order Info: 86- - CMPOrder Info: [id number] - LIPIDOrder Info: [id number] - PHOSOrder Info: [id number] - TSHOrder Info: 7 - T4F Result Comment: Afri can Ukrainian GFR Calc Performed By: #### L 509.1000, L501.0900, L506.0400, L501.2300, L500.4100, L506.1000, L501.9985, L3300.0960, L100.0100, L501.9520, L500.4050 #### [facility] [address] [place], [address] GAP 8 Normal 5-15 [facility] Comment on above: Order Comment: Order Date: 02/24/23Order Info: [id number] - CMPOrder Info: [id number] - LIPIDOrder Info: [id number] - PHOSOrder Info: [id number] - TSHOrder Info: 3024-7 - T4F Performed By: #### L 509.1000, L501.0900, L506.0400, L501.2300, L500.4100, L506.1000, L501.9985, L3300.0960, L100.0100, L501.9520, L500.4050 #### [facility] [address] [place], [place], [phone] GFR/1.73 sq M.predicted among non-blacks MDRD (S/P/Bld) [Vol rate/Area] 19 mL/min/{1.73_m2} Low >60 [facility] Comment on above: Order Comment: Order Date: 02/24/23Order Info: 0786- - CMPOrder Info: [id number] - LIPIDOrder Info: [id number] - PHOSOrder Info: 3 - TSHOrder Info: 3023-10 - T4F Result Comment: Non- GFR Calc Performed By: #### L 509.1000, L501.0900, L506.0400, L501.2300, L500.4100, L506.1000, L501.9985, L3300.0960, L100.0100, L501.9520, L500.4050 #### [facility] [address] [place], [place], [phone] (174) Globulin (S) [Mass/Vol] 4.2 g/dL Normal 2.2-4.2 [facility] Comment on above: Order Comment: Order Date: 02/24/23Order Info: 0786 - CMPOrder Info: [id number] - LIPIDOrder Info: [id number] - PHOSOrder Info: 3 - TSHOrder Info: 7 - T4F Performed By: #### L 509.1000, L501.0900, L506.0400, L501.2300, L500.4100, L506.1000, L501.9985, L3300.0960, L100.0100, L501.9520, L500.4050 #### [facility] [address] [place], [address] Glucose [Mass/Vol] 83 mg/dL Normal 74-106 [facility] Comment on above: Order Comment: Order Date: 02/24/23Order Info: 07-1 - CMPOrder Info: [id number] - LIPIDOrder Info: [id number]- - PHOSOrder Info: 3 - TSHOrder Info: 7 - T4F Performed By: #### L 509.1000, L501.0900, L506.0400, L501.2300, L500.4100, L506.1000, L501.9985, L3300.0960, L100.0100, L501.9520, L500.4050 #### [facility] [address] [place], [address] Potassium [Moles/Vol] 4.8 mmol/L Normal 3.5-5.1 [facility] Comment on above: Order Comment: Order Date: 02/24/23Order Info: [id number] - CMPOrder Info: - LIPIDOrder Info: [id number] - PHOSOrder Info: [id number] - TSHOrder Info: 7 - T4F Performed By: #### L 509.1000, L501.0900, L506.0400, L501.2300, L500.4100, L506.1000, L501.9985, L3300.0960, L100.0100, L501.9520, L500.4050 #### [facility] [address] [place], [address] Sodium [Moles/Vol] 138 mmol/L Normal 136-145 [facility] Comment on above: Order Comment: Order Date: 02/24/23Order Info: [id number] - CMPOrder Info: [id number] - LIPIDOrder Info: [id number]- - PHOSOrder Info: 3 - TSHOrder Info: 3027 - T4F Performed By: #### L 509.1000, L501.0900, L506.0400, L501.2300, L500.4100, L506.1000, L501.9985, L3300.0960, L100.0100, L501.9520, L500.4050 #### [facility] [address] [place], [place], [phone] T PROT 7.5 g/dL Normal 6.4-8.2 [facility] Comment on above: Order Comment: Order Date: 02/24/23Order Info: 0786- - CMPOrder Info: [id number] - LIPIDOrder Info: [id number] - PHOSOrder Info: 3 - TSHOrder Info: 7 - T4F Performed By: #### L 509.1000, L501.0900, L506.0400, L501.2300, L500.4100, L506.1000, L501.9985, L3300.0960, L100.0100, L501.9520, L500.4050 #### [facility] [address] [place], [address] Urea nitrogen [Mass/Vol] 30 mg/dL High 7-18 [facility] Comment on above: Order Comment: Order Date: 02/24/23Order Info: 0786 - CMPOrder Info: [id number] - LIPIDOrder Info: [id number] - PHOSOrder Info: [id number] - TSHOrder Info: 7 - T4F Performed By: #### L 509.1000, L501.0900, L506.0400, L501.2300, L500.4100, L506.1000, L501.9985, L3300.0960, L100.0100, L501.9520, L500.4050 #### [facility] [address] [facility] [address] [place], [place], [phone] Determination of erythrocyte mean corpuscular volume (MCV)Ordered By: David Mcgowan on 06-25-2023 MCV (RBC) [Entitic vol] 90.4 fL 80-94 [facility] Erythrocyte distribution wid th ratioOrdered By: David Mcgowan on 06-25-2023 Erythrocyte distribution width (RBC) [Ratio] 14.3 % 11.6-14.6 [facility] Erythrocyte distribution wid th standard deviationOrdered By: David Mcgowan on 06-25-2023 Erythrocyte distribution width (RBC) [Entitic vol] 47.9 fL 35.1-43.9 [facility] Hematocrit Auto (Bld) [Volum e fraction]Ordered By: David Mcgowan on 06-25-2023 Hematocrit (Bld) [Volume fraction] 39.7 % 40-54 [facility] Hemoglobin A1con 06-25-2023 HbA1c (Bld) [Mass fraction] 6.4 % High 3.8-5.6 [facility] Comment on above: Order Comment: Order Date: 02/24/23Order Info: [id number] - A1C Result Comment: Norm al < 5.7 % Prediabetic 5.7 - 6.4 % Diabetic >or= 6.5 % Please note range changes. Performed By: #### L 509.1000, L501.0900, L506.0400, L501.2300, L500.4100, L506.1000, L501.9985, L3300.0960, L100.0100, L501.9520, L500.4050 #### [facility] [address] [place], [address] Immature granulocytes/100 WB C Auto (Bld)Ordered By: David Mcgowan on 06-25-2023 Immature granulocytes/100 WBC (Bld) 0.400 % 0.0-0.9 [facility] Comment on above: IG% - Immature Granu locytes (promyelocytes, myelocytes and metamyelocytes) > 1% indicates that a LEFT SHIFT is Present. Ketones Test strip Ql (U)Ord ered By: David Mcgowan on 06-25-2023 Ketones Ql (U) 5 mg/dl Negative [facility] - Chemistry and C hemistry - challengeOrdered By: David Mcgowan on 06-25-2023 Albumin/Globulin [Mass ratio] 0.8 {ratio} 0.9-2.4 [facility] ALP [Catalytic activity/Vol] 36 U/L 45-117 [facility] ALT [Catalytic activity/Vol] 27 U/L 16-61 [facility] Cholesterol in HDL [Mass/Vol] 38 mg/dL >40 [facility] Comment on above: The drugs N-Acetylcy steine and Metamizole may falsely depress this assay. Reference Range HDL <40 mg/dL Low HDL Cholesterol HDL >or= 60 mg/dL High HDL Cholesterol Cholesterol in LDL [Mass/Vol] 77 mg/dL 0-130 [facility] CO2 [Moles/Vol] 20.0 mmol/L 21.0-32.0 [facility] Globulin (S) [Mass/Vol] 4.2 g/dL 2.2-4.2 [facility] Urea nitrogen/Creatinine [Mass ratio] 8.9 mg/mg 10-20 [facility] - Hematology and Cell countsOrdered By: David Mcgowan on 06-25-2023 MCH (RBC) [Entitic mass] 29.2 pg 27.0-32.0 [facility] MCHC (RBC) [Mass/Vol] 32.2 g/dL 32-36 [facility] Nucleated RBC/100 WBC (Bld) [Ratio] 0 % 0-5 [facility] Platelet mean volume (Bld) [Entitic vol] 10.5 fL 6.2-12.0 [facility] Platelets (Bld) [#/Vol] 331 10*3/uL 150-450 [facility] Lipid Profileon 06-25-2023 Cholesterol [Mass/Vol] 183 mg/dL Normal 200 [facility] Comment on above: Order Comment: Order Date: 02/24/23Order Info: [id number] - CMPOrder Info: [id number] - LIPIDOrder Info: [id number] - PHOSOrder Info: [id number] - TSHOrder Info: [id number] - T4F Result Comment: <200 mg/dL Desirable 200-240 mg/dL Borderline >240 mg/dL High Risk Performed By: #### L 509.1000, L501.0900, L506.0400, L501.2300, L500.4100, L506.1000, L501.9985, L3300.0960, L100.0100, L501.9520, L500.4050 #### [facility] [address] [place], [address] Cholesterol in HDL [Mass/Vol] 38 mg/dL Low [facility] Comment on above: Order Comment: Order Date: 02/24/23Order Info: [id number]- - CMPOrder Info: [id number] - LIPIDOrder Info: [id number] - PHOSOrder Info: 3 - TSHOrder Info: 7 - T4F Result Comment: The drugs N-Acetylcysteine and Metamizole may falsely depress this assay. Reference Range HDL <40 mg/dL Low HDL Cholesterol HDL >or= 60 mg/dL High HDL Cholesterol Performed By: #### L 509.1000, L501.0900, L506.0400, L501.2300, L500.4100, L506.1000, L501.9985, L3300.0960, L100.0100, L501.9520, L500.4050 #### [facility] [address] [place], [address] Cholesterol in LDL [Mass/Vol] 77 mg/dL Normal 0-130 [facility] Comment on above: Order Comment: Order Date: 02/24/23Order Info: [id number] - CMPOrder Info: - LIPIDOrder Info: [id number] - PHOSOrder Info: 3 - TSHOrder Info: 7 - T4F Performed By: #### L 509.1000, L501.0900, L506.0400, L501.2300, L500.4100, L506.1000, L501.9985, L3300.0960, L100.0100, L501.9520, L500.4050 #### [facility] [address] [place], [address] Cholesterol in VLDL [Mass/Vol] 68 mg/dL High 5-40 [facility] Comment on above: Order Comment: Order Date: 02/24/23Order Info: [id number]- - CMPOrder Info: [id number] - LIPIDOrder Info: [id number] - PHOSOrder Info: [id number] - TSHOrder Info: 302-7 - T4F Performed By: #### L 509.1000, L501.0900, L506.0400, L501.2300, L500.4100, L506.1000, L501.9985, L3300.0960, L100.0100, L501.9520, L500.4050 #### [facility] [address] [place], [place], [address] Triglyceride [Mass/Vol] 341 mg/dL High [facility] Comment on above: Order Comment: Order Date: 02/24/23Order Info: [id number] - CMPOrder Info: [id number] - LIPIDOrder Info: [id number] - PHOSOrder Info: [id number] - TSHOrder Info: 3027 - T4F Result Comment: The drugs N-Acetylcysteine and Metamizole may falsely depress this assay. Serum Triglycerides Reference Interval Normal <150 mg/dL Borderline high 150 - 199 mg/dL High 200 - 499 mg/dL Very High > or = 500 mg/dL Performed By: #### L 509.1000, L501.0900, L506.0400, L501.2300, L500.4100, L506.1000, L501.9985, L3300.0960, L100.0100, L501.9520, L500.4050 #### [facility] [address] [place], [place], [address] Mucus LM Ql (Urine sed)Order ed By: David Mcgowan on 06-25-2023 Mucus Ql (Urine sed) 0 SEEN /hpf [facility] Nitrite Test strip Ql (U)Ord ered By: David Mcgowan on 06-25-2023 Nitrite Ql (U) Negative Negative [facility] No Panel InformationOrdered By: David Mcgowan on 06-25-2023 Urine RBC 0 SEEN /hpf 0-5 [facility] Estimated GFR (MDRD) Amer 23 mL/min >60 [facility] Comment on above: GFR Calc Estimated GFR (MDRD) Non-Af Amer 19 mL/min >60 [facility] Comment on above: Non- GFR Calc Parathyroid Hormone (Intact) 218.8 pg/mL 18.4-80.1 [facility] Vitamin D 25-Hydroxy 42.2 ng/mL [facility] Comment on above: Vitamin D 25(OH) Sta tus Range Deficiency <20 ng/mL (50nmol/L) Insufficiency 20 - 30 ng/mL (50 - 75 nmol/L) Sufficiency 30 - 100 ng/mL (75 - 250 nmol/L) Toxicity >100 ng/mL (>250 nmol/L) VLDL Cholesterol 68 mg/dL 5-40 [facility] PTHINon 06-25-2023 PTH 218.8 pg/mL High 18.4-80.1 [facility] Comment on above: Order Comment: Order Date: 02/24/23Order Info: [id number] - PTHIN Performed By: #### L 509.1000, L501.0900, L506.0400, L501.2300, L500.4100, L506.1000, L501.9985, L3300.0960, L100.0100, L501.9520, L500.4050 #### [facility] [address] [place], [address] Phosphoruson 06-25-2023 Phosphate [Mass/Vol] 3.8 mg/dL Normal 2.5-4.9 [facility] Comment on above: Order Comment: Order Date: 02/24/23Order Info: [id number] - CMPOrder Info: [id number] - LIPIDOrder Info: [id number] - PHOSOrder Info: [id number] - TSHOrder Info: [id number] - T4F Performed By: #### L 509.1000, L501.0900, L506.0400, L501.2300, L500.4100, L506.1000, L501.9985, L3300.0960, L100.0100, L501.9520, L500.4050 #### [facility] [address] [place], [address] Protein Test strip Ql (U)Ord ered By: David Mcgowan on 06-25-2023 Protein Ql (U) 500 mg/dl Negative [facility] RBC Auto (Bld) [#/Vol]Ordere d By: David Mcgowan on 06-25-2023 RBC (Bld) [#/Vol] 4.39 10*6/uL 4.6-6.2 [facility] Serum or plasma calcitriol m easurement (mass/volume)Ordered By: David Mcgowan on 06-25-2023 1,25-dihydroxyvitamin D3 [Mass/Vol] 24.2 pg/mL 24.8-81.5 [facility] Comment on above: Performed at: [employer] [address] [id number] Director: Staci Umana MD, Phone: [phone] Serum or plasma calcium heidy urement (mass/volume)Ordered By: David Mcgowan on 06-25-2023 Calcium [Mass/Vol] 9.0 mg/dL 8.5-10.1 [facility] Serum or plasma creatinine m easurement (mass/volume)Ordered By: David Mcgowan on 06-25-2023 Creatinine [Mass/Vol] 3.38 mg/dL 0.70-1.30 [facility] Comment on above: The validity of the calculated GFR & GFRAA in patients over 70 years has not been determined. Clinical correlation is essential. Serum or plasma thyroid stim ulating hormone (TSH) measurement (units/volume)Ordered By: David Mcgowan on 06-25-2023 TSH Qn 2.26 uIU/mL 0.358-3.74 [facility] Serum or plasma urea nitroge n measurement (mass/volume)Ordered By: David Mcgowan on 06-25-2023 Urea nitrogen [Mass/Vol] 30 mg/dL 7-18 [facility] Squamous epithelial cells de tection in urine sediment by light microscopyOrdered By: David Mcgowan on 06-25-2023 Epithelial cells.squamous LM Ql (Urine sed) 0 SEEN /hpf 0-5 [facility] T4 Free Directon 06-25-2023 T4 FREE DIRECT 1.09 ng/dL Normal 0.76-1.46 [facility] Comment on above: Order Comment: Order Date: 02/24/23Order Info: [id number] - CMPOrder Info: [id number] - LIPIDOrder Info: [id number] - PHOSOrder Info: [id number] - TSHOrder Info: [id number] - [id number] Performed By: #### L 509.1000, L501.0900, L506.0400, L501.2300, L500.4100, L506.1000, L501.9985, L3300.0960, L100.0100, L501.9520, L500.4050 #### [facility] [address] [place], [address] Thin prep Papanicolaou smear with manual screeningOrdered By: David Mcgowan on 06-25-2023 Thin prep Papanicolaou smear with manual screening 3.3 g/dL 3.2-5.0 [facility] Thin prep Papanicolaou smear with manual screening 27 U/L 15-37 [facility] Thin prep Papanicolaou smear with manual screening 8 5-15 [facility] Thin prep Papanicolaou smear with manual screening 1.09 ng/dL 0.76-1.46 [facility] Thyroid Stim Hormone (TSH)on 06-25-2023 TSH 2.26 uIU/mL Normal 0.358-3.74 [facility] Comment on above: Order Comment: Order Date: 02/24/23Order Info: [id number] CMPOrder Info: [id number] - LIPIDOrder Info: [id number] - PHOSOrder Info: [id number] - TSHOrder Info: [id number] - T4F Performed By: #### L 509.1000, L501.0900, L506.0400, L501.2300, L500.4100, L506.1000, L501.9985, L3300.0960, L100.0100, L501.9520, L500.4050 #### [facility] [address] [place], [place], [id number] Urinalysis, Completeon 06-24 BACTERIA 0 SEEN Normal None Seen [facility] Comment on above: Order Comment: CLEAN CATCH Performed By: #### L 509.1000, L501.0900, L506.0400, L501.2300, L500.4100, L506.1000, L501.9985, L3300.0960, L100.0100, L501.9520, L500.4050 #### [facility] [address] [place], [place], [phone] ([phone]) EPI,SQUAMOUS 0 SEEN Normal 0-5 [facility] Comment on above: Order Comment: CLEAN CATCH Performed By: #### L 509.1000, L501.0900, L506.0400, L501.2300, L500.4100, L506.1000, L501.9985, L3300.0960, L100.0100, L501.9520, L500.4050 #### [facility] [address] [place], [place], [phone] Mucus Ql (Urine sed) 0 SEEN Normal [facility] Comment on above: Order Comment: CLEAN CATCH Performed By: #### L 509.1000, L501.0900, L506.0400, L501.2300, L500.4100, L506.1000, L501.9985, L3300.0960, L100.0100, L501.9520, L500.4050 #### [facility] [address] [place], [place], [phone] ([phone]) RBC 0 SEEN Normal 0-5 [facility] Comment on above: Order Comment: CLEAN CATCH Performed By: #### L 509.1000, L501.0900, L506.0400, L501.2300, L500.4100, L506.1000, L501.9985, L3300.0960, L100.0100, L501.9520, L500.4050 #### [facility] [address] [place], [address] WBC 0 SEEN Normal 0-5 [facility] Comment on above: Order Comment: CLEAN CATCH Performed By: #### L 509.1000, L501.0900, L506.0400, L501.2300, L500.4100, L506.1000, L501.9985, L3300.0960, L100.0100, L501.9520, L500.4050 #### [facility] [address] [place], [address] Urine blood detectionOrdered By: David Mcgowan on 06-25-2023 RBC Ql (U) 25 /ul Negative [facility] Urine clarityOrdered By: Diogo Mcgowan on 06-25-2023 Clarity (U) Clear Clear [facility] Urine color determinationOrd ered By: David Mcgowan on 06-25-2023 Color (U) Yellow Yellow [facility] Urine glucose detectionOrder ed By: David Mcgowan on 06-25-2023 Glucose Ql (U) 50 mg/dl Normal [facility] Urine leukocyte esterase det ection by dipstickOrdered By: David Mcgowan on 06-25-2023 Leukocyte esterase Test strip Ql (U) Negative Negative [facility] Urine pHOrdered By: David marley on 06-25-2023 pH (U) 6.0 [pH] 5.0 - 8.0 [facility] Urine sediment bacteria coun t by microscopy (number/high power field)Ordered By: David Mcgowan on 06-25-2023 Bacteria LM.HPF (Urine sed) [#/Area] 0 /[HPF] None Seen [facility] Urine specific gravity measu rementOrdered By: David Mcgowan on 06-25-2023 Specific gravity (U) [Rel density] 1.015 1.002-1.03 0 [facility] Urine urobilinogen measureme ntOrdered By: David Mcgowan on 06-25-2023 Urobilinogen Ql (U) Normal mg/dl Normal [facility] Vitamin D,25 Hydroxyon 06-24 Vitamin D 25-OH 42.2 ng/mL Normal [facility] Comment on above: Order Comment: Order Date: 02/24/23Order Info: [id number] - [id number] Result Comment: Zuleyka min D 25(OH) Status Range Deficiency <20 ng/mL (50nmol/L) Insufficiency 20 - 30 ng/mL (50 - 75 nmol/L) Sufficiency 30 - 100 ng/mL (75 - 250 nmol/L) Toxicity >100 ng/mL (>250 nmol/L) Performed By: #### L 509.1000, L501.0900, L506.0400, L501.2300, L500.4100, L506.1000, L501.9985, L3300.0960, L100.0100, L501.9520, L500.4050 #### [facility] [address] [place], [address] Whole blood hemoglobin A1c/t otal hemoglobin ratio (mass fraction)Ordered By: David Mcgowan on 06-25-2023 HbA1c (Bld) [Mass fraction] 6.4 % 3.8-5.6 [facility] Comment on above: Normal < 5.7 % Predi abetic 5.7 - 6.4 % Diabetic >or= 6.5 % Please note range changes. Basophil percentageOrdered B y: Dinorah Kpaadia on 05-07-2023 Basophil percentage 3.6 mg/dL 2.5-4.9 [facility] Chloride [Moles/Vol] 109 mmol/L 98-107 [facility] Glucose [Mass/Vol] 188 mg/dL 74-106 [facility] Comment on above: Fasting Glucose resu lt greater than or equal to 126 mg/dL suggests DIABETES MELLITUS per A.D.A. criteria. Hemoglobin (Bld) [Mass/Vol] 11.8 g/dL 13.0-16.5 [facility] Potassium [Moles/Vol] 4.7 mmol/L 3.5-5.1 [facility] Sodium [Moles/Vol] 135 mmol/L 136-145 [facility] WBC (Bld) [#/Vol] 7.4 10*3/uL 4.4-11.0 [facility] Determination of erythrocyte mean corpuscular volume (MCV)Ordered By: Dinorah Kapadia on 05-07-2023 MCV (RBC) [Entitic vol] 91.1 fL 80-94 [facility] Erythrocyte distribution wid th ratioOrdered By: Dinorah Kapadia on 05-07-2023 Erythrocyte distribution width (RBC) [Ratio] 14.7 % 11.6-14.6 [facility] Erythrocyte distribution wid th standard deviationOrdered By: Dinorah Kapadia on 05-07-2023 Erythrocyte distribution width (RBC) [Entitic vol] 49.0 fL 35.1-43.9 [facility] Hematocrit Auto (Bld) [Volum e fraction]Ordered By: Dinorah Kapadia on 05-07-2023 Hematocrit (Bld) [Volume fraction] 37.9 % 40-54 [facility] - Chemistry and C hemistry - challengeOrdered By: Dinorah Kapadia on 05-07-2023 CO2 [Moles/Vol] 20.0 mmol/L 21.0-32.0 [facility] Parathyrin.intact (Tissue fine needle aspirate) [Mass/Vol] 244.3 pg/mL 18.4-80.1 [facility] Urea nitrogen/Creatinine [Mass ratio] 9.5 mg/mg 10-20 [facility] - Hematology and Cell countsOrdered By: Dinorah Kapadia on 05-07-2023 MCH (RBC) [Entitic mass] 28.4 pg 27.0-32.0 [facility] MCHC (RBC) [Mass/Vol] 31.1 g/dL 32-36 [facility] Platelets (Bld) [#/Vol] 317 10*3/uL 150-450 [facility] No Panel InformationOrdered By: Dinorah Kapadia on 05-07-2023 Estimated GFR (MDRD) Amer 25 mL/min >60 [facility] Comment on above: GFR Calc Estimated GFR (MDRD) Non-Af Amer 21 mL/min >60 [facility] Comment on above: Non- GFR Calc Vitamin D 25-Hydroxy 41.4 ng/mL [facility] Comment on above: Vitamin D 25(OH) Sta tus Range Deficiency <20 ng/mL (50nmol/L) Insufficiency 20 - 30 ng/mL (50 - 75 nmol/L) Sufficiency 30 - 100 ng/mL (75 - 250 nmol/L) Toxicity >100 ng/mL (>250 nmol/L) Platelet mean volume Yoshi-Ec ker (Bld) [Entitic vol]Ordered By: Dinorah Kapadia on 05-07-2023 Platelet mean volume (Bld) [Entitic vol] 10.4 fL 6.2-12.0 [facility] RBC Auto (Bld) [#/Vol]Ordere d By: Dinorah Kapadia on 05-07-2023 RBC (Bld) [#/Vol] 4.16 10*6/uL 4.6-6.2 [facility] Serum or plasma calcium heidy urement (mass/volume)Ordered By: Dinorah Kapadia on 05-07-2023 Calcium [Mass/Vol] 9.0 mg/dL 8.5-10.1 [facility] Serum or plasma creatinine m easurement (mass/volume)Ordered By: Dinorah Kapadia on 05-07-2023 Creatinine [Mass/Vol] 3.15 mg/dL 0.70-1.30 [facility] Comment on above: The validity of the calculated GFR & GFRAA in patients over 70 years has not been determined. Clinical correlation is essential. Serum or plasma urea nitroge n measurement (mass/volume)Ordered By: Dinorah Kapadia on 05-07-2023 Urea nitrogen [Mass/Vol] 30 mg/dL 7-18 [facility] Thin prep Papanicolaou smear with manual screeningOrdered By: Dinorah Kapadia on 05-07-2023 Protein (U) [Mass/Vol] 479.7 mg/dL 0.0-11.8 [facility] Thin prep Papanicolaou smear with manual screening 3.4 g/dL 3.2-5.0 [facility] Urine creatinine measurement (mass/volume)Ordered By: Dinorah Kapadia on 05-07-2023 Creatinine (U) [Mass/Vol] 87.10 mg/dL NO RANGE EST. [facility] Urine protein/creatinine mas s ratioOrdered By: Dinorah Kapadia on 05-07-2023 Protein/Creatinine (U) [Mass ratio] 5507 mg/g CRE 0-200 [facility] Absolute lymphocyte countOrd ered By: David Mcgowan on 02-20-2023 Lymphocytes Auto (Unsp spec) [#/Vol] 1.45 10*3/uL 0.83-4.51 [facility] Basophil percentageOrdered B y: David Mcgowan on 02-20-2023 Basophils/100 WBC (Bld) 0.5 % 0-1 [facility] Bilirubin [Mass/Vol] 0.20 mg/dL 0.20-1.00 [facility] Comment on above: For patients on eltr ombopag therapy, use of Dimension Bernard TBIL is not recommended. Chloride [Moles/Vol] 110 mmol/L 98-107 [facility] Cholesterol [Mass/Vol] 172 mg/dL <200 [facility] Comment on above: <200 mg/dL Desirable 200-240 mg/dL Borderline >240 mg/dL High Risk Eosinophils/100 WBC (Bld) 2.3 % 0-5 [facility] Glucose [Mass/Vol] 167 mg/dL 74-106 [facility] Comment on above: Fasting Glucose resu lt greater than or equal to 126 mg/dL suggests DIABETES MELLITUS per A.D.A. criteria. Neutrophils (Bld) [#/Vol] 5.6 10*3/uL 2.0-7.7 [facility] Neutrophils/100 WBC (Bld) 71.1 % 47-70 [facility] Potassium [Moles/Vol] 5.0 mmol/L 3.5-5.1 [facility] Protein [Mass/Vol] 7.8 g/dL 6.4-8.2 [facility] Sodium [Moles/Vol] 138 mmol/L 136-145 [facility] Triglyceride [Mass/Vol] 348 mg/dL <199 [facility] Comment on above: The drugs N-Acetylcy steine and Metamizole may falsely depress this assay.Serum Triglycerides Reference Interval Normal <150 mg/dL Borderline high 150 - 199 mg/dL High 200 - 499 mg/dL Very High > or = 500 mg/dL WBC (Bld) [#/Vol] 7.8 10*3/uL 4.4-11.0 [facility] Blood erythrocytes count (nu mber/volume)Ordered By: David Mcgowan on 02-20-2023 RBC (Bld) [#/Vol] 4.28 10*6/uL 4.6-6.2 [facility] Blood hemoglobin measurement (mass/volume)Ordered By: David Mcgowan on 02-20-2023 Hemoglobin (Bld) [Mass/Vol] 12.0 g/dL 13.0-16.5 [facility] Blood lymphocytes/100 leukoc ytesOrdered By: David Mcgowan on 02-20-2023 Lymphocytes/100 WBC (Bld) 18.6 % 19-41 [facility] Blood monocytes/100 leukocyt esOrdered By: David Mcgowan on 02-20-2023 Monocytes/100 WBC (Bld) 7.1 % 0-10 [facility] Blood platelet mean volumeOr dered By: David Mcgowan on 02-20-2023 Platelet mean volume (Bld) [Entitic vol] 10.4 fL 6.2-12.0 [facility] Determination of erythrocyte mean corpuscular volume (MCV)Ordered By: David Mcgowan on 02-20-2023 MCV (RBC) [Entitic vol] 91.4 fL 80-94 [facility] Hematocrit Auto (Bld) [Volum e fraction]Ordered By: David Mcgowan on 02-20-2023 Hematocrit (Bld) [Volume fraction] 39.1 % 40-54 [facility] - Chemistry and C hemistry - challengeOrdered By: David Mcgowan on 02-20-2023 ALP [Catalytic activity/Vol] 40 U/L 45-117 [facility] ALT [Catalytic activity/Vol] 24 U/L 16-61 [facility] CO2 [Moles/Vol] 20.0 mmol/L 21.0-32.0 [facility] Free T4 [Mass/Vol] 1.02 ng/dL 0.76-1.46 [facility] Globulin (S) [Mass/Vol] 4.4 g/dL 2.2-4.2 [facility] Urea nitrogen/Creatinine [Mass ratio] 12.3 mg/mg 10-20 [facility] - Hematology and Cell countsOrdered By: David Mcgowan on 02-20-2023 Erythrocyte distribution width (RBC) [Entitic vol] 50.3 fL 35.1-43.9 [facility] Erythrocyte distribution width (RBC) [Ratio] 15.1 % 11.6-14.6 [facility] Immature granulocytes/100 WBC (Bld) 0.400 % 0.0-0.9 [facility] Comment on above: IG% - Immature Granu locytes (promyelocytes, myelocytes and metamyelocytes) > 1% indicates that a LEFT SHIFT is Present. MCH (RBC) [Entitic mass] 28.0 pg 27.0-32.0 [facility] Nucleated RBC/100 WBC (Bld) [Ratio] 0 % 0-5 [facility] MCHC Auto (RBC) [Mass/Vol]Or dered By: David Mcgowan on 02-20-2023 MCHC (RBC) [Mass/Vol] 30.7 g/dL 32-36 [facility] No Panel InformationOrdered By: David Mcgowan on 02-20-2023 Estimated GFR (MDRD) Amer 26 mL/min >60 [facility] Comment on above: GFR Calc Estimated GFR (MDRD) Non-Af Amer 22 mL/min >60 [facility] Comment on above: Non- GFR Calc Thyroid Stimulating Hormone (TSH) 0.52 uIU/mL 0.358-3.74 [facility] Vitamin D 25-Hydroxy 62.4 ng/mL [facility] Comment on above: Vitamin D 25(OH) Sta tus Range Deficiency <20 ng/mL (50nmol/L) Insufficiency 20 - 30 ng/mL (50 - 75 nmol/L) Sufficiency 30 - 100 ng/mL (75 - 250 nmol/L) Toxicity >100 ng/mL (>250 nmol/L) Platelets bldOrdered By: Diogo Mcgowan on 02-20-2023 Platelets (Bld) [#/Vol] 355 10*3/uL 150-450 [facility] Serum or plasma albumin heidy urement (mass/volume)Ordered By: David Mcgowan on 02-20-2023 Albumin [Mass/Vol] 3.4 g/dL 3.2-5.0 [facility] Serum or plasma albumin/glob ulin mass ratioOrdered By: David Mcgowan on 02-20-2023 Albumin/Globulin [Mass ratio] 0.8 {ratio} 0.9-2.4 [facility] Serum or plasma calcium heidy urement (mass/volume)Ordered By: David Mcgowan on 02-20-2023 Calcium [Mass/Vol] 8.8 mg/dL 8.5-10.1 [facility] Serum or plasma cholesterol in HDL measurement (mass/volume)Ordered By: David Mcgowan on 02-20-2023 Cholesterol in HDL [Mass/Vol] 36 mg/dL >40 [facility] Comment on above: The drugs N-Acetylcy steine and Metamizole may falsely depress this assay. Reference Range HDL <40 mg/dL Low HDL Cholesterol HDL >or= 60 mg/dL High HDL Cholesterol Serum or plasma cholesterol in VLDL measurement (mass/volume)Ordered By: David Mcgowan on 02-20-2023 Cholesterol in VLDL [Mass/Vol] 70 mg/dL 5-40 [facility] Serum or plasma creatinine m easurement (mass/volume)Ordered By: David Mcgowan on 02-20-2023 Creatinine [Mass/Vol] 3.02 mg/dL 0.70-1.30 [facility] Comment on above: The validity of the calculated GFR & GFRAA in patients over 70 years has not been determined. Clinical correlation is essential. Serum or plasma low density lipoprotein (LDL) cholesterol measurement (mass/volume)Ordered By: David Mcgowan on 02-20-2023 Cholesterol in LDL [Mass/Vol] 66 mg/dL 0-130 [facility] Serum or plasma urea nitroge n measurement (mass/volume)Ordered By: David Mcgowan on 02-20-2023 Urea nitrogen [Mass/Vol] 37 mg/dL 7-18 [facility] Thin prep Papanicolaou smear with manual screeningOrdered By: David Mcgowan on 02-20-2023 Thin prep Papanicolaou smear with manual screening 23 U/L 15-37 [facility] Thin prep Papanicolaou smear with manual screening 8 5-15 [facility] Whole blood hemoglobin A1c/t otal hemoglobin ratio (mass fraction)Ordered By: David Mcgowan on 02-20-2023 HbA1c (Bld) [Mass fraction] 6.5 % 3.8-5.6 [facility] Comment on above: Normal < 5.7 % Predi abetic 5.7 - 6.4 % Diabetic >or= 6.5 % Please note range changes. Absolute lymphocyte countOrd ered By: David Mcgowan on 10-20-2022 Lymphocytes Auto (Unsp spec) [#/Vol] 1.69 10*3/uL 0.83-4.51 [facility] Basophil percentageOrdered B y: David Mcgowan on 10-20-2022 Basophil percentage 3.6 mg/dL 2.5-4.9 [facility] Basophils/100 WBC (Bld) 0.5 % 0-1 [facility] Bilirubin [Mass/Vol] 0.20 mg/dL 0.20-1.00 [facility] Comment on above: For patients on eltr ombopag therapy, use of Dimension Bernard TBIL is not recommended. Chloride [Moles/Vol] 112 mmol/L 98-107 [facility] Cholesterol [Mass/Vol] 126 mg/dL <200 [facility] Comment on above: <200 mg/dL Desirable 200-240 mg/dL Borderline >240 mg/dL High Risk Eosinophils/100 WBC (Bld) 3.1 % 0-5 [facility] Glucose [Mass/Vol] 156 mg/dL 74-106 [facility] Comment on above: Fasting Glucose resu lt greater than or equal to 126 mg/dL suggests DIABETES MELLITUS per A.D.A. criteria. Neutrophils (Bld) [#/Vol] 5.5 10*3/uL 2.0-7.7 [facility] Neutrophils/100 WBC (Bld) 69.0 % 47-70 [facility] Potassium [Moles/Vol] 4.9 mmol/L 3.5-5.1 [facility] Protein [Mass/Vol] 7.9 g/dL 6.4-8.2 [facility] Sodium [Moles/Vol] 138 mmol/L 136-145 [facility] Triglyceride [Mass/Vol] 290 mg/dL <199 [facility] Comment on above: The drugs N-Acetylcy steine and Metamizole may falsely depress this assay.Serum Triglycerides Reference Interval Normal <150 mg/dL Borderline high 150 - 199 mg/dL High 200 - 499 mg/dL Very High > or = 500 mg/dL WBC (Bld) [#/Vol] 8.0 10*3/uL 4.4-11.0 [facility] Blood erythrocytes count (nu mber/volume)Ordered By: David Mcgowan on 10-20-2022 RBC (Bld) [#/Vol] 4.32 10*6/uL 4.6-6.2 [facility] Blood hemoglobin measurement (mass/volume)Ordered By: David Mcgowan on 10-20-2022 Hemoglobin (Bld) [Mass/Vol] 12.1 g/dL 13.0-16.5 [facility] Blood lymphocytes/100 leukoc ytesOrdered By: David Mcgowan on 10-20-2022 Lymphocytes/100 WBC (Bld) 21.1 % 19-41 [facility] Blood monocytes/100 leukocyt esOrdered By: David Mcgowan on 10-20-2022 Monocytes/100 WBC (Bld) 5.9 % 0-10 [facility] Blood platelet mean volumeOr dered By: David Mcgowan on 10-20-2022 Platelet mean volume (Bld) [Entitic vol] 10.8 fL 6.2-12.0 [facility] Determination of erythrocyte mean corpuscular volume (MCV)Ordered By: David Mcgowan on 10-20-2022 MCV (RBC) [Entitic vol] 90.3 fL 80-94 [facility] Hematocrit Auto (Bld) [Volum e fraction]Ordered By: David Mcgowan on 10-20-2022 Hematocrit (Bld) [Volume fraction] 39.0 % 40-54 [facility] - Chemistry and C hemistry - challengeOrdered By: David Mcgowan on 10-20-2022 ALP [Catalytic activity/Vol] 37 U/L 45-117 [facility] ALT [Catalytic activity/Vol] 21 U/L 16-61 [facility] CO2 [Moles/Vol] 18.0 mmol/L 21.0-32.0 [facility] Globulin (S) [Mass/Vol] 4.8 g/dL 2.2-4.2 [facility] Urea nitrogen/Creatinine [Mass ratio] 10.9 mg/mg 10-20 [facility] - Hematology and Cell countsOrdered By: David Mcgowan on 10-20-2022 Erythrocyte distribution width (RBC) [Entitic vol] 46.3 fL 35.1-43.9 [facility] Erythrocyte distribution width (RBC) [Ratio] 13.8 % 11.6-14.6 [facility] Immature granulocytes/100 WBC (Bld) 0.400 % 0.0-0.9 [facility] Comment on above: IG% - Immature Granu locytes (promyelocytes, myelocytes and metamyelocytes) > 1% indicates that a LEFT SHIFT is Present. MCH (RBC) [Entitic mass] 28.0 pg 27.0-32.0 [facility] Nucleated RBC/100 WBC (Bld) [Ratio] 0 % 0-5 [facility] MCHC Auto (RBC) [Mass/Vol]Or dered By: David Mcgowan on 10-20-2022 MCHC (RBC) [Mass/Vol] 31.0 g/dL 32-36 [facility] No Panel InformationOrdered By: David Mcgowan on 10-20-2022 Estimated GFR (MDRD) Amer 25 mL/min >60 [facility] Comment on above: GFR Calc Estimated GFR (MDRD) Non-Af Amer 21 mL/min >60 [facility] Comment on above: Non- GFR Calc Parathyroid Hormone (Intact) 147.2 pg/mL 18.4-80.1 [facility] Urine Microalbumin/Creatinine Ratio 2410.6 mg/g CRE <30 [facility] Vitamin D 25-Hydroxy 55.1 ng/mL [facility] Comment on above: Vitamin D 25(OH) Sta tus Range Deficiency <20 ng/mL (50nmol/L) Insufficiency 20 - 30 ng/mL (50 - 75 nmol/L) Sufficiency 30 - 100 ng/mL (75 - 250 nmol/L) Toxicity >100 ng/mL (>250 nmol/L) Platelets bldOrdered By: Diogo Mcgowan on 10-20-2022 Platelets (Bld) [#/Vol] 468 10*3/uL 150-450 [facility] Serum or plasma albumin heidy urement (mass/volume)Ordered By: David Mcgowan on 10-20-2022 Albumin [Mass/Vol] 3.1 g/dL 3.2-5.0 [facility] Serum or plasma albumin/glob ulin mass ratioOrdered By: David Mcgowan on 10-20-2022 Albumin/Globulin [Mass ratio] 0.6 {ratio} 0.9-2.4 [facility] Serum or plasma calcium heidy urement (mass/volume)Ordered By: David Mcgowan on 10-20-2022 Calcium [Mass/Vol] 9.1 mg/dL 8.5-10.1 [facility] Serum or plasma cholesterol in HDL measurement (mass/volume)Ordered By: David Mcgowan on 10-20-2022 Cholesterol in HDL [Mass/Vol] 25 mg/dL >40 [facility] Comment on above: The drugs N-Acetylcy steine and Metamizole may falsely depress this assay. Reference Range HDL <40 mg/dL Low HDL Cholesterol HDL >or= 60 mg/dL High HDL Cholesterol Serum or plasma cholesterol in VLDL measurement (mass/volume)Ordered By: David Mcgowan on 10-20-2022 Cholesterol in VLDL [Mass/Vol] 58 mg/dL 5-40 [facility] Serum or plasma creatinine m easurement (mass/volume)Ordered By: David Mcgowan on 10-20-2022 Creatinine [Mass/Vol] 3.13 mg/dL 0.70-1.30 [facility] Comment on above: The validity of the calculated GFR & GFRAA in patients over 70 years has not been determined. Clinical correlation is essential. Serum or plasma low density lipoprotein (LDL) cholesterol measurement (mass/volume)Ordered By: David Mcgowan on 10-20-2022 Cholesterol in LDL [Mass/Vol] 43 mg/dL 0-130 [facility] Serum or plasma urea nitroge n measurement (mass/volume)Ordered By: David Mcgowan on 10-20-2022 Urea nitrogen [Mass/Vol] 34 mg/dL 7-18 [facility] Thin prep Papanicolaou smear with manual screeningOrdered By: David Mcgowan on 10-20-2022 Thin prep Papanicolaou smear with manual screening 18 U/L 15-37 [facility] Thin prep Papanicolaou smear with manual screening 8 5-15 [facility] Thin prep Papanicolaou smear with manual screening 1550.0 mg/L NO RANGE EST. [facility] Urine creatinine measurement (mass/volume)Ordered By: David Mcgowan on 10-20-2022 Creatinine (U) [Mass/Vol] 64.30 mg/dL NO RANGE EST. [facility] Urine protein measurement (m ass/volume)Ordered By: David Mcgowan on 10-20-2022 Protein (U) [Mass/Vol] 239.0 mg/dL 0.0-11.8 [facility] Urine protein/creatinine mas s ratioOrdered By: David Mcgowan on 10-20-2022 Protein/Creatinine (U) [Mass ratio] 3717 mg/g CRE 0-200 [facility] Whole blood hemoglobin A1c/t otal hemoglobin ratio (mass fraction)Ordered By: David Mcgowan on 10-20-2022 HbA1c (Bld) [Mass fraction] 7.2 % 3.8-5.6 [facility] Comment on above: Normal < 5.7 % Predi abetic 5.7 - 6.4 % Diabetic >or= 6.5 % Please note range changes. Absolute lymphocyte countOrd ered By: Dr. Mcgowan on 06-11-2022 Lymphocytes Auto (Unsp spec) [#/Vol] 1.63 10*3/uL 0.83-4.51 [facility] Basophil percentageOrdered B y: Dr. Mcgowan on 06-11-2022 Basophil percentage 3.9 mg/dL 2.5-4.9 [facility] Basophils/100 WBC (Bld) 0.6 % 0-1 [facility] Bilirubin [Mass/Vol] 0.30 mg/dL 0.20-1.00 [facility] Comment on above: For patients on eltr ombopag therapy, use of Dimension Bernard TBIL is not recommended. Chloride [Moles/Vol] 106 mmol/L 98-107 [facility] Cholesterol [Mass/Vol] 161 mg/dL <200 [facility] Comment on above: <200 mg/dL Desirable 200-240 mg/dL Borderline >240 mg/dL High Risk Eosinophils/100 WBC (Bld) 3.2 % 0-5 [facility] Glucose [Mass/Vol] 126 mg/dL 74-106 [facility] Comment on above: Fasting Glucose resu lt greater than or equal to 126 mg/dL suggests DIABETES MELLITUS per A.D.A. criteria. Neutrophils (Bld) [#/Vol] 5.9 10*3/uL 2.0-7.7 [facility] Neutrophils/100 WBC (Bld) 70.7 % 47-70 [facility] Potassium [Moles/Vol] 5.1 mmol/L 3.5-5.1 [facility] Protein [Mass/Vol] 7.7 g/dL 6.4-8.2 [facility] Sodium [Moles/Vol] 135 mmol/L 136-145 [facility] Triglyceride [Mass/Vol] 347 mg/dL <199 [facility] Comment on above: The drugs N-Acetylcy steine and Metamizole may falsely depress this assay.Serum Triglycerides Reference Interval Normal <150 mg/dL Borderline high 150 - 199 mg/dL High 200 - 499 mg/dL Very High > or = 500 mg/dL WBC (Bld) [#/Vol] 8.3 10*3/uL 4.4-11.0 [facility] Blood erythrocytes count (nu mber/volume)Ordered By: Dr. Mcgowan on 06-11-2022 RBC (Bld) [#/Vol] 4.36 10*6/uL 4.6-6.2 [facility] Blood hemoglobin measurement (mass/volume)Ordered By: Dr. Mcgowan on 06-11-2022 Hemoglobin (Bld) [Mass/Vol] 12.1 g/dL 13.0-16.5 [facility] Blood lymphocytes/100 leukoc ytesOrdered By: Dr. Mcgowan on 06-11-2022 Lymphocytes/100 WBC (Bld) 19.6 % 19-41 [facility] Blood monocytes/100 leukocyt esOrdered By: Dr. Mcgowan on 06-11-2022 Monocytes/100 WBC (Bld) 5.5 % 0-10 [facility] Blood platelet mean volumeOr dered By: Dr. Mcgowan on 06-11-2022 Platelet mean volume (Bld) [Entitic vol] 10.2 fL 6.2-12.0 [facility] Determination of erythrocyte mean corpuscular volume (MCV)Ordered By: Dr. Mcgowan on 06-11-2022 MCV (RBC) [Entitic vol] 88.3 fL 80-94 [facility] Hematocrit Auto (Bld) [Volum e fraction]Ordered By: Dr. Mcgowan on 06-11-2022 Hematocrit (Bld) [Volume fraction] 38.5 % 40-54 [facility] Laboratory - Chemistry and C hemistry - challengeOrdered By: Dr. Mcgowan on 06-11-2022 ALP [Catalytic activity/Vol] 34 U/L 45-117 [facility] ALT [Catalytic activity/Vol] 34 U/L 16-61 [facility] CO2 [Moles/Vol] 20.0 mmol/L 21.0-32.0 [facility] Free T4 [Mass/Vol] 1.25 ng/dL 0.76-1.46 [facility] Globulin (S) [Mass/Vol] 4.2 g/dL 2.2-4.2 [facility] Urea nitrogen/Creatinine [Mass ratio] 12.1 mg/mg 10-20 [facility] Laboratory - Hematology and Cell countsOrdered By: Dr. Mcgowan on 06-11-2022 Erythrocyte distribution width (RBC) [Entitic vol] 48.1 fL 35.1-43.9 [facility] Erythrocyte distribution width (RBC) [Ratio] 14.9 % 11.6-14.6 [facility] Immature granulocytes/100 WBC (Bld) 0.400 % 0.0-0.9 [facility] Comment on above: IG% - Immature Granu locytes (promyelocytes, myelocytes and metamyelocytes) > 1% indicates that a LEFT SHIFT is Present. MCH (RBC) [Entitic mass] 27.8 pg 27.0-32.0 [facility] Nucleated RBC/100 WBC (Bld) [Ratio] 0 % 0-5 [facility] MCHC Auto (RBC) [Mass/Vol]Or dered By: Dr. Mcgowan on 06-11-2022 MCHC (RBC) [Mass/Vol] 31.4 g/dL 32-36 [facility] No Panel InformationOrdered By: Dr. Mcgowan on 06-11-2022 Estimated GFR (MDRD) Amer 29 mL/min >60 [facility] Comment on above: GFR Calc Estimated GFR (MDRD) Non-Af Amer 24 mL/min >60 [facility] Comment on above: Non- GFR Calc Thyroid Stimulating Hormone (TSH) 0.25 uIU/mL 0.358-3.74 [facility] Vitamin D 25-Hydroxy 51.6 ng/mL [facility] Comment on above: Vitamin D 25(OH) Sta tus Range Deficiency <20 ng/mL (50nmol/L) Insufficiency 20 - 30 ng/mL (50 - 75 nmol/L) Sufficiency 30 - 100 ng/mL (75 - 250 nmol/L) Toxicity >100 ng/mL (>250 nmol/L) Platelets bldOrdered By: Dr. Mcgowan on 06-11-2022 Platelets (Bld) [#/Vol] 386 10*3/uL 150-450 [facility] Serum or plasma albumin heidy urement (mass/volume)Ordered By: Dr. Mcgowan on 06-11-2022 Albumin [Mass/Vol] 3.5 g/dL 3.2-5.0 [facility] Serum or plasma albumin/glob ulin mass ratioOrdered By: Dr. Mcgowan on 06-11-2022 Albumin/Globulin [Mass ratio] 0.8 {ratio} 0.9-2.4 [facility] Serum or plasma calcium heidy urement (mass/volume)Ordered By: Dr. Mcgowan on 06-11-2022 Calcium [Mass/Vol] 9.5 mg/dL 8.5-10.1 [facility] Serum or plasma cholesterol in HDL measurement (mass/volume)Ordered By: Dr. Mcgowan on 06-11-2022 Cholesterol in HDL [Mass/Vol] 29 mg/dL >40 [facility] Comment on above: The drugs N-Acetylcy steine and Metamizole may falsely depress this assay. Reference Range HDL <40 mg/dL Low HDL Cholesterol HDL >or= 60 mg/dL High HDL Cholesterol Serum or plasma cholesterol in VLDL measurement (mass/volume)Ordered By: Dr. Mcgowan on 06-11-2022 Cholesterol in VLDL [Mass/Vol] 69 mg/dL 5-40 [facility] Serum or plasma creatinine m easurement (mass/volume)Ordered By: Dr. Mcgowan on 06-11-2022 Creatinine [Mass/Vol] 2.80 mg/dL 0.70-1.30 [facility] Comment on above: The validity of the calculated GFR & GFRAA in patients over 70 years has not been determined. Clinical correlation is essential. Serum or plasma low density lipoprotein (LDL) cholesterol measurement (mass/volume)Ordered By: Dr. Mcgowan on 06-11-2022 Cholesterol in LDL [Mass/Vol] 63 mg/dL 0-130 [facility] Serum or plasma urea nitroge n measurement (mass/volume)Ordered By: Dr. Mcgowan on 06-11-2022 Urea nitrogen [Mass/Vol] 34 mg/dL 7-18 [facility] Thin prep Papanicolaou smear with manual screeningOrdered By: Dr. Mcgowan on 06-11-2022 Thin prep Papanicolaou smear with manual screening 30 U/L 15-37 [facility] Thin prep Papanicolaou smear with manual screening 9 5-15 [facility] Whole blood hemoglobin A1c/t otal hemoglobin ratio (mass fraction)Ordered By: Dr. Mcgowan on 06-11-2022 HbA1c (Bld) [Mass fraction] 6.5 % 3.8-5.6 [facility] Comment on above: Normal < 5.7 % Predi abetic 5.7 - 6.4 % Diabetic >or= 6.5 % Please note range changes. Basophil percentageOrdered B y: Dr. Kapadia on 05-07-2022 Chloride [Moles/Vol] 106 mmol/L 98-107 [facility] Glucose [Mass/Vol] 120 mg/dL 74-106 [facility] Comment on above: Fasting Glucose resu lt from 100 to 125 mg/dL suggests IMPAIRED HOMEOSTASIS per A.D.A. criteria. Potassium [Moles/Vol] 5.2 mmol/L 3.5-5.1 [facility] Sodium [Moles/Vol] 138 mmol/L 136-145 [facility] Laboratory - Chemistry and C hemistry - challengeOrdered By: Dr. Kapadia on 05-07-2022 CO2 [Moles/Vol] 22.0 mmol/L 21.0-32.0 [facility] Urea nitrogen/Creatinine [Mass ratio] 14.0 mg/mg 10-20 [facility] No Panel InformationOrdered By: Dr. Kapadia on 05-07-2022 Estimated GFR (MDRD) Amer 29 mL/min >60 [facility] Comment on above: GFR Calc Estimated GFR (MDRD) Non-Af Amer 24 mL/min >60 [facility] Comment on above: Non- GFR Calc Urine Microalbumin/Creatinine Ratio 2793.6 mg/g CRE <30 [facility] Serum or plasma calcium heidy urement (mass/volume)Ordered By: Dr. Kapadia on 05-07-2022 Calcium [Mass/Vol] 9.2 mg/dL 8.5-10.1 [facility] Serum or plasma creatinine m easurement (mass/volume)Ordered By: Dr. Kapadia on 05-07-2022 Creatinine [Mass/Vol] 2.79 mg/dL 0.70-1.30 [facility] Comment on above: The validity of the calculated GFR & GFRAA in patients over 70 years has not been determined. Clinical correlation is essential. Serum or plasma urea nitroge n measurement (mass/volume)Ordered By: Dr. Kapadia on 05-07-2022 Urea nitrogen [Mass/Vol] 39 mg/dL 7-18 [facility] Thin prep Papanicolaou smear with manual screeningOrdered By: Dr. Kapadia on 05-07-2022 Thin prep Papanicolaou smear with manual screening 10 5-15 [facility] Thin prep Papanicolaou smear with manual screening 2450.0 mg/L NO RANGE EST. [facility] Urine creatinine measurement (mass/volume)Ordered By: Dr. Kapadia on 05-07-2022 Creatinine (U) [Mass/Vol] 87.70 mg/dL NO RANGE EST. [facility] Urine protein measurement (m ass/volume)Ordered By: Dr. Kapadia on 05-07-2022 Protein (U) [Mass/Vol] 335.0 mg/dL 0.0-11.8 [facility] Urine protein/creatinine mas s ratioOrdered By: Dr. Kapadia on 05-07-2022 Protein/Creatinine (U) [Mass ratio] 3820 mg/g CRE 0-200 [facility] Absolute lymphocyte countOrd ered By: Dr. Mcgowan on 02-12-2022 Lymphocytes Auto (Unsp spec) [#/Vol] 1.47 10*3/uL 0.83-4.51 [facility] Basophil percentageOrdered B y: Dr. Mcgowan on 02-12-2022 Basophil percentage 4.0 mg/dL 2.5-4.9 [facility] Basophils/100 WBC (Bld) 0.5 % 0-1 [facility] Bilirubin [Mass/Vol] 0.30 mg/dL 0.20-1.00 [facility] Comment on above: For patients on eltr ombopag therapy, use of Dimension Bernard TBIL is not recommended. Chloride [Moles/Vol] 107 mmol/L 98-107 [facility] Cholesterol [Mass/Vol] 168 mg/dL <200 [facility] Comment on above: <200 mg/dL Desirable 200-240 mg/dL Borderline >240 mg/dL High Risk Eosinophils/100 WBC (Bld) 2.5 % 0-5 [facility] Glucose [Mass/Vol] 148 mg/dL 74-106 [facility] Comment on above: Fasting Glucose resu lt greater than or equal to 126 mg/dL suggests DIABETES MELLITUS per A.D.A. criteria. Neutrophils (Bld) [#/Vol] 6.3 10*3/uL 2.0-7.7 [facility] Neutrophils/100 WBC (Bld) 73.4 % 47-70 [facility] Potassium [Moles/Vol] 5.0 mmol/L 3.5-5.1 [facility] Protein [Mass/Vol] 7.6 g/dL 6.4-8.2 [facility] Sodium [Moles/Vol] 136 mmol/L 136-145 [facility] Triglyceride [Mass/Vol] 289 mg/dL <199 [facility] Comment on above: The drugs N-Acetylcy steine and Metamizole may falsely depress this assay.Serum Triglycerides Reference Interval Normal <150 mg/dL Borderline high 150 - 199 mg/dL High 200 - 499 mg/dL Very High > or = 500 mg/dL WBC (Bld) [#/Vol] 8.5 10*3/uL 4.4-11.0 [facility] Blood erythrocytes count (nu mber/volume)Ordered By: Dr. Mcgowan on 02-12-2022 RBC (Bld) [#/Vol] 4.27 10*6/uL 4.6-6.2 [facility] Blood hemoglobin measurement (mass/volume)Ordered By: Dr. Mcgowan on 02-12-2022 Hemoglobin (Bld) [Mass/Vol] 11.9 g/dL 13.0-16.5 [facility] Blood lymphocytes/100 leukoc ytesOrdered By: Dr. Mcgowan on 02-12-2022 Lymphocytes/100 WBC (Bld) 17.3 % 19-41 [facility] Blood monocytes/100 leukocyt esOrdered By: Dr. Mcgowan on 02-12-2022 Monocytes/100 WBC (Bld) 5.9 % 0-10 [facility] Blood platelet mean volumeOr dered By: Dr. Mcgowan on 02-12-2022 Platelet mean volume (Bld) [Entitic vol] 10.5 fL 6.2-12.0 [facility] Determination of erythrocyte mean corpuscular volume (MCV)Ordered By: Dr. Mcgowan on 02-12-2022 MCV (RBC) [Entitic vol] 89.2 fL 80-94 [facility] Hematocrit Auto (Bld) [Volum e fraction]Ordered By: Dr. Mcgowan on 02-12-2022 Hematocrit (Bld) [Volume fraction] 38.1 % 40-54 [facility] Laboratory - Chemistry and C hemistry - challengeOrdered By: Dr. Mcgowan on 02-12-2022 ALP [Catalytic activity/Vol] 36 U/L 45-117 [facility] ALT [Catalytic activity/Vol] 31 U/L 16-61 [facility] CO2 [Moles/Vol] 20.0 mmol/L 21.0-32.0 [facility] Free T4 [Mass/Vol] 1.32 ng/dL 0.76-1.46 [facility] Globulin (S) [Mass/Vol] 4.2 g/dL 2.2-4.2 [facility] Urea nitrogen/Creatinine [Mass ratio] 9.5 mg/mg 10-20 [facility] Laboratory - Hematology and Cell countsOrdered By: Dr. Mcgowan on 02-12-2022 Erythrocyte distribution width (RBC) [Entitic vol] 44.8 fL 35.1-43.9 [facility] Erythrocyte distribution width (RBC) [Ratio] 13.8 % 11.6-14.6 [facility] Immature granulocytes/100 WBC (Bld) 0.400 % 0.0-0.9 [facility] Comment on above: IG% - Immature Granu locytes (promyelocytes, myelocytes and metamyelocytes) > 1% indicates that a LEFT SHIFT is Present. MCH (RBC) [Entitic mass] 27.9 pg 27.0-32.0 [facility] Nucleated RBC/100 WBC (Bld) [Ratio] 0 % 0-5 [facility] MCHC Auto (RBC) [Mass/Vol]Or dered By: Dr. Mcgowan on 02-12-2022 MCHC (RBC) [Mass/Vol] 31.2 g/dL 32-36 [facility] No Panel InformationOrdered By: Dr. Mcgowan on 02-12-2022 Estimated GFR (MDRD) Amer 27 mL/min >60 [facility] Comment on above: GFR Calc Estimated GFR (MDRD) Non-Af Amer 23 mL/min >60 [facility] Comment on above: Non- GFR Calc Parathyroid Hormone (Intact) 165.8 pg/mL 18.4-80.1 [facility] Thyroid Stimulating Hormone (TSH) 0.10 uIU/mL 0.358-3.74 [facility] Vitamin D 25-Hydroxy 52.4 ng/mL [facility] Comment on above: Vitamin D 25(OH) Sta tus Range Deficiency <20 ng/mL (50nmol/L) Insufficiency 20 - 30 ng/mL (50 - 75 nmol/L) Sufficiency 30 - 100 ng/mL (75 - 250 nmol/L) Toxicity >100 ng/mL (>250 nmol/L) Platelets bldOrdered By: Dr. Mcgowan on 02-12-2022 Platelets (Bld) [#/Vol] 447 10*3/uL 150-450 [facility] Serum or plasma albumin heidy urement (mass/volume)Ordered By: Dr. Mcgowan on 02-12-2022 Albumin [Mass/Vol] 3.4 g/dL 3.2-5.0 [facility] Serum or plasma albumin/glob ulin mass ratioOrdered By: Dr. Mcgowan on 02-12-2022 Albumin/Globulin [Mass ratio] 0.8 {ratio} 0.9-2.4 [facility] Serum or plasma calcium heidy urement (mass/volume)Ordered By: Dr. Mcgowan on 02-12-2022 Calcium [Mass/Vol] 9.6 mg/dL 8.5-10.1 [facility] Serum or plasma cholesterol in HDL measurement (mass/volume)Ordered By: Dr. Mcgowan on 02-12-2022 Cholesterol in HDL [Mass/Vol] 26 mg/dL >40 [facility] Comment on above: The drugs N-Acetylcy steine and Metamizole may falsely depress this assay. Reference Range HDL <40 mg/dL Low HDL Cholesterol HDL >or= 60 mg/dL High HDL Cholesterol Serum or plasma cholesterol in VLDL measurement (mass/volume)Ordered By: Dr. Mcgowan on 02-12-2022 Cholesterol in VLDL [Mass/Vol] 58 mg/dL 5-40 [facility] Serum or plasma creatinine m easurement (mass/volume)Ordered By: Dr. Mcgowan on 02-12-2022 Creatinine [Mass/Vol] 2.94 mg/dL 0.70-1.30 [facility] Comment on above: The validity of the calculated GFR & GFRAA in patients over 70 years has not been determined. Clinical correlation is essential. Serum or plasma low density lipoprotein (LDL) cholesterol measurement (mass/volume)Ordered By: Dr. Mcgowan on 02-12-2022 Cholesterol in LDL [Mass/Vol] 84 mg/dL 0-130 [facility] Serum or plasma urea nitroge n measurement (mass/volume)Ordered By: Dr. Mcgowan on 02-12-2022 Urea nitrogen [Mass/Vol] 28 mg/dL 7-18 [facility] Thin prep Papanicolaou smear with manual screeningOrdered By: Dr. Mcgowan on 02-12-2022 Thin prep Papanicolaou smear with manual screening 22 U/L 15-37 [facility] Thin prep Papanicolaou smear with manual screening 9 5-15 [facility] Urine creatinine measurement (mass/volume)Ordered By: Dr. Mcgowan on 02-12-2022 Creatinine (U) [Mass/Vol] 148.00 mg/dL NO RANGE EST. [facility] Urine protein measurement (m ass/volume)Ordered By: Dr. Mcgowan on 02-12-2022 Protein (U) [Mass/Vol] 521.5 mg/dL 0.0-11.8 [facility] Urine protein/creatinine mas s ratioOrdered By: Dr. Mcgowan on 02-12-2022 Protein/Creatinine (U) [Mass ratio] 3524 mg/g CRE 0-200 [facility] Basophil percentageon 2021 Chloride [Moles/Vol] 105 mmol/L 98-107 [facility] Work Phone: Glucose [Mass/Vol] 179 mg/dL 74-106 [facility] Work Phone: Comment on above: Fasting Glucose resu lt greater than or equal to 126 mg/dL suggests DIABETES MELLITUS per A.D.A. criteria. Potassium [Moles/Vol] 5.0 mmol/L 3.5-5.1 [facility] Work Phone: Sodium [Moles/Vol] 135 mmol/L 136-145 [facility] Work Phone: Laboratory - Chemistry and C hemistry - challengeon 11-15-2021 CO2 [Moles/Vol] 21.0 mmol/L 21.0-32.0 [facility] Work Phone: Urea nitrogen/Creatinine [Mass ratio] 11.8 mg/mg 10-20 [facility] Work Phone: No Panel Informationon 11-15 Estimated GFR (MDRD) Amer 30 mL/min >60 [facility] Work Phone: Comment on above: GFR Calc Estimated GFR (MDRD) Non-Af Amer 25 mL/min >60 [facility] Work Phone: Comment on above: Non- GFR Calc Serum or plasma calcium heidy urement (mass/volume)on 11-15-2021 Calcium [Mass/Vol] 9.0 mg/dL 8.5-10.1 [facility] Work Phone: Serum or plasma creatinine m easurement (mass/volume)on 11-15-2021 Creatinine [Mass/Vol] 2.71 mg/dL 0.70-1.30 [facility] Work Phone: Comment on above: The validity of the calculated GFR & GFRAA in patients over 70 years has not been determined. Clinical correlation is essential. Serum or plasma urea nitroge n measurement (mass/volume)on 11-15-2021 Urea nitrogen [Mass/Vol] 32 mg/dL 7-18 [facility] Work Phone: Thin prep Papanicolaou smear with manual screeningon 11-15-2021 Thin prep Papanicolaou smear with manual screening 9 5-15 [facility] Work Phone: Urine creatinine measurement (mass/volume)on 11-15-2021 Creatinine (U) [Mass/Vol] 63.40 mg/dL NO RANGE EST. [facility] Work Phone: Urine protein measurement (m ass/volume)on 11-15-2021 Protein (U) [Mass/Vol] 249.1 mg/dL 0.0-11.8 [facility] Work Phone: Urine protein/creatinine mas s ratioon 11-15-2021 Protein/Creatinine (U) [Mass ratio] 3929 mg/g CRE 0-200 [facility] Work Phone: Absolute lymphocyte counton 10-11-2021 Lymphocytes Auto (Unsp spec) [#/Vol] 1.74 10*3/uL 0.83-4.51 [facility] Work Phone: Basophil percentageon 2021 Basophil percentage 0-5 SEEN /hpf 0-5 [facility] Work Phone: Basophil percentage 3.8 mg/dL 2.5-4.9 [facility]: Basophils/100 WBC (Bld) 0.6 % 0-1 [facility] Work Phone: Bilirubin [Mass/Vol] 0.30 mg/dL 0.20-1.00 [facility] Work Phone: Comment on above: For patients on eltr ombopag therapy, use of Dimension Bernard TBIL is not recommended. Chloride [Moles/Vol] 105 mmol/L 98-107 [facility] Work Phone: Cholesterol [Mass/Vol] 239 mg/dL <200 [facility] Work Phone: Comment on above: <200 mg/dL Desirable 200-240 mg/dL Borderline >240 mg/dL High Risk Eosinophils/100 WBC (Bld) 2.8 % 0-5 [facility] Work Phone: [phone] Glucose [Mass/Vol] 91 mg/dL 74-106 [facility] Work Phone: Neutrophils (Bld) [#/Vol] 6.7 10*3/uL 2.0-7.7 [facility] Work Phone: Neutrophils/100 WBC (Bld) 71.2 % 47-70 [facility] Work Phone: Potassium [Moles/Vol] 4.7 mmol/L 3.5-5.1 [facility] Work Phone: Protein [Mass/Vol] 7.8 g/dL 6.4-8.2 [facility] Work Phone: Sodium [Moles/Vol] 136 mmol/L 136-145 [facility] Work Phone: [phone] Triglyceride [Mass/Vol] 353 mg/dL <199 [facility] Work Phone: Comment on above: The drugs N-Acetylcy steine and Metamizole may falsely depress this assay.Serum Triglycerides Reference Interval Normal <150 mg/dL Borderline high 150 - 199 mg/dL High 200 - 499 mg/dL Very High > or = 500 mg/dL WBC (Bld) [#/Vol] 9.4 10*3/uL 4.4-11.0 [facility] Work Phone: [phone] Bilirubin Test strip Ql (U)o n 10-11-2021 Bilirubin Ql (U) Negative Negative [facility] Work Phone: Blood erythrocytes count (nu mber/volume)on 10-11-2021 RBC (Bld) [#/Vol] 4.57 10*6/uL 4.6-6.2 [facility] Work Phone: Blood hemoglobin measurement (mass/volume)on 10-11-2021 Hemoglobin (Bld) [Mass/Vol] 12.5 g/dL 13.0-16.5 [facility] Work Phone: Blood lymphocytes/100 leukoc yteson 10-11-2021 Lymphocytes/100 WBC (Bld) 18.5 % 19-41 [facility] Work Phone: Blood monocytes/100 leukocyt eson 10-11-2021 Monocytes/100 WBC (Bld) 6.5 % 0-10 [facility] Work Phone: Blood platelet mean volumeon 10-11-2021 Platelet mean volume (Bld) [Entitic vol] 10.1 fL 6.2-12.0 [facility] Work Phone: Determination of erythrocyte mean corpuscular volume (MCV)on 10-11-2021 MCV (RBC) [Entitic vol] 85.1 fL 80-94 [facility] Work Phone: Hematocrit Auto (Bld) [Volum e fraction]on 10-11-2021 Hematocrit (Bld) [Volume fraction] 38.9 % 40-54 [facility] Work Phone: Ketones Test strip Ql (U)on 10-11-2021 Ketones Ql (U) Negative Negative [facility] Work Phone: Laboratory - Chemistry and C hemistry - challengeon 10-11-2021 ALP [Catalytic activity/Vol] 36 U/L 45-117 [facility] Work Phone: ALT [Catalytic activity/Vol] 32 U/L 16-61 [facility] Work Phone: CO2 [Moles/Vol] 22.0 mmol/L 21.0-32.0 [facility] Work Phone: Free T4 [Mass/Vol] 1.06 ng/dL 0.76-1.46 [facility] Work Phone: Globulin (S) [Mass/Vol] 4.5 g/dL 2.2-4.2 [facility] Work Phone: Urea nitrogen/Creatinine [Mass ratio] 11.6 mg/mg 10-20 [facility] Work Phone: Laboratory - Hematology and Cell countson 10-11-2021 Erythrocyte distribution width (RBC) [Entitic vol] 46.0 fL 35.1-43.9 [facility] Work Phone: Erythrocyte distribution width (RBC) [Ratio] 14.8 % 11.6-14.6 [facility] Work Phone: Immature granulocytes/100 WBC (Bld) 0.400 % 0.0-0.9 [facility] Work Phone: Comment on above: IG% - Immature Granu locytes (promyelocytes, myelocytes and metamyelocytes) > 1% indicates that a LEFT SHIFT is Present. MCH (RBC) [Entitic mass] 27.4 pg 27.0-32.0 [facility] Work Phone: Nucleated RBC/100 WBC (Bld) [Ratio] 0 % 0-5 [facility] Work Phone: MCHC Auto (RBC) [Mass/Vol]on 10-11-2021 MCHC (RBC) [Mass/Vol] 32.1 g/dL 32-36 [facility] Work Phone: Mucus LM Ql (Urine sed)on Mucus Ql (Urine sed) 0 SEEN /hpf [facility] Work Phone: Nitrite Test strip Ql (U)on 10-11-2021 Nitrite Ql (U) Negative Negative [facility] Work Phone: No Panel Informationon 10-11 Estimated GFR (MDRD) Amer 29 mL/min >60 [facility] Work Phone: Comment on above: GFR Calc Estimated GFR (MDRD) Non-Af Amer 24 mL/min >60 [facility] Work Phone: Comment on above: Non- GFR Calc Parathyroid Hormone (Intact) 154.3 pg/mL 18.4-80.1 [facility] Work Phone: Thyroid Stimulating Hormone (TSH) 7.90 uIU/mL 0.358-3.74 [facility] Work Phone: Vitamin D 25-Hydroxy 36.0 ng/mL [facility] Work Phone: Comment on above: Vitamin D 25(OH) Sta tus Range Deficiency <20 ng/mL (50nmol/L) Insufficiency 20 - 30 ng/mL (50 - 75 nmol/L) Sufficiency 30 - 100 ng/mL (75 - 250 nmol/L) Toxicity >100 ng/mL (>250 nmol/L) Platelets bldon 10-11-2021 Platelets (Bld) [#/Vol] 479 10*3/uL 150-450 [facility] Work Phone: Protein Test strip Ql (U)on 10-11-2021 Protein Ql (U) 500 mg/dl Negative [facility] Work Phone: Serum or plasma albumin heidy urement (mass/volume)on 10-11-2021 Albumin [Mass/Vol] 3.3 g/dL 3.2-5.0 [facility] Work Phone: Serum or plasma albumin/glob ulin mass ratioon 10-11-2021 Albumin/Globulin [Mass ratio] 0.7 {ratio} 0.9-2.4 [facility] Work Phone: Serum or plasma calcium heidy urement (mass/volume)on 10-11-2021 Calcium [Mass/Vol] 9.0 mg/dL 8.5-10.1 [facility] Work Phone: Serum or plasma cholesterol in HDL measurement (mass/volume)on 10-11-2021 Cholesterol in HDL [Mass/Vol] 36 mg/dL >40 [facility] Work Phone: Comment on above: The drugs N-Acetylcy steine and Metamizole may falsely depress this assay. Reference Range HDL <40 mg/dL Low HDL Cholesterol HDL >or= 60 mg/dL High HDL Cholesterol Serum or plasma cholesterol in VLDL measurement (mass/volume)on 10-11-2021 Cholesterol in VLDL [Mass/Vol] 71 mg/dL 5-40 [facility] Work Phone: Serum or plasma creatinine m easurement (mass/volume)on 10-11-2021 Creatinine [Mass/Vol] 2.77 mg/dL 0.70-1.30 [facility] Work Phone: Comment on above: The validity of the calculated GFR & GFRAA in patients over 70 years has not been determined. Clinical correlation is essential. Serum or plasma low density lipoprotein (LDL) cholesterol measurement (mass/volume)on 10-11-2021 Cholesterol in LDL [Mass/Vol] 132 mg/dL 0-130 [facility] Work Phone: Serum or plasma urea nitroge n measurement (mass/volume)on 10-11-2021 Urea nitrogen [Mass/Vol] 32 mg/dL 7-18 [facility] Work Phone: Squamous epithelial cells de tection in urine sediment by light microscopyon 10-11-2021 Epithelial cells.squamous LM Ql (Urine sed) 0 SEEN /hpf 0-5 [facility] Work Phone: Thin prep Papanicolaou smear with manual screeningon 10-11-2021 Thin prep Papanicolaou smear with manual screening 30 U/L 15-37 [facility] Work Phone: Thin prep Papanicolaou smear with manual screening 9 5-15 [facility] Work Phone: Urine blood detectionon RBC Ql (U) 10 /ul Negative [facility] Work Phone: RBC Ql (U) 0 SEEN /hpf 0-5 [facility] Work Phone: Urine clarityon 10-11-2021 Clarity (U) Clear Clear [facility] Work Phone: Urine color determinationon 10-11-2021 Color (U) Yellow Yellow [facility] Work Phone: Urine creatinine measurement (mass/volume)on 10-11-2021 Creatinine (U) [Mass/Vol] 155.00 mg/dL NO RANGE EST. [facility] Work Phone: Urine glucose detectionon Glucose Ql (U) 50 mg/dl Normal [facility] Work Phone: Urine leukocyte esterase det ection by dipstickon 10-11-2021 Leukocyte esterase Test strip Ql (U) Negative Negative [facility] Work Phone: Urine pHon 10-11-2021 pH (U) 6.0 [pH] 5.0 - 8.0 [facility] Work Phone: Urine protein measurement (m ass/volume)on 10-11-2021 Protein (U) [Mass/Vol] 651.2 mg/dL 0.0-11.8 [facility] Work Phone: Urine protein/creatinine mas s ratioon 10-11-2021 Protein/Creatinine (U) [Mass ratio] 4201 mg/g CRE 0-200 [facility] Work Phone: Urine sediment bacteria coun t by microscopy (number/high power field)on 10-11-2021 Bacteria LM.HPF (Urine sed) [#/Area] 0 /[HPF] None Seen [facility] Work Phone: Urine specific gravity measu rementon 10-11-2021 Specific gravity (U) [Rel density] 1.020 1.002-1.03 0 [facility] Work Phone: Urobilinogen Auto test strip Ql (U)on 10-11-2021 Urobilinogen Ql (U) Normal mg/dl Normal [facility] Work Phone: Whole blood hemoglobin A1c/t otal hemoglobin ratio (mass fraction)on 10-11-2021 HbA1c (Bld) [Mass fraction] 6.8 % 3.8-5.6 [facility] Work Phone: Comment on above: Normal < 5.7 % Predi abetic 5.7 - 6.4 % Diabetic >or= 6.5 % Please note range changes. Absolute lymphocyte counton 08-19-2021 Lymphocytes Auto (Unsp spec) [#/Vol] 1.82 10*3/uL 0.83-4.51 [facility] Work Phone: Basophil percentageon 2021 Basophil percentage 3.7 mg/dL 2.5-4.9 [facility] Work Phone: Basophils/100 WBC (Bld) 0.3 % 0-1 [facility] Work Phone: Chloride [Moles/Vol] 104 mmol/L 98-107 [facility] Work Phone: Eosinophils/100 WBC (Bld) 2.5 % 0-5 [facility] Work Phone: Glucose [Mass/Vol] 100 mg/dL 74-106 [facility] Work Phone: Comment on above: Fasting Glucose resu lt from 100 to 125 mg/dL suggests IMPAIRED HOMEOSTASIS per A.D.A. criteria. Neutrophils (Bld) [#/Vol] 6.3 10*3/uL 2.0-7.7 [facility] Work Phone: Neutrophils/100 WBC (Bld) 69.2 % 47-70 [facility] Work Phone: Potassium [Moles/Vol] 4.6 mmol/L 3.5-5.1 [facility] Work Phone: Sodium [Moles/Vol] 134 mmol/L 136-145 [facility] Work Phone: WBC (Bld) [#/Vol] 9.1 10*3/uL 4.4-11.0 [facility] Work Phone: Blood erythrocytes count (nu mber/volume)on 08-19-2021 RBC (Bld) [#/Vol] 4.51 10*6/uL 4.6-6.2 [facility]: Blood hemoglobin measurement (mass/volume)on 08-19-2021 Hemoglobin (Bld) [Mass/Vol] 12.8 g/dL 13.0-16.5 [facility] Work Phone: Blood lymphocytes/100 leukoc yteson 08-19-2021 Lymphocytes/100 WBC (Bld) 20.0 % 19-41 [facility] Work Phone: Blood monocytes/100 leukocyt eson 08-19-2021 Monocytes/100 WBC (Bld) 7.7 % 0-10 [facility] Work Phone: Blood platelet mean volumeon 08-19-2021 Platelet mean volume (Bld) [Entitic vol] 10.6 fL 6.2-12.0 [facility] Work Phone: Determination of erythrocyte mean corpuscular volume (MCV)on 08-19-2021 MCV (RBC) [Entitic vol] 88.9 fL 80-94 [facility] Work Phone: Hematocrit Auto (Bld) [Volum e fraction]on 08-19-2021 Hematocrit (Bld) [Volume fraction] 40.1 % 40-54 [facility] Work Phone: Laboratory - Chemistry and C hemistry - challengeon 08-19-2021 CO2 [Moles/Vol] 20.0 mmol/L 21.0-32.0 [facility] Work Phone: Urea nitrogen/Creatinine [Mass ratio] 14.4 mg/mg 10-20 [facility] Work Phone: Laboratory - Hematology and Cell countson 08-19-2021 Erythrocyte distribution width (RBC) [Entitic vol] 46.1 fL 35.1-43.9 [facility] Work Phone: Erythrocyte distribution width (RBC) [Ratio] 14.2 % 11.6-14.6 [facility] Work Phone: Immature granulocytes/100 WBC (Bld) 0.300 % 0.0-0.9 [facility] Work Phone: Comment on above: IG% - Immature Granu locytes (promyelocytes, myelocytes and metamyelocytes) > 1% indicates that a LEFT SHIFT is Present. MCH (RBC) [Entitic mass] 28.4 pg 27.0-32.0 [facility] Work Phone: Nucleated RBC/100 WBC (Bld) [Ratio] 0 % 0-5 [facility] Work Phone: MCHC Auto (RBC) [Mass/Vol]on 08-19-2021 MCHC (RBC) [Mass/Vol] 31.9 g/dL 32-36 [facility] Work Phone: No Panel Informationon 08-19 Estimated GFR (MDRD) Amer 31 mL/min >60 [facility] Work Phone: Comment on above: GFR Calc Estimated GFR (MDRD) Non-Af Amer 26 mL/min >60 [facility] Work Phone: Comment on above: Non- GFR Calc Parathyroid Hormone (Intact) 147.7 pg/mL 18.4-80.1 [facility] Work Phone: Urine Microalbumin/Creatinine Ratio 4064.5 mg/g CRE <30 [facility] Work Phone: Vitamin D 25-Hydroxy 31.0 ng/mL [facility] Work Phone: Comment on above: Vitamin D 25(OH) Sta tus Range Deficiency <20 ng/mL (50nmol/L) Insufficiency 20 - 30 ng/mL (50 - 75 nmol/L) Sufficiency 30 - 100 ng/mL (75 - 250 nmol/L) Toxicity >100 ng/mL (>250 nmol/L) Platelets bldon 08-19-2021 Platelets (Bld) [#/Vol] 441 10*3/uL 150-450 [facility] Work Phone: Serum or plasma albumin heidy urement (mass/volume)on 08-19-2021 Albumin [Mass/Vol] 3.3 g/dL 3.2-5.0 [facility] Work Phone: Serum or plasma calcium heidy urement (mass/volume)on 08-19-2021 Calcium [Mass/Vol] 9.2 mg/dL 8.5-10.1 [facility] Work Phone: Serum or plasma creatinine m easurement (mass/volume)on 08-19-2021 Creatinine [Mass/Vol] 2.64 mg/dL 0.70-1.30 [facility] Work Phone: Comment on above: The validity of the calculated GFR & GFRAA in patients over 70 years has not been determined. Clinical correlation is essential. Serum or plasma urea nitroge n measurement (mass/volume)on 08-19-2021 Urea nitrogen [Mass/Vol] 38 mg/dL 7-18 [facility] Work Phone: Thin prep Papanicolaou smear with manual screeningon 08-19-2021 Thin prep Papanicolaou smear with manual screening 2520.0 mg/L NO RANGE EST. [facility] Work Phone: Urine creatinine measurement (mass/volume)on 08-19-2021 Creatinine (U) [Mass/Vol] 62.00 mg/dL NO RANGE EST. [facility] Work Phone: Basophil percentageon 2021 Chloride [Moles/Vol] 109 mmol/L 98-107 [facility] Work Phone: Glucose [Mass/Vol] 151 mg/dL 74-106 [facility] Work Phone: Comment on above: Fasting Glucose resu lt greater than or equal to 126 mg/dL suggests DIABETES MELLITUS per A.D.A. criteria. Potassium [Moles/Vol] 4.3 mmol/L 3.5-5.1 [facility] Work Phone: Sodium [Moles/Vol] 138 mmol/L 136-145 [facility] Work Phone: Laboratory - Chemistry and C hemistry - challengeon 07-18-2021 CO2 [Moles/Vol] 25.0 mmol/L 21.0-32.0 [facility] Work Phone: Urea nitrogen/Creatinine [Mass ratio] 11.5 mg/mg 10-20 [facility] Work Phone: No Panel Informationon 07-18 Estimated GFR (MDRD) Amer 34 mL/min >60 [facility] Work Phone: Comment on above: GFR Calc Estimated GFR (MDRD) Non-Af Amer 28 mL/min >60 [facility] Work Phone: Comment on above: Non- GFR Calc Serum or plasma calcium heidy urement (mass/volume)on 07-18-2021 Calcium [Mass/Vol] 9.0 mg/dL 8.5-10.1 [facility] Work Phone: Serum or plasma creatinine m easurement (mass/volume)on 07-18-2021 Creatinine [Mass/Vol] 2.43 mg/dL 0.70-1.30 [facility] Work Phone: Comment on above: The validity of the calculated GFR & GFRAA in patients over 70 years has not been determined. Clinical correlation is essential. Serum or plasma urea nitroge n measurement (mass/volume)on 07-18-2021 Urea nitrogen [Mass/Vol] 28 mg/dL 7-18 [facility] Work Phone: Thin prep Papanicolaou smear with manual screeningon 07-18-2021 Thin prep Papanicolaou smear with manual screening 4 5-15 [facility] Work Phone: Basophil percentageon 2021 Bilirubin [Mass/Vol] 0.20 mg/dL 0.20-1.00 [facility] Work Phone: Comment on above: For patients on eltr ombopag therapy, use of Dimension Bernard TBIL is not recommended. Chloride [Moles/Vol] 104 mmol/L 98-107 [facility] Work Phone: Cholesterol [Mass/Vol] 252 mg/dL <200 [facility] Work Phone: Comment on above: <200 mg/dL Desirable 200-240 mg/dL Borderline >240 mg/dL High Risk Glucose [Mass/Vol] 155 mg/dL 74-106 [facility] Work Phone: Comment on above: Fasting Glucose resu lt greater than or equal to 126 mg/dL suggests DIABETES MELLITUS per A.D.A. criteria. Potassium [Moles/Vol] 5.1 mmol/L 3.5-5.1 [facility] Work Phone: Protein [Mass/Vol] 7.8 g/dL 6.4-8.2 [facility] Work Phone: Sodium [Moles/Vol] 134 mmol/L 136-145 [facility] Work Phone: Triglyceride [Mass/Vol] 526 mg/dL <199 [facility] Work Phone: Comment on above: The drugs N-Acetylcy steine and Metamizole may falsely depress this assay. TRIGLYCERIDE IS GREATER THAN 400 mg/dL. LDL RESULT IS INVALID AND WILL NOT BE REPORTED.Serum Triglycerides Reference Interval Normal <150 mg/dL Borderline high 150 - 199 mg/dL High 200 - 499 mg/dL Very High > or = 500 mg/dL Laboratory - Chemistry and C hemistry - challengeon 06-25-2021 ALP [Catalytic activity/Vol] 35 U/L 45-117 [facility] Work Phone: ALT [Catalytic activity/Vol] 32 U/L 16-61 [facility] Work Phone: CO2 [Moles/Vol] 23.0 mmol/L 21.0-32.0 [facility] Work Phone: Free T4 [Mass/Vol] 1.07 ng/dL 0.76-1.46 [facility] Work Phone: Globulin (S) [Mass/Vol] 4.7 g/dL 2.2-4.2 [facility] Work Phone: Urea nitrogen/Creatinine [Mass ratio] 11.9 mg/mg 10-20 [facility] Work Phone: No Panel Informationon 06-25 Estimated GFR (MDRD) Amer 28 mL/min >60 [facility] Work Phone: Comment on above: GFR Calc Estimated GFR (MDRD) Non-Af Amer 24 mL/min >60 [facility] Work Phone: Comment on above: Non- GFR Calc Thyroid Stimulating Hormone (TSH) 1.71 uIU/mL 0.358-3.74 [facility] Work Phone: Vitamin D 25-Hydroxy 32.0 ng/mL [facility] Work Phone: Comment on above: Vitamin D 25(OH) Sta tus Range Deficiency <20 ng/mL (50nmol/L) Insufficiency 20 - 30 ng/mL (50 - 75 nmol/L) Sufficiency 30 - 100 ng/mL (75 - 250 nmol/L) Toxicity >100 ng/mL (>250 nmol/L) Serum or plasma albumin heidy urement (mass/volume)on 06-25-2021 Albumin [Mass/Vol] 3.1 g/dL 3.2-5.0 [facility] Work Phone: Serum or plasma albumin/glob ulin mass ratioon 06-25-2021 Albumin/Globulin [Mass ratio] 0.7 {ratio} 0.9-2.4 [facility] Work Phone: Serum or plasma calcium heidy urement (mass/volume)on 06-25-2021 Calcium [Mass/Vol] 9.1 mg/dL 8.5-10.1 [facility] Work Phone: Serum or plasma cholesterol in HDL measurement (mass/volume)on 06-25-2021 Cholesterol in HDL [Mass/Vol] 27 mg/dL >40 [facility] Work Phone: Comment on above: The drugs N-Acetylcy steine and Metamizole may falsely depress this assay. Reference Range HDL <40 mg/dL Low HDL Cholesterol HDL >or= 60 mg/dL High HDL Cholesterol Serum or plasma cholesterol in VLDL measurement (mass/volume)on 06-25-2021 Cholesterol in VLDL [Mass/Vol] [facility] Work Phone: Comment on above: Test not performed Serum or plasma creatinine m easurement (mass/volume)on 06-25-2021 Creatinine [Mass/Vol] 2.85 mg/dL 0.70-1.30 [facility] Work Phone: Comment on above: The validity of the calculated GFR & GFRAA in patients over 70 years has not been determined. Clinical correlation is essential. Serum or plasma low density lipoprotein (LDL) cholesterol measurement (mass/volume)on 06-25-2021 Cholesterol in LDL [Mass/Vol] [facility] Work Phone: Comment on above: Test not performed Serum or plasma urea nitroge n measurement (mass/volume)on 06-25-2021 Urea nitrogen [Mass/Vol] 34 mg/dL 7-18 [facility] Work Phone: Thin prep Papanicolaou smear with manual screeningon 06-25-2021 Thin prep Papanicolaou smear with manual screening 23 U/L 15-37 [facility] Work Phone: Thin prep Papanicolaou smear with manual screening 7 5-15 [facility] Work Phone: Whole blood hemoglobin A1c/t otal hemoglobin ratio (mass fraction)on 06-25-2021 HbA1c (Bld) [Mass fraction] 6.8 % 3.8-5.6 [facility] Work Phone: Comment on above: Normal < 5.7 % Predi abetic 5.7 - 6.4 % Diabetic >or= 6.5 % Please note range changes. Basophil percentageon 2020 Chloride [Moles/Vol] 106 mmol/L 98-107 [facility] Work Phone: Glucose [Mass/Vol] 83 mg/dL 74-106 [facility] Work Phone: Comment on above: Please note revised GLUCOSE reference range effective 2017. Potassium [Moles/Vol] 4.8 mmol/L 3.5-5.[address] [facility] Work Phone: Sodium [Moles/Vol] 138 mmol/L 136-145 [facility] Work Phone: WBC (Bld) [#/Vol] 8.8 10*3/uL 4.4-11.0 [facility] Work Phone: Blood erythrocytes count (nu mber/volume)on 03-26-2021 RBC (Bld) [#/Vol] 4.80 10*6/uL 4.6-6.2 [facility] Work Phone: Blood hemoglobin measurement (mass/volume)on 03-26-2021 Hemoglobin (Bld) [Mass/Vol] 13.3 g/dL 13.0-16.5 [facility] Work Phone: Blood platelet mean volumeon 03-26-2021 Platelet mean volume (Bld) [Entitic vol] 10.2 fL 6.2-12.0 [facility] Work Phone: Determination of erythrocyte mean corpuscular volume (MCV)on 03-26-2021 MCV (RBC) [Entitic vol] 87.7 fL 80-94 [facility] Work Phone: Hematocrit Auto (Bld) [Volum e fraction]on 03-26-2021 Hematocrit (Bld) [Volume fraction] 42.1 % 40-54 [facility] Work Phone: Laboratory - Chemistry and C hemistry - challengeon 03-26-2021 CO2 [Moles/Vol] 23.0 mmol/L 21.0-32.0 [facility] Work Phone: Urea nitrogen/Creatinine [Mass ratio] 15.4 mg/mg 10-20 [facility] Work Phone: Laboratory - Hematology and Cell countson 03-26-2021 Erythrocyte distribution width (RBC) [Entitic vol] 45.3 fL 35.1-43.9 [facility] Work Phone: Erythrocyte distribution width (RBC) [Ratio] 14.0 % 11.6-14.6 [facility] Work Phone: MCH (RBC) [Entitic mass] 27.7 pg 27.0-32.0 [facility] Work Phone: MCHC Auto (RBC) [Mass/Vol]on 03-26-2021 MCHC (RBC) [Mass/Vol] 31.6 g/dL 32-36 [facility] Work Phone: No Panel Informationon 03-26 Estimated GFR (MDRD) Amer 36 mL/min >60 [facility] Work Phone: Comment on above: GFR Calc Estimated GFR (MDRD) Non-Af Amer 30 mL/min >60 [facility] Work Phone: Comment on above: Non- GFR Calc Parathyroid Hormone (Intact) 103.5 pg/mL 18.4-80.1 [facility] Work Phone: Vitamin D 25-Hydroxy 33.3 ng/mL [facility] Work Phone: Comment on above: Vitamin D 25(OH) Sta tus Range Deficiency <20 ng/mL (50nmol/L) Insufficiency 20 - 30 ng/mL (50 - 75 nmol/L) Sufficiency 30 - 100 ng/mL (75 - 250 nmol/L) Toxicity >100 ng/mL (>250 nmol/L) Platelets bldon 03-26-2021 Platelets (Bld) [#/Vol] 432 10*3/uL 150-450 [facility] Work Phone: Serum or plasma calcium heidy urement (mass/volume)on 03-26-2021 Calcium [Mass/Vol] 9.1 mg/dL 8.5-10.1 [facility] Work Phone: Serum or plasma creatinine m easurement (mass/volume)on 03-26-2021 Creatinine [Mass/Vol] 2.34 mg/dL 0.70-1.30 [facility] Work Phone: Comment on above: The validity of the calculated GFR & GFRAA in patients over 70 years has not been determined. Clinical correlation is essential. Serum or plasma urea nitroge n measurement (mass/volume)on 03-26-2021 Urea nitrogen [Mass/Vol] 36 mg/dL 7-18 [facility] Work Phone: Thin prep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
== END | disposition home or self-care (01) ==
LOC: MFPLAB 09:22
PROVIDERS: PCP Family Medicine; Visit Provider Family Medicine
DX: E11.22 Type 2 diabetes mellitus with diabetic chronic kidney disease (principal); N18.4 Chronic kidney disease, stage 4 (severe); E03.9 Hypothyroidism, unspecified
CPT/HCPCS: 36415; 80053; 80061; 82306; 82570; 83036; 84100; 84156; 84439; 84443; 85025

== ENCOUNTER → 2025-02-06 | Outpatient (CLI) | payer MEDICARE, SELFPAY ==
[2025-02-06 09:24] LABS: Mucous, Urine 0 SEEN /hpf (<or=2+); Red Blood Cells-Urine 0 SEEN /hpf (0-5); Squamous Epithelial Cells - UA 0 SEEN /hpf (0-5)
[2025-02-06 09:53] LABS: Hematocrit 36.8 % (40-54); Hemoglobin 12.2 g/dL (13.0-16.5); Immature Granulocytes Count 0.030 X10^3/uL (0.0-0.0); Mean Corp Hgb Conc 33.2 g/dL (32-36); Mean Corpuscular Volume 84.4 fL (80-94); Mean Platelet Vol. 9.5 fl (6.2-12.0); NRBC Flagged by Analyzer 0 % (0-5); Platelet Count 313 K/mm3 (150-450); RBC Distribution Width CV 14.6 % (11.6-14.6); RBC Distribution Width SD 44.7 fl (35.1-43.9); Red Blood Count 4.36 M/mm3 (4.6-6.2); White Blood Count 7.8 K/mm3 (4.4-11.0)
[2025-02-06 09:57] LABS: Color, Urine Straw (Yellow); Glucose, Dipstick 250 mg/dl (Normal); Ketone-Dipstick Negative (Negative); Leukocyte Esterase-Dipstick Negative /ul (Negative); Nitrite-Dipstick Negative (Negative); Occult Blood-Urine 10 /ul (Negative); Protein-Dipstick 500 mg/dl (Negative); Specific Gravity, Urine 1.010 (1.002-1.030); Urine Bilirubin Dipstick Negative (Negative)
[2025-02-06 10:31] LABS: Creatinine, Urine (random) 49.40 mg/dL (39.00-259.00)
[2025-02-06 10:44] LABS: Microalbumin,Random Urine 1929.0 mg/L (<20 mg/L); Protein, Urine (Random) 307.0 mg/dL (0.0-12.0); Protein:Creat Ratio 6215 mg/g CRE (0-200)
[2025-02-06 13:30] LABS: AST(SGOT) 11 U/L (<=37); Alanine Aminotransfer ALT/SGPT 11 U/L (<=46); Albumin, Serum 3.7 g/dL (3.4-4.8); Alkaline Phosphatase 75 U/L (40-129); Anion Gap 12 (5-15); BUN 29 mg/dL (4-19); BUN/Creat Ratio 8.3 RATIO (10-20); Calcium,Total 9.3 mg/dL (7.6-11.0); Carbon Dioxide 21.4 mmol/L (21.0-32.0); Chloride 102 mmol/L (98-108); Cholesterol 270 mg/dL (<=200); Globulin 3.3 g/dL (2.2-4.2); Glucose 188 mg/dL (70-99); Low Density Lipoprotein Calc. 200 mg/dL; Potassium 4.7 mmol/L (3.3-5.1); Triglycerides 144 mg/dL; Very Low Density Lipoprotein 29 mg/dL (5-40); Vitamin D,25 Hydroxy 38.8 ng/mL (30-100); cholesterol:hdl ratio screen 6.21
[2025-02-06 13:57] LABS: PTHIN 202 pg/mL (11-61)
[2025-02-09 12:08] LABS: Vitamin D 1,25-Dihydroxy 37.8 pg/mL (24.8-81.5)
== END | disposition home or self-care (01) ==
LOC: MFPLAB 09:17
PROVIDERS: PCP Family Medicine; Visit Provider Family Medicine
DX: R80.9 Proteinuria, unspecified (principal); N18.4 Chronic kidney disease, stage 4 (severe); E11.22 Type 2 diabetes mellitus with diabetic chronic kidney disease; N25.81 Secondary hyperparathyroidism of renal origin; E55.9 Vitamin D deficiency, unspecified; E03.9 Hypothyroidism, unspecified
CPT/HCPCS: 80053; 80061; 81001; 82043; 82306; 82570; 82652; 83036; 83970; 84100; 84156; 84439; 84443; 85025